=== PATIENT | female | born 1935 | race Caucasian/White ===

== ENCOUNTER 2017-03-31 15:27 | Emergency (ER) | payer OTHER, BC ==
--- NOTE | 2017-03-31 16:33 | PDOC ---
History of Present Illness - General History Source: Patient, Family Exam Limitations: No Limitations - History of Present Illness Initial Comments: 03/31/17 16:34 The patient is an 81 year old female, previous cigarette smoker, with a past significant medical history of hypertension and hyperlipidemia who presents to the emergency department with a productive cough since a week ago and decreased appetite. She describes her phlegm as green colored. She denies any modifying factors. She reports going to her primary care physician 2 weeks ago. She reports going to an urgent care clinic two days ago for her cough. She denies any recent chest x-ray. She denies any nausea or vomiting. She denies any shortness of breath and chest pain. She ambulates normally. <Ca Gifford - Last Filed: 03/31/17 16:33> - History of Present Illness Initial Comments: 03/31/17 18:01 Exam: Alert and oriented no acute distress cheerful and cooperative Afebrile, vital signs normal HEENT clear Neck supple without bruit mass or nodes Chest clear to P&A with full breath sounds bilaterally, no wheezes rales or rhonchi CV S1 and S2 normal without murmur rub or gallop pulses full and symmetric no JVD or edema no bruits Abdomen benign Extremities no CCE Skin clear, no rash, adequate turgor and wet mucous membranes X-ray: Clear Impression: Bronchitis, persistent, no prior therapy or possibly atypicals Plan: Azithromycin and cough suppressant. Rest and fluids. Follow-up with primary physician. Return to ER if there is fever, chest pain, or shortness of breath. Patient fully ambulatory and without distress respiratory or otherwise upon discharge with family to follow-up as recommended <Nigel Mcfarland - Last Filed: 03/31/17 18:03> - General Chief Complaint: Cold Symptoms Stated Complaint: COUGH Time Seen by Provider: 03/31/17 15:45 Past History <Ca Gifford - Last Filed: 03/31/17 16:33> <Nigel Mcfarland - Last Filed: 03/31/17 18:03> - Past Medical History Allergies/Adverse Reactions: Allergies Allergy/AdvReac Type Severity Reaction Status Date / Time No Known Allergies Allergy Verified 03/31/17 15:29 Home Medications: Ambulatory Orders Aspirin 81 mg PO DAILY 11/17/14 Diltiazem HCl [Cartia Xt] 120 mg PO DAILY 11/17/14 Diltiazem HCl [Cartia Xt] 240 mg PO DAILY 11/17/14 Escitalopram Oxalate [Lexapro 5mg/5ml Oral Solution -] 20 mg PO DAILY #600 ml Olmesartan/Hydrochlorothiazide [Benicar Hct 20-12.5mg Tab -] 1 each PO DAILY tablet 11/17/14 Rosuvastatin Calcium [Crestor] 10 mg PO HS tablet 11/17/14 Alprazolam [Xanax] 0.25 mg PO HS 03/31/17 Azithromycin [Zithromax -] 250 mg PO UTDICT #6 tab 03/31/17 Guaifenesin AC [Robitussin-AC] 1 - 2 tsp PO Q8H PRN #90 ml MDD 6 03/31/17 Review of Systems - Review of Systems Able to Perform ROS?: Yes Comments:: 03/31/17 16:34 CONSTITUTIONAL: Absent: fever, no chills, no fatigue EYES: Absent: visual changes ENT: Absent: ear pain, no sore throat CARDIOVASCULAR: Absent: chest pain, no palpitations RESPIRATORY: Present: Productive Cough (green phlegm) Absent: no SOB GI: Present: Decreased appetite Absent: abdominal pain, no nausea, no vomiting, no constipation, no diarrhea GENITOURINARY: Absent: dysuria, no frequency, no hematuria MUSKULOSKELETAL: Absent: back pain, no arthralgia, no myalgia SKIN: Absent: rash NEURO: Absent: headache All Other Systems: Reviewed and Negative <Ca Gifford - Last Filed: 03/31/17 16:33> *Physical Exam - Physical Exam Comments: 03/31/17 16:36 GENERAL: Well-appearing, well-nourished. No apparent distress. HEENT: Normocephalic, atraumatic. PERRL, EOM intact. CARDIOVASCULAR: Normal S1, S2. Regular rate and rhythm. PULMONARY: Congestion greater on the right side, mild wheezing bilaterally. No rales, rhonchi. ABDOMEN: Soft, non-distended, non-tender. EXTREMITIES: Normal ROM in all four extremities. No gross deformities. SKIN: Warm, dry. No rash NEUROLOGICAL: No focal neurological deficits. <Ca Gifford - Last Filed: 03/31/17 16:33> Medical Decision Making - Medical Decision Making 03/31/17 17:19 Chest x-ray is clear Respiratory rate and oxygen saturation levels are normal. Probable acute bronchitis, no sign of pneumonia or respiratory compromise. Antibiotics and cough medication prescribed with follow-up primary physician in 5-7 days Return to ER if there is chest pain, shortness of breath, or fever. Patient ambulatory and discharged with family, in no distress respiratory or otherwise, to follow-up as recommended <Nigel Mcfarland - Last Filed: 03/31/17 18:03> *DC/Admit/Observation/Transfer - Attestations Scribe Attestion: 03/31/17 16:33 Documentation prepared by Ca Gifford, acting as medical equipment sales for Nigel Mary MD/DO. <Ca Gifford - Last Filed: 03/31/17 16:33> - Discharge Dispostion Admit: No <Nigel Mcfarland - Last Filed: 03/31/17 18:03> Diagnosis at time of Disposition: Bronchitis - Discharge Dispostion Disposition: HOME Condition at time of disposition: Stable - Prescriptions Prescriptions: Azithromycin [Zithromax -] 250 mg PO UTDICT #6 tab Guaifenesin AC [Robitussin-AC] 1 - 2 tsp PO Q8H PRN #90 ml MDD 6 PRN Reason: Cough - Patient Instructions Printed Discharge Instructions: DI for Acute Bronchitis Additional Instructions: Rest, fluids, Tylenol, medication as directed Return to ER if there is fever, chest pain, shortness of breath. Otherwise follow-up with primary physician in 5-7 days.
[2017-03-31 16:42] VITALS: BP 146/86; PULSE 76; TEMP 98.4; BMI 18.9
== END 2017-03-31 17:37 | disposition home or self-care (01) ==
LOC: FER 15:27
DX: J40 Bronchitis, not specified as acute or chronic (principal); I10 Essential (primary) hypertension; E78.5 Hyperlipidemia, unspecified
CPT/HCPCS: 71046-TC-FY; 99281-25

== ENCOUNTER 2018-03-27 11:26 | Inpatient (IN) | payer OTHER, BC ==
--- NOTE | 2018-03-27 11:59 | PDOC ---
History of Present Illness - General Chief Complaint: Altered Mental Status Stated Complaint: CONFUSE Time Seen by Provider: 03/27/18 11:58 History Source: Patient, Family Exam Limitations: No Limitations - History of Present Illness Initial Comments: 03/27/18 12:35 81 year old female, smoker, with a past significant medical history of hypertension and hyperlipidemia, depression who presents to the emergency department with AMS x 2 days. Per family, she has been having intermittent periods of confusion and visual hallucinations, where she is seeing her house tovar as black. yesterday she called her son at 1230AM to get a wedding gift for her sons brother in law. Yesterday, she also complained of her neighbors disturbing her [employer]. Over the past 2 days, also decreased PO intake. +nasal congestion. No auditory hallucinations. No f/c, cough; no AP, n/v, urinary sx, hematuria, urgency or frequency. No leg pain or swelling, no weakness or paresthesias or focal neuro changes. No recent abx use, no recent medication changes (uses lexapro. Diovan, crestor, vitamins) No recent stressors. No prior history of confusion Allergies: NKA Past Medical History: hypertension and hyperlipidemia, depression Social history: Lives at home. No smoking. No alcohol. No illicit drugs. Surgical history: [facility] PMD: Dr Phoenix ROS Constitutional: no fevers or chills. HEENT: no headache or dizziness. CVS: no cp or syncope. Resp: no sob. No cough. +nasal congestion. Gastrointestinal: no abdominal pain, nausea or vomiting. Genitourinary: no urinary sx, hematuria. No frequency or urgency. MUSCULOSKELETAL: No joint pain and swelling. No neck or back pain. SKIN: no redness or skin changes, no discharge, no rash. No wounds. Hematologic: no easy bruising/bleeding. NEUROLOGIC: No headache, dizziness. No weakness, numbness or tingling. + Confusion, waxes/wanes. +visual hallucinations; no AH. Allergic/Immunologic: no allergies All other systems reviewed and negative, or as documented in HPI. PE: General: Well appearing, awake and alert, NAD. HEENT: NCAT, PERRL, EOMI, clear conjunctiva, anicteric, moist mucus membranes, clear oropharynx, no oral lesions.. Neck: neck supple, FROM Resp: CTAB, normal and even respirations, no respiratory distress CVS: RRR, no murmurs, 2+ peripheral pulses throughout, no peripheral edema Abdomen: soft, NTND, no peritoneal signs. Back: nontender, normal inspection and ROM MSK: no edema, ARMENDARIZ x4, ROM intact. No clubbing or cyanosis. normal bulk and tone. Extremities: no calf tenderness Neuro: alert, oriented appropriately to person time and place; no focal neurologic deficits; gait stable. 5/5 prox and distal strength, SILT in all extrem. no ataxia. speech clear Skin: warm and well perfused, cap refill <2 sec, normal color Past History - Past Medical History Allergies/Adverse Reactions: Allergies Allergy/AdvReac Type Severity Reaction Status Date / Time No Known Allergies Allergy Verified 03/27/18 11:33 Home Medications: Ambulatory Orders Aspirin 81 mg PO DAILY 11/17/14 Diltiazem HCl [Cartia Xt] 120 mg PO DAILY 11/17/14 Diltiazem HCl [Cartia Xt] 240 mg PO DAILY 11/17/14 Escitalopram Oxalate [Lexapro 5mg/5ml Oral Solution -] 20 mg PO DAILY #600 ml Olmesartan/Hydrochlorothiazide [Benicar Hct 20-12.5mg Tab -] 1 each PO DAILY tablet 11/17/14 Rosuvastatin Calcium [Crestor] 10 mg PO HS tablet 11/17/14 Mirtazapine 15 mg PO DAILY 03/27/18 COPD: No - Suicide/Smoking/Psychosocial Hx Smoking History: Current every day smoker Have you smoked in the past 12 months: Yes Number of Cigarettes Smoked Daily: 5 Information on smoking cessation initiated: No 'Breaking Loose' booklet given: 03/31/17 Hx Alcohol Use: No Drug/Substance Use Hx: No Substance Use Type: None *Physical Exam - Vital Signs Last Vital Signs Temp Pulse Resp BP Pulse Ox 98.2 F 98 H 16 105/53 L 100 03/27/18 11:33 03/27/18 11:33 03/27/18 11:33 03/27/18 11:33 03/27/18 11:33 Moderate Sedation - Procedure Monitoring Vital Signs: Procedure Monitoring Vital Signs Temperature 98.2 F 03/27/18 11:33 Pulse Rate 98 H 03/27/18 11:33 Respiratory Rate 16 03/27/18 11:33 Blood Pressure 105/53 L 03/27/18 11:33 O2 Sat by Pulse Oximetry (%) 100 03/27/18 11:33 Heart Score/ECG Review - ECG Impressions Normal ECG: No Comment:: 03/27/18 14:23 EKG normal sinus rhythm, no interval abnormalities, narrow QRS, ST and T wave segments and morphology normal. Nonspecific T wave abnormalities - some limitation with artifact ED Treatment Course - LABORATORY CBC & Chemistry Diagram: 03/27/18 12:15 03/27/18 12:15 - RADIOLOGY Radiology Studies Ordered: Category Date Time Status HEAD CT WITHOUT CONTRAST [CT] Stat CT Scan 03/27/18 11:58 Ordered CHEST X-RAY PORTABLE* [RAD] Stat Radiology 03/27/18 11:58 Ordered Medical Decision Making - Medical Decision Making 03/27/18 13:14 See HPI for details DDx. UTI, pneumonia, infection, electrolyte/metabolic derangements, dehydration , anemia, CVA, dementia, delirium, PERSONNEL TECHNICIAN mass/pathology Vital signs reviewed, wnl. No fever here Prior notes reviewed, including admissions, discharges and consultations. laboratory results and imaging reviewed, basic labs and lytes notable for significant leukocytosis of 20K Cr elevated 1.6, acute renal insufficiency, likely poor PO intake. Hyponatremic 123, likely hypovolemic - give fluids. currently no neuro deficits , mental status wax/wanes, otherwise well appearing and no indication for hypertonics. lactic normal, reassuring. UA_grossly positive, correlating with acute UTI with +WBC s and leuk esterase. f /u urine culture. Given IV ceftriaxone here +transaminitis noted CXR_no acute pathology, left base atelectasis vs infection, no respiratory distress and no pna sx. Cardiac panel_Trop elevated 1.07, could be NSTEMI vs demand ischemia, no ST elevations on EKG. EKG normal sinus rhythm, no interval abnormalities, narrow QRS, ST and T wave segments and morphology normal. Nonspecific T wave abnormalities - some limitation with artifact CT head neg, volume loss/atrophy. no CVA/bleed/mass ED course: IVF and hydration for hyponatremia/infection/ARLINE, UTI tx with ceftriaxone derangements possibly from dehydration/infection, further workup initiated. cardiology cs with [facility], called to dr damon update given to Dr. Phoenix/PMD. Admit for UTI/AMS, ARLINE, NSTEMI/demand ischemia, infection and hyponatremia.. Pt and PMD made aware, family aware of impression and plan, agreeable. s/o to Dr Kellogg 03/27/18 14:24 *DC/Admit/Observation/Transfer Diagnosis at time of Disposition: Leukocytosis, Hyponatremia, Acute renal insufficiency Altered mental status, unspecified Qualifiers: Altered mental status type: delirium Qualified Code(s): R41.0 - Disorientation , unspecified UTI (urinary tract infection) Qualifiers: Urinary tract infection type: acute cystitis Hematuria presence: with hematuria Qualified Code(s): N30.01 - Acute cystitis with hematuria - Discharge Dispostion Condition at time of disposition: Improved Decision to Admit order: Yes Decision to Admit order Date/Time: 03/27/18 13:21 Decision to Admit Order Category Date Time Status Decision to Admit to Hospital Routine Admission 03/27/18 13:15 Active - Referrals - Patient Instructions - Post Discharge Activity
[2018-03-27 12:25] LABS: URINE APPEARANCE CLOUDY; URINE BILIRUBIN NEGATIVE (<2.0 mg/dL); URINE COLOR AMBER; URINE GLUCOSE (UA) NEGATIVE (NEGATIVE); URINE KETONE NEGATIVE (NEGATIVE); URINE LEUK ESTERASE 3+ (NEGATIVE); URINE NITRITE NEGATIVE (NEGATIVE); URINE PROTEIN 2+ (NEGATIVE); URINE UROBILINOGEN 4.0 E.U/dl mg/dL (0.2-1.0)
[2018-03-27 12:35] LABS: EPI CELLS MANY /HPF (FEW); URINE BACTERIA RARE /hpf (NONE SEEN); URINE HYALINE CAST 2 /lpf; URINE MUCUS RARE
[2018-03-27 12:43] LABS: BASO % 0.1 % (0-2.0); EOS % 13.4 % (0-4.5); HEMATOCRIT 41.3 % (32.4-45.2); HEMOGLOBIN 14.3 GM/dL (10.7-15.3); MCH 30.4 pg (25.7-33.7); MCHC 34.5 g/dl (32.0-36.0); MEAN CELL VOLUME 88.1 fl (80-96); MONO % 2.5 % (3.8-10.2); PLATELET COUNT 247 K/MM3 (134-434); RBC 4.68 M/mm3 (3.60-5.2); RDW 13.8 % (11.6-15.6); WHITE BLOOD COUNT 20.7 K/mm3 (4.0-10.0)
[2018-03-27] MEDS ORDERED: CEFTRIAXONE 1,000 MG in DEXTROSE 5%-WATER - 50 ML IVPB ONE (13:02)
[2018-03-27 13:08] LABS: ALBUMIN 3.4 g/dl (3.4-5.0); ALK PHOS 937 U/L (45-117); ANION GAP 9 MMOL/L (8-16); BILIRUBIN,TOTAL 0.9 mg/dL (0.2-1); BLOOD UREA NITROGEN 36 mg/dL (7-18); CALCIUM 8.7 mg/dL (8.5-10.1); CHLORIDE 88 mmol/L (98-107); CO2 25 mmol/L (21-32); CREATININE 1.6 mg/dL (0.55-1.3); GLUCOSE,RANDOM 109 mg/dL (74-106); POTASSIUM 4.3 mmol/L (3.5-5.1); SGOT/AST 96 U/L (15-37); SGPT/ALT 300 U/L (13-61); SODIUM 123 mmol/L (136-145); TOT PROT 6.6 g/dl (6.4-8.2)
[2018-03-27] MEDS ORDERED: SODIUM CHLORIDE 0.9% 500 ML INFUS.BAG IV ONE (13:18)
[2018-03-27] MEDS ORDERED: ASPIRIN 81 MG CHEWABLE TABLETS PO ONE (13:18)
[2018-03-27] MEDS ORDERED: ASPIRIN 81 MG CHEWABLE TABLETS ONE (13:27)
[2018-03-27] MEDS ORDERED: CEFTRIAXONE 1 GM/50 ML BAG ONE (13:27)
--- NOTE | 2018-03-27 14:20 | HP ---
Admitting History and Physical - Primary Care Physician PCP: Dora Reaves - Admission Chief Complaint: sepsis History of Present Illness: 82 year old female pmh of HTN, HLD, Anxiety presents with acute altered mental status. Pt was brought in by family for confusion/visual hallucinations for 1-2 days. Family reports pt has been reporting she "has not been feeling well" for the last couple of days. Pt reports her son brought her in. Reports poor po intake for weeks. Pt also c/o feeling dizzy once yesterday. Otherwise, pt reports feeling okay at the moment. She denies any chest pain, chest discomfort , sob, lightheadedness, fall, fever/chills, abdominal pain, n/v/d, dysuria, back pain, slurred speech, rash, or recent travel. History Source: Patient, Family Member, Medical Record Limitations to Obtaining History: Clinical Condition - Past Medical History Cardiovascular: Yes: CAD, HTN, Hyperlipdemia Psych: Yes: Anxiety, Depression - Smoking History Smoking history: Current every day smoker Have you smoked in the past 12 months: Yes Aproximately how many cigarettes per day: 5 - Alcohol/Substance Use Hx Alcohol Use: No History of Substance Use: reports: None - Social History Usual Living Arrangement: Yes: Alone ADL: Independent History of Recent Travel: No Home Medications - Allergies Allergies/Adverse Reactions: Allergies Allergy/AdvReac Type Severity Reaction Status Date / Time No Known Allergies Allergy Verified 03/27/18 11:33 - Home Medications Home Medications: Ambulatory Orders Aspirin 81 mg PO DAILY 11/17/14 Diltiazem HCl [Cartia Xt] 120 mg PO DAILY 11/17/14 Diltiazem HCl [Cartia Xt] 240 mg PO DAILY 11/17/14 Escitalopram Oxalate [Lexapro 5mg/5ml Oral Solution -] 20 mg PO DAILY #600 ml Olmesartan/Hydrochlorothiazide [Benicar Hct 20-12.5mg Tab -] 1 each PO DAILY tablet 11/17/14 Rosuvastatin Calcium [Crestor] 10 mg PO HS tablet 11/17/14 Mirtazapine 15 mg PO DAILY 03/27/18 Family Disease History - Family Disease History Family History: Denies Review of Systems Findings/Remarks: as per hpi Physical Examination Vital Signs: Vital Signs Temperature 98.2 F 03/27/18 11:33 Pulse Rate 90 03/27/18 12:43 Respiratory Rate 16 03/27/18 11:33 Blood Pressure 105/53 L 03/27/18 11:33 O2 Sat by Pulse Oximetry (%) 100 03/27/18 11:33 Constitutional: Yes: No Distress, Thin Cardiovascular: Yes: Regular Rate and Rhythm Respiratory: Yes: WNL, Regular, CTA Bilaterally, Diminished. No: Accessory Muscle Use, Tachypnea, Wheezes Gastrointestinal: Yes: WNL, Normal Bowel Sounds, Soft. No: Distention, Hepatomegaly, Tenderness, Tenderness, Rebound, Vomiting Renal/: Yes: WNL Musculoskeletal: Yes: WNL Extremities: Yes: WNL Edema: No Neurological: Yes: Alert, Confusion. No: Facial Droop, Lethargy Psychiatric: Yes: Alert Labs: CBC, BMP 03/27/18 12:15 03/27/18 12:15 Imaging - Results Chest X-ray: Report Reviewed (no acute findings), Image Reviewed Cat Scan: Report Reviewed (head CT neg) Problem List - Problems (1) Sepsis Assessment/Plan: tachycardic, hypotensive, +ams at admission wbc 20k, fawad, transaminitis 2/2 sepsis lactic acid 1.6 suspect 2/2 UTI UA +, await UC/BC IVF ceftriaxone monitor Code(s): A41.9 - SEPSIS, UNSPECIFIED ORGANISM (2) UTI (urinary tract infection) Assessment/Plan: as above Code(s): N39.0 - URINARY TRACT INFECTION, SITE NOT SPECIFIED Qualifiers: Urinary tract infection type: acute cystitis Hematuria presence: with hematuria Qualified Code(s): N30.01 - Acute cystitis with hematuria (3) Metabolic encephalopathy Assessment/Plan: head ct neg suspect 2/2 sepsis tx underlying and monitor for improvement Code(s): G93.41 - METABOLIC ENCEPHALOPATHY (4) Leukocytosis Assessment/Plan: as above Code(s): D72.829 - ELEVATED WHITE BLOOD CELL COUNT, UNSPECIFIED (5) Hyponatremia Assessment/Plan: hypovolemic urine/serum osm/urine na ordered avoid rapid na correction >8 /24hours will hydrate with NaCl and monitor Code(s): E87.1 - HYPO-OSMOLALITY AND HYPONATREMIA (6) Elevated troponin Assessment/Plan: ekg w/out acute changes does not suspect ACS suspect demand 2/2 sepsis trend tele monitoring cardiology consult pending Code(s): R74.8 - ABNORMAL LEVELS OF OTHER SERUM ENZYMES (7) FAWAD (acute kidney injury) Assessment/Plan: suspect pre renal IVF encourage po intake Code(s): N17.9 - ACUTE KIDNEY FAILURE, UNSPECIFIED (8) Transaminitis Assessment/Plan: 2/2 sepsis monitor Code(s): R74.0 - NONSPEC ELEV OF LEVELS OF TRANSAMNS & LACTIC ACID DEHYDRGNSE (9) CAD (coronary artery disease) Assessment/Plan: as above continue statin/asa Code(s): I25.10 - ATHSCL HEART DISEASE OF [place] CORONARY ARTERY W/O ANG PCTRS Qualifiers: Coronary Disease-Associated Artery/Lesion type: teller artery [place] vs. transplanted heart: teller heart Associated angina: without angina Qualified Code(s): I25.10 - Atherosclerotic heart disease of [place] coronary artery without angina pectoris (10) HTN (hypertension) Assessment/Plan: hypotensive holding antihypertensives Code(s): I10 - ESSENTIAL (PRIMARY) HYPERTENSION Qualifiers: Hypertension type: essential hypertension Qualified Code(s): I10 - Essential (primary) hypertension (11) HLD (hyperlipidemia) Assessment/Plan: chronic continue statin Code(s): E78.5 - HYPERLIPIDEMIA, UNSPECIFIED (12) Tobacco dependence Assessment/Plan: advise smoking cessation nicotine patch ordered Code(s): F17.200 - NICOTINE DEPENDENCE, UNSPECIFIED, UNCOMPLICATED (13) Anxiety Assessment/Plan: controlled continue lexapro/mirtazapine Code(s): F41.9 - ANXIETY DISORDER, UNSPECIFIED
--- NOTE | 2018-03-27 15:49 | EKG ---
Test Reason : Blood Pressure : / mmHG Vent. Rate : 090 BPM Atrial Rate : 090 BPM P-R Int : 134 ms QRS Dur : 068 ms QT Int : 376 ms P-R-T Axes : 047 073 084 degrees QTc Int : 459 ms POOR DATA QUALITY, INTERPRETATION MAY BE ADVERSELY AFFECTED SINUS RHYTHM WITH OCCASIONAL PREMATURE VENTRICULAR COMPLEXES LOW VOLTAGE QRS T WAVE ABNORMALITY, CONSIDER LATERAL ISCHEMIA ABNORMAL ECG NO PREVIOUS ECGS AVAILABLE Confirmed by Rik Layton ([id number]) on 03/27/2018 3:49:23 PM Referred By: Confirmed By:Rik Layton
[2018-03-27] MEDS: SODIUM CHLORIDE 1,000 ML IV SCH (16:00)
--- NOTE | 2018-03-27 16:12 | CON.CARD ---
Consult Consult Specialty:: cardio - History of Present Illness Chief Complaint: confusion, hallucinations (visual) History of Present Illness: 82 brought by family for altered mental status. in ER found to have soft BPs (100s), hi WBC, normal temp, normal lactate. SNa 123. dirty UA--started on abx for UTI. ALT 300, hi alk phos as well 900 (normal bili). routine troponin 1.0 pt (and family at bedside) state at no point did she have any cp/pressure/ tightness/heaviness. and no sob at all. feeling well here, with improved mental status per family. she also denies palpitations or syncope PMH: CAD (medically treated) HTN HPL + cigs - Past Medical History Cardio/Vascular: Yes: CAD, HTN, Hyperlipdemia Psych: Yes: Anxiety, Depression - Alcohol/Substance Use Hx Alcohol Use: No History of Substance Use: reports: None - Smoking History Smoking history: Current every day smoker Have you smoked in the past 12 months: Yes Aproximately how many cigarettes per day: 5 - Social History ADL: Independent History of Recent Travel: No Home Medications - Allergies Allergies/Adverse Reactions: Allergies Allergy/AdvReac Type Severity Reaction Status Date / Time No Known Allergies Allergy Verified 03/27/18 11:33 - Home Medications Home Medications: Ambulatory Orders Aspirin 81 mg PO DAILY 11/17/14 Diltiazem HCl [Cartia Xt] 120 mg PO DAILY 11/17/14 Diltiazem HCl [Cartia Xt] 240 mg PO DAILY 11/17/14 Escitalopram Oxalate [Lexapro 5mg/5ml Oral Solution -] 20 mg PO DAILY #600 ml Olmesartan/Hydrochlorothiazide [Benicar Hct 20-12.5mg Tab -] 1 each PO DAILY tablet 11/17/14 Rosuvastatin Calcium [Crestor] 10 mg PO HS tablet 11/17/14 Mirtazapine 15 mg PO DAILY 03/27/18 Vital Signs: Vital Signs Temperature 98.2 F 03/27/18 11:33 Pulse Rate 94 H 03/27/18 15:30 Respiratory Rate 20 03/27/18 15:30 Blood Pressure 106/56 L 03/27/18 15:30 O2 Sat by Pulse Oximetry (%) 100 03/27/18 15:30 - Other Data Labs, Other Data: CBC, BMP 03/27/18 12:15 03/27/18 12:15 Troponin, BNP 03/27/18 12:15 Troponin I 1.07 H* Troponin, BNP 03/27/18 12:15 Troponin I 1.07 H* Laboratory Tests 03/27/18 03/27/18 03/27/18 12:15 12:15 12:15 WBC 20.7 H Hgb 14.3 Plt Count 247 Sodium 123 L Potassium 4.3 Carbon Dioxide 25 BUN 36 H Creatinine 1.6 H Lactic Acid 1.6 Total Bilirubin 0.9 AST 96 H ALT 300 H Alkaline Phosphatase 937 H Troponin I Albumin 3.4 03/27/18 12:15 WBC Hgb Plt Count Sodium Potassium Carbon Dioxide BUN Creatinine Lactic Acid Total Bilirubin AST ALT Alkaline Phosphatase Troponin I 1.07 H* Albumin Assessment/Plan MIBI 2010: no STs; mild AW ischemia; nl EF Echo 2015: nl LV/EF; nl RV; nl valves Carotids 2015: 50-69% plq bilaterally (PSV 145 R, 162 L), no sig change vs prior ECG#1: NSR. 0.5mm ST elevation V4-V6, I/avL with TWIs. no reciprocal ST depressions. new vs 12/14 office ecg #2 (approx 4pm): no change in ST-T abnormalities (<0.5mm ALEX now), prolonged QT CXR: may be atx or infiltrate L base CT head: no acute pathology altered MS: -sec to infection and/or hyponatremia most likely -LFT abnormalities noted, albumin normal. check coags for synthetic function, ammonia level NSTEMI, Chronic ischemic heart disease -stress test 2010 with mild anterior wall ischemia. medically managed, never had angina sx's, declined repeat stress testing or cath repeatedly. -here with metabolic derangements and altered MS, incidental troponin 1.0 -no ischemia sx's. -ECG with non-diagnostic changes of 0.5mm ST elevations in anterolateral territory and nonspecific TWIs = new. repeat with similar findings, prolonged QT. no reciprocal depressions--hence ECG not diagnostic for STEMI and pt without sx's of acute ischemia. -? true ACS triggered by acute infection (i.e. NSTEMI) but asymptomatic--more likely this is Type II MS (involving chronic, stable LAD lesion) or sepsis etiology/metabolic perturbations -continue aspirin -defer heparin unless sx's of ACS develop -hold statin given unexplained hi LFTs -will likely start low dose b-rina if BP stable over next 24 hrs -echo for LV fxn -will consider risk-stratifying pharm MPI prior to discharge ARLINE: -? due to URI, ? due to infection -gentle IVF -o/w per hospitalist abnormal LFTs: -per hospitalist. consider further w/u and/or imaging hyponatremia: -observe trend with normal saline -plan per hospitalist Essential hypertension -known white coat HTN history -has been well controlled with pmd in our practice on current regimen -bp soft here, hold home meds Nicotine dependence continuous -repeatedly declined cessation assistance or counselling as she feels her anxiety will not tolerate quitting est time spent in review of data, examining pt, and formulating tx plan of potentially life-threatening medical problems = 35 min
[2018-03-27] MEDS: NICOTINE 7 MG/24 HOURS TOPICAL PATCH TD SCH (18:07)
[2018-03-27 18:29] LABS: ANION GAP 10 MMOL/L (8-16); BLOOD UREA NITROGEN 35 mg/dL (7-18); CALCIUM 8.3 mg/dL (8.5-10.1); CHLORIDE 91 mmol/L (98-107); CO2 24 mmol/L (21-32); CREATININE 1.7 mg/dL (0.55-1.3); GLUCOSE,RANDOM 120 mg/dL (74-106); SODIUM 126 mmol/L (136-145)
[2018-03-27 19:59] LABS: INR 1.29 (0.83-1.09); PROTHROMBIN TIME (PATIENT) 15.3 SEC (9.7-13.0)
[2018-03-27 20:02] LABS: ACTIVATED PTT 34.9 SECONDS (25.2-36.5)
[2018-03-27] MEDS ORDERED: ROSUVASTATIN CA 10 MG TABLET (FP) PO SCH (22:00)
[2018-03-27] MEDS: ALPRAZolam 0.25 MG TABLET PO PRN (22:56)
[2018-03-27] MEDS: MIRTAZAPINE 15 MG TABLET (FP) PO SCH (22:56)
[2018-03-27] MEDS: HEPARIN NA (PORCINE) 5,000 UNITS/ML 1ML VIAL SQ SCH (22:56)
[2018-03-28 06:33] LABS: BASO % 0.1 % (0-2.0); EOS % 17.7 % (0-4.5); HEMOGLOBIN 12.7 GM/dL (10.7-15.3); LYMPH % 3.8 % (8-40); MCH 30.2 pg (25.7-33.7); MCHC 34.4 g/dl (32.0-36.0); MEAN CELL VOLUME 87.9 fl (80-96); MEAN PLT VOLUME 9.5 fl (7.5-11.1); MONO % 1.4 % (3.8-10.2); PLATELET COUNT 199 K/MM3 (134-434); RDW 13.5 % (11.6-15.6); WHITE BLOOD COUNT 19.1 K/mm3 (4.0-10.0)
[2018-03-28 07:42] LABS: ALBUMIN 2.7 g/dl (3.4-5.0); ALK PHOS 882 U/L (45-117); ANION GAP 10 MMOL/L (8-16); BILIRUBIN,TOTAL 0.6 mg/dL (0.2-1); BLOOD UREA NITROGEN 32 mg/dL (7-18); CALCIUM 7.4 mg/dL (8.5-10.1); CHLORIDE 92 mmol/L (98-107); CO2 22 mmol/L (21-32); CREATININE 1.4 mg/dL (0.55-1.3); GLUCOSE,RANDOM 87 mg/dL (74-106); MAGNESIUM 2.2 mg/dL (1.8-2.4); PHOSPHOROUS 2.5 mg/dL (2.5-4.9); POTASSIUM 3.9 mmol/L (3.5-5.1); SGOT/AST 73 U/L (15-37); SGPT/ALT 222 U/L (13-61); SODIUM 124 mmol/L (136-145); TOT PROT 5.2 g/dl (6.4-8.2)
--- NOTE | 2018-03-28 09:35 | PN ---
Progress Note, Physician Chief Complaint: Pt lying in bed in no acute distress. fatigued. confused. Denies any chest pain , sob, n/v/d - Current Medication List Current Medications: Active Medications Alprazolam (Xanax -) 0.5 mg PO Q8H PRN PRN Reason: ANXIETY Last Admin: 03/27/18 22:56 Dose: 0.5 mg Aspirin (Asa -) 81 mg PO DAILY [facility] Docusate Sodium (Colace -) 300 mg PO HS [facility] Escitalopram Oxalate (Lexapro -) 20 mg PO DAILY [facility] Heparin Sodium (Porcine) (Heparin -) 5,000 unit SQ BID [facility] Last Admin: 03/27/18 22:56 Dose: 5,000 unit Ceftriaxone Sodium 2 gm/ (Dextrose) 100 mls @ 200 mls/hr IVPB DAILY [facility]; Protocol Sodium Chloride (Normal Saline -) 1,000 mls @ 100 mls/hr IV ASDIR [facility] Last Admin: 03/27/18 16:00 Dose: 100 mls/hr Mirtazapine (Remeron -) 15 mg PO HS [facility] Last Admin: 03/27/18 22:56 Dose: 15 mg Nicotine (Nicoderm Patch -) 7 mg TD DAILY [facility] Last Admin: 03/27/18 18:07 Dose: Not Given Polyethylene Glycol (Miralax (For Daily Use) -) 17 gm PO DAILY [facility] - Objective Vital Signs: Vital Signs Temperature 99.3 F 03/28/18 01:39 Pulse Rate 101 H 03/28/18 07:00 Respiratory Rate 22 H 03/28/18 07:00 Blood Pressure 118/80 03/28/18 07:00 O2 Sat by Pulse Oximetry (%) 97 03/28/18 09:00 Constitutional: Yes: No Distress, Thin Cardiovascular: Yes: Regular Rate and Rhythm Respiratory: Yes: Regular, Diminished, Rhonchi (scattered). No: Accessory Muscle Use, SOB, Tachypnea, Wheezes Gastrointestinal: Yes: WNL, Normal Bowel Sounds, Soft. No: Distention, Tenderness Genitourinary: Yes: WNL Extremities: Yes: WNL Edema: No Neurological: Yes: Alert, Confusion Psychiatric: Yes: Alert Labs: CBC, BMP 03/28/18 05:30 03/28/18 05:30 INR, PTT INR 1.29 (0.83-1.09) H 03/27/18 18:47 Assessment/Plan (1) Sepsis Assessment/Plan: improving suspect 2/2 UTI UA +, await UC/BC IVF ceftriaxone day 2 Code(s): A41.9 - SEPSIS, UNSPECIFIED ORGANISM (2) UTI (urinary tract infection) Assessment/Plan: as above Code(s): N39.0 - URINARY TRACT INFECTION, SITE NOT SPECIFIED Qualifiers: Urinary tract infection type: acute cystitis Hematuria presence: with hematuria Qualified Code(s): N30.01 - Acute cystitis with hematuria (3) Metabolic encephalopathy Assessment/Plan: tx underlying and monitor for improvement suspect 2/2 hyponatremia/uti Code(s): G93.41 - METABOLIC ENCEPHALOPATHY (4) Leukocytosis Assessment/Plan: as above Code(s): D72.829 - ELEVATED WHITE BLOOD CELL COUNT, UNSPECIFIED (5) Hyponatremia Assessment/Plan: hypoosmolar, hypovolemic slowly improving avoid rapid na correction >8 /24hours continue NS bmp q4hrs Code(s): E87.1 - HYPO-OSMOLALITY AND HYPONATREMIA (6) Elevated troponin Assessment/Plan: demand cardiology evaluated Code(s): R74.8 - ABNORMAL LEVELS OF OTHER SERUM ENZYMES (7) ARLINE (acute kidney injury) Assessment/Plan: pre renal, improving urine na<17, c/w volume depletion IVF encourage po intake Code(s): N17.9 - ACUTE KIDNEY FAILURE, UNSPECIFIED (8) Transaminitis Assessment/Plan: improving, suspect 2/2 hypoperfusion abd us w/out acute findings holding statin Code(s): R74.0 - NONSPEC ELEV OF LEVELS OF TRANSAMNS & LACTIC ACID DEHYDRGNSE (9) CAD (coronary artery disease) Assessment/Plan: no acute ACS continue asa Code(s): I25.10 - ATHSCL HEART DISEASE OF [place] CORONARY ARTERY W/O ANG PCTRS Qualifiers: Coronary Disease-Associated Artery/Lesion type: [place] artery [place] vs. transplanted heart: [place] heart Associated angina: without angina Qualified Code(s): I25.10 - Atherosclerotic heart disease of [place] coronary artery without angina pectoris (10) HTN (hypertension) Assessment/Plan: hypotensive holding antihypertensives Code(s): I10 - ESSENTIAL (PRIMARY) HYPERTENSION Qualifiers: Hypertension type: essential hypertension Qualified Code(s): I10 - Essential (primary) hypertension (11) HLD (hyperlipidemia) Assessment/Plan: chronic holding statin Code(s): E78.5 - HYPERLIPIDEMIA, UNSPECIFIED (12) Tobacco dependence Assessment/Plan: advise smoking cessation nicotine patch Code(s): F17.200 - NICOTINE DEPENDENCE, UNSPECIFIED, UNCOMPLICATED (13) Anxiety Assessment/Plan: controlled continue lexapro/mirtazapine xanax prn Code(s): F41.9 - ANXIETY DISORDER, UNSPECIFIED
--- NOTE | 2018-03-28 10:18 | PN ---
Progress Note (short form) - Note Progress Note: s: no chest pain, palps, dizzy, dyspnea. Vital Signs: Vital Signs Period Temp Pulse Resp BP Sys/[place] Pulse Ox Last 24 Hr 98.2 F-99.3 F 90-108 16-22 105-121/53-80 97-100 Constitutional: Yes: No Distress Cardiovascular: Yes: Regular Rate and Rhythm, nl S1 S2 Respiratory: Yes: WNL, Regular, CTA Bilaterally, Diminished. No: Accessory Muscle Use, Tachypnea, Wheezes Gastrointestinal: Yes: WNL, Normal Bowel Sounds, Soft. No: Distention, Hepatomegaly, Tenderness, Tenderness, Rebound, Vomiting Renal/: Yes: WNL Musculoskeletal: Yes: WNL Extremities: Yes: WNL Edema: No Neurological: Yes: Alert, Confusion. No: Facial Droop, Lethargy Psychiatric: Yes: Alert Current Medications Alprazolam (Xanax -) 0.5 mg PO Q8H PRN PRN Reason: ANXIETY Last Admin: 03/27/18 22:56 Dose: 0.5 mg Aspirin (Asa -) 81 mg PO DAILY [facility] Docusate Sodium (Colace -) 300 mg PO HS [facility] Escitalopram Oxalate (Lexapro -) 20 mg PO DAILY [facility] Heparin Sodium (Porcine) (Heparin -) 5,000 unit SQ BID [facility] Last Admin: 03/27/18 22:56 Dose: 5,000 unit Ceftriaxone Sodium 2 gm/ (Dextrose) 100 mls @ 200 mls/hr IVPB DAILY [facility]; Protocol Sodium Chloride (Normal Saline -) 1,000 mls @ 100 mls/hr IV ASDIR [facility] Last Admin: 03/27/18 16:00 Dose: 100 mls/hr Mirtazapine (Remeron -) 15 mg PO HS [facility] Last Admin: 03/27/18 22:56 Dose: 15 mg Nicotine (Nicoderm Patch -) 7 mg TD DAILY [facility] Last Admin: 03/27/18 18:07 Dose: Not Given Polyethylene Glycol (Miralax (For Daily Use) -) 17 gm PO DAILY [facility] Tiotropium [place] (Spiriva Respimat) 2 puff IH DAILY [facility] Assessment/Plan MIBI 2010: no STs; mild AW ischemia; nl EF Echo 2015: nl LV/EF; nl RV; nl valves Carotids 2015: 50-69% plq bilaterally (PSV 145 R, 162 L), no sig change vs prior ECG#1: NSR. 0.5mm ST elevation V4-V6, I/avL with TWIs. no reciprocal ST depressions. new vs 12/14 office ecg #2 (approx 4pm): no change in ST-T abnormalities (<0.5mm ALEX now), prolonged QT CXR: may be atx or infiltrate L base CT head: no acute pathology tele: sinus, PVCs, brief SVT altered MS: -sec to infection and/or hyponatremia most likely - manage per primary NSTEMI, Chronic ischemic heart disease -stress test 2010 with mild anterior wall ischemia. medically managed, never had angina sx's, declined repeat stress testing or cath repeatedly. -here with metabolic derangements and altered MS, incidental troponin 1.0, downtrending -no ischemia sx's. -ECG with non-diagnostic changes of 0.5mm ST elevations in anterolateral territory and nonspecific TWIs = new. repeat with similar findings, prolonged QT. no reciprocal depressions--hence ECG not diagnostic for STEMI and pt without sx's of acute ischemia. -? true ACS triggered by acute infection (i.e. NSTEMI) but asymptomatic--more likely this is Type II [place] (involving chronic, stable LAD lesion) or sepsis etiology/metabolic perturbations -continue aspirin -defer heparin unless sx's of ACS develop -hold statin given unexplained hi LFTs -cont metoprolol -echo for LV fxn, pending -will consider risk-stratifying pharm MPI prior to discharge ARLINE: -? due to URI, ? due to infection -gentle IVF -o/w per hospitalist abnormal LFTs: -per hospitalist. consider further w/u and/or imaging hyponatremia: -observe trend with normal saline -plan per hospitalist Essential hypertension -known white coat HTN history -has been well controlled with pmd in our practice on current regimen -bp soft here, hold home meds Nicotine dependence continuous -repeatedly declined cessation assistance or counselling as she feels her anxiety will not tolerate quitting
[2018-03-28] MEDS ORDERED: ALBUTEROL SO4 2.5/IPRATROPIUM 0.5 INH SOL 3 ML VIAL.NEB. NEB PRN (10:40)
[2018-03-28] MEDS: ASPIRIN 81 MG CHEWABLE TABLETS PO SCH (11:00)
[2018-03-28] MEDS: HEPARIN NA (PORCINE) 5,000 UNITS/ML 1ML VIAL SQ SCH ×2 (11:00→21:58)
[2018-03-28] MEDS: NICOTINE 7 MG/24 HOURS TOPICAL PATCH TD SCH (11:10)
[2018-03-28] MEDS: ESCITALOPRAM OXALATE 20 MG TABLET (FP) PO SCH (11:10)
[2018-03-28] MEDS: POLYETHYLENE GLYCOL 3350 119 GM BTL PO SCH (11:10)
[2018-03-28] MEDS: CEFTRIAXONE 2 GM in DEXTROSE 5%-WATER 100 ML IVPB SCH (11:10)
[2018-03-28] MEDS: TIOTROPIUM BROMIDE 2.5 MCG (SPIRIVA) RESPIMAT INHALER IH SCH (11:11)
[2018-03-28 15:34] LABS: ANION GAP 11 MMOL/L (8-16); BLOOD UREA NITROGEN 30 mg/dL (7-18); CALCIUM 7.7 mg/dL (8.5-10.1); CHLORIDE 94 mmol/L (98-107); CO2 20 mmol/L (21-32); CREATININE 1.3 mg/dL (0.55-1.3); GLUCOSE,RANDOM 135 mg/dL (74-106); POTASSIUM 3.8 mmol/L (3.5-5.1); SODIUM 125 mmol/L (136-145)
[2018-03-28] MEDS ORDERED: SODIUM CHLORIDE 3% 500 ML/500 ML INFUS.BAG IV ONE ×2 (15:46→15:52)
[2018-03-28] MEDS ORDERED: SODIUM CHLORIDE 1,000 ML IV SCH ×2 (16:14→18:00)
[2018-03-28] MEDS: ALBUTEROL SO4 0.083% IH SOL 2.5 MG/3 ML VIAL.NEB. NEB PRN (19:28)
[2018-03-28] MEDS: ALPRAZolam 0.25 MG TABLET PO PRN (20:30)
[2018-03-28] MEDS: DOCUSATE SODIUM 100 MG CAPSULE (FP) PO SCH ×2 (20:31→21:57)
[2018-03-28 21:15] LABS: ANION GAP 12 MMOL/L (8-16); BLOOD UREA NITROGEN 26 mg/dL (7-18); CALCIUM 7.4 mg/dL (8.5-10.1); CHLORIDE 92 mmol/L (98-107); CO2 18 mmol/L (21-32); GLUCOSE,RANDOM 126 mg/dL (74-106); POTASSIUM 3.7 mmol/L (3.5-5.1); SODIUM 121 mmol/L (136-145)
[2018-03-28] MEDS: MIRTAZAPINE 15 MG TABLET (FP) PO SCH (21:57)
--- NOTE | 2018-03-28 22:44 | HOSP ---
Subjective - Review of Symptoms Subjective: Was called to evaluate the patient after she was noted to have decreased sodium. She had a sodium of 125 earlier in the day and was found to have a sodium of 121 this evening. Patient had been treated with NS @ 100 and 500ml 3% % NS x2 in the past. Physical Examination Vital Signs: Vital Signs Temperature 98.4 F 03/28/18 17:00 Pulse Rate 89 03/28/18 17:00 Respiratory Rate 20 03/28/18 17:00 Blood Pressure 112/75 03/28/18 17:00 O2 Sat by Pulse Oximetry (%) 97 03/28/18 09:00 Constitutional: Yes: Well Nourished, Anxious Eyes: Yes: Conjunctiva Clear, EOM Intact Cardiovascular: Yes: Regular Rate and Rhythm Respiratory: Yes: Regular, Other (crackles heard at the right base. Exstensive upper airway sounds.) Gastrointestinal: Yes: Normal Bowel Sounds, Soft. No: Tenderness Labs: CBC, BMP 03/28/18 05:30 03/28/18 20:20 Hospitalist Encounter Assessment: The patient's hyponatremia may be due to her outpatient HCTZ use coupled with her ABX, which is being administered in dextrose and her concomitant CKD ( elevated Cr. w/ normotomic urine). Recommendations/Interventions: Will D/C NS at this time and fluid restrict the patient's free water intake to 1L overnight. Recheck Sodium in AM to monitor progress. Case and Plan discussed w/ Dr. Ramirez, who is in agreement. Visit type - Emergency Visit Emergency Visit: Yes ED Registration Date: 03/27/18 Care time: The patient presented to the Emergency Department on the above date and was hospitalized for further evaluation of their emergent condition. - New Patient This patient is new to me today: Yes Date on this admission: 03/28/18 - Critical Care Critical Care patient: No
--- NOTE | 2018-03-28 22:47 | FALL ---
Fall Exam - Event Witnessed fall: No Location of Fall: Patient Room Fall from: Bed - Pre-Fall Mental Status: Disoriented Current Medications: Current Medications Generic Name Dose Route Start Last Admin Trade Name Alonso PRN Reason Stop Dose Admin Albuterol Sulfate 1 amp 03/28/18 10:42 03/28/18 19:28 Ventolin 0.083% Nebulizer Soln - NEB 1 amp Q6H PRN Administration SHORTNESS OF BREATH Alprazolam 0.5 mg 03/27/18 15:59 03/28/18 20:30 Xanax - PO 0.5 mg Q8H PRN Administration ANXIETY Aspirin 81 mg 03/28/18 10:00 03/28/18 11:00 Asa - PO 81 mg DAILY [facility] Administration Docusate Sodium 300 mg 03/28/18 22:00 03/28/18 21:57 Colace - PO Not Given HS [facility] Escitalopram Oxalate 20 mg 03/28/18 10:00 03/28/18 11:10 Lexapro - PO 20 mg DAILY [facility] Administration Heparin Sodium (Porcine) 5,000 unit 03/27/18 22:00 03/28/18 21:58 Heparin - SQ 5,000 unit BID [facility] Administration Ceftriaxone Sodium 2 gm/ 100 mls @ 200 mls/hr 03/28/18 10:00 03/28/18 11:10 Dextrose IVPB 200 mls/hr DAILY [facility] Administration Protocol Sodium Chloride 1,000 mls @ 100 mls/hr 03/28/18 16:14 Normal Saline - IV ASDIR [facility] Mirtazapine 15 mg 03/27/18 22:00 03/28/18 21:57 Remeron - PO 15 mg HS [facility] Administration Nicotine 7 mg 03/27/18 15:30 03/28/18 11:10 Nicoderm Patch - TD 7 mg DAILY [facility] Administration Polyethylene Glycol 17 gm 03/28/18 10:00 03/28/18 11:10 Miralax (For Daily Use) - PO 17 gm DAILY [facility] Administration Tiotropium [place] 2 puff 03/28/18 10:15 03/28/18 11:11 Spiriva Respimat IH 2 puff DAILY [facility] Administration - Post-Fall Patient Outcome: Pain Only Exam Findings: Patient confused and speaking nonsensically, per nursing staff, this was her level of consiousness prior to the fall this evening. Patient neurologically intact w/ PEERLA and 5/5 strength in all 4 limbs. Exam limited by patient confusion. Patient stated that she hit her head and c/o right shoulder and right hip pain. Patient of SQ heparin for DVT PPTX. Fall protocol # 1 ordered. Right shoulder and hip XR ordered. Heart RRR no mumurs. Lungs wheezing heard b/l w/ crackles at the right base Treatment: Ice Pack Vital Signs: Vital Signs Temperature 98.4 F 03/28/18 17:00 Pulse Rate 89 03/28/18 17:00 Respiratory Rate 20 03/28/18 17:00 Blood Pressure 112/75 03/28/18 17:00 O2 Sat by Pulse Oximetry (%) 97 03/28/18 09:00 LOC Post-Fall: Unchanged Identify factors for HIGH RISK for Head Injury: Pt on anticoagulant, Known to have hit head
[2018-03-29 00:30] LABS: URINE APPEARANCE CLEAR; URINE BILIRUBIN NEGATIVE (<2.0 mg/dL); URINE COLOR YELLOW; URINE GLUCOSE (UA) NEGATIVE (NEGATIVE); URINE KETONE NEGATIVE (NEGATIVE); URINE LEUK ESTERASE NEGATIVE (NEGATIVE); URINE NITRITE NEGATIVE (NEGATIVE); URINE PROTEIN NEGATIVE (NEGATIVE)
[2018-03-29] MEDS: ALPRAZolam 0.25 MG TABLET PO PRN ×2 (06:09→21:19)
[2018-03-29 06:22] LABS: BASO % 0.3 % (0-2.0); EOS % 29.1 % (0-4.5); HEMATOCRIT 38.3 % (32.4-45.2); HEMOGLOBIN 13.4 GM/dL (10.7-15.3); LYMPH % 4.5 % (8-40); MCH 30.6 pg (25.7-33.7); MEAN CELL VOLUME 87.4 fl (80-96); MEAN PLT VOLUME 9.2 fl (7.5-11.1); MONO % 1.4 % (3.8-10.2); NEUT % 64.7 % (42.8-82.8); PLATELET COUNT 198 K/MM3 (134-434); RBC 4.38 M/mm3 (3.60-5.2); RDW 13.8 % (11.6-15.6); WHITE BLOOD COUNT 23.1 K/mm3 (4.0-10.0)
[2018-03-29 07:24] LABS: ALBUMIN 2.8 g/dl (3.4-5.0); ALK PHOS 974 U/L (45-117); ANION GAP 9 MMOL/L (8-16); BILIRUBIN,TOTAL 0.4 mg/dL (0.2-1); BLOOD UREA NITROGEN 23 mg/dL (7-18); CALCIUM 7.9 mg/dL (8.5-10.1); CHLORIDE 93 mmol/L (98-107); CO2 24 mmol/L (21-32); CREATININE 1.1 mg/dL (0.55-1.3); GLUCOSE,RANDOM 88 mg/dL (74-106); MAGNESIUM 2.4 mg/dL (1.8-2.4); PHOSPHOROUS 2.5 mg/dL (2.5-4.9); POTASSIUM 3.9 mmol/L (3.5-5.1); SGOT/AST 33 U/L (15-37); SGPT/ALT 185 U/L (13-61); SODIUM 126 mmol/L (136-145); TOT PROT 5.6 g/dl (6.4-8.2)
[2018-03-29] MEDS ORDERED: DEXTROSE 5%-WATER 100 ML IVPB ONE (10:27)
--- NOTE | 2018-03-29 10:28 | PN ---
Progress Note (short form) - Note Progress Note: [facility] *LIVE* Progress Note (short form) Patient Name: GHADA ESTRADA Date of : 1935 Patient Status: Inpatient Attending Provider: Lor Kim Date: 03/28/18 10:16 Initialization Date: 03/28/18 10:16 Progress Note (short form) - Note Progress Note: s: no chest pain, palps, dizzy, dyspnea. Vital Signs: Vital Signs Period Temp Pulse Resp BP Sys/[place] Pulse Ox Last 24 Hr 98.2 F-99.3 F 90-108 16-22 105-121/53-80 97-100 Constitutional: Yes: No Distress Cardiovascular: Yes: Regular Rate and Rhythm, nl S1 S2 Respiratory: Yes: WNL, Regular, CTA Bilaterally, Diminished. No: Accessory Muscle Use, Tachypnea, Wheezes Gastrointestinal: Yes: WNL, Normal Bowel Sounds, Soft. No: Distention, Hepatomegaly, Tenderness, Tenderness, Rebound, Vomiting Renal/: Yes: WNL Musculoskeletal: Yes: WNL Extremities: Yes: WNL Edema: No Neurological: Yes: Alert, Confusion. No: Facial Droop, Lethargy Psychiatric: Yes: Alert Current Medications Alprazolam (Xanax -) 0.5 mg PO Q8H PRN PRN Reason: ANXIETY Last Admin: 03/27/18 22:56 Dose: 0.5 mg Aspirin (Asa -) 81 mg PO DAILY [facility] Docusate Sodium (Colace -) 300 mg PO HS [facility] Escitalopram Oxalate (Lexapro -) 20 mg PO DAILY [facility] Heparin Sodium (Porcine) (Heparin -) 5,000 unit SQ BID [facility] Last Admin: 03/27/18 22:56 Dose: 5,000 unit Ceftriaxone Sodium 2 gm/ (Dextrose) 100 mls @ 200 mls/hr IVPB DAILY [facility]; Protocol Sodium Chloride (Normal Saline -) 1,000 mls @ 100 mls/hr IV ASDIR [facility] Last Admin: 03/27/18 16:00 Dose: 100 mls/hr Mirtazapine (Remeron -) 15 mg PO HS [facility] Last Admin: 03/27/18 22:56 Dose: 15 mg Nicotine (Nicoderm Patch -) 7 mg TD DAILY [facility] Last Admin: 03/27/18 18:07 Dose: Not Given Polyethylene Glycol (Miralax (For Daily Use) -) 17 gm PO DAILY [facility] Tiotropium [place] (Spiriva Respimat) 2 puff IH DAILY [facility] Assessment/Plan MIBI 2010: no STs; mild AW ischemia; nl EF Echo 2015: nl LV/EF; nl RV; nl valves Carotids 2015: 50-69% plq bilaterally (PSV 145 R, 162 L), no sig change vs prior ECG#1: NSR. 0.5mm ST elevation V4-V6, I/avL with TWIs. no reciprocal ST depressions. new vs 12/14 office ecg #2 (approx 4pm): no change in ST-T abnormalities (<0.5mm ALEX now), prolonged QT CXR: may be atx or infiltrate L base CT head: no acute pathology tele: sinus, PVCs, brief SVT altered MS: -sec to infection and/or hyponatremia most likely - manage per primary NSTEMI, Chronic ischemic heart disease -stress test 2010 with mild anterior wall ischemia. medically managed, never had angina sx's, declined repeat stress testing or cath repeatedly. -here with metabolic derangements and altered MS, incidental troponin 1.0, downtrending -no ischemia sx's. -ECG with non-diagnostic changes of 0.5mm ST elevations in anterolateral territory and nonspecific TWIs = new. repeat with similar findings, prolonged QT. no reciprocal depressions--hence ECG not diagnostic for STEMI and pt without sx's of acute ischemia. -? true ACS triggered by acute infection (i.e. NSTEMI) but asymptomatic--more likely this is Type II [place] (involving chronic, stable LAD lesion) or sepsis etiology/metabolic perturbations -continue aspirin -defer heparin unless sx's of ACS develop -hold statin given unexplained hi LFTs -cont metoprolol -echo for LV fxn, pending -will consider risk-stratifying pharm MPI prior to discharge hyponatremia/fawad: -plan per hospitalist Essential hypertension -known white coat HTN history -has been well controlled with pmd in our practice on current regimen -bp soft here, holding home meds Nicotine dependence continuous -repeatedly declined cessation assistance or counselling as she feels her anxiety will not tolerate quitting
[2018-03-29] MEDS: ASPIRIN 81 MG CHEWABLE TABLETS PO SCH (10:30)
[2018-03-29] MEDS: NICOTINE 7 MG/24 HOURS TOPICAL PATCH TD SCH (10:30)
[2018-03-29] MEDS: ESCITALOPRAM OXALATE 20 MG TABLET (FP) PO SCH (10:30)
[2018-03-29] MEDS: HEPARIN NA (PORCINE) 5,000 UNITS/ML 1ML VIAL SQ SCH ×2 (10:30→21:19)
[2018-03-29] MEDS: POLYETHYLENE GLYCOL 3350 119 GM BTL PO SCH (10:37)
[2018-03-29] MEDS: TIOTROPIUM BROMIDE 2.5 MCG (SPIRIVA) RESPIMAT INHALER IH SCH (10:38)
[2018-03-29] MEDS: CEFTRIAXONE 2 GM in DEXTROSE 5%-WATER 100 ML IVPB SCH (10:44)
[2018-03-29 10:57] LABS: ACANTHOCYTES 0; ANISOCYTOSIS 0; HELMET CELLS 0; HOWELL-JOLLY BODIES 0; MACROCYTOSIS 0; OVALOCYTE 0; PLATELET ESTIMATE NORMAL; ROULEAU 0; SICKELED CELLS 0; TARGET CELLS 0; TEAR DROP CELLS 0; TOXIC GRANULATION 0
--- NOTE | 2018-03-29 11:14 | PN ---
Progress Note, Physician Chief Complaint: Pt lying in bed in no acute distress. asleep, unable to obtain - Current Medication List Current Medications: Active Medications Albuterol Sulfate (Ventolin 0.083% Nebulizer Soln -) 1 amp NEB Q6H PRN PRN Reason: SHORTNESS OF BREATH Last Admin: 03/28/18 19:28 Dose: 1 amp Alprazolam (Xanax -) 0.5 mg PO Q8H PRN PRN Reason: ANXIETY Last Admin: 03/29/18 06:09 Dose: 0.5 mg Aspirin (Asa -) 81 mg PO DAILY [facility] Last Admin: 03/29/18 10:30 Dose: 81 mg Docusate Sodium (Colace -) 300 mg PO HS [facility] Last Admin: 03/28/18 21:57 Dose: Not Given Escitalopram Oxalate (Lexapro -) 20 mg PO DAILY [facility] Last Admin: 03/29/18 10:30 Dose: 20 mg Heparin Sodium (Porcine) (Heparin -) 5,000 unit SQ BID [facility] Last Admin: 03/29/18 10:30 Dose: 5,000 unit Ceftriaxone Sodium 2 gm/ (Dextrose) 100 mls @ 200 mls/hr IVPB DAILY [facility]; Protocol Last Admin: 03/29/18 10:44 Dose: 200 mls/hr Mirtazapine (Remeron -) 15 mg PO HS [facility] Last Admin: 03/28/18 21:57 Dose: 15 mg Nicotine (Nicoderm Patch -) 7 mg TD DAILY [facility] Last Admin: 03/29/18 10:30 Dose: 7 mg Polyethylene Glycol (Miralax (For Daily Use) -) 17 gm PO DAILY [facility] Last Admin: 03/29/18 10:37 Dose: 17 gm Tiotropium [place] (Spiriva Respimat) 2 puff IH DAILY [facility] Last Admin: 03/29/18 10:38 Dose: 2 puff - Objective Vital Signs: Vital Signs Temperature 98 F 03/29/18 06:47 Pulse Rate 108 H 03/29/18 06:47 Respiratory Rate 18 03/29/18 06:47 Blood Pressure 130/76 03/29/18 06:47 O2 Sat by Pulse Oximetry (%) 95 03/28/18 21:00 Constitutional: Yes: No Distress, Calm Cardiovascular: Yes: Regular Rate and Rhythm Respiratory: Yes: Regular, Cough, Diminished, Rhonchi (scattered). No: Accessory Muscle Use, Tachypnea, Wheezes Gastrointestinal: Yes: WNL, Normal Bowel Sounds, Soft. No: Distention, Tenderness Genitourinary: Yes: WNL Extremities: Yes: WNL Edema: No Neurological: Yes: Confusion, Lethargy Labs: CBC, BMP 03/29/18 05:30 03/29/18 05:30 INR, PTT INR 1.29 (0.83-1.09) H 03/27/18 18:47 Assessment/Plan (1) Sepsis Assessment/Plan: hemodynamically stable suspected 2/2 uti initially, awaiting urine culture wbc count trending up- will order CT chest/abd to r/o other sources blood cultures neg ceftriaxone day 3 ID consulted Code(s): A41.9 - SEPSIS, UNSPECIFIED ORGANISM (2) UTI (urinary tract infection) Assessment/Plan: as above Code(s): N39.0 - URINARY TRACT INFECTION, SITE NOT SPECIFIED Qualifiers: Urinary tract infection type: acute cystitis Hematuria presence: with hematuria Qualified Code(s): N30.01 - Acute cystitis with hematuria (3) Metabolic encephalopathy Assessment/Plan: tx underlying and monitor for improvement suspect 2/2 hyponatremia/infectious process Code(s): G93.41 - METABOLIC ENCEPHALOPATHY (4) Leukocytosis Assessment/Plan: as above Code(s): D72.829 - ELEVATED WHITE BLOOD CELL COUNT, UNSPECIFIED (5) Hyponatremia Assessment/Plan: hypoosmolar, hypovolemic slowly improving avoid rapid na correction >8 /24hours on fluid restriction bmp q6hrs nephrology consulted Code(s): E87.1 - HYPO-OSMOLALITY AND HYPONATREMIA (6) Elevated troponin Assessment/Plan: demand Code(s): R74.8 - ABNORMAL LEVELS OF OTHER SERUM ENZYMES (7) ARLINE (acute kidney injury) Assessment/Plan: improving, pre renal encourage po intake Code(s): N17.9 - ACUTE KIDNEY FAILURE, UNSPECIFIED (8) Transaminitis Assessment/Plan: improving, suspect 2/2 hypoperfusion abd us w/out acute findings holding statin Code(s): R74.0 - NONSPEC ELEV OF LEVELS OF TRANSAMNS & LACTIC ACID DEHYDRGNSE (9) CAD (coronary artery disease) Assessment/Plan: no acute ACS continue asa Code(s): I25.10 - ATHSCL HEART DISEASE OF [place] CORONARY ARTERY W/O ANG PCTRS Qualifiers: Coronary Disease-Associated Artery/Lesion type: [place] artery [place] vs. transplanted heart: [place] heart Associated angina: without angina Qualified Code(s): I25.10 - Atherosclerotic heart disease of [place] coronary artery without angina pectoris (10) HTN (hypertension) Assessment/Plan: controlled holding antihypertensives Code(s): I10 - ESSENTIAL (PRIMARY) HYPERTENSION Qualifiers: Hypertension type: essential hypertension Qualified Code(s): I10 - Essential (primary) hypertension (11) HLD (hyperlipidemia) Assessment/Plan: chronic holding statin Code(s): E78.5 - HYPERLIPIDEMIA, UNSPECIFIED (12) Tobacco dependence Assessment/Plan: advise smoking cessation nicotine patch Code(s): F17.200 - NICOTINE DEPENDENCE, UNSPECIFIED, UNCOMPLICATED (13) Anxiety Assessment/Plan: controlled continue lexapro/mirtazapine xanax prn Code(s): F41.9 - ANXIETY DISORDER, UNSPECIFIED Pt's brother at bedside, discussed/informed of plan of care
--- NOTE | 2018-03-29 12:06 | ECHO ---
Name: GHADA ESTRADA Exam:Adult Echocardiogram Study Date: 03/29/2018 08:09 AM Age: 82 yrs Reason For Study: hi trop Height: 60 in Weight: 101 lb BSA: 1.4 m2 MMode/2D Measurements & Calculations IVSd: 0.91 cm Ao root diam: 3.2 cm LVIDd: 4.2 cm LA dimension: 2.9 cm LVIDs: 2.5 cm ACS: 1.5 cm LVPWd: 1.1 cm IVSs: 1.4 cm LVPWs: 1.2 cm EDV(Teich): 79.4 ml ESV(Teich): 22.3 ml Doppler Measurements & Calculations MV E max geoff: 55.5 cm/sec Ao V2 max: 125.1 cm/sec MV A max geoff: 110.8 cm/sec Ao max P.3 mmHg MV E/A: 0.50 Ao V2 mean: 91.3 cm/sec Ao mean P.8 mmHg Ao V2 VTI: 21.2 cm TR max geoff: 242.2 cm/sec Med Peak E' Geoff: 4.6 cm/sec TR max P.5 mmHg Med E/e': 12.1 Lat Peak E' Geoff: 4.8 cm/sec Lat E/e': 11.6 Left Ventricle The left ventricle is normal in size. Ejection Fraction = 50-55%. Left ventricular systolic function is low normal. There is moderate apical wall hypokinesis. Right Ventricle The right ventricle is normal in size and function. Atria Normal left and right atrial size and function. Mitral Valve There is no mitral regurgitation noted. Tricuspid Valve There is trace tricuspid regurgitation. Aortic Valve No hemodynamically significant valvular aortic stenosis. No aortic regurgitation is present. Pulmonic Valve There is no pulmonic valvular regurgitation. Great Vessels The aortic root is normal size. Pericardium/Pleura Small to moderate pericardial effusion without echo signs of tamponade. Interpretation Summary Left ventricular systolic function is low normal. There is moderate apical wall hypokinesis. The right ventricle is normal in size and function. There is trace tricuspid regurgitation. Small to moderate pericardial effusion without echo signs of tamponade. MD Jameson Solorio 03/29/2018 12:05 PM
[2018-03-29 12:08] LABS: ANION GAP 13 MMOL/L (8-16); BLOOD UREA NITROGEN 23 mg/dL (7-18); CALCIUM 9.2 mg/dL (8.5-10.1); CHLORIDE 94 mmol/L (98-107); CO2 21 mmol/L (21-32); CREATININE 1.1 mg/dL (0.55-1.3); GLUCOSE,RANDOM 98 mg/dL (74-106); POTASSIUM 3.7 mmol/L (3.5-5.1); SODIUM 128 mmol/L (136-145)
[2018-03-29] MEDS: SODIUM CHLORIDE 1,000 ML IV SCH (14:05)
--- NOTE | 2018-03-29 15:41 | CONSULT ---
Consult Consult Specialty:: Nephrology Reason for Consultation:: hyponatremia - History of Present Illness Chief Complaint: confusion History of Present Illness: Pt is na 82 year old female with pmhx of HTN, HLD, and anxiety who presents to the ER with confusion. She was found to be hyponatremic and in renal failure. She was given fluids and her renal function improved. She was on a thiazide as an outpt. Her mental status is improving. Her brother is at bedside and did help with history. She denies shortness of breath. She denies headache or change in vision. She denies fevers or chills. - History Source History Provided By: Patient, Family Member, Medical Record - Past Medical History Cardio/Vascular: Yes: CAD, HTN, Hyperlipdemia Psych: Yes: Anxiety, Depression - Alcohol/Substance Use Hx Alcohol Use: No History of Substance Use: reports: None - Smoking History Smoking history: Current every day smoker Have you smoked in the past 12 months: Yes Aproximately how many cigarettes per day: 5 - Social History ADL: Independent History of Recent Travel: No Home Medications - Allergies Allergies/Adverse Reactions: Allergies Allergy/AdvReac Type Severity Reaction Status Date / Time No Known Allergies Allergy Verified 03/27/18 11:33 - Home Medications Home Medications: Ambulatory Orders Aspirin 81 mg PO DAILY 11/17/14 Diltiazem HCl [Cartia Xt] 120 mg PO DAILY 11/17/14 Diltiazem HCl [Cartia Xt] 240 mg PO DAILY 11/17/14 Escitalopram Oxalate [Lexapro 5mg/5ml Oral Solution -] 20 mg PO DAILY #600 ml Olmesartan/Hydrochlorothiazide [Benicar Hct 20-12.5mg Tab -] 1 each PO DAILY tablet 11/17/14 Rosuvastatin Calcium [Crestor] 10 mg PO HS tablet 11/17/14 Mirtazapine 15 mg PO DAILY 03/27/18 Family Disease History - Family Disease History Family History: Denies Review of Systems - Review of Systems Constitutional: reports: Malaise. denies: Chills, Fever Eyes: reports: No Symptoms HENT: reports: No Symptoms Neck: reports: No Symptoms Cardiovascular: reports: No Symptoms Respiratory: reports: No Symptoms Gastrointestinal: reports: No Symptoms Genitourinary: reports: No Symptoms Musculoskeletal: reports: No Symptoms Integumentary: reports: No Symptoms Neurological: reports: No Symptoms Endocrine: reports: No Symptoms Hematology/Lymphatic: reports: No Symptoms Psychiatric: reports: No Symptoms Physical Exam Vital Signs: Vital Signs Temperature 97.8 F 03/29/18 14:47 Pulse Rate 93 H 03/29/18 14:47 Respiratory Rate 18 03/29/18 14:47 Blood Pressure 111/59 L 03/29/18 14:47 O2 Sat by Pulse Oximetry (%) 95 03/29/18 09:00 Constitutional: Yes: Calm Eyes: Yes: Conjunctiva Clear HENT: Yes: Atraumatic Cardiovascular: Yes: S1, S2 Respiratory: Yes: On Nasal O2 Gastrointestinal: Yes: Soft Renal/: Yes: WNL Musculoskeletal: Yes: WNL Edema: No Neurological: Yes: Oriented Psychiatric: Yes: Oriented Labs: CBC, BMP 03/29/18 05:30 03/29/18 11:15 Laboratory Tests 03/27/18 03/27/18 03/27/18 12:15 17:09 21:05 Sodium 123 L 126 L Creatinine 1.6 H 1.7 H Urine Protein Urine Blood Urine Osmolality 391 Ur Random Sodium 03/27/18 03/28/18 03/28/18 21:05 05:30 14:30 Sodium 124 L 125 L Creatinine 1.4 H Urine Protein Urine Blood Urine Osmolality Ur Random Sodium < 18 L 03/28/18 03/29/18 03/29/18 20:20 00:01 05:30 Sodium 121 L 126 L Creatinine Urine Protein Negative Urine Blood Negative Urine Osmolality Ur Random Sodium 03/29/18 11:15 Sodium 128 L Creatinine 1.1 Urine Protein Urine Blood Urine Osmolality Ur Random Sodium Imaging - Results Cat Scan: Report Reviewed Problem List - Problems (1) ARLINE (acute kidney injury) Code(s): N17.9 - ACUTE KIDNEY FAILURE, UNSPECIFIED (2) HTN (hypertension) Code(s): I10 - ESSENTIAL (PRIMARY) HYPERTENSION Qualifiers: Hypertension type: essential hypertension Qualified Code(s): I10 - Essential (primary) hypertension (3) Hyponatremia Code(s): E87.1 - HYPO-OSMOLALITY AND HYPONATREMIA (4) Tobacco dependence Code(s): F17.200 - NICOTINE DEPENDENCE, UNSPECIFIED, UNCOMPLICATED Assessment/Plan Current Medications Generic Name Dose Route Start Last Admin Trade Name Freq PRN Reason Stop Dose Admin Albuterol Sulfate 1 amp 03/28/18 10:42 03/28/18 19:28 Ventolin 0.083% Nebulizer Soln - NEB 1 amp Q6H PRN Administration SHORTNESS OF BREATH Alprazolam 0.5 mg 03/27/18 15:59 03/29/18 06:09 Xanax - PO 0.5 mg Q8H PRN Administration ANXIETY Aspirin 81 mg 03/28/18 10:00 03/29/18 10:30 Asa - PO 81 mg DAILY MARVEL Administration Docusate Sodium 300 mg 03/28/18 22:00 03/28/18 21:57 Colace - PO Not Given HS MARVEL Escitalopram Oxalate 20 mg 03/28/18 10:00 03/29/18 10:30 Lexapro - PO 20 mg DAILY MARVEL Administration Heparin Sodium (Porcine) 5,000 unit 03/27/18 22:00 03/29/18 10:30 Heparin - SQ 5,000 unit BID MARVEL Administration Ceftriaxone Sodium 2 gm/ 100 mls @ 200 mls/hr 03/28/18 10:00 03/29/18 10:44 Dextrose IVPB 200 mls/hr DAILY MARVEL Administration Protocol Mirtazapine 15 mg 03/27/18 22:00 03/28/18 21:57 Remeron - PO 15 mg HS MARVEL Administration Nicotine 7 mg 03/27/18 15:30 03/29/18 10:30 Nicoderm Patch - TD 7 mg DAILY MARVEL Administration Polyethylene Glycol 17 gm 03/28/18 10:00 03/29/18 10:37 Miralax (For Daily Use) - PO 17 gm DAILY MARVEL Administration Tiotropium [place] 2 puff 03/28/18 10:15 03/29/18 10:38 Spiriva Respimat IH 2 puff DAILY MARVEL Administration Impression 1. hyponatremia 2. ARLINE 3. depression 4. htn 5. tobacco use 6. anxiety 7. pleural effusions on ct scan Plan - restrict free water - sodium is improving - hold thiazide - lexapro can cause hyponatremia as well - renal function is improved - check tsh and cortisol - hold fluids as she has effusions - will evaluate for diuretics daily - pt is at risk to fall Dr Guardado
--- NOTE | 2018-03-29 16:01 | PN ---
Progress Note (short form) - Note Progress Note: ID consult dictated 82 yo female admitted from home with change in Mental status , poor po intake, elevated bun/cr, elevated lfts with markedly elevated alk phos, and eosinophilia she was treated with fluids and iv rocephin for UTI WBC remains elevated sodium has improved and her mental status is better renal function is improved no rash she continue to have an elevated WBC with eosinophilia, elevated alk phos ct scan chest with ODALIS infiltrate, also bilateral pleural effusions- ?volume overload ct abd/pelvis unremarkable, sonogram liver/GB no dilated ducts leukocytosis eosinophilia-from admission elevated alk phos pneumonia ODALIS hyponatremia -resolving tsh, cortisol, GGT, esr, crp legionella urinary antigen stool ova and parasites strongyloides antibody prolonged Qtc-.51-d/w cardiology dr mendieta will repeat ekg add doxycycline for atypical coverage switch to zosyn to cover both aspiration and CAP ?malignancy consider hematology consult if there is no clear cause for eosinophilia d/w hospitalist- last labs in the office from 2017- no eosinopohilia, normal lfts Problem List - Problems (1) Leukocytosis Code(s): D72.829 - ELEVATED WHITE BLOOD CELL COUNT, UNSPECIFIED (2) Eosinophilia Code(s): D72.1 - EOSINOPHILIA (3) Elevated alkaline phosphatase level Code(s): R74.8 - ABNORMAL LEVELS OF OTHER SERUM ENZYMES (4) Pneumonia Code(s): J18.9 - PNEUMONIA, UNSPECIFIED ORGANISM
[2018-03-29 16:32] LABS: ANION GAP 11 MMOL/L (8-16); BLOOD UREA NITROGEN 22 mg/dL (7-18); CALCIUM 8.3 mg/dL (8.5-10.1); CHLORIDE 94 mmol/L (98-107); CO2 22 mmol/L (21-32); CREATININE 1.1 mg/dL (0.55-1.3); GLUCOSE,RANDOM 131 mg/dL (74-106); POTASSIUM 3.9 mmol/L (3.5-5.1); SODIUM 127 mmol/L (136-145)
[2018-03-29] MEDS ORDERED: PIPERACILLIN/TAZOB 3.375 GM 3.375 GM in SODIUM CHLORIDE 50 ML IVPB SCH (18:00)
[2018-03-29] MEDS ORDERED: SODIUM CHLORIDE 50 ML IVPB ONE (18:29)
[2018-03-29] MEDS ORDERED: PIPERACILLIN/TAZOBACTAM 3.375 GM VIAL IVPB ONE (18:29)
[2018-03-29] MEDS: LIDOCAINE 5% TOPICAL PATCH TP SCH (18:35)
[2018-03-29] MEDS: PIPERACILLIN/TAZOB 3.375 GM 3.375 GM in SODIUM CHLORIDE 50 ML IVPB SCH (18:36)
--- NOTE | 2018-03-29 18:46 | CONSULT ---
Consult - text type - Consultation Consultation Note: 81 year old female, smoker, with a past medical history of hypertension and hyperlipidemia, depression who presents to the emergency department with AMS x 2 days. Per family, she has been having intermittent periods of confusion and visual hallucinations, where she is seeing her house tovar as black. Over the past 2 days, also decreased PO intake. +nasal congestion/cold like symptoms she is beng managed for altered mental status due to ? hyponatremia due to ? hctz / ODALIS pneumonia We have been consulted for eosinnophilia Allergies: NKA Past Medical History: hypertension and hyperlipidemia, depression Social history: Lives at home. Surgical history: [facility] Allergies/Adverse Reactions: Allergies Allergy/AdvReac Type Severity Reaction Status Date / Time No Known Allergies Allergy Verified 03/27/18 11:33 Home Medications: Ambulatory Orders Aspirin 81 mg PO DAILY 11/17/14 Diltiazem HCl [Cartia Xt] 120 mg PO DAILY 11/17/14 Diltiazem HCl [Cartia Xt] 240 mg PO DAILY 11/17/14 Escitalopram Oxalate [Lexapro 5mg/5ml Oral Solution -] 20 mg PO DAILY #600 ml Olmesartan/Hydrochlorothiazide [Benicar Hct 20-12.5mg Tab -] 1 each PO DAILY tablet 11/17/14 Rosuvastatin Calcium [Crestor] 10 mg PO HS tablet 11/17/14 Mirtazapine 15 mg PO DAILY 03/27/18 - Suicide/Smoking/Psychosocial Hx Smoking History: Current every day smoker - Vital Signs Last Vital Signs Temp Pulse Resp BP Pulse Ox 97.5 F L 94 H 18 111/76 95 03/29/18 18:00 03/29/18 18:00 03/29/18 18:00 03/29/18 18:00 03/29/18 09:00 Cor: RSR, No murmurs, No gallops Lungs: b/l wheezing Abd: Soft, Normal bowel sounds, No organomegaly Ext:No significant edema A/P 81 year old female, smoker, with a past medical history of hypertension and hyperlipidemia, depression who presents to the emergency department with AMS x 2 days. Per family, she has been having intermittent periods of confusion and visual hallucinations, where she is seeing her house tovar as black. Over the past 2 days, also decreased PO intake. +nasal congestion/cold like symptoms she is beng managed for altered mental status due to ? hyponatremia due to ? hctz / ODALIS pneumonia We have been consulted for eosinnophilia Currently in resp. distress/wheezing/CHF--discussed with cardiology/hospitalist- -ordered lasix/EKG/CXR/cardiac enzynes Eosinophilia? reactive to CHF/pneumonia Check flow/cytogenetics/FISH r/o auytoimmune/occult malignancy or primary marrow pathology/atypical infections will follow
--- NOTE | 2018-03-29 19:27 | CONS ---
DATE OF CONSULTATION: DATE OF DICTATION: 03/29/2018 REQUESTED BY: Hospitalist Service This is an 82-year-old woman with a history of hypertension, hyperlipidemia and anxiety. She lives alone. She was brought to the emergency room on March 27, 2018 with confusion and visual hallucinations. She also complained of poor oral intake for weeks. She has not been feeling well and has had some upper respiratory infection symptoms. She was admitted on March 27, 2018. She was found to have an elevated white count of 20.7, a BUN of 36, creatinine of 1.6, a sodium of 123. She was admitted with sepsis, urinary tract infection, hyponatremia and metabolic encephalopathy found to be secondary to hyponatremia. She was also noted to have elevated troponins and dehydration. Her mental status has improved over the course of the last 48 hours. On exam, she is oriented to person and place. She is following commands. She knows her brother, who is present. Her sodium has improved from 123 to 128. I was asked to see her for persistent leukocytosis. She had a CT scan of her chest, abdomen and pelvis today and was noted to have a left upper lobe infiltrate. She is now on day 3 of ceftriaxone. Her [id number] is currently present. The patient reports that she lives alone. She is an active smoker; she smokes 1-1/2 packs per day. She drinks a lot of coffee. She eats very poorly. She is otherwise very active. There is no history of recent travel outside the area. She has no pets. PAST MEDICAL HISTORY: Notable for coronary artery disease, hypertension, hyperlipidemia, anxiety and depression. ALLERGIES: No known drug allergies. CURRENT HOME MEDICATIONS: Aspirin, diltiazem, Lexapro, Benicar, Crestor and mirtazapine. FAMILY HISTORY: Unremarkable. REVIEW OF SYSTEMS: Notable for nasal congestion. She has had no fever, no recent antibiotics, no dysuria. No prior history of confusion. No history of heavy alcohol use. PHYSICAL EXAMINATION: GENERAL: She follows commands. VITALS: Temperature is 97.8, pulse is 93, blood pressure 111/59, respiratory rate 18. HEENT: She is normocephalic. Her eyes are anicteric. She opens her mouth; she has no thrush. NECK: Supple. LUNGS: Scattered wheezing. HEART: Regular rate and rhythm. ABDOMEN: Soft, nontender. SKIN: No skin rash. EXTREMITIES: No edema. LABS: Notable for a white count of 23,000, hemoglobin of 13.4, platelets of 198. On admission, she had 13% eosinophils. Today, she has 29% eosinophils. INR is 1.2. BUN is 22, creatinine is 1.1. Liver function tests were elevated on admission with an AST of 73, ALT of 222, alkaline phosphatase of 882. Today, her alkaline phosphatase is 974 with an AST of 33 and ALT of 185. Troponins are 0.42. Albumin is 2.8. A urinalysis on admission had 3+ leukocytes, 63 white cells. Repeat was negative. Cultures are pending. The patient had a CT scan of her chest, abdomen and pelvis. The abdomen and pelvis were unremarkable except for some free fluid in the pelvis. The CT scan of the chest was notable for a left upper lobe infiltrate, cardiomegaly, bilateral pleural effusions, left greater than right, and a small pericardial effusion. She had a head CT done this admission that was negative for intracranial pathology. She had an ultrasound of her right upper quadrant that showed no obvious hepatic pathology, no cholelithiasis and no biliary tract dilation. This is an 82-year-old woman admitted with confusion and found to have leukocytosis and hyponatremia. Her confusion appears to be improved. Her sodium has improved and her mental status is better. Renal function has also improved, with resolution of her acute kidney injury. She has no rash. She continues to have an elevated white count with eosinophilia. She had eosinophilia of 13% on admission, which has now increased further. She has an unexplained elevated alkaline phosphatase as well with no evidence on abdominal imaging to explain the alkaline phosphatase. IN SUMMARY: She has leukocytosis, eosinophilia from admission, elevated alkaline phosphatase, left upper lobe pneumonia and hyponatremia that appears to be resolving. I suggest we check a TSH, cortisol and GGT, Legionella urinary antigen, stool ova and parasite, Strongyloides antibody, although there is no history of travel. I spoke with Cardiology. The patient has a prolonged QTC of 0.51 so at this point, we will repeat an EKG and add doxycycline for atypical coverage. We will continue Rocephin which she received this morning. Would consider a hematology consult if there is no clear cause for her eosinophilia. This was discussed with the hospitalist. Her last labs in the office from 2017 revealed no eosinophilia and normal LFTs. CANDE CHARLA, M.D. [id number]
[2018-03-29] MEDS: ALBUTEROL SO4 0.083% IH SOL 2.5 MG/3 ML VIAL.NEB. NEB PRN (20:30)
[2018-03-29] MEDS ORDERED: FUROSEMIDE 40 MG/4 ML INJECTABLE VIAL ONE (20:33)
[2018-03-29] MEDS ORDERED: FUROSEMIDE 40 MG/4 ML INJECTABLE VIAL IVPUSH ONE (20:45)
[2018-03-29] MEDS: MIRTAZAPINE 15 MG TABLET (FP) PO SCH (21:19)
[2018-03-29] MEDS: DOXYCYCLINE INJECTION 100 MG in SODIUM CHLORIDE 100 ML IVPB SCH (21:19)
[2018-03-29] MEDS: DOCUSATE SODIUM 100 MG CAPSULE (FP) PO SCH (21:54)
[2018-03-29] MEDS: LIDOCAINE PATCH REMOVAL MC SCH (21:54)
[2018-03-29] MEDS ORDERED: DOXYCYCLINE INJECTION 100 MG in DEXTROSE 5%-WATER - 100 ML IVPB SCH (22:00)
[2018-03-30] MEDS ORDERED: PIPERACILLIN/TAZOBACTAM 3.375 GM VIAL IVPB ONE ×3 (02:05→17:37)
[2018-03-30] MEDS ORDERED: SODIUM CHLORIDE 50 ML IVPB ONE ×3 (02:05→17:37)
[2018-03-30] MEDS: PIPERACILLIN/TAZOB 3.375 GM 3.375 GM in SODIUM CHLORIDE 50 ML IVPB SCH ×3 (02:14→17:56)
[2018-03-30 06:10] LABS: BASO % 0.3 % (0-2.0); EOS % 39.1 % (0-4.5); HEMATOCRIT 34.9 % (32.4-45.2); HEMOGLOBIN 12.2 GM/dL (10.7-15.3); LYMPH % 5.1 % (8-40); MCH 30.8 pg (25.7-33.7); MEAN CELL VOLUME 87.9 fl (80-96); MEAN PLT VOLUME 8.7 fl (7.5-11.1); MONO % 2.9 % (3.8-10.2); NEUT % 52.6 % (42.8-82.8); PLATELET COUNT 198 K/MM3 (134-434); RBC 3.97 M/mm3 (3.60-5.2); RDW 13.9 % (11.6-15.6); WHITE BLOOD COUNT 21.5 K/mm3 (4.0-10.0)
[2018-03-30 06:33] LABS: ALBUMIN 2.5 g/dl (3.4-5.0); BILIRUBIN,DIRECT 0.2 mg/dL (0.0-0.2); BILIRUBIN,TOTAL 0.4 mg/dL (0.2-1); TOT PROT 5.3 g/dl (6.4-8.2)
[2018-03-30 06:49] LABS: ALBUMIN 2.6 g/dl (3.4-5.0); ALK PHOS 832 U/L (45-117); ANION GAP 8 MMOL/L (8-16); BILIRUBIN,TOTAL 0.4 mg/dL (0.2-1); BLOOD UREA NITROGEN 20 mg/dL (7-18); CALCIUM 7.8 mg/dL (8.5-10.1); CHLORIDE 96 mmol/L (98-107); CO2 26 mmol/L (21-32); CREATININE 1.2 mg/dL (0.55-1.3); GLUCOSE,RANDOM 108 mg/dL (74-106); MAGNESIUM 2.3 mg/dL (1.8-2.4); PHOSPHOROUS 2.8 mg/dL (2.5-4.9); POTASSIUM 3.9 mmol/L (3.5-5.1); SGOT/AST 16 U/L (15-37); SGPT/ALT 122 U/L (13-61); SODIUM 130 mmol/L (136-145); TOT PROT 5.3 g/dl (6.4-8.2)
[2018-03-30] MEDS ORDERED: CEFTRIAXONE 2 GM in SODIUM CHLORIDE 100 ML IVPB SCH (10:00)
[2018-03-30] MEDS ORDERED: CEFTRIAXONE 2 GM in DEXTROSE 5%-WATER 100 ML IVPB SCH (10:00)
[2018-03-30 10:21] LABS: ANISOCYTOSIS 0; MACROCYTOSIS 0; PLATELET ESTIMATE NORMAL
[2018-03-30] MEDS: DOXYCYCLINE INJECTION 100 MG in SODIUM CHLORIDE 100 ML IVPB SCH ×2 (10:47→22:29)
[2018-03-30] MEDS: ESCITALOPRAM OXALATE 20 MG TABLET (FP) PO SCH (11:04)
[2018-03-30] MEDS: ASPIRIN 81 MG CHEWABLE TABLETS PO SCH (11:04)
[2018-03-30] MEDS: HEPARIN NA (PORCINE) 5,000 UNITS/ML 1ML VIAL SQ SCH ×2 (11:04→22:28)
[2018-03-30] MEDS: NICOTINE 7 MG/24 HOURS TOPICAL PATCH TD SCH (11:04)
[2018-03-30] MEDS: POLYETHYLENE GLYCOL 3350 119 GM BTL PO SCH (11:08)
[2018-03-30] MEDS: LIDOCAINE 5% TOPICAL PATCH TP SCH (11:09)
[2018-03-30] MEDS: TIOTROPIUM BROMIDE 2.5 MCG (SPIRIVA) RESPIMAT INHALER IH SCH (11:09)
[2018-03-30] MEDS: ALBUTEROL SO4 2.5/IPRATROPIUM 0.5 INH SOL 3 ML VIAL.NEB. NEB SCH ×3 (11:25→20:39)
--- NOTE | 2018-03-30 11:51 | EKG ---
Test Reason : Blood Pressure : / mmHG Vent. Rate : 125 BPM Atrial Rate : 122 BPM P-R Int : 000 ms QRS Dur : 074 ms QT Int : 412 ms P-R-T Axes : 000 067 058 degrees QTc Int : 594 ms SINUS TACHYCARDIA WITH OCCASIONAL PREMATURE VENTRICULAR COMPLEXES NONSPECIFIC T WAVE ABNORMALITY ABNORMAL ECG Confirmed by DONTE RAMIREZ, GEN ([id number]) on 03/30/2018 11:51:14 AM Referred By: Confirmed By:GEN KENT MD
--- NOTE | 2018-03-30 11:52 | PN ---
Progress Note (short form) - Note Progress Note: Progress Note: s: no chest pain, palps, dizzy, dyspnea. Vital Signs: Vital Signs Period Temp Pulse Resp BP Sys/[place] Pulse Ox Last 24 Hr 97.1 F-98.1 F 93-102 18-22 111-144/59-97 95 Constitutional: Yes: No Distress Cardiovascular: Yes: Regular Rate and Rhythm, nl S1 S2 Respiratory: Yes: scattered rhonchi, nl eff Gastrointestinal: Yes: WNL, Normal Bowel Sounds, Soft. No: Distention, Hepatomegaly, Tenderness, Tenderness, Rebound, Vomiting Edema: No Neurological: Yes: Alert, Confusion. No: Facial Droop, Lethargy Psychiatric: Yes: Alert no jaundice diaphoresis Current Medications Generic Name Dose Route Start Last Admin Trade Name Freq PRN Reason Stop Dose Admin Albuterol Sulfate 1 amp 03/28/18 10:42 03/29/18 20:30 Ventolin 0.083% Nebulizer Soln - NEB 1 amp Q6H PRN Administration SHORTNESS OF BREATH Albuterol/Ipratropium 1 amp 03/30/18 12:00 Duoneb - NEB RQID MARVEL Alprazolam 0.5 mg 03/27/18 15:59 03/29/18 21:19 Xanax - PO 0.5 mg Q8H PRN Administration ANXIETY Docusate Sodium 300 mg 03/28/18 22:00 03/29/18 21:54 Colace - PO Not Given HS MARVEL Escitalopram Oxalate 20 mg 03/28/18 10:00 03/30/18 11:04 Lexapro - PO 20 mg DAILY MARVEL Administration Heparin Sodium (Porcine) 5,000 unit 03/27/18 22:00 03/30/18 11:04 Heparin - SQ 5,000 unit BID MARVEL Administration Doxycycline Hyclate 100 mg/ 100 mls @ 50 mls/hr 03/29/18 22:00 03/30/18 10:47 Sodium Chloride IVPB 50 mls/hr BID MARVEL Administration Piperacillin Sod/Tazobactam 50 mls @ 100 mls/hr 03/29/18 18:30 03/30/18 10:47 Sod 3.375 gm/ Sodium Chloride IVPB 100 mls/hr Q8H-IV MARVEL Administration Protocol Lidocaine 1 patch 03/29/18 18:30 03/30/18 11:09 Lidoderm Patch - TP 1 patch DAILY MARVEL Administration Mirtazapine 15 mg 03/27/18 22:00 03/29/18 21:19 Remeron - PO 15 mg HS MARVEL Administration Miscellaneous 1 each 03/29/18 22:00 03/29/18 21:54 Lidoderm Patch Removal MC Not Given DAILY@2200 MARVEL Nicotine 7 mg 03/27/18 15:30 03/30/18 11:04 Nicoderm Patch - TD 7 mg DAILY MARVEL Administration Polyethylene Glycol 17 gm 03/28/18 10:00 03/30/18 11:08 Miralax (For Daily Use) - PO 17 gm DAILY MARVEL Administration Tiotropium [place] 2 puff 03/28/18 10:15 03/30/18 11:09 Spiriva Respimat IH 2 puff DAILY MARVEL Administration CBC, BMP 03/30/18 05:10 03/30/18 05:10 Assessment/Plan MIBI 2010: no STs; mild AW ischemia; nl EF Echo 2015: nl LV/EF; nl RV; nl valves echo 02/2018: low nl lvef, apical hk, nl rv, no sig valve path, small-mod peric eff Carotids 2015: 50-69% plq bilaterally (PSV 145 R, 162 L), no sig change vs prior ECG#1: NSR. 0.5mm ST elevation V4-V6, I/avL with TWIs. no reciprocal ST depressions. new vs 12/14 office ecg #2 (approx 4pm): no change in ST-T abnormalities (<0.5mm ALEX now), prolonged QT CXR: may be atx or infiltrate L base CT head: no acute pathology tele: sinus, PVCs, brief atrial run altered MS: -sec to infection and/or hyponatremia most likely - manage per primary NSTEMI, Chronic ischemic heart disease -stress test 2010 with mild anterior wall ischemia. medically managed, never had angina sx's, declined repeat stress testing or cath repeatedly. -here with metabolic derangements and altered MS, incidental troponin 1.0, downtrending -no ischemia sx's. -ECG with non-diagnostic changes of 0.5mm ST elevations in anterolateral territory and nonspecific TWIs = new. repeat with similar findings, prolonged QT. no reciprocal depressions--hence ECG not diagnostic for STEMI and pt without sx's of acute ischemia. -? true ACS triggered by acute infection (i.e. NSTEMI) but asymptomatic--more likely this is Type II VA (involving chronic, stable LAD lesion) or sepsis etiology/metabolic perturbations -continue aspirin -hold statin given unexplained hi LFTs -cont metoprolol -echo shows preserved lvef but apical hypokinesis -plan for risk-stratifying pharm MPI prior to discharge once acute infectious issues improved hyponatremia/fawad: -plan per hospitalist Essential hypertension -known white coat HTN history -has been well controlled with pmd in our practice on current regimen -bp soft here, holding home meds pericardial effusion: -small-mod size eff seen on echo, no signs tamponade. Would repeat echo early next week to monitor. Nicotine dependence continuous -repeatedly declined cessation assistance or counselling as she feels her anxiety will not tolerate quitting
[2018-03-30] MEDS ORDERED: FUROSEMIDE 40 MG/4 ML INJECTABLE VIAL IVPUSH ONE (11:53)
--- NOTE | 2018-03-30 12:42 | PN ---
Progress Note (short form) - Note Progress Note: Iwearing a abhijeet but alert just woke up (sleeps til noon at home) lina in law at bedside reports she has become more forgetful this past year but has never hallucinated before recognizes and names her family members she is unable to name the year but knows her birthday no history of ETOH abuse no new meds daughter reports she has complained of hives at home!- never noted by family no travel, no pets Vital Signs Period Temp Pulse Resp BP Sys/[place] Pulse Ox Last 24 Hr 97.1 F-98.1 F 93-102 18-22 111-144/59-97 95 cor-rrr lungs scattered wheeze abd firm nt ext no edema no hives or rash CBC, BMP 03/30/18 05:10 03/30/18 05:10 Microbiology 03/29/18 20:15 Urine For Antigen Detection Legionella Antigen - Final- negative 03/29/18 20:15 Urine For Antigen Detection Streptococcus pneumoniae Antigen (M - Final-negative 03/29/18 00:01 Urine - Urine - Catheterized Urine Culture - Final NO GROWTH OBTAINED 03/27/18 12:15 Blood - Peripheral Venous Blood Culture - Preliminary NO GROWTH OBTAINED AFTER 48 HOURS, INCUBATION TO CONTINUE FOR 3 DAYS. 03/27/18 12:30 Blood - Peripheral Venous Blood Culture - Preliminary NO GROWTH OBTAINED AFTER 48 HOURS, INCUBATION TO CONTINUE FOR 3 DAYS. 03/27/18 12:15 Urine - Urine Clean Catch Urine Culture - Final Contaminated: Please Repeat Laboratory Tests 03/30/18 03/30/18 03/30/18 05:10 05:10 05:10 ESR GGT 88 H C-Reactive Protein 6.1 H Strongyloides IgG Ab Pending 03/30/18 05:10 ESR 16 GGT C-Reactive Protein Strongyloides IgG Ab a/p leukocytosis eosinophilia- ?hypereosinophic syndrome elevated alk phos pneumonia ODALIS hyponatremia -resolving change in mental status- appears improved legionella urinary antigen-negative stool ova and parasites strongyloides antibody prolonged Qtc ?malignancy continue zosyn/doxycycline suggest heme/neurology evaluation Problem List - Problems (1) Leukocytosis Code(s): D72.829 - ELEVATED WHITE BLOOD CELL COUNT, UNSPECIFIED (2) Eosinophilia Code(s): D72.1 - EOSINOPHILIA (3) Elevated alkaline phosphatase level Code(s): R74.8 - ABNORMAL LEVELS OF OTHER SERUM ENZYMES (4) Pneumonia Code(s): J18.9 - PNEUMONIA, UNSPECIFIED ORGANISM
--- NOTE | 2018-03-30 12:54 | PN ---
Progress Note, Physician Chief Complaint: Pt lying in bed in no acute distress. Reports feeling well. Denies any chest pain, sob, n/v/d - Current Medication List Current Medications: Active Medications Albuterol Sulfate (Ventolin 0.083% Nebulizer Soln -) 1 amp NEB Q6H PRN PRN Reason: SHORTNESS OF BREATH Last Admin: 03/29/18 20:30 Dose: 1 amp Albuterol/Ipratropium (Duoneb -) 1 amp NEB RQID [facility] Last Admin: 03/30/18 11:25 Dose: 1 amp Alprazolam (Xanax -) 0.5 mg PO Q8H PRN PRN Reason: ANXIETY Last Admin: 03/29/18 21:19 Dose: 0.5 mg Docusate Sodium (Colace -) 300 mg PO HS [facility] Last Admin: 03/29/18 21:54 Dose: Not Given Escitalopram Oxalate (Lexapro -) 20 mg PO DAILY [facility] Last Admin: 03/30/18 11:04 Dose: 20 mg Heparin Sodium (Porcine) (Heparin -) 5,000 unit SQ BID [facility] Last Admin: 03/30/18 11:04 Dose: 5,000 unit Doxycycline Hyclate 100 mg/ (Sodium Chloride) 100 mls @ 50 mls/hr IVPB BID [facility] Last Admin: 03/30/18 10:47 Dose: 50 mls/hr Piperacillin Sod/Tazobactam (Sod 3.375 gm/ Sodium Chloride) 50 mls @ 100 mls/ hr IVPB Q8H-IV [facility]; Protocol Last Admin: 03/30/18 10:47 Dose: 100 mls/hr Lidocaine (Lidoderm Patch -) 1 patch TP DAILY [facility] Last Admin: 03/30/18 11:09 Dose: 1 patch Mirtazapine (Remeron -) 15 mg PO HS [facility] Last Admin: 03/29/18 21:19 Dose: 15 mg Miscellaneous (Lidoderm Patch Removal) 1 each MC DAILY@2200 [facility] Last Admin: 03/29/18 21:54 Dose: Not Given Nicotine (Nicoderm Patch -) 7 mg TD DAILY [facility] Last Admin: 03/30/18 11:04 Dose: 7 mg Polyethylene Glycol (Miralax (For Daily Use) -) 17 gm PO DAILY [facility] Last Admin: 03/30/18 11:08 Dose: 17 gm Tiotropium [place] (Spiriva Respimat) 2 puff IH DAILY [facility] Last Admin: 03/30/18 11:09 Dose: 2 puff - Objective Vital Signs: Vital Signs Temperature 98.1 F 03/30/18 11:00 Pulse Rate 102 H 03/30/18 11:00 Respiratory Rate 20 03/30/18 11:00 Blood Pressure 122/82 03/30/18 11:00 O2 Sat by Pulse Oximetry (%) 95 03/29/18 21:00 Constitutional: Yes: No Distress, Calm, Thin Cardiovascular: Yes: Regular Rate and Rhythm Respiratory: Yes: Regular, Diminished, On Nasal O2, Rales (bibasilar). No: Accessory Muscle Use, SOB, Tachypnea, Wheezes Gastrointestinal: Yes: WNL, Normal Bowel Sounds, Soft. No: Distention, Tenderness Genitourinary: Yes: WNL Extremities: Yes: WNL Edema: No Neurological: Yes: Alert, Confusion Psychiatric: Yes: Alert Labs: CBC, BMP 03/30/18 05:10 03/30/18 05:10 INR, PTT INR 1.29 (0.83-1.09) H 03/27/18 18:47 Assessment/Plan (1) Sepsis Assessment/Plan: hemodynamically stable chest ct- possible harpreet patchy area, possible pna blood/urine cultures neg zosyn/doxy ID following Code(s): A41.9 - SEPSIS, UNSPECIFIED ORGANISM (2) UTI (urinary tract infection) Assessment/Plan: uc neg Code(s): N39.0 - URINARY TRACT INFECTION, SITE NOT SPECIFIED Qualifiers: Urinary tract infection type: acute cystitis Hematuria presence: with hematuria Qualified Code(s): N30.01 - Acute cystitis with hematuria (3) Metabolic encephalopathy Assessment/Plan: slowly improving suspect 2/[address] neg- however will consult neurology to assess for other neurological etiology per family pt is independent, alert and oriented x 3, occasionally repeats herself MRI brain ordered outpt dementia work up Code(s): G93.41 - METABOLIC ENCEPHALOPATHY (4) Leukocytosis Assessment/Plan: minimal improvement w/ antibx hematology work up in place Code(s): D72.829 - ELEVATED WHITE BLOOD CELL COUNT, UNSPECIFIED (5) Hyponatremia Assessment/Plan: improving auto-correcting on fluid restriction nephrology following Code(s): E87.1 - HYPO-OSMOLALITY AND HYPONATREMIA (6) Elevated troponin Assessment/Plan: demand Code(s): R74.8 - ABNORMAL LEVELS OF OTHER SERUM ENZYMES (7) ARLINE (acute kidney injury) Assessment/Plan: improving, pre renal encourage po intake Code(s): N17.9 - ACUTE KIDNEY FAILURE, UNSPECIFIED (8) Transaminitis Assessment/Plan: improved abd us w/out acute findings holding statin GI following Code(s): R74.0 - NONSPEC ELEV OF LEVELS OF TRANSAMNS & LACTIC ACID DEHYDRGNSE (9) Abnormal liver function test Assessment/Plan: alk phos elevation persists ggt borderline elevation suspect bone origin- GI following bone scan per gi Code(s): R94.5 - ABNORMAL RESULTS OF LIVER FUNCTION STUDIES (10) Eosinophilia Assessment/Plan: trending up unclear etiology stool ova and parasites pending strongyloides antibody pending heme following rheum consulted Code(s): D72.1 - EOSINOPHILIA (11) Pleural effusion Assessment/Plan: small, n/l 2/2 fluid over load monitor for now pulm following Code(s): J90 - PLEURAL EFFUSION, NOT ELSEWHERE CLASSIFIED (12) Pericardial effusion Assessment/Plan: small-moderate no tamponade diuresis prn repeat echo next week cardiology following Code(s): I31.3 - PERICARDIAL EFFUSION (NONINFLAMMATORY) (13) CHF (congestive heart failure) Assessment/Plan: 2/2 ivf load hold IVF diuresis monitor Code(s): I50.9 - HEART FAILURE, UNSPECIFIED Qualifiers: Heart failure chronicity: acute (14) CAD (coronary artery disease) Assessment/Plan: no acute ACS continue asa Code(s): I25.10 - ATHSCL HEART DISEASE OF [place] CORONARY ARTERY W/O ANG PCTRS Qualifiers: Coronary Disease-Associated Artery/Lesion type: [place] artery [place] vs. transplanted heart: [place] heart Associated angina: without angina Qualified Code(s): I25.10 - Atherosclerotic heart disease of [place] coronary artery without angina pectoris (15) HTN (hypertension) Assessment/Plan: controlled holding antihypertensives Code(s): I10 - ESSENTIAL (PRIMARY) HYPERTENSION Qualifiers: Hypertension type: essential hypertension Qualified Code(s): I10 - Essential (primary) hypertension (16) HLD (hyperlipidemia) Assessment/Plan: chronic holding statin Code(s): E78.5 - HYPERLIPIDEMIA, UNSPECIFIED (17) Tobacco dependence Assessment/Plan: advise smoking cessation nicotine patch Code(s): F17.200 - NICOTINE DEPENDENCE, UNSPECIFIED, UNCOMPLICATED (18) Anxiety Assessment/Plan: controlled continue lexapro/mirtazapine xanax prn Code(s): F41.9 - ANXIETY DISORDER, UNSPECIFIED Discussed with family at bedside. I discussed plan with pt's son Maksim over the phone and answered all questions. 40 minutes spent in discharge planning
--- NOTE | 2018-03-30 13:27 | CON.NEURO ---
Consult - Past Medical History Cardio/Vascular: Yes: CAD, HTN, Hyperlipdemia Psych: Yes: Anxiety, Depression - Alcohol/Substance Use Hx Alcohol Use: No History of Substance Use: reports: None - Smoking History Smoking history: Current every day smoker Have you smoked in the past 12 months: Yes Aproximately how many cigarettes per day: 5 - Social History ADL: Independent History of Recent Travel: No Home Medications - Allergies Allergies/Adverse Reactions: Allergies Allergy/AdvReac Type Severity Reaction Status Date / Time No Known Allergies Allergy Verified 03/27/18 11:33 - Home Medications Home Medications: Ambulatory Orders Aspirin 81 mg PO DAILY 11/17/14 Diltiazem HCl [Cartia Xt] 120 mg PO DAILY 11/17/14 Diltiazem HCl [Cartia Xt] 240 mg PO DAILY 11/17/14 Escitalopram Oxalate [Lexapro 5mg/5ml Oral Solution -] 20 mg PO DAILY #600 ml Olmesartan/Hydrochlorothiazide [Benicar Hct 20-12.5mg Tab -] 1 each PO DAILY tablet 11/17/14 Rosuvastatin Calcium [Crestor] 10 mg PO HS tablet 11/17/14 Mirtazapine 15 mg PO DAILY 03/27/18 Physical Exam-Neuro Vital Signs: Vital Signs Temperature 98.1 F 03/30/18 11:00 Pulse Rate 102 H 03/30/18 11:00 Respiratory Rate 20 03/30/18 11:00 Blood Pressure 122/82 03/30/18 11:00 O2 Sat by Pulse Oximetry (%) 95 03/29/18 21:00 Labs: CBC, BMP 03/30/18 05:10 03/30/18 05:10 INR, PTT INR 1.29 (0.83-1.09) H 03/27/18 18:47 Assessment/Plan cc Confusion x 4 days HPI 82 year old female histoyr of HTN, HLD, came to hospital for mental status change for one days prior to coming to hospital. She has visual hallucintion and found to have UTI. She has normal ct head. Patient was seen at niece at bed side . She lives by herself. She has improved in lat two days and able to have normal conversation. Patient denies nay headhace, no seizure like activity, no motor weakness or sensory loss. Paitent has been afebrile in last 24 hours PMH CAD, HTN, HLD , Smoker. is Allergies/Adverse Reactions: Allergies Allergy/AdvReac Type Severity Reaction Status Date / Time No Known Allergies Allergy Verified 03/27/18 11:33 Home Medications: Aspirin 81 mg PO DAILY 11/17/14 Diltiazem HCl [Cartia Xt] 120 mg PO DAILY 11/17/14 Diltiazem HCl [Cartia Xt] 240 mg PO DAILY 11/17/14 Escitalopram Oxalate [Lexapro 5mg/5ml Oral Solution -] 20 mg PO DAILY #600 ml Olmesartan/Hydrochlorothiazide [Benicar Hct 20-12.5mg Tab -] 1 each PO DAILY tablet 11/17/14 Rosuvastatin Calcium [Crestor] 10 mg PO HS tablet 11/17/14 Mirtazapine 15 mg PO DAILY 03/27/18 Family Hisotry and ROS reviewed in chart NEUROLOGICAL EXAMINATION: Alert oriented x 2, showed knows she is in hospital, date she richard it is feb 2018 and she knows her age speech is normal, neck is supple and afrebrile eomi, pupils reactive no face asymmetry moving all extremity sensation is normal ct head is unremarkable Assessment/Plan 82 year old female history of HTN,HLD, CAD,Smoker . She came to hospital for confusion and found to have uti and clinically she has improved. THere is no headhace, no high grade fever , No neck stiffness. I suspect she has delirium secondary to hospitalization and uti. Plan: She may have underlying early dementia , would do eval as outpatient . She should improve in familiar environment . suggest to do b12,folate tsh - clinically unlikley to be meningitis/encephalipitis and spoke to primary team , there is no need for spinal tap at this time. Thanking you so much Magdaleno Carranza MD
--- NOTE | 2018-03-30 13:41 | PN ---
Progress Note (short form) - Note Progress Note: PULMONARY CONSULTATION DICTATED 03/30/18 IMP ALTERED MENTAL STATUS HYPONATREMIA ODALIS INFILTRATE ? INFECTIOUS,? INFLAMMATORY,?CHF CHF DYSPNEA PERICARDIAL EFFUSION EOSINOPHILIA ? INFECTIOUS,?MALIGNANT,? AUTOIMMUNE ELEVATED ALK PHOS LIKELY COPD SMOKER PLAN LASIX O2 ABX PER ID CULTURES INHALED BRONCHODILATORS MONITOR LYTES,NA TREND EOSINOPHIL CT MONITOR PERICARDIAL EFFUSION PER CARDIOLOGY F/U CHEST X-RAYS BNP DR LOPEZ Problem List - Problems (1) ARLINE (acute kidney injury) Code(s): N17.9 - ACUTE KIDNEY FAILURE, UNSPECIFIED (2) Altered mental status, unspecified Code(s): R41.82 - ALTERED MENTAL STATUS, UNSPECIFIED Qualifiers: Altered mental status type: delirium Qualified Code(s): R41.0 - Disorientation, unspecified (3) CAD (coronary artery disease) Code(s): I25.10 - ATHSCL HEART DISEASE OF [place] CORONARY ARTERY W/O ANG PCTRS Qualifiers: Coronary Disease-Associated Artery/Lesion type: [place] artery [place] vs. transplanted heart: [place] heart Associated angina: without angina Qualified Code(s): I25.10 - Atherosclerotic heart disease of [place] coronary artery without angina pectoris (4) Elevated alkaline phosphatase level Code(s): R74.8 - ABNORMAL LEVELS OF OTHER SERUM ENZYMES (5) Eosinophilia Code(s): D72.1 - EOSINOPHILIA (6) HTN (hypertension) Code(s): I10 - ESSENTIAL (PRIMARY) HYPERTENSION Qualifiers: Hypertension type: essential hypertension Qualified Code(s): I10 - Essential (primary) hypertension (7) Hyponatremia Code(s): E87.1 - HYPO-OSMOLALITY AND HYPONATREMIA (8) Leukocytosis Code(s): D72.829 - ELEVATED WHITE BLOOD CELL COUNT, UNSPECIFIED (9) Metabolic encephalopathy Code(s): G93.41 - METABOLIC ENCEPHALOPATHY (10) Pneumonia Code(s): J18.9 - PNEUMONIA, UNSPECIFIED ORGANISM (11) Tobacco dependence Code(s): F17.200 - NICOTINE DEPENDENCE, UNSPECIFIED, UNCOMPLICATED (12) Transaminitis Code(s): R74.0 - NONSPEC ELEV OF LEVELS OF TRANSAMNS & LACTIC ACID DEHYDRGNSE (13) UTI (urinary tract infection) Code(s): N39.0 - URINARY TRACT INFECTION, SITE NOT SPECIFIED Qualifiers: Urinary tract infection type: acute cystitis Hematuria presence: with hematuria Qualified Code(s): N30.01 - Acute cystitis with hematuria
--- NOTE | 2018-03-30 14:42 | CON.GI ---
Consult Consult Specialty:: Gastroenterology Referred by:: Lor Kim NP Reason for Consultation:: Elevated alkaline phosphatase - History of Present Illness Chief Complaint: Altered mental status History of Present Illness: 82F admitted for altered mental status now felt to be due to urosepsis. She is now conversant. She denies any GI problems other than constipation. She denies any h/o liver disease, IVDA, tattoos, transfusions, FH liver disease or regular alcohol intake. She drinks alcohol only rarely on major holidays. She has never had a colonoscopy although her mother had colon cancer. Her sister and brother aided in obtaining this history. A brother of pancreatic cancer with liver mets. Ghada denies weight loss or loss of appetite. No rectal bleeding or narrowed stool caliber. - History Source History Provided By: Patient Limitations to Obtaining History: No Limitations - Past Medical History Cardio/Vascular: Yes: CAD, HTN, Hyperlipdemia Pulmonary: Yes: COPD Gastrointestinal: Yes: Constipation Psych: Yes: Anxiety, Depression - Past Surgical History Past Surgical History: Yes: Appendectomy (together with TAHBSO), Hysterectomy ( TAHBSO for fibroids), Tonsillectomy - Alcohol/Substance Use Hx Alcohol Use: Yes (rare) History of Substance Use: reports: None - Smoking History Smoking history: Current every day smoker Have you smoked in the past 12 months: Yes Aproximately how many cigarettes per day: 40 (2 PPD) - Social History Usual Living Arrangement: Alone () ADL: Independent Occupation: retired teacher's aid Place of : [facility] History of Recent Travel: No Home Medications - Allergies Allergies/Adverse Reactions: Allergies Allergy/AdvReac Type Severity Reaction Status Date / Time No Known Allergies Allergy Verified 03/27/18 11:33 - Home Medications Home Medications: Ambulatory Orders Aspirin 81 mg PO DAILY 11/17/14 Diltiazem HCl [Cartia Xt] 120 mg PO DAILY 11/17/14 Diltiazem HCl [Cartia Xt] 240 mg PO DAILY 11/17/14 Escitalopram Oxalate [Lexapro 5mg/5ml Oral Solution -] 20 mg PO DAILY #600 ml Olmesartan/Hydrochlorothiazide [Benicar Hct 20-12.5mg Tab -] 1 each PO DAILY tablet 11/17/14 Rosuvastatin Calcium [Crestor] 10 mg PO HS tablet 11/17/14 Mirtazapine 15 mg PO DAILY 03/27/18 Family Disease History - Family Disease History Family Disease History: CA: Mother ( 92 colon cancer), Brother ( pancreatic cancer), Other: Father ( 84 natural causes) Review of Systems - Review of Systems Constitutional: reports: No Symptoms Eyes: reports: No Symptoms HENT: reports: No Symptoms Neck: reports: No Symptoms Cardiovascular: reports: No Symptoms Respiratory: reports: Cough, SOB on Exertion Gastrointestinal: reports: Constipation Genitourinary: reports: Frequency Physical Exam-GI Vital Signs: Vital Signs Temperature 98.1 F 03/30/18 11:00 Pulse Rate 102 H 03/30/18 11:00 Respiratory Rate 20 03/30/18 11:00 Blood Pressure 122/82 03/30/18 11:00 O2 Sat by Pulse Oximetry (%) 95 03/29/18 21:00 CBC,CMP WBC 21.5 K/mm3 (4.0-10.0) H 03/30/18 05:10 RBC 3.97 M/mm3 (3.60-5.2) 03/30/18 05:10 Hgb 12.2 GM/dL (10.7-15.3) 03/30/18 05:10 Hct 34.9 % (32.4-45.2) 03/30/18 05:10 MCV 87.9 fl (80-96) 03/30/18 05:10 MCH 30.8 pg (25.7-33.7) 03/30/18 05:10 MCHC 35.0 g/dl (32.0-36.0) 03/30/18 05:10 RDW 13.9 % (11.6-15.6) 03/30/18 05:10 Plt Count 198 K/MM3 (134-434) 03/30/18 05:10 MPV 8.7 fl (7.5-11.1) 03/30/18 05:10 Absolute Neuts (auto) 11.3 K/mm3 (1.5-8.0) H 03/30/18 05:10 Total Counted 100 03/27/18 12:15 Neutrophils % 52.6 % (42.8-82.8) 03/30/18 05:10 Neutrophils % (Manual) 43.3 % (42.8-82.8) 03/30/18 05:10 Band Neutrophils % 4.8 % 03/30/18 05:10 Lymphocytes % 5.1 % (8-40) L 03/30/18 05:10 Lymphocytes % (Manual) 6.7 % (8-40) L D 03/30/18 05:10 Monocytes % 2.9 % (3.8-10.2) L D 03/30/18 05:10 Monocytes % (Manual) 2 % (3.8-10.2) L D 03/30/18 05:10 Eosinophils % 39.1 % (0-4.5) H* 03/30/18 05:10 Eosinophils % (Manual) 41.4 % (0-4.5) H 03/30/18 05:10 Basophils % 0.3 % (0-2.0) 03/30/18 05:10 Basophils % (Manual) 0.0 % (0-2.0) 03/30/18 05:10 Myelocytes % (Man) 0 % (0-2) 03/30/18 05:10 Promyelocytes % (Man) 0 % (0-2) 03/30/18 05:10 Blast Cells % (Manual) 0 % (0-0) 03/30/18 05:10 Nucleated RBC % 0 % (0-0) 03/30/18 05:10 Metamyelocytes 0 % (0-2) 03/30/18 05:10 Hypochromia 0 03/30/18 05:10 Toxic Granulation 0 03/29/18 05:30 Dohle Bodies 0 03/29/18 05:30 Platelet Estimate Normal 03/30/18 05:10 Polychromasia 0 03/30/18 05:10 Poikilocytosis 0 03/30/18 05:10 Basophilic Stippling 0 03/29/18 05:30 Anisocytosis 0 03/30/18 05:10 Microcytosis 0 03/30/18 05:10 Macrocytosis 0 03/30/18 05:10 Spherocytes 0 03/29/18 05:30 Sickle Cells 0 03/29/18 05:30 Target Cells 0 03/29/18 05:30 Tear Drop Cells 0 03/29/18 05:30 Ovalocytes 0 03/29/18 05:30 Stomatocytes 0 03/29/18 05:30 Helmet Cells 0 03/29/18 05:[address] [place] Bodies 0 03/29/18 05:30 [place] Rings 0 03/29/18 05:30 Emperatriz Cells 0 03/29/18 05:30 Acanthocytes (Spur) 0 03/29/18 05:30 Rouleaux 0 03/29/18 05:30 Fragmented RBCs 0 03/29/18 05:30 Schistocytes 0 03/29/18 05:30 ESR 16 mm/hr (0-30) 03/30/18 05:10 Sodium 130 mmol/L (136-145) L 03/30/18 05:10 Potassium 3.9 mmol/L (3.5-5.1) 03/30/18 05:10 Chloride 96 mmol/L (98-107) L 03/30/18 05:10 Carbon Dioxide 26 mmol/L (21-32) 03/30/18 05:10 Anion Gap 8 MMOL/L (8-16) 03/30/18 05:10 BUN 20 mg/dL (7-18) H 03/30/18 05:10 Creatinine 1.2 mg/dL (0.55-1.3) 03/30/18 05:10 Creat Clearance w eGFR 42.80 (>60) 03/30/18 05:10 Random Glucose 108 mg/dL (74-106) H 03/30/18 05:10 Serum Osmolality 268 mosm/kg (278-305) L 03/27/18 17:09 Lactic Acid 1.6 mmol/L (0.4-2.0) 03/27/18 12:15 Calcium 7.8 mg/dL (8.5-10.1) L 03/30/18 05:10 Phosphorus 2.8 mg/dL (2.5-4.9) 03/30/18 05:10 Magnesium 2.3 mg/dL (1.8-2.4) 03/30/18 05:10 Total Bilirubin 0.4 mg/dL (0.2-1) 03/30/18 05:10 Direct Bilirubin 0.2 mg/dL (0.0-0.2) 03/30/18 05:10 GGT 88 U/L (5-85) H 03/30/18 05:10 AST 15 U/L (15-37) 03/30/18 05:10 ALT 121 U/L (13-61) H 03/30/18 05:10 Alkaline Phosphatase 813 U/L (45-117) H 03/30/18 05:10 Ammonia 33.98 umol/L (11-32) H 03/27/18 18:47 Creatine Kinase 182 U/L (26-192) 03/29/18 21:00 Creatine Kinase Index 2.5 % (0.0-5.0) 03/29/18 21:00 CK-MB (CK-2) 4.5 ng/mL (0.5-3.6) H 03/29/18 21:00 Troponin I 0.10 ng/ml (0.00-0.05) H 03/29/18 21:00 C-Reactive Protein 6.1 MG/DL (0.00-0.3) H 03/30/18 05:10 Total Protein 5.3 g/dl (6.4-8.2) L 03/30/18 05:10 Albumin 2.5 g/dl (3.4-5.0) L 03/30/18 05:10 TSH 0.33 uIU/ml (0.358-3.74) L 03/30/18 05:10 Free T4 1.42 ng/dl (0.76-1.46) 03/30/18 05:10 Current Medications Generic Name Dose Route Start Last Admin Trade Name Freq PRN Reason Stop Dose Admin Albuterol Sulfate 1 amp 03/28/18 10:42 03/29/18 20:30 Ventolin 0.083% Nebulizer Soln - NEB 1 amp Q6H PRN Administration SHORTNESS OF BREATH Albuterol/Ipratropium 1 amp 03/30/18 12:00 03/30/18 11:25 Duoneb - NEB 1 amp RQID MARVEL Administration Alprazolam 0.5 mg 03/27/18 15:59 03/29/18 21:19 Xanax - PO 0.5 mg Q8H PRN Administration ANXIETY Docusate Sodium 300 mg 03/28/18 22:00 03/29/18 21:54 Colace - PO Not Given HS MARVEL Escitalopram Oxalate 20 mg 03/28/18 10:00 03/30/18 11:04 Lexapro - PO 20 mg DAILY MARVEL Administration Heparin Sodium (Porcine) 5,000 unit 03/27/18 22:00 03/30/18 11:04 Heparin - SQ 5,000 unit BID MARVEL Administration Doxycycline Hyclate 100 mg/ 100 mls @ 50 mls/hr 03/29/18 22:00 03/30/18 10:47 Sodium Chloride IVPB 50 mls/hr BID MARVEL Administration Piperacillin Sod/Tazobactam 50 mls @ 100 mls/hr 03/29/18 18:30 03/30/18 10:47 Sod 3.375 gm/ Sodium Chloride IVPB 100 mls/hr Q8H-IV MARVEL Administration Protocol Lidocaine 1 patch 03/29/18 18:30 03/30/18 11:09 Lidoderm Patch - TP 1 patch DAILY MARVEL Administration Mirtazapine 15 mg 03/27/18 22:00 03/29/18 21:19 Remeron - PO 15 mg HS MARVEL Administration Miscellaneous 1 each 03/29/18 22:00 03/29/18 21:54 Lidoderm Patch Removal MC Not Given DAILY@2200 MARVEL Nicotine 7 mg 03/27/18 15:30 03/30/18 11:04 Nicoderm Patch - TD 7 mg DAILY MARVEL Administration Polyethylene Glycol 17 gm 03/28/18 10:00 03/30/18 11:08 Miralax (For Daily Use) - PO 17 gm DAILY MARVEL Administration Tiotropium [place] 2 puff 03/28/18 10:15 03/30/18 11:09 Spiriva Respimat IH 2 puff DAILY MARVEL Administration Constitutional: Yes: No Distress Eyes: Yes: Conjunctiva Clear HENT: Yes: Atraumatic Neck: Yes: Supple Cardiovascular: Yes: Regular Rate and Rhythm Respiratory: Yes: CTA Bilaterally, Hyperresonant Gastrointestinal Inspection: Yes: Scars (healed vertical suprapubic incision) ...Auscultate: Yes: Normoactive Bowel Sounds ...Palpate: Yes: Soft ...Percussion: Yes: Other (nontender) ...Rectal Exam: Yes: Guaiac Positive (brown soft g positive stool) Labs: CBC, BMP 03/30/18 05:10 03/30/18 05:10 INR, PTT INR 1.29 (0.83-1.09) H 03/27/18 18:47 Laboratory Tests 03/27/18 03/27/18 03/30/18 12:15 12:15 05:10 WBC 20.7 H 21.5 H Hgb 12.2 Hct 34.9 MCV 87.9 Eosinophils % 13.4 H 39.1 H* Total Bilirubin Direct Bilirubin GGT AST ALT Alkaline Phosphatase 937 H Albumin 03/30/18 03/30/18 03/30/18 05:10 05:10 05:10 WBC Hgb Hct MCV Eosinophils % Total Bilirubin 0.4 Direct Bilirubin 0.2 GGT 88 H AST 16 15 ALT 122 H 121 H Alkaline Phosphatase 832 H 813 H Albumin 2.5 L Imaging - Results Cat Scan: Report Reviewed (Servando Deluca Name: GHADA ESTRADA DEPARTMENT OF RADIOLOGY Phys: Lor Kim [facility] : 1935 Age: 82 Sex: F [facility] Acct: [id number] Loc: [address] Exam Date: 03/29/18 Status: [place] [address] Unit Number: [id number] EXAM#: TYPE/EXAM: RESULT: CT/CHEST CT WITHOUT CONTRAST CT/ABDOMEN PELVIS CT W/O CONTR HISTORY PROVIDED: Leukocytosis, rule out pneumonia TECHNIQUE: Sequential axial images were obtained from the thoracic inlet through the symphysis pubis following the administration of oral contrast material. The study is markedly limited. Examination of the mediastinum demonstrates no evidence of mediastinal masses, fluid collections or significant lymphadenopathy. The heart is slightly enlarged. There is a small pericardial effusion present. Evaluation of the lung brandon demonstrates patchy consolidation within the left upper lobe. This is concerning for acute pneumonia. There are bilateral pleural effusions present with atelectatic changes involving the lower lobes. The possibility of a mild degree of acute pulmonary vascular congestion cannot be excluded as well. Clinical correlation is advised. The liver, spleen, pancreas, adrenal glands and kidneys demonstrate no gross abnormalities. The gallbladder is clear. Examination of the pelvis demonstrates free fluid within the lower pelvis. There is no evidence of pelvic masses, fluid collections or lymphadenopathy. The uterus has been removed. There are edematous changes throughout the subcutaneous tissues of the chest, abdomen and pelvis consistent with anasarca. There is no evidence of acute bony pathology. IMPRESSION: 1. Patchy left upper lobe consolidation suspicious for pneumonia. 2. Cardiomegaly, possible mild congestion and bilateral pleural effusions, left greater than right. There is also a small amount of pericardial fluid. 3. Limited evaluation of the abdomen with no gross evidence of acute pathology. There is free fluid within the pelvis. Please see above discussion. Reported By: Alec Lopez MD 03/29/18 1309 Technologist: Geoff Aguilar Transcribed Date/Time: 03/29/18 1309 Terminal Superintendent: Alec Lopez Printed Date/Time: By: Signed by: Alec Lopez Signed on: Feb-2018 13:10) Problem List - Problems (1) Abnormal liver function test Assessment/Plan: The minimal elevation of the GGTP in proportion to the alkaline phosphatase elevation and lack of biliary tract or liver parenchymal abnormalities in CT suggests another prominent source, ie bone. Will check isoenzymes and SPEP but this may reflect osteoporosis. If bony origin is substantiated a bone scan shoudl be considered. Her ALT elevation requires screening for liver diseases however. An echocardiogram will help to exclude cor pulmonale with hepatic congestion. Code(s): R94.5 - ABNORMAL RESULTS OF LIVER FUNCTION STUDIES (2) Occult blood positive stool Assessment/Plan: Given her FH of colon cancer I have advised a colonoscopy screening for cancer and a EGD as an outpatient. I gave her my business card. I advised her siblings to also have colon cancer screening. Code(s): R19.5 - OTHER FECAL ABNORMALITIES (3) Constipation Code(s): K59.00 - CONSTIPATION, UNSPECIFIED (4) Family history of colon cancer in mother Code(s): Z80.0 - FAMILY HISTORY OF MALIGNANT NEOPLASM OF DIGESTIVE ORGANS (5) Family history of pancreatic cancer Code(s): Z80.0 - FAMILY HISTORY OF MALIGNANT NEOPLASM OF DIGESTIVE ORGANS (6) Altered mental status, unspecified Code(s): R41.82 - ALTERED MENTAL STATUS, UNSPECIFIED Qualifiers: Altered mental status type: delirium Qualified Code(s): R41.0 - Disorientation, unspecified (7) Elevated alkaline phosphatase level Code(s): R74.8 - ABNORMAL LEVELS OF OTHER SERUM ENZYMES (8) Sepsis Code(s): A41.9 - SEPSIS, UNSPECIFIED ORGANISM (9) UTI (urinary tract infection) Code(s): N39.0 - URINARY TRACT INFECTION, SITE NOT SPECIFIED Qualifiers: Urinary tract infection type: acute cystitis Hematuria presence: with hematuria Qualified Code(s): N30.01 - Acute cystitis with hematuria Assessment/Plan Alkaline phosphatase isoenzymes Hepatic disease screening EGD and colonscopy has been advised as an outpatient. Miralax for constipation I advised her to quit smokung
--- NOTE | 2018-03-30 14:51 | PN ---
Progress Note, Physician History of Present Illness: Pt seen and examined at bedside. She had shortness of breath last night and seems to have responded to lasix. - Current Medication List Current Medications: Active Medications Albuterol Sulfate (Ventolin 0.083% Nebulizer Soln -) 1 amp NEB Q6H PRN PRN Reason: SHORTNESS OF BREATH Last Admin: 03/29/18 20:30 Dose: 1 amp Albuterol/Ipratropium (Duoneb -) 1 amp NEB RQID [facility] Last Admin: 03/30/18 11:25 Dose: 1 amp Alprazolam (Xanax -) 0.5 mg PO Q8H PRN PRN Reason: ANXIETY Last Admin: 03/29/18 21:19 Dose: 0.5 mg Docusate Sodium (Colace -) 300 mg PO HS [facility] Last Admin: 03/29/18 21:54 Dose: Not Given Escitalopram Oxalate (Lexapro -) 20 mg PO DAILY [facility] Last Admin: 03/30/18 11:04 Dose: 20 mg Heparin Sodium (Porcine) (Heparin -) 5,000 unit SQ BID [facility] Last Admin: 03/30/18 11:04 Dose: 5,000 unit Doxycycline Hyclate 100 mg/ (Sodium Chloride) 100 mls @ 50 mls/hr IVPB BID [facility] Last Admin: 03/30/18 10:47 Dose: 50 mls/hr Piperacillin Sod/Tazobactam (Sod 3.375 gm/ Sodium Chloride) 50 mls @ 100 mls/ hr IVPB Q8H-IV MARVEL; Protocol Last Admin: 03/30/18 10:47 Dose: 100 mls/hr Lidocaine (Lidoderm Patch -) 1 patch TP DAILY [facility] Last Admin: 03/30/18 11:09 Dose: 1 patch Mirtazapine (Remeron -) 15 mg PO HS [facility] Last Admin: 03/29/18 21:19 Dose: 15 mg Miscellaneous (Lidoderm Patch Removal) 1 each MC DAILY@2200 [facility] Last Admin: 03/29/18 21:54 Dose: Not Given Nicotine (Nicoderm Patch -) 7 mg TD DAILY [facility] Last Admin: 03/30/18 11:04 Dose: 7 mg Polyethylene Glycol (Miralax (For Daily Use) -) 17 gm PO DAILY [facility] Last Admin: 03/30/18 11:08 Dose: 17 gm Tiotropium [place] (Spiriva Respimat) 2 puff IH DAILY MARVEL Last Admin: 03/30/18 11:09 Dose: 2 puff - Objective Vital Signs: Vital Signs Temperature 98.1 F 03/30/18 11:00 Pulse Rate 102 H 03/30/18 11:00 Respiratory Rate 20 03/30/18 11:00 Blood Pressure 122/82 03/30/18 11:00 O2 Sat by Pulse Oximetry (%) 95 03/29/18 21:00 Constitutional: Yes: Calm Eyes: Yes: Conjunctiva Clear HENT: Yes: Atraumatic Cardiovascular: Yes: S1, S2 Respiratory: Yes: On Nasal O2 Gastrointestinal: Yes: Soft Genitourinary: Yes: WNL Edema: No Neurological: Yes: Oriented Psychiatric: Yes: Oriented Labs: CBC, BMP 03/30/18 05:10 03/30/18 05:10 INR, PTT INR 1.29 (0.83-1.09) H 03/27/18 18:47 Problem List - Problems (1) ARLINE (acute kidney injury) Code(s): N17.9 - ACUTE KIDNEY FAILURE, UNSPECIFIED (2) HTN (hypertension) Code(s): I10 - ESSENTIAL (PRIMARY) HYPERTENSION Qualifiers: Qualified Code(s): I10 - Essential (primary) hypertension (3) Hyponatremia Code(s): E87.1 - HYPO-OSMOLALITY AND HYPONATREMIA (4) Tobacco dependence Code(s): F17.200 - NICOTINE DEPENDENCE, UNSPECIFIED, UNCOMPLICATED Assessment/Plan Current Medications Generic Name Dose Route Start Last Admin Trade Name Freq PRN Reason Stop Dose Admin Albuterol Sulfate 1 amp 03/28/18 10:42 03/29/18 20:30 Ventolin 0.083% Nebulizer Soln - NEB 1 amp Q6H PRN Administration SHORTNESS OF BREATH Albuterol/Ipratropium 1 amp 03/30/18 12:00 03/30/18 11:25 Duoneb - NEB 1 amp RQID MARVEL Administration Alprazolam 0.5 mg 03/27/18 15:59 03/29/18 21:19 Xanax - PO 0.5 mg Q8H PRN Administration ANXIETY Docusate Sodium 300 mg 03/28/18 22:00 03/29/18 21:54 Colace - PO Not Given HS MARVEL Escitalopram Oxalate 20 mg 03/28/18 10:00 03/30/18 11:04 Lexapro - PO 20 mg DAILY MARVEL Administration Heparin Sodium (Porcine) 5,000 unit 03/27/18 22:00 03/30/18 11:04 Heparin - SQ 5,000 unit BID MARVEL Administration Doxycycline Hyclate 100 mg/ 100 mls @ 50 mls/hr 03/29/18 22:00 03/30/18 10:47 Sodium Chloride IVPB 50 mls/hr BID MARVEL Administration Piperacillin Sod/Tazobactam 50 mls @ 100 mls/hr 03/29/18 18:30 03/30/18 10:47 Sod 3.375 gm/ Sodium Chloride IVPB 100 mls/hr Q8H-IV MARVEL Administration Protocol Lidocaine 1 patch 03/29/18 18:30 03/30/18 11:09 Lidoderm Patch - TP 1 patch DAILY MAR[facility]EL Administration Mirtazapine 15 mg 03/27/18 22:00 03/29/18 21:19 Remeron - PO 15 mg HS MARVEL Administration Miscellaneous 1 each 03/29/18 22:00 03/29/18 21:54 Lidoderm Patch Removal MC Not Given DAILY@2200 MAR[facility]EL Nicotine 7 mg 03/27/18 15:30 03/30/18 11:04 Nicoderm Patch - TD 7 mg DAILY MAR[facility]EL Administration Polyethylene Glycol 17 gm 03/28/18 10:00 03/30/18 11:08 Miralax (For Daily Use) - PO 17 gm DAILY MARVEL Administration Tiotropium [place] 2 puff 03/28/18 10:15 03/30/18 11:09 Spiriva Respimat IH 2 puff DAILY MARVEL Administration Laboratory Tests 03/30/18 05:10 Cortisol AM Sample Pending Impression 1. hyponatremia 2. ARLINE 3. depression 4. htn 5. tobacco use 6. anxiety 7. pleural effusions on ct scan Plan - sodium is improving - cont with lasix - would not restart thiazide - monitor sodium - repeat cxr tomorrow - encourage PO intake Dr Guardado
--- NOTE | 2018-03-30 15:17 | CONS ---
DATE OF CONSULTATION: 03/30/2018 REFERRING PHYSICIAN: CHASIDY Lay HISTORY: The patient is an 82-year-old white female with past medical history of hypertension, hyperlipidemia, longstanding history of tobacco use approximately 2 packs per day for many years currently still smoking admitted to [facility] for mental status. Apparently, according to the family, for the past 2 days prior to admission, she started developing confusion and visual hallucinations. Apparently, she has not been feeling well. There was no fever or chest pain. She had decreased p.o. intake for the past few weeks, and she complained of dizziness the day prior to admission. She presented to the emergency room with the above. In the ER, she was noted to be hyponatremic with a serum sodium of 123. She was started on IV fluids and transferred to the telemetry unit for further management. She was also initially noted on admission to be tachycardic and hypotensive. The patient was placed on broad-spectrum antibiotics. She underwent a CT scan of the chest, which revealed possible left upper lobe patchy infiltrate and bilateral pleural effusions. Hospitalization was significant she was noted on admission to have elevated eosinophil levels of 13.4 on March 22. Repeat today shows eosinophil level of 39.1. She was evaluated by Hematology, and workup is in progress. The patient was also noted to have elevated alkaline phosphatase of 832 and elevated transaminases. According to the patient's family, the patient normally is awake and alert. Has occasional forgetfulness but, otherwise, is competent. She has, as stated before, a longstanding history of tobacco use. She denies any history of COPD or asthma in the past. On hospitalization it was also noted she has had episodes of shortness of breath for which she was started on Lasix with some improvement. She underwent an echocardiogram on March 29, which revealed [id number] pericardial effusion, tricuspid regurgitation, and moderate apical wall hypokinesis. According to the family, there is no history of congestive heart failure. There are no fevers. There is weight loss and decreased p.o. intake. There is no history of recent infections or travel. PAST MEDICAL HISTORY: hypertension, hyperlipidemia, anxiety, coronary artery disease. MEDICATIONS: Prior to admission include aspirin, diltiazem, Lexapro, Benicar, Crestor,, mirtazapine as well as hydrochlorothiazide. Current medications include Lidoderm, doxycycline, Zosyn, heparin, Lexapro, Remicade, Spiriva, Nicoderm patch, Xanax, albuterol, DuoNeb, and Lasix. REVIEW OF SYSTEMS: Unable to obtain. The patient is confused. PHYSICAL EXAMINATION: General: The patient is an elderly white female thin, well-developed, awake, alert but confused in no acute distress. Vital Signs: She is afebrile. Blood pressure 122/82, respiratory rate 20, O2 saturation 95% on 2 L. HEENT: Normocephalic and atraumatic. Neck: Supple. Heart: Regular with S1, S2. Chest: A few bibasilar crackles. Abdomen: Soft. Bowel sounds are positive. Extremities: No cyanosis or edema. LABORATORIES: Sodium 130, BUN 20, creatinine 1.2, alkaline phosphatase today is 813, ALT 121, GTT 88, CRP 6.1. WBCs 21.5, hemoglobin 12.2, hematocrit 34, and a platelet count of 189,000. There are 52 polys, 4 bands, 5 lymphocytes, 2 monocytes, and 39 eosinophils. INR is 1.29. Serology is pending. Chest CT noted patchy left upper lobe consolidation, cardiomegaly, mild congestion, bilateral effusions left greater than right, and pericardial effusion. Echocardiogram as noted earlier. IMPRESSION: 1. Altered mental status most likely secondary to severe hyponatremia, currently improving. 2. Left upper lobe infiltrate, possible infectious, possible inflammatory versus congestive heart failure. 3. Congestive heart failure. 4. Dyspnea, again, likely secondary to mild congestive heart failure as well as underlying chronic obstructive pulmonary disease secondary to long history of tobacco use. 5. Pericardial effusion, congestive heart failure, rule out possible inflammatory, autoimmune. 6. Eosinophils, possible infectious process, possible malignancy, autoimmune, vasculitis 7. elevated alkaline phosphatase. 78. Tobacco abuse. PLAN: Lasix as per Renal. Supplemental O2. Antibiotics per Infectious Disease. Obtain cultures. Inhaled bronchodilators. Monitor electrolytes. Serum sodium. Trend eosinophil count. Monitor pericardial effusion as per Cardiology.F/u chest x-rays Serology KAMI LOPEZ M.D. RACHAEL/[id number] MTDD
--- NOTE | 2018-03-30 16:53 | PN ---
Progress Note (short form) - Note Progress Note: Patient off floor Reviewed peripheral smear RDC's-- NC WBC--40-50% Eosinophils including 3 and 4 lobed eosinophils and eosinophilic myeolocytes ; rare myelocyte seen Platelets - adequate Ongoing work up
--- NOTE | 2018-03-30 17:22 | PN ---
Progress Note (short form) - Note Progress Note: Patient seen and examined Just returned from MRI - anxious about test. ROS - did not shed any additional light on etiology of eosinophilia. Family history includes broth with colon ca , but no other malignancies or hematologic disorders in family. 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 Impression: Altered mental status - improved Pneumonitis Leucocytosis Eosinophilia hyponatremia Abnormal LFT's Plan: Eosinophilia evaluation for infection neoplasia , hematologic disorder , collagen vascular , granulomatous disease , HES, etc. Bone scan and skeletal survery with elevation of Alk Phos and borderline GGTP ; GI evaluation of abnormal LFT's Await flow cytometry, but may need bone marrow evaluation I.D. for pneumonitis and infectious etiologies for eosinophilia
[2018-03-30] MEDS: LIDOCAINE PATCH REMOVAL MC SCH (22:00)
[2018-03-30] MEDS ORDERED: PT OWN MED DRAWER 7, Y5N ONE (22:18)
[2018-03-30] MEDS: DOCUSATE SODIUM 100 MG CAPSULE (FP) PO SCH (22:29)
[2018-03-30] MEDS: MIRTAZAPINE 15 MG TABLET (FP) PO SCH (22:29)
[2018-03-31] MEDS ORDERED: PIPERACILLIN/TAZOBACTAM 3.375 GM VIAL IVPB ONE ×2 (00:40→09:01)
[2018-03-31] MEDS ORDERED: SODIUM CHLORIDE 50 ML IVPB ONE ×2 (00:41→09:01)
[2018-03-31] MEDS: PIPERACILLIN/TAZOB 3.375 GM 3.375 GM in SODIUM CHLORIDE 50 ML IVPB SCH ×2 (01:03→09:11)
[2018-03-31] MEDS ORDERED: diphenhydrAMINE HCL 25 MG CAPSULE (FP) PO ONE (02:40)
[2018-03-31] MEDS: ALBUTEROL SO4 2.5/IPRATROPIUM 0.5 INH SOL 3 ML VIAL.NEB. NEB SCH ×4 (07:40→20:15)
[2018-03-31 07:41] LABS: BASO % 0.2 % (0-2.0); EOS % 56.9 % (0-4.5); HEMATOCRIT 35.7 % (32.4-45.2); HEMOGLOBIN 12.3 GM/dL (10.7-15.3); LYMPH % 6.6 % (8-40); MCH 30.5 pg (25.7-33.7); MCHC 34.6 g/dl (32.0-36.0); MEAN CELL VOLUME 88.2 fl (80-96); MEAN PLT VOLUME 8.5 fl (7.5-11.1); MONO % 2.8 % (3.8-10.2); NEUT % 33.5 % (42.8-82.8); PLATELET COUNT 236 K/MM3 (134-434); RBC 4.04 M/mm3 (3.60-5.2); RDW 13.9 % (11.6-15.6); WHITE BLOOD COUNT 25.1 K/mm3 (4.0-10.0)
[2018-03-31 08:22] LABS: ALBUMIN 2.7 g/dl (3.4-5.0); ALK PHOS 741 U/L (45-117); ANION GAP 7 MMOL/L (8-16); BILIRUBIN,TOTAL 0.4 mg/dL (0.2-1); BLOOD UREA NITROGEN 19 mg/dL (7-18); CALCIUM 8.1 mg/dL (8.5-10.1); CHLORIDE 99 mmol/L (98-107); CO2 28 mmol/L (21-32); CREATININE 1.2 mg/dL (0.55-1.3); GLUCOSE,RANDOM 79 mg/dL (74-106); LDH 304 U/L (84-246); POTASSIUM 3.6 mmol/L (3.5-5.1); SGOT/AST 18 U/L (15-37); SGPT/ALT 96 U/L (13-61); SODIUM 134 mmol/L (136-145)
[2018-03-31] MEDS ORDERED: PT OWN MED DRAWER 7, Y5N ONE ×3 (09:01→21:07)
[2018-03-31] MEDS: DOXYCYCLINE INJECTION 100 MG in SODIUM CHLORIDE 100 ML IVPB SCH ×2 (09:20→21:09)
[2018-03-31] MEDS: ESCITALOPRAM OXALATE 20 MG TABLET (FP) PO SCH (09:20)
[2018-03-31] MEDS: HEPARIN NA (PORCINE) 5,000 UNITS/ML 1ML VIAL SQ SCH ×2 (09:20→21:10)
[2018-03-31] MEDS: LIDOCAINE 5% TOPICAL PATCH TP SCH (09:21)
[2018-03-31] MEDS: NICOTINE 7 MG/24 HOURS TOPICAL PATCH TD SCH (09:21)
[2018-03-31] MEDS: POLYETHYLENE GLYCOL 3350 119 GM BTL PO SCH (09:24)
--- NOTE | 2018-03-31 09:53 | PN ---
Physical Exam: SUBJECTIVE: Patient seen and examined, awake, oriented to self, place, knows is march but stated 1918, then corrected to 2019. Denies any pain or dyspnea. No new complaints. Reports itchy rash on chest, abdomen and hands, itchy OBJECTIVE: Vital Signs Period Temp Pulse Resp BP Sys/[place] Pulse Ox Last 24 Hr 97.7 F-98.4 F 102-110 16-20 111-125/60-87 94-99 Intake & Output 03/28/18 03/29/18 03/30/18 03/31/18 23:59 23:59 23:59 23:59 Intake Total 1340 280 750 200 Balance 1340 280 750 200 Weight 101 lb GENERAL: The patient is awake, alert, riented to self, place, knows is march but stated 1918, then corrected to 2019 (improved per nursing), in no acute distress. HEAD: Normal with no signs of trauma. EYES: PERRL, extraocular movements intact, sclera anicteric, conjunctiva clear. No ptosis. ENT: Ears normal, nares patent, oropharynx clear without exudates, moist mucous membranes. NECK: Trachea midline, full range of motion, supple. LUNGS: decreased breath sounds at bases, bilateral rales till mid chest, good air entry and effort HEART: S1S2 irregular ABDOMEN: Soft, nontender, nondistended, normoactive bowel sounds, no guarding, no rebound, no hepatosplenomegaly, no masses. EXTREMITIES: 2+ pulses, warm, well-perfused, no edema. NEUROLOGICAL: AA, Orientation as above, facial symmetry, tongue midline, power 4 /5 generalized, sensation symmetric to light touch, toes down going PSYCH: Normal mood, normal affect. SKIN: maculopapular rash over chest, back and bilateral upper extremities Laboratory Results - last 24 hr 03/30/18 03/30/18 03/30/18 05:10 05:10 05:10 WBC RBC Hgb Hct MCV MCH MCHC RDW Plt Count MPV Absolute Neuts (auto) Neutrophils % Neutrophils % (Manual) 43.3 Band Neutrophils % 4.8 Lymphocytes % Lymphocytes % (Manual) 6.7 L D Monocytes % Monocytes % (Manual) 2 L D Eosinophils % Eosinophils % (Manual) 41.4 H Basophils % Basophils % (Manual) 0.0 Myelocytes % (Man) 0 Promyelocytes % (Man) 0 Blast Cells % (Manual) 0 Nucleated RBC % Metamyelocytes 0 Hypochromia 0 Platelet Estimate Normal Polychromasia 0 Poikilocytosis 0 Anisocytosis 0 Microcytosis 0 Macrocytosis 0 ESR Sodium 130 L Potassium 3.9 Chloride 96 L Carbon Dioxide 26 Anion Gap 8 BUN 20 H Creatinine 1.2 Creat Clearance w eGFR 42.80 Random Glucose 108 H Calcium 7.8 L Phosphorus 2.8 Magnesium 2.3 Ferritin Total Bilirubin 0.4 Direct Bilirubin AST 16 ALT 122 H Alkaline Phosphatase 832 H LD Total C-Reactive Protein B-Natriuretic Peptide Total Protein 5.3 L Albumin 2.6 L Vitamin B12 Serum Folate TSH 0.33 L Free T4 1.42 Cortisol AM Sample 18.7 03/30/18 03/30/18 03/31/18 05:10 05:10 06:30 WBC RBC Hgb Hct MCV MCH MCHC RDW Plt Count MPV Absolute Neuts (auto) Neutrophils % Neutrophils % (Manual) Band Neutrophils % Lymphocytes % Lymphocytes % (Manual) Monocytes % Monocytes % (Manual) Eosinophils % Eosinophils % (Manual) Basophils % Basophils % (Manual) Myelocytes % (Man) Promyelocytes % (Man) Blast Cells % (Manual) Nucleated RBC % Metamyelocytes Hypochromia Platelet Estimate Polychromasia Poikilocytosis Anisocytosis Microcytosis Macrocytosis ESR 16 Sodium 134 L Potassium 3.6 Chloride 99 Carbon Dioxide 28 Anion Gap 7 L BUN 19 H Creatinine 1.2 Creat Clearance w eGFR 42.80 Random Glucose 79 Calcium 8.1 L Phosphorus Magnesium Ferritin 279.4 Total Bilirubin 0.4 0.4 Direct Bilirubin 0.2 AST 15 18 ALT 121 H 96 H Alkaline Phosphatase 813 H 741 H LD Total 304 H C-Reactive Protein 3.6 H B-Natriuretic Peptide 85948.0 H Total Protein 5.3 L 6.0 L Albumin 2.5 L 2.7 L Vitamin B12 2475 H Serum Folate 13 TSH Free T4 Cortisol AM Sample 03/31/18 06:30 WBC 25.1 H RBC 4.04 Hgb 12.3 Hct 35.7 MCV 88.2 MCH 30.5 MCHC 34.6 RDW 13.9 Plt Count 236 MPV 8.5 Absolute Neuts (auto) 8.4 H Neutrophils % 33.5 L D Neutrophils % (Manual) Band Neutrophils % Lymphocytes % 6.6 L D Lymphocytes % (Manual) Monocytes % 2.8 L Monocytes % (Manual) Eosinophils % 56.9 H* Eosinophils % (Manual) Basophils % 0.2 Basophils % (Manual) Myelocytes % (Man) Promyelocytes % (Man) Blast Cells % (Manual) Nucleated RBC % 0 Metamyelocytes Hypochromia Platelet Estimate Polychromasia Poikilocytosis Anisocytosis Microcytosis Macrocytosis ESR Sodium Potassium Chloride Carbon Dioxide Anion Gap BUN Creatinine Creat Clearance w eGFR Random Glucose Calcium Phosphorus Magnesium Ferritin Total Bilirubin Direct Bilirubin AST ALT Alkaline Phosphatase LD Total C-Reactive Protein B-Natriuretic Peptide Total Protein Albumin Vitamin B12 Serum Folate TSH Free T4 Cortisol AM Sample Active Medications Generic Name Dose Route Start Last Admin Trade Name Freq PRN Reason Stop Dose Admin Albuterol Sulfate 1 amp 03/28/18 10:42 03/29/18 20:30 Ventolin 0.083% Nebulizer Soln - NEB 1 amp Q6H PRN Administration SHORTNESS OF BREATH Albuterol/Ipratropium 1 amp 03/30/18 12:00 03/30/18 20:39 Duoneb - NEB 1 amp RQID [facility] Administration Alprazolam 0.5 mg 03/27/18 15:59 03/29/18 21:19 Xanax - PO 0.5 mg Q8H PRN Administration ANXIETY Docusate Sodium 300 mg 03/28/18 22:00 03/30/18 22:29 Colace - PO 300 mg HS MARVEL Administration Escitalopram Oxalate 20 mg 03/28/18 10:00 03/31/18 09:20 Lexapro - PO 20 mg DAILY [facility] Administration Heparin Sodium (Porcine) 5,000 unit 03/27/18 22:00 03/31/18 09:20 Heparin - SQ 5,000 unit BID [facility] Administration Doxycycline Hyclate 100 mg/ 100 mls @ 50 mls/hr 03/29/18 22:00 03/31/18 09:20 Sodium Chloride IVPB 50 mls/hr BID [facility] Administration Lidocaine 1 patch 03/29/18 18:30 03/31/18 09:21 Lidoderm Patch - TP 1 patch DAILY [facility] Administration Mirtazapine 15 mg 03/27/18 22:00 03/30/18 22:29 Remeron - PO 15 mg HS [facility] Administration Miscellaneous 1 each 03/29/18 22:00 03/30/18 22:00 Lidoderm Patch Removal MC Not Given DAILY@2200 [facility] Nicotine 7 mg 03/27/18 15:30 03/31/18 09:21 Nicoderm Patch - TD 7 mg DAILY [facility] Administration Polyethylene Glycol 17 gm 03/28/18 10:00 03/31/18 09:24 Miralax (For Daily Use) - PO 17 gm DAILY [facility] Administration Tiotropium [place] 2 puff 03/28/18 10:15 03/30/18 11:09 Spiriva Respimat IH 2 puff DAILY [facility] Administration Microbiology 03/27/18 12:30 Blood - Peripheral Venous Blood Culture - Preliminary NO GROWTH OBTAINED AFTER 72 HOURS, INCUBATION TO CONTINUE FOR 2 DAYS. 03/27/18 12:15 Blood - Peripheral Venous Blood Culture - Preliminary NO GROWTH OBTAINED AFTER 72 HOURS, INCUBATION TO CONTINUE FOR 2 DAYS. 03/29/18 20:15 Urine For Antigen Detection Legionella Antigen - Final 03/29/18 20:15 Urine For Antigen Detection Streptococcus pneumoniae Antigen (M - Final 03/29/18 00:01 Urine - Urine - Catheterized Urine Culture - Final NO GROWTH OBTAINED 03/27/18 12:15 Urine - Urine Clean Catch Urine Culture - Final Contaminated: Please Repeat CT chest/A/P results reviewed MRI brain results pending ASSESSMENT/PLAN: 82 yof with PMHx of HTN, HLD, anxiety, admitted with AMS, initially suspected from UTI/dehydration, s/p Antibiotics/IVF, with progressive hyponatremia, waxing and waning mental status, abnormal LFTs, pleural/pericardial effusions now with worsening eosinophilia, rash. -Sepsis, suspect from UTI/ODALIS PNA, improved -Hyponatremia, initially hypovolumic now with hypervolumia -Acute systolic heart failure exacerbation, with pleural/pericardial effusions, suspect from volume resuscitation -Elevated troponin, suspect demand type II NSTEMI from above -Eosniphilia/Rash, ?drug reaction, r/o HES, underlying hematological disorder/ malignancy -Abnormal LFTs -Leucocytosis, From infectious process, ?Drug reaction vs underlying hematological disorder -AMS, suspect toxic metabolic encephalopathy from above, less likely to be primary neurological process -ARLINE, resolved -HTN -HLD -Anxiety Plan: Mental status improved, follow up MRI brain, neurology input appreciated. Still with significant volume overload, additional lasix 40 mg IV today, follow up with renal/cardiology. Eosinophilia rising, rash overnight. Discussed with Dr. Wiggins, plan to taper abx. Currently on zosyn/doxycycline. hematology input appreciated. Flow cytometry sent. Will need bone marrow biopsy if no clear etiology GI input appreciated, outpatient follow up for EGD/colonoscopy. Suspect bone origin. Rheumatology consult. Discuss trial with steroids if eosinophilia/rash continue to worsen with no concerns for ongoing infectious process Lexapro/remeron/xanax with cautious monitoring of mental status. DVTPPX with heparin Dispo pending clinical improvement. Plan discussed with patient and nursing, all questions answered. Visit type - Emergency Visit Emergency Visit: Yes ED Registration Date: 03/27/18 Care time: The patient presented to the Emergency Department on the above date and was hospitalized for further evaluation of their emergent condition. - New Patient This patient is new to me today: Yes Date on this admission: 03/31/18 - Critical Care Critical Care patient: No - Discharge Referral Referred to [facility] No
[2018-03-31] MEDS ORDERED: FUROSEMIDE 40 MG/4 ML INJECTABLE VIAL IVPUSH ONE (10:07)
--- NOTE | 2018-03-31 10:15 | PN ---
Progress Note (short form) - Note Progress Note: much calmer some itching on her chest daughter in law reports she was complaining of itching at home as well Vital Signs Period Temp Pulse Resp BP Sys/[place] Pulse Ox Last 24 Hr 97.7 F-98.4 F 102-110 16-20 111-125/60-87 94-99 cor-rrr lungs clear abd soft,nt ext no edema small punctated dry scabs on upper chest no hives CBC, BMP 03/31/18 06:30 03/31/18 06:30 Laboratory Tests 03/30/18 03/30/18 03/30/18 05:10 05:10 05:10 ESR GGT 88 H C-Reactive Protein 6.1 H Strongyloides IgG Ab Pending 03/30/18 05:10 ESR 16 GGT C-Reactive Protein Strongyloides IgG Ab a/p leukocytosis eosinophilia- ?hypereosinophic syndrome elevated alk phos pneumonia ODALIS hyponatremia -resolving change in mental status- appears improved legionella urinary antigen-negative stool ova and parasites strongyloides antibody prolonged Qtc ?malignancy breathing much improved with diuresis- d/c zosyn continue doxycycline rising eosinophilia awaiting flow cytometry mental status much improved Problem List - Problems (1) Leukocytosis Code(s): D72.829 - ELEVATED WHITE BLOOD CELL COUNT, UNSPECIFIED (2) Eosinophilia Code(s): D72.1 - EOSINOPHILIA (3) Elevated alkaline phosphatase level Code(s): R74.8 - ABNORMAL LEVELS OF OTHER SERUM ENZYMES (4) Pneumonia Code(s): J18.9 - PNEUMONIA, UNSPECIFIED ORGANISM
--- NOTE | 2018-03-31 11:26 | PN ---
Progress Note, Physician History of Present Illness: No CV events No CV complaints Persistent cough No chest pains Tele: ST 130s - Current Medication List Current Medications: Active Medications Albuterol Sulfate (Ventolin 0.083% Nebulizer Soln -) 1 amp NEB Q6H PRN PRN Reason: SHORTNESS OF BREATH Last Admin: 03/29/18 20:30 Dose: 1 amp Albuterol/Ipratropium (Duoneb -) 1 amp NEB RQID [facility] Last Admin: 03/31/18 07:40 Dose: 1 amp Alprazolam (Xanax -) 0.5 mg PO Q8H PRN PRN Reason: ANXIETY Last Admin: 03/29/18 21:19 Dose: 0.5 mg Docusate Sodium (Colace -) 300 mg PO HS [facility] Last Admin: 03/30/18 22:29 Dose: 300 mg Escitalopram Oxalate (Lexapro -) 20 mg PO DAILY [facility] Last Admin: 03/31/18 09:20 Dose: 20 mg Heparin Sodium (Porcine) (Heparin -) 5,000 unit SQ BID [facility] Last Admin: 03/31/18 09:20 Dose: 5,000 unit Doxycycline Hyclate 100 mg/ (Sodium Chloride) 100 mls @ 50 mls/hr IVPB BID [facility] Last Admin: 03/31/18 09:20 Dose: 50 mls/hr Lidocaine (Lidoderm Patch -) 1 patch TP DAILY [facility] Last Admin: 03/31/18 09:21 Dose: 1 patch Mirtazapine (Remeron -) 15 mg PO HS [facility] Last Admin: 03/30/18 22:29 Dose: 15 mg Miscellaneous (Lidoderm Patch Removal) 1 each MC DAILY@2200 [facility] Last Admin: 03/30/18 22:00 Dose: Not Given Nicotine (Nicoderm Patch -) 7 mg TD DAILY [facility] Last Admin: 03/31/18 09:21 Dose: 7 mg Polyethylene Glycol (Miralax (For Daily Use) -) 17 gm PO DAILY [facility] Last Admin: 03/31/18 09:24 Dose: 17 gm Tiotropium [place] (Spiriva Respimat) 2 puff IH DAILY [facility] Last Admin: 03/30/18 11:09 Dose: 2 puff - Objective Vital Signs: Vital Signs Temperature 97.7 F 03/31/18 08:37 Pulse Rate 108 H 03/31/18 08:37 Respiratory Rate 20 03/31/18 08:37 Blood Pressure 111/68 03/31/18 08:37 O2 Sat by Pulse Oximetry (%) 99 03/31/18 08:43 Constitutional: Yes: No Distress, Calm Eyes: Yes: WNL HENT: Yes: WNL Neck: Yes: WNL Cardiovascular: Yes: Regular Rate and Rhythm Respiratory: Yes: CTA Bilaterally Gastrointestinal: Yes: Normal Bowel Sounds Musculoskeletal: Yes: WNL Extremities: Yes: WNL Edema: No Labs: CBC, BMP 03/31/18 06:30 03/31/18 06:30 INR, PTT INR 1.29 (0.83-1.09) H 03/27/18 18:47 Assessment/Plan altered MS: -sec to infection and/or hyponatremia most likely - manage per primary NSTEMI, Chronic ischemic heart disease -stress test 2010 with mild anterior wall ischemia. medically managed, never had angina sx's, declined repeat stress testing or cath repeatedly. -here with metabolic derangements and altered MS, incidental troponin 1.0, downtrending -no ischemia sx's. -ECG with non-diagnostic changes of 0.5mm ST elevations in anterolateral territory and nonspecific TWIs = new. repeat with similar findings, prolonged QT. no reciprocal depressions--hence ECG not diagnostic for STEMI and pt without sx's of acute ischemia. -? true ACS triggered by acute infection (i.e. NSTEMI) but asymptomatic--more likely this is Type II NC -continue aspirin -hold statin given unexplained hi LFTs -cont metoprolol -echo shows preserved lvef but apical hypokinesis -03/31/2018: stable today and plan for risk-stratifying pharm MPI prior to discharge once acute infectious issues improved hyponatremia/fawad: -plan per hospitalist pericardial effusion: -small-mod size eff seen on echo, no signs tamponade. -Would repeat echo early next week to monitor.
[2018-03-31 11:30] LABS: ANISOCYTOSIS 0; MACROCYTOSIS 0; PLATELET ESTIMATE NORMAL
--- NOTE | 2018-03-31 12:28 | PN ---
Progress Note (short form) - Note Progress Note: Breathing feels better today. Awake and alert and conversant. Many family members at the bedside. Reports significant improvement from yesterday. Intake & Output 03/28/18 03/29/18 03/30/18 03/31/18 23:59 23:59 23:59 23:59 Intake Total 1340 280 750 200 Balance 1340 280 750 200 Weight 101 lb Last Vital Signs Temp Pulse Resp BP Pulse Ox 97.7 F 108 H 20 111/68 99 03/31/18 08:37 03/31/18 08:37 03/31/18 08:37 03/31/18 08:37 03/31/18 08:43 Active Medications Albuterol Sulfate (Ventolin 0.083% Nebulizer Soln -) 1 amp NEB Q6H PRN PRN Reason: SHORTNESS OF BREATH Last Admin: 03/29/18 20:30 Dose: 1 amp Albuterol/Ipratropium (Duoneb -) 1 amp NEB RQID [facility] Last Admin: 03/31/18 07:40 Dose: 1 amp Alprazolam (Xanax -) 0.5 mg PO Q8H PRN PRN Reason: ANXIETY Last Admin: 03/29/18 21:19 Dose: 0.5 mg Docusate Sodium (Colace -) 300 mg PO [facility] Last Admin: 03/30/18 22:29 Dose: 300 mg Escitalopram Oxalate (Lexapro -) 20 mg PO DAILY [facility] Last Admin: 03/31/18 09:20 Dose: 20 mg Heparin Sodium (Porcine) (Heparin -) 5,000 unit SQ BID [facility] Last Admin: 03/31/18 09:20 Dose: 5,000 unit Doxycycline Hyclate 100 mg/ (Sodium Chloride) 100 mls @ 50 mls/hr IVPB BID [facility] Last Admin: 03/31/18 09:20 Dose: 50 mls/hr Lidocaine (Lidoderm Patch -) 1 patch TP DAILY [facility] Last Admin: 03/31/18 09:21 Dose: 1 patch Methylprednisolone Sodium Succinate (Solu-Medrol -) 45 mg IVPUSH ONCE ONE Stop: 03/31/18 12:31 Mirtazapine (Remeron -) 15 mg PO [facility] Last Admin: 03/30/18 22:29 Dose: 15 mg Miscellaneous (Lidoderm Patch Removal) 1 each MC DAILY@2200 [facility] Last Admin: 03/30/18 22:00 Dose: Not Given Nicotine (Nicoderm Patch -) 7 mg TD DAILY [facility] Last Admin: 03/31/18 09:21 Dose: 7 mg Polyethylene Glycol (Miralax (For Daily Use) -) 17 gm PO DAILY [facility] Last Admin: 03/31/18 09:24 Dose: 17 gm Tiotropium [place] (Spiriva Respimat) 2 puff IH DAILY [facility] Last Admin: 03/30/18 11:09 Dose: 2 puff Constitutional: Yes: Awake and alert, No Distress Eyes: Yes: Conjunctiva Clear HENT: Yes: Atraumatic Neck: Yes: Supple Cardiovascular: Yes: Regular Rate and Rhythm Respiratory: Yes: Bilateral rhonchi, no wheeze Gastrointestinal: (+) BS, (+) vertical suprapubic incision, NT Laboratory Results - last 24 hr 03/30/18 03/30/18 03/30/18 05:10 05:10 05:10 WBC RBC Hgb Hct MCV MCH MCHC RDW Plt Count MPV Absolute Neuts (auto) Neutrophils % Neutrophils % (Manual) Band Neutrophils % Lymphocytes % Lymphocytes % (Manual) Monocytes % Monocytes % (Manual) Eosinophils % Eosinophils % (Manual) Basophils % Basophils % (Manual) Myelocytes % (Man) Promyelocytes % (Man) Blast Cells % (Manual) Nucleated RBC % Metamyelocytes Hypochromia Platelet Estimate Polychromasia Poikilocytosis Anisocytosis Microcytosis Macrocytosis Emperatriz Cells Retic Count Sodium 130 L Potassium 3.9 Chloride 96 L Carbon Dioxide 26 Anion Gap 8 BUN 20 H Creatinine 1.2 Creat Clearance w eGFR 42.80 Random Glucose 108 H Calcium 7.8 L Phosphorus 2.8 Magnesium 2.3 Ferritin Total Bilirubin 0.4 0.4 Direct Bilirubin 0.2 AST 16 15 ALT 122 H 121 H Alkaline Phosphatase 832 H 813 H LD Total C-Reactive Protein B-Natriuretic Peptide 42700.0 H Total Protein 5.3 L 5.3 L Albumin 2.6 L 2.5 L Vitamin B12 2475 H Serum Folate 13 TSH 0.33 L Free T4 1.42 Cortisol AM Sample 18.7 HSV I DNA Quant (PCR) HSV II DNA Quant (PCR) 03/30/18 03/31/18 03/31/18 12:35 06:30 06:30 WBC RBC Hgb Hct MCV MCH MCHC RDW Plt Count MPV Absolute Neuts (auto) Neutrophils % Neutrophils % (Manual) Band Neutrophils % Lymphocytes % Lymphocytes % (Manual) Monocytes % Monocytes % (Manual) Eosinophils % Eosinophils % (Manual) Basophils % Basophils % (Manual) Myelocytes % (Man) Promyelocytes % (Man) Blast Cells % (Manual) Nucleated RBC % Metamyelocytes Hypochromia Platelet Estimate Polychromasia Poikilocytosis Anisocytosis Microcytosis Macrocytosis [place] Cells Retic Count 1.41 Sodium 134 L Potassium 3.6 Chloride 99 Carbon Dioxide 28 Anion Gap 7 L BUN 19 H Creatinine 1.2 Creat Clearance w eGFR 42.80 Random Glucose 79 Calcium 8.1 L Phosphorus Magnesium Ferritin 279.4 Total Bilirubin 0.4 Direct Bilirubin AST 18 ALT 96 H Alkaline Phosphatase 741 H LD Total 304 H C-Reactive Protein 3.6 H B-Natriuretic Peptide Total Protein 6.0 L Albumin 2.7 L Vitamin B12 Serum Folate TSH Free T4 Cortisol AM Sample HSV I DNA Quant (PCR) Cancelled HSV II DNA Quant (PCR) Cancelled 03/31/18 06:30 WBC 25.1 H RBC 4.04 Hgb 12.3 Hct 35.7 MCV 88.2 MCH 30.5 MCHC 34.6 RDW 13.9 Plt Count 236 MPV 8.5 Absolute Neuts (auto) 8.4 H Neutrophils % 33.5 L D Neutrophils % (Manual) 39.2 L Band Neutrophils % 0.0 Lymphocytes % 6.6 L D Lymphocytes % (Manual) 8.8 D Monocytes % 2.8 L Monocytes % (Manual) 0 L D Eosinophils % 56.9 H* Eosinophils % (Manual) 51.0 H Basophils % 0.2 Basophils % (Manual) 0.0 Myelocytes % (Man) 1 D Promyelocytes % (Man) 0 Blast Cells % (Manual) 0 Nucleated RBC % 0 Metamyelocytes 0 Hypochromia 0 Platelet Estimate Normal Polychromasia 1+ Poikilocytosis 0 Anisocytosis 0 Microcytosis 0 Macrocytosis 0 [place] Cells 1+ Retic Count Sodium Potassium Chloride Carbon Dioxide Anion Gap BUN Creatinine Creat Clearance w eGFR Random Glucose Calcium Phosphorus Magnesium Ferritin Total Bilirubin Direct Bilirubin AST ALT Alkaline Phosphatase LD Total C-Reactive Protein B-Natriuretic Peptide Total Protein Albumin Vitamin B12 Serum Folate TSH Free T4 Cortisol AM Sample HSV I DNA Quant (PCR) HSV II DNA Quant (PCR) Problem List - Problems (1) ARLINE (acute kidney injury) Code(s): N17.9 - ACUTE KIDNEY FAILURE, UNSPECIFIED (2) Altered mental status, unspecified Code(s): R41.82 - ALTERED MENTAL STATUS, UNSPECIFIED Qualifiers: Altered mental status type: delirium Qualified Code(s): R41.0 - Disorientation, unspecified (3) CAD (coronary artery disease) Code(s): I25.10 - ATHSCL HEART DISEASE OF [place] CORONARY ARTERY W/O ANG PCTRS Qualifiers: Coronary Disease-Associated Artery/Lesion type: [place] artery [place] vs. transplanted heart: [place] heart Associated angina: without angina Qualified Code(s): I25.10 - Atherosclerotic heart disease of [place] coronary artery without angina pectoris (4) Elevated alkaline phosphatase level Code(s): R74.8 - ABNORMAL LEVELS OF OTHER SERUM ENZYMES (5) Eosinophilia Code(s): D72.1 - EOSINOPHILIA (6) HTN (hypertension) Code(s): I10 - ESSENTIAL (PRIMARY) HYPERTENSION Qualifiers: Hypertension type: essential hypertension Qualified Code(s): I10 - Essential (primary) hypertension (7) Hyponatremia Code(s): E87.1 - HYPO-OSMOLALITY AND HYPONATREMIA (8) Leukocytosis Code(s): D72.829 - ELEVATED WHITE BLOOD CELL COUNT, UNSPECIFIED (9) Metabolic encephalopathy Code(s): G93.41 - METABOLIC ENCEPHALOPATHY (10) Pneumonia Code(s): J18.9 - PNEUMONIA, UNSPECIFIED ORGANISM (11) Tobacco dependence Code(s): F17.200 - NICOTINE DEPENDENCE, UNSPECIFIED, UNCOMPLICATED (12) Transaminitis Code(s): R74.0 - NONSPEC ELEV OF LEVELS OF TRANSAMNS & LACTIC ACID DEHYDRGNSE (13) UTI (urinary tract infection) Code(s): N39.0 - URINARY TRACT INFECTION, SITE NOT SPECIFIED Qualifiers: Urinary tract infection type: acute cystitis Hematuria presence: with hematuria Qualified Code(s): N30.01 - Acute cystitis with hematuria IMP ALTERED MENTAL STATUS HYPONATREMIA ODALIS INFILTRATE ? INFECTIOUS,? INFLAMMATORY,?CHF CHF DYSPNEA PERICARDIAL EFFUSION EOSINOPHILIA ? INFECTIOUS,?MALIGNANT,? AUTOIMMUNE ELEVATED ALK PHOS LIKELY COPD SMOKER PLAN SEEMS CLINICAL IMPROVEMENT: IF WORSENS MAY NEED TO CONSIDER STEROIDS O2 ABX PER ID CULTURES INHALED BRONCHODILATORS MONITOR LYTES,NA TREND EOSINOPHIL CT MONITOR PERICARDIAL EFFUSION PER CARDIOLOGY DR THURMAN
[2018-03-31] MEDS ORDERED: methylPREDNISolone NA SUCC 40 MG/1 ML VIAL IVPUSH ONE (12:30)
[2018-03-31] MEDS ORDERED: IVERMECTIN 3 MG TABLET PO ONE (12:45)
[2018-03-31] MEDS: ALBUTEROL SO4 0.083% IH SOL 2.5 MG/3 ML VIAL.NEB. NEB PRN (14:00)
[2018-03-31] MEDS: TIOTROPIUM BROMIDE 2.5 MCG (SPIRIVA) RESPIMAT INHALER IH SCH (14:41)
--- NOTE | 2018-03-31 16:50 | EKG ---
Test Reason : Blood Pressure : / mmHG Vent. Rate : 088 BPM Atrial Rate : 088 BPM P-R Int : 140 ms QRS Dur : 074 ms QT Int : 424 ms P-R-T Axes : 064 080 083 degrees QTc Int : 513 ms SINUS RHYTHM WITH OCCASIONAL PREMATURE VENTRICULAR COMPLEXES POSSIBLE LEFT ATRIAL ENLARGEMENT LOW VOLTAGE QRS T WAVE ABNORMALITY, CONSIDER ANTEROLATERAL ISCHEMIA PROLONGED QT ABNORMAL ECG WHEN COMPARED WITH ECG OF 27-MAR-2018 12:41, QT HAS LENGTHENED Confirmed by Heidi Damon ([id number]) on 03/31/2018 4:49:34 PM Referred By: Confirmed By:Heidi Damon
--- NOTE | 2018-03-31 17:15 | PN ---
Progress Note (short form) - Note Progress Note: Patient seen in follow up. No new complaints. No significant events overnight. As per surrounding family much improved, but still somewhat confused. Inpatient Meds reviewed. Current Medications Albuterol Sulfate (Ventolin 0.083% Nebulizer Soln -) 1 amp NEB Q6H PRN PRN Reason: SHORTNESS OF BREATH Last Admin: 03/31/18 14:00 Dose: 1 amp Albuterol/Ipratropium (Duoneb -) 1 amp NEB RQID [facility] Last Admin: 03/31/18 11:30 Dose: 1 amp Alprazolam (Xanax -) 0.5 mg PO Q8H PRN PRN Reason: ANXIETY Last Admin: 03/29/18 21:19 Dose: 0.5 mg Docusate Sodium (Colace -) 300 mg PO HS [facility] Last Admin: 03/30/18 22:29 Dose: 300 mg Escitalopram Oxalate (Lexapro -) 20 mg PO DAILY [facility] Last Admin: 03/31/18 09:20 Dose: 20 mg Heparin Sodium (Porcine) (Heparin -) 5,000 unit SQ BID [facility] Last Admin: 03/31/18 09:20 Dose: 5,000 unit Doxycycline Hyclate 100 mg/ (Sodium Chloride) 100 mls @ 50 mls/hr IVPB BID [facility] Last Admin: 03/31/18 09:20 Dose: 50 mls/hr Lidocaine (Lidoderm Patch -) 1 patch TP DAILY [facility] Last Admin: 03/31/18 09:21 Dose: 1 patch Mirtazapine (Remeron -) 15 mg PO HS [facility] Last Admin: 03/30/18 22:29 Dose: 15 mg Miscellaneous (Lidoderm Patch Removal) 1 each MC DAILY@2200 [facility] Last Admin: 03/30/18 22:00 Dose: Not Given Nicotine (Nicoderm Patch -) 7 mg TD DAILY [facility] Last Admin: 03/31/18 09:21 Dose: 7 mg Polyethylene Glycol (Miralax (For Daily Use) -) 17 gm PO DAILY [facility] Last Admin: 03/31/18 09:24 Dose: 17 gm Tiotropium [place] (Spiriva Respimat) 2 puff IH DAILY [facility] Last Admin: 03/31/18 14:41 Dose: 2 puff On Examination: Last Vital Signs Temp Pulse Resp BP Pulse Ox 98.7 F 119 H 18 129/87 99 03/31/18 14:00 03/31/18 14:00 03/31/18 14:00 03/31/18 14:00 03/31/18 08:43 General: In no acute distress, lying comfortably in bed. Extremities: No pallor or icterus. No pedal edema. No palpable lymphadenopathy. CVS: S1, S2, regular, no gallop or murmur. Chest: good air entry bilaterally, clear Abdomen: Non-distended, non-tender, no palpable organomegaly. Neuro: Alert, oriented, non-focal. Labs: CBC, BMP 03/31/18 06:30 03/31/18 06:30 Absolute eosinophil count 14.2K, 8.4K yesterday. Assessment. Elderly female presented with changes mental status, likely attributable to sepsis, now improved, but now with rapidly rising eosinophil count. Also complains of rash. High index of suspicion that her eosinophilia is allergic in nature, either to something she was exposed to prior to admission with a delayed response, or alternatively to one of the antibiotics she has been given since admission. Flow cytometry pending. Recommend trial of steroids, discussed with primary. Will follow closely
--- NOTE | 2018-03-31 17:37 | PN ---
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 hyponatremia 2. ARLINE 3. depression 4. htn 5. tobacco use 6. anxiety 7. pleural effusions on ct scan Current Medications Albuterol Sulfate (Ventolin 0.083% Nebulizer Soln -) 1 amp NEB Q6H PRN PRN Reason: SHORTNESS OF BREATH Last Admin: 03/31/18 14:00 Dose: 1 amp Albuterol/Ipratropium (Duoneb -) 1 amp NEB RQID [facility] Last Admin: 03/31/18 11:30 Dose: 1 amp Alprazolam (Xanax -) 0.5 mg PO Q8H PRN PRN Reason: ANXIETY Last Admin: 03/29/18 21:19 Dose: 0.5 mg Docusate Sodium (Colace -) 300 mg PO HS [facility] Last Admin: 03/30/18 22:29 Dose: 300 mg Escitalopram Oxalate (Lexapro -) 20 mg PO DAILY [facility] Last Admin: 03/31/18 09:20 Dose: 20 mg Heparin Sodium (Porcine) (Heparin -) 5,000 unit SQ BID [facility] Last Admin: 03/31/18 09:20 Dose: 5,000 unit Doxycycline Hyclate 100 mg/ (Sodium Chloride) 100 mls @ 50 mls/hr IVPB BID [facility] Last Admin: 03/31/18 09:20 Dose: 50 mls/hr Lidocaine (Lidoderm Patch -) 1 patch TP DAILY [facility] Last Admin: 03/31/18 09:21 Dose: 1 patch Mirtazapine (Remeron -) 15 mg PO HS [facility] Last Admin: 03/30/18 22:29 Dose: 15 mg Miscellaneous (Lidoderm Patch Removal) 1 each MC DAILY@2200 [facility] Last Admin: 03/30/18 22:00 Dose: Not Given Nicotine (Nicoderm Patch -) 7 mg TD DAILY [facility] Last Admin: 03/31/18 09:21 Dose: 7 mg Polyethylene Glycol (Miralax (For Daily Use) -) 17 gm PO DAILY [facility] Last Admin: 03/31/18 09:24 Dose: 17 gm Tiotropium [place] (Spiriva Respimat) 2 puff IH DAILY [facility] Last Admin: 03/31/18 14:41 Dose: 2 puff Last Vital Signs Temp Pulse Resp BP Pulse Ox 98.7 F 119 H 18 129/87 99 03/31/18 14:00 03/31/18 14:00 03/31/18 14:00 03/31/18 14:00 03/31/18 08:43 alert in nad Lungs clear Heart reg Abd soft nontender ext no edema CBC, BMP 03/31/18 06:30 03/31/18 06:30 IMP hyponatremia continues to improve Plan- continue present rx and management
[2018-03-31] MEDS ORDERED: guaiFENesin 200 MG/10 ML 10 ML UNIT-DOSE CUPS PO ONE (20:00)
[2018-03-31] MEDS: ALPRAZolam 0.25 MG TABLET PO PRN (21:09)
[2018-03-31] MEDS: DOCUSATE SODIUM 100 MG CAPSULE (FP) PO SCH (21:09)
[2018-03-31] MEDS: MIRTAZAPINE 15 MG TABLET (FP) PO SCH (21:09)
[2018-03-31] MEDS: LIDOCAINE PATCH REMOVAL MC SCH (21:10)
[2018-04-01 06:54] LABS: BASO % 0.1 % (0-2.0); EOS % 59.6 % (0-4.5); HEMATOCRIT 29.8 % (32.4-45.2); HEMOGLOBIN 10.4 GM/dL (10.7-15.3); LYMPH % 7.6 % (8-40); MCH 30.5 pg (25.7-33.7); MCHC 34.9 g/dl (32.0-36.0); MEAN CELL VOLUME 87.3 fl (80-96); MEAN PLT VOLUME 8.1 fl (7.5-11.1); MONO % 3.5 % (3.8-10.2); NEUT % 29.2 % (42.8-82.8); PLATELET COUNT 207 K/MM3 (134-434); RBC 3.42 M/mm3 (3.60-5.2); RDW 13.8 % (11.6-15.6); WHITE BLOOD COUNT 24.5 K/mm3 (4.0-10.0)
[2018-04-01 07:46] LABS: ALBUMIN 2.4 g/dl (3.4-5.0); ALK PHOS 553 U/L (45-117); ANION GAP 7 MMOL/L (8-16); BILIRUBIN,TOTAL 0.4 mg/dL (0.2-1); BLOOD UREA NITROGEN 19 mg/dL (7-18); CHLORIDE 104 mmol/L (98-107); CO2 27 mmol/L (21-32); GLUCOSE,RANDOM 86 mg/dL (74-106); PHOSPHOROUS 3.3 mg/dL (2.5-4.9); POTASSIUM 3.7 mmol/L (3.5-5.1); SGOT/AST 15 U/L (15-37); SGPT/ALT 71 U/L (13-61); SODIUM 137 mmol/L (136-145); TOT PROT 5.3 g/dl (6.4-8.2)
[2018-04-01 07:48] LABS: INR 1.28 (0.83-1.09); PROTHROMBIN TIME (PATIENT) 15.1 SEC (9.7-13.0)
[2018-04-01] MEDS: ALBUTEROL SO4 2.5/IPRATROPIUM 0.5 INH SOL 3 ML VIAL.NEB. NEB SCH ×4 (07:53→19:52)
--- NOTE | 2018-04-01 09:27 | PN ---
Physical Exam: SUBJECTIVE: Patient seen and examined, sleeping but arousable, no complaints, asking if he can rest. Pleasant but limited co-operation OBJECTIVE: Vital Signs Period Temp Pulse Resp BP Sys/[place] Pulse Ox Last 24 Hr 97.5 F-98.7 F 87-119 18-20 112-143/66-87 93 Intake & Output 03/29/18 03/30/18 03/31/18 04/01/18 23:59 23:59 23:59 23:59 Intake Total 280 750 900 240 Balance 280 750 900 240 Weight 101 lb GENERAL: The patient is sleeping but arousable, responds to name, asking if can sleep HEAD: Normal with no signs of trauma. EYES: PERRL, extraocular movements intact, sclera anicteric, conjunctiva clear. No ptosis. ENT: Ears normal, nares patent, oropharynx clear without exudates, moist mucous membranes. NECK: Trachea midline, full range of motion, supple. LUNGS: Decreased breath sounds at bases, dependent rales improved, good air entry and effort HEART: S1S2 irregular ABDOMEN: Soft, nontender, nondistended, normoactive bowel sounds, no guarding, no rebound, no hepatosplenomegaly, no masses. EXTREMITIES: 2+ pulses, warm, well-perfused, no edema. NEUROLOGICAL: AA, Orientation as above, facial symmetry, tongue midline, power 4 /5 generalized, sensation symmetric to light touch, toes down going PSYCH: Normal mood, normal affect. SKIN: maculopapular rash over chest, back and bilateral upper extremities overall unchanged Laboratory Results - last 24 hr 03/30/18 03/31/18 03/31/18 12:35 06:30 06:30 WBC RBC Hgb Hct MCV MCH MCHC RDW Plt Count MPV Absolute Neuts (auto) Neutrophils % Neutrophils % (Manual) 39.2 L Band Neutrophils % 0.0 Lymphocytes % Lymphocytes % (Manual) 8.8 D Monocytes % Monocytes % (Manual) 0 L D Eosinophils % Eosinophils % (Manual) 51.0 H Basophils % Basophils % (Manual) 0.0 Myelocytes % (Man) 1 D Promyelocytes % (Man) 0 Blast Cells % (Manual) 0 Nucleated RBC % 0 Metamyelocytes 0 Hypochromia 0 Platelet Estimate Normal Polychromasia 1+ Poikilocytosis 0 Anisocytosis 0 Microcytosis 0 Macrocytosis 0 Emperatriz Cells 1+ Retic Count 1.41 PT with INR INR Sodium Potassium Chloride Carbon Dioxide Anion Gap BUN Creatinine Creat Clearance w eGFR Random Glucose Calcium Phosphorus Magnesium Total Bilirubin AST ALT Alkaline Phosphatase Total Protein Albumin HSV I DNA Quant (PCR) Cancelled HSV II DNA Quant (PCR) Cancelled 04/01/18 04/01/18 04/01/18 06:20 06:20 06:20 WBC 24.5 H RBC 3.42 L Hgb 10.4 L Hct 29.8 L D MCV 87.3 MCH 30.5 MCHC 34.9 RDW 13.8 Plt Count 207 MPV 8.1 Absolute Neuts (auto) 7.2 Neutrophils % 29.2 L Neutrophils % (Manual) Band Neutrophils % Lymphocytes % 7.6 L Lymphocytes % (Manual) Monocytes % 3.5 L Monocytes % (Manual) Eosinophils % 59.6 H* Eosinophils % (Manual) Basophils % 0.1 Basophils % (Manual) Myelocytes % (Man) Promyelocytes % (Man) Blast Cells % (Manual) Nucleated RBC % 0 Metamyelocytes Hypochromia Platelet Estimate Polychromasia Poikilocytosis Anisocytosis Microcytosis Macrocytosis [place] Cells Retic Count PT with INR 15.10 H INR 1.28 H Sodium 137 Potassium 3.7 Chloride 104 Carbon Dioxide 27 Anion Gap 7 L BUN 19 H Creatinine 1.0 Creat Clearance w eGFR 52.82 Random Glucose 86 Calcium 8.0 L Phosphorus 3.3 Magnesium 2.0 Total Bilirubin 0.4 AST 15 ALT 71 H Alkaline Phosphatase 553 H Total Protein 5.3 L Albumin 2.4 L HSV I DNA Quant (PCR) HSV II DNA Quant (PCR) Active Medications Generic Name Dose Route Start Last Admin Trade Name Freq PRN Reason Stop Dose Admin Albuterol Sulfate 1 amp 03/28/18 10:42 03/31/18 14:00 Ventolin 0.083% Nebulizer Soln - NEB 1 amp Q6H PRN Administration SHORTNESS OF BREATH Albuterol/Ipratropium 1 amp 03/30/18 12:00 04/01/18 07:53 Duoneb - NEB 1 amp RQID [facility] Administration Alprazolam 0.5 mg 03/27/18 15:59 03/31/18 21:09 Xanax - PO 0.5 mg Q8H PRN Administration ANXIETY Docusate Sodium 300 mg 03/28/18 22:00 03/31/18 21:09 Colace - PO 300 mg HS [facility] Administration Escitalopram Oxalate 20 mg 03/28/18 10:00 03/31/18 09:20 Lexapro - PO 20 mg DAILY [facility] Administration Heparin Sodium (Porcine) 5,000 unit 03/27/18 22:00 03/31/18 21:10 Heparin - SQ 5,000 unit BID [facility] Administration Doxycycline Hyclate 100 mg/ 100 mls @ 50 mls/hr 03/29/18 22:00 03/31/18 21:09 Sodium Chloride IVPB 50 mls/hr BID [facility] Administration Lidocaine 1 patch 03/29/18 18:30 03/31/18 09:21 Lidoderm Patch - TP 1 patch DAILY [facility] Administration Mirtazapine 15 mg 03/27/18 22:00 03/31/18 21:09 Remeron - PO 15 mg HS [facility] Administration Miscellaneous 1 each 03/29/18 22:00 03/31/18 21:10 Lidoderm Patch Removal MC Not Given DAILY@2200 [facility] Nicotine 7 mg 03/27/18 15:30 03/31/18 09:21 Nicoderm Patch - TD 7 mg DAILY [facility] Administration Polyethylene Glycol 17 gm 03/28/18 10:00 03/31/18 09:24 Miralax (For Daily Use) - PO 17 gm DAILY [facility] Administration Tiotropium [place] 2 puff 03/28/18 10:15 03/31/18 14:41 Spiriva Respimat IH 2 puff DAILY [facility] Administration MRI brain results reviewed ASSESSMENT/PLAN: 82 yof with PMHx of HTN, HLD, anxiety, admitted with AMS, initially suspected from UTI/dehydration, s/p Antibiotics/IVF, with progressive hyponatremia, waxing and waning mental status, abnormal LFTs, pleural/pericardial effusions now with worsening eosinophilia, rash. -Sepsis, suspect from UTI/ODALIS PNA, improved -Hyponatremia, initially hypovolumic now with hypervolumia -Acute systolic heart failure exacerbation, with pleural/pericardial effusions, suspect from volume resuscitation -Elevated troponin, suspect demand type II NSTEMI from above -Eosniphilia/Rash, ?drug reaction, r/o HES, underlying hematological disorder/ malignancy -Abnormal LFTs -Leucocytosis, From infectious process, ?Drug reaction vs underlying hematological disorder -AMS, suspect toxic metabolic encephalopathy from above, less likely to be primary neurological process -ARLINE, resolved -HTN -HLD -Anxiety Plan: Mental status improved, MRI brain results noted, neurology input appreciated. Hematology input appreciated, discussed with Dr. Chang. s/p Solumedrol 45 mg IV x 1 on 03/31. Will follow up for additional dosing as eosinophils continue to rise. Discussed with Dr. Bragg, s/p emperic ivermectin pending stongyloides studies given steroids Zosyn d/david. Continue doxycylcline per ID. Still with significant volume overload, additional lasix 40 mg IV today, follow up with renal/cardiology. GI input appreciated, outpatient follow up for EGD/colonoscopy. Suspect bone origin. Rheumatology consult. Lexapro/remeron/xanax with cautious monitoring of mental status. DVTPPX with heparin Dispo pending clinical improvement. Plan discussed with nursing, all questions answered. Visit type - Emergency Visit Emergency Visit: Yes ED Registration Date: 03/27/18 Care time: The patient presented to the Emergency Department on the above date and was hospitalized for further evaluation of their emergent condition. - New Patient This patient is new to me today: No - Critical Care Critical Care patient: No - Discharge Referral Referred to [facility] Med P.C.: No
--- NOTE | 2018-04-01 10:03 | PN ---
Progress Note, Physician History of Present Illness: No CV events overnight Tele: NSR/Afib at 100 - Current Medication List Current Medications: Active Medications Albuterol Sulfate (Ventolin 0.083% Nebulizer Soln -) 1 amp NEB Q6H PRN PRN Reason: SHORTNESS OF BREATH Last Admin: 03/31/18 14:00 Dose: 1 amp Albuterol/Ipratropium (Duoneb -) 1 amp NEB RQID [facility] Last Admin: 04/01/18 07:53 Dose: 1 amp Alprazolam (Xanax -) 0.5 mg PO Q8H PRN PRN Reason: ANXIETY Last Admin: 03/31/18 21:09 Dose: 0.5 mg Docusate Sodium (Colace -) 300 mg PO HS [facility] Last Admin: 03/31/18 21:09 Dose: 300 mg Escitalopram Oxalate (Lexapro -) 20 mg PO DAILY [facility] Last Admin: 03/31/18 09:20 Dose: 20 mg Heparin Sodium (Porcine) (Heparin -) 5,000 unit SQ BID [facility] Last Admin: 03/31/18 21:10 Dose: 5,000 unit Doxycycline Hyclate 100 mg/ (Sodium Chloride) 100 mls @ 50 mls/hr IVPB BID [facility] Last Admin: 03/31/18 21:09 Dose: 50 mls/hr Lidocaine (Lidoderm Patch -) 1 patch TP DAILY [facility] Last Admin: 03/31/18 09:21 Dose: 1 patch Mirtazapine (Remeron -) 15 mg PO HS [facility] Last Admin: 03/31/18 21:09 Dose: 15 mg Miscellaneous (Lidoderm Patch Removal) 1 each MC DAILY@2200 [facility] Last Admin: 03/31/18 21:10 Dose: Not Given Nicotine (Nicoderm Patch -) 7 mg TD DAILY [facility] Last Admin: 03/31/18 09:21 Dose: 7 mg Polyethylene Glycol (Miralax (For Daily Use) -) 17 gm PO DAILY [facility] Last Admin: 03/31/18 09:24 Dose: 17 gm Tiotropium [place] (Spiriva Respimat) 2 puff IH DAILY [facility] Last Admin: 03/31/18 14:41 Dose: 2 puff - Objective Vital Signs: Vital Signs Temperature 97.8 F 04/01/18 06:00 Pulse Rate 96 H 04/01/18 06:00 Respiratory Rate 19 03/19 06:00 Blood Pressure 143/83 04/01/18 06:00 O2 Sat by Pulse Oximetry (%) 93 L 03/31/18 21:00 Constitutional: Yes: Other Eyes: Yes: WNL HENT: Yes: WNL Neck: Yes: WNL Cardiovascular: Yes: Regular Rate and Rhythm Respiratory: Yes: CTA Bilaterally Musculoskeletal: Yes: WNL Extremities: Yes: WNL Edema: No Labs: CBC, BMP 04/01/18 06:20 04/01/18 06:20 INR, PTT INR 1.28 (0.83-1.09) H 04/01/18 06:20 Assessment/Plan altered MS: -sec to infection and/or hyponatremia most likely - manage per primary NSTEMI, Chronic ischemic heart disease -stress test 2010 with mild anterior wall ischemia. medically managed, never had angina sx's, declined repeat stress testing or cath repeatedly. -here with metabolic derangements and altered MS, incidental troponin 1.0, downtrending -no ischemia sx's. -ECG with non-diagnostic changes of 0.5mm ST elevations in anterolateral territory and nonspecific TWIs = new. repeat with similar findings, prolonged QT. no reciprocal depressions--hence ECG not diagnostic for STEMI and pt without sx's of acute ischemia. -? true ACS triggered by acute infection (i.e. NSTEMI) but asymptomatic--more likely this is Type II PR -continue aspirin -hold statin given unexplained hi LFTs -cont metoprolol -echo shows preserved lvef but apical hypokinesis -03/31-04/2018: plan for risk-stratifying pharm MPI prior to discharge once acute infectious issues and mental status improved hyponatremia/fawad: -plan per hospitalist pericardial effusion: -small-mod size eff seen on echo, no signs tamponade. -Would repeat echo early next week to monitor.
--- NOTE | 2018-04-01 10:16 | PN ---
Progress Note (short form) - Note Progress Note: slleeping soundly wants to be left alone d/w son- no unusual food preferences, no travel, no uncooked meats reports she had been lathering herself with a soap/lotion because she felt itchy at home for the last several weeks Vital Signs Period Temp Pulse Resp BP Sys/[place] Pulse Ox Last 24 Hr 97.5 F-98.7 F 87-119 18-20 112-143/66-87 93 cor-rrr lungs clear abd soft,nt ext no edema scabs on anterior chest wall unchanged CBC, BMP 04/01/18 06:20 04/01/18 06:20 Microbiology 03/31/18 06:00 Urine For Antigen Detection Legionella Antigen - Final 03/31/18 06:00 Urine For Antigen Detection Streptococcus pneumoniae Antigen (M - Final 03/27/18 12:30 Blood - Peripheral Venous Blood Culture - Preliminary NO GROWTH OBTAINED AFTER 96 HOURS, INCUBATION TO CONTINUE FOR 1 DAYS. 03/27/18 12:15 Blood - Peripheral Venous Blood Culture - Preliminary NO GROWTH OBTAINED AFTER 96 HOURS, INCUBATION TO CONTINUE FOR 1 DAYS. 03/29/18 20:15 Urine For Antigen Detection Legionella Antigen - Final 03/29/18 20:15 Urine For Antigen Detection Streptococcus pneumoniae Antigen (M - Final 03/29/18 00:01 Urine - Urine - Catheterized Urine Culture - Final NO GROWTH OBTAINED 03/27/18 12:15 Urine - Urine Clean Catch Urine Culture - Final Contaminated: Please Repeat Laboratory Tests 03/30/18 03/30/18 03/30/18 05:10 05:10 05:10 ESR GGT 88 H C-Reactive Protein 6.1 H Strongyloides IgG Ab Pending 03/30/18 05:10 ESR 16 GGT C-Reactive Protein Strongyloides IgG Ab a/p eosinophilia- ?hypereosinophic syndrome elevated alk phos-improving pneumonia ODALIS-on doxycycline hyponatremia -resolving change in mental status- appears improved legionella urinary antigen-negative stool ova and parasites- strongyloides antibody prolonged Qtc ?malignancy s/p steroids yesterday, ivermectin started as strongyloides antibody is still pending rising eosinophilia awaiting flow cytometry over 1/2 an hour spent in discussing the patient with son and daughterinlaw at bedside Problem List - Problems (1) Leukocytosis Code(s): D72.829 - ELEVATED WHITE BLOOD CELL COUNT, UNSPECIFIED (2) Eosinophilia Code(s): D72.1 - EOSINOPHILIA (3) Elevated alkaline phosphatase level Code(s): R74.8 - ABNORMAL LEVELS OF OTHER SERUM ENZYMES (4) Pneumonia Code(s): J18.9 - PNEUMONIA, UNSPECIFIED ORGANISM
[2018-04-01] MEDS: HEPARIN NA (PORCINE) 5,000 UNITS/ML 1ML VIAL SQ SCH ×2 (10:31→21:52)
[2018-04-01] MEDS: LIDOCAINE 5% TOPICAL PATCH TP SCH (10:31)
[2018-04-01] MEDS: NICOTINE 7 MG/24 HOURS TOPICAL PATCH TD SCH (10:31)
[2018-04-01] MEDS: DOXYCYCLINE INJECTION 100 MG in SODIUM CHLORIDE 100 ML IVPB SCH ×2 (10:31→21:53)
[2018-04-01] MEDS: FUROSEMIDE 40 MG/4 ML INJECTABLE VIAL IVPUSH SCH (10:34)
--- NOTE | 2018-04-01 11:59 | PN ---
Progress Note (short form) - Note Progress Note: Resting in NAD. Clinically has been improving. No acute events overnight. Intake & Output 03/29/18 03/30/18 03/31/18 04/01/18 23:59 23:59 23:59 23:59 Intake Total 280 750 900 240 Balance 280 750 900 240 Weight 101 lb Last Vital Signs Temp Pulse Resp BP Pulse Ox 97.8 F 96 H 19 143/83 93 L 04/01/18 06:00 04/01/18 06:00 04/01/18 06:00 04/01/18 06:00 03/31/18 21:00 Active Medications Albuterol Sulfate (Ventolin 0.083% Nebulizer Soln -) 1 amp NEB Q6H PRN PRN Reason: SHORTNESS OF BREATH Last Admin: 03/31/18 14:00 Dose: 1 amp Albuterol/Ipratropium (Duoneb -) 1 amp NEB RQID [facility] Last Admin: 04/01/18 07:53 Dose: 1 amp Alprazolam (Xanax -) 0.5 mg PO Q8H PRN PRN Reason: ANXIETY Last Admin: 03/31/18 21:09 Dose: 0.5 mg Docusate Sodium (Colace -) 300 mg PO HS [facility] Last Admin: 03/31/18 21:09 Dose: 300 mg Escitalopram Oxalate (Lexapro -) 20 mg PO DAILY [facility] Last Admin: 03/31/18 09:20 Dose: 20 mg Furosemide (Lasix Injection -) 40 mg IVPUSH DAILY [facility] Last Admin: 04/01/18 10:34 Dose: 40 mg Heparin Sodium (Porcine) (Heparin -) 5,000 unit SQ BID [facility] Last Admin: 04/01/18 10:31 Dose: 5,000 unit Doxycycline Hyclate 100 mg/ (Sodium Chloride) 100 mls @ 50 mls/hr IVPB BID [facility] Last Admin: 04/01/18 10:31 Dose: 50 mls/hr Lidocaine (Lidoderm Patch -) 1 patch TP DAILY [facility] Last Admin: 04/01/18 10:31 Dose: 1 patch Methylprednisolone Sodium Succinate (Solu-Medrol -) 60 mg IVPUSH DAILY [facility] Mirtazapine (Remeron -) 15 mg PO HS [facility] Last Admin: 03/31/18 21:09 Dose: 15 mg Miscellaneous (Lidoderm Patch Removal) 1 each MC DAILY@2200 [facility] Last Admin: 03/31/18 21:10 Dose: Not Given Nicotine (Nicoderm Patch -) 7 mg TD DAILY [facility] Last Admin: 04/01/18 10:31 Dose: 7 mg Polyethylene Glycol (Miralax (For Daily Use) -) 17 gm PO DAILY [facility] Last Admin: 03/31/18 09:24 Dose: 17 gm Tiotropium [place] (Spiriva Respimat) 2 puff IH DAILY [facility] Last Admin: 03/31/18 14:41 Dose: 2 puff Constitutional: Yes: Awake and alert, No Distress Eyes: Yes: Conjunctiva Clear HENT: Yes: Atraumatic Neck: Yes: Supple Cardiovascular: Yes: Regular Rate and Rhythm Respiratory: Yes: Bilateral rhonchi, no wheeze Gastrointestinal: (+) BS, (+) vertical suprapubic incision, NT SHELF FILLER: Non-focal Laboratory Results - last 24 hr 03/30/18 04/01/18 04/01/18 12:35 06:20 06:20 WBC 24.5 H RBC 3.42 L Hgb 10.4 L Hct 29.8 L D MCV 87.3 MCH 30.5 MCHC 34.9 RDW 13.8 Plt Count 207 MPV 8.1 Absolute Neuts (auto) 7.2 Neutrophils % 29.2 L Lymphocytes % 7.6 L Monocytes % 3.5 L Eosinophils % 59.6 H* Basophils % 0.1 Nucleated RBC % 0 PT with INR 15.10 H INR 1.28 H Sodium Potassium Chloride Carbon Dioxide Anion Gap BUN Creatinine Creat Clearance w eGFR Random Glucose Calcium Phosphorus Magnesium Total Bilirubin AST ALT Alkaline Phosphatase Total Protein Albumin HSV I DNA Quant (PCR) Cancelled HSV II DNA Quant (PCR) Cancelled 04/01/18 06:20 WBC RBC Hgb Hct MCV MCH MCHC RDW Plt Count MPV Absolute Neuts (auto) Neutrophils % Lymphocytes % Monocytes % Eosinophils % Basophils % Nucleated RBC % PT with INR INR Sodium 137 Potassium 3.7 Chloride 104 Carbon Dioxide 27 Anion Gap 7 L BUN 19 H Creatinine 1.0 Creat Clearance w eGFR 52.82 Random Glucose 86 Calcium 8.0 L Phosphorus 3.3 Magnesium 2.0 Total Bilirubin 0.4 AST 15 ALT 71 H Alkaline Phosphatase 553 H Total Protein 5.3 L Albumin 2.4 L HSV I DNA Quant (PCR) HSV II DNA Quant (PCR) Problem List - Problems (1) ARLINE (acute kidney injury) Code(s): N17.9 - ACUTE KIDNEY FAILURE, UNSPECIFIED (2) Altered mental status, unspecified Code(s): R41.82 - ALTERED MENTAL STATUS, UNSPECIFIED Qualifiers: Altered mental status type: delirium Qualified Code(s): R41.0 - Disorientation, unspecified (3) CAD (coronary artery disease) Code(s): I25.10 - ATHSCL HEART DISEASE OF [place] CORONARY ARTERY W/O ANG PCTRS Qualifiers: Coronary Disease-Associated Artery/Lesion type: [place] artery [place] vs. transplanted heart: [place] heart Associated angina: without angina Qualified Code(s): I25.10 - Atherosclerotic heart disease of [place] coronary artery without angina pectoris (4) Elevated alkaline phosphatase level Code(s): R74.8 - ABNORMAL LEVELS OF OTHER SERUM ENZYMES (5) Eosinophilia Code(s): D72.1 - EOSINOPHILIA (6) HTN (hypertension) Code(s): I10 - ESSENTIAL (PRIMARY) HYPERTENSION Qualifiers: Hypertension type: essential hypertension Qualified Code(s): I10 - Essential (primary) hypertension (7) Hyponatremia Code(s): E87.1 - HYPO-OSMOLALITY AND HYPONATREMIA (8) Leukocytosis Code(s): D72.829 - ELEVATED WHITE BLOOD CELL COUNT, UNSPECIFIED (9) Metabolic encephalopathy Code(s): G93.41 - METABOLIC ENCEPHALOPATHY (10) Pneumonia Code(s): J18.9 - PNEUMONIA, UNSPECIFIED ORGANISM (11) Tobacco dependence Code(s): F17.200 - NICOTINE DEPENDENCE, UNSPECIFIED, UNCOMPLICATED (12) Transaminitis Code(s): R74.0 - NONSPEC ELEV OF LEVELS OF TRANSAMNS & LACTIC ACID DEHYDRGNSE (13) UTI (urinary tract infection) Code(s): N39.0 - URINARY TRACT INFECTION, SITE NOT SPECIFIED Qualifiers: Urinary tract infection type: acute cystitis Hematuria presence: with hematuria Qualified Code(s): N30.01 - Acute cystitis with hematuria IMP HYPEREOSINOPHILIC SYNDROME: ETIOLOGY STILL TO BE DETERMINED ALTERED MENTAL STATUS HYPONATREMIA ODALIS INFILTRATE ? INFECTIOUS,? INFLAMMATORY,?CHF CHF DYSPNEA PERICARDIAL EFFUSION EOSINOPHILIA ? INFECTIOUS,?MALIGNANT,? AUTOIMMUNE ELEVATED ALK PHOS LIKELY COPD SMOKER PLAN SYSTEMIC STEROIDS O2 ABX PER ID INHALED BRONCHODILATORS TREND EOSINOPHIL CT DR THURMAN
[2018-04-01] MEDS: POLYETHYLENE GLYCOL 3350 119 GM BTL PO SCH (12:02)
[2018-04-01] MEDS: ESCITALOPRAM OXALATE 20 MG TABLET (FP) PO SCH (12:02)
[2018-04-01] MEDS: TIOTROPIUM BROMIDE 2.5 MCG (SPIRIVA) RESPIMAT INHALER IH SCH (12:03)
[2018-04-01] MEDS: methylPREDNISolone NA SUCC 40 MG/1 ML VIAL IVPUSH SCH (12:04)
[2018-04-01 13:10] LABS: ANISOCYTOSIS 1+; MACROCYTOSIS 0; PLATELET ESTIMATE NORMAL
--- NOTE | 2018-04-01 14:36 | PN ---
Progress Note (short form) - Note Progress Note: Patient seen in follow up. No new complaints. No significant events overnight. As per surrounding family much improved, but still somewhat 'off'. Solumedrol 45 mgs given yesterday. Inpatient Meds reviewed. Current Medications Albuterol Sulfate (Ventolin 0.083% Nebulizer Soln -) 1 amp NEB Q6H PRN PRN Reason: SHORTNESS OF BREATH Last Admin: 03/31/18 14:00 Dose: 1 amp Albuterol/Ipratropium (Duoneb -) 1 amp NEB RQID [facility] Last Admin: 04/01/18 12:01 Dose: 1 amp Alprazolam (Xanax -) 0.5 mg PO Q8H PRN PRN Reason: ANXIETY Last Admin: 03/31/18 21:09 Dose: 0.5 mg Docusate Sodium (Colace -) 300 mg PO HS [facility] Last Admin: 03/31/18 21:09 Dose: 300 mg Escitalopram Oxalate (Lexapro -) 20 mg PO DAILY [facility] Last Admin: 04/01/18 12:02 Dose: 20 mg Furosemide (Lasix Injection -) 40 mg IVPUSH DAILY [facility] Last Admin: 04/01/18 10:34 Dose: 40 mg Heparin Sodium (Porcine) (Heparin -) 5,000 unit SQ BID [facility] Last Admin: 04/01/18 10:31 Dose: 5,000 unit Doxycycline Hyclate 100 mg/ (Sodium Chloride) 100 mls @ 50 mls/hr IVPB BID [facility] Last Admin: 04/01/18 10:31 Dose: 50 mls/hr Ivermectin (Stromectol (Nf-Restricted To Id) -) 9 mg PO ONCE ONE Stop: 04/01/18 15:01 Last Admin: 04/01/18 14:23 Dose: 9 mg Lidocaine (Lidoderm Patch -) 1 patch TP DAILY [facility] Last Admin: 04/01/18 10:31 Dose: 1 patch Methylprednisolone Sodium Succinate (Solu-Medrol -) 60 mg IVPUSH DAILY [facility] Last Admin: 04/01/18 12:04 Dose: 60 mg Mirtazapine (Remeron -) 15 mg PO HS [facility] Last Admin: 03/31/18 21:09 Dose: 15 mg Miscellaneous (Lidoderm Patch Removal) 1 each MC DAILY@2200 [facility] Last Admin: 03/31/18 21:10 Dose: Not Given Nicotine (Nicoderm Patch -) 7 mg TD DAILY [facility] Last Admin: 04/01/18 10:31 Dose: 7 mg Polyethylene Glycol (Miralax (For Daily Use) -) 17 gm PO DAILY [facility] Last Admin: 04/01/18 12:02 Dose: 17 gm Tiotropium [place] (Spiriva Respimat) 2 puff IH DAILY [facility] Last Admin: 04/01/18 12:03 Dose: 2 puff On Examination: Last Vital Signs Temp Pulse Resp BP Pulse Ox 97.8 F 96 H 19 143/83 96 04/01/18 06:00 04/01/18 06:00 04/01/18 10:00 04/01/18 06:00 04/01/18 10:00 General: In no acute distress, lying comfortably in bed. Extremities: No pallor or icterus. No pedal edema. No palpable lymphadenopathy. CVS: S1, S2, regular, no gallop or murmur. Chest: good air entry bilaterally, clear Abdomen: Non-distended, non-tender, no palpable organomegaly. Neuro: Alert, oriented, non-focal. Labs: CBC, BMP 04/01/18 06:20 04/01/18 06:20 Absolute eosinophil count 14.2K yesterday., today 13.2K Assessment. Elderly female presented with changes mental status, likely attributable to sepsis, now improved, but now with rapidly rising eosinophil count. Also complains of rash. High index of suspicion that her eosinophilia is allergic in nature, either to something she was exposed to prior to admission with a delayed response, or alternatively to one of the antibiotics she has been given since admission. Flow cytometry pending. Recommend continuation of daily steroids. Will follow closely
[2018-04-01] MEDS ORDERED: IVERMECTIN 3 MG TABLET PO ONE (15:00)
--- NOTE | 2018-04-01 15:34 | EKG ---
Test Reason : Blood Pressure : / mmHG Vent. Rate : 102 BPM Atrial Rate : 102 BPM P-R Int : 130 ms QRS Dur : 088 ms QT Int : 374 ms P-R-T Axes : 071 091 -28 degrees QTc Int : 487 ms SINUS TACHYCARDIA WITH FREQUENT PREMATURE VENTRICULAR COMPLEXES POSSIBLE LEFT ATRIAL ENLARGEMENT RIGHTWARD AXIS NONSPECIFIC T WAVE ABNORMALITY ABNORMAL ECG WHEN COMPARED WITH ECG OF 29-MAR-2018 20:49, NO SIGNIFICANT CHANGE WAS FOUND Confirmed by ALISON PRADO MD ([id number]) on 04/01/2018 3:34:11 PM Referred By: Lashanda REBOLLAR Confirmed By:ALISON PRADO MD
[2018-04-01] MEDS ORDERED: diphenhydrAMINE HCL 12.5 MG/5 ML UNIT-DOSE CUPS PO PRN (17:14)
--- NOTE | 2018-04-01 17:48 | PN ---
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 hyponatremia 2. ARLINE 3. depression 4. htn 5. tobacco use 6. anxiety 7. pleural effusions on ct scan Current Medications Albuterol Sulfate (Ventolin 0.083% Nebulizer Soln -) 1 amp NEB Q6H PRN PRN Reason: SHORTNESS OF BREATH Last Admin: 03/31/18 14:00 Dose: 1 amp Albuterol/Ipratropium (Duoneb -) 1 amp NEB RQID [facility] Last Admin: 04/01/18 15:26 Dose: 1 amp Alprazolam (Xanax -) 0.5 mg PO Q8H PRN PRN Reason: ANXIETY Last Admin: 03/31/18 21:09 Dose: 0.5 mg Diphenhydramine HCl (Benadryl Oral Solution -) 12.5 mg PO Q12H PRN PRN Reason: FOR ITCHING Docusate Sodium (Colace -) 300 mg PO HS [facility] Last Admin: 03/31/18 21:09 Dose: 300 mg Escitalopram Oxalate (Lexapro -) 20 mg PO DAILY [facility] Last Admin: 04/01/18 12:02 Dose: 20 mg Furosemide (Lasix Injection -) 40 mg IVPUSH DAILY [facility] Last Admin: 04/01/18 10:34 Dose: 40 mg Heparin Sodium (Porcine) (Heparin -) 5,000 unit SQ BID [facility] Last Admin: 04/01/18 10:31 Dose: 5,000 unit Doxycycline Hyclate 100 mg/ (Sodium Chloride) 100 mls @ 50 mls/hr IVPB BID [facility] Last Admin: 04/01/18 10:31 Dose: 50 mls/hr Lidocaine (Lidoderm Patch -) 1 patch TP DAILY [facility] Last Admin: 04/01/18 10:31 Dose: 1 patch Methylprednisolone Sodium Succinate (Solu-Medrol -) 60 mg IVPUSH DAILY [facility] Last Admin: 04/01/18 12:04 Dose: 60 mg Mirtazapine (Remeron -) 15 mg PO HS [facility] Last Admin: 03/31/18 21:09 Dose: 15 mg Miscellaneous (Lidoderm Patch Removal) 1 each MC DAILY@2200 [facility] Last Admin: 03/31/18 21:10 Dose: Not Given Nicotine (Nicoderm Patch -) 7 mg TD DAILY [facility] Last Admin: 04/01/18 10:31 Dose: 7 mg Polyethylene Glycol (Miralax (For Daily Use) -) 17 gm PO DAILY [facility] Last Admin: 04/01/18 12:02 Dose: 17 gm Tiotropium [place] (Spiriva Respimat) 2 puff IH DAILY [facility] Last Admin: 04/01/18 12:03 Dose: 2 puff Last Vital Signs Temp Pulse Resp BP Pulse Ox 97.8 F 122 H 20 118/55 L 96 04/01/18 15:00 04/01/18 15:00 04/01/18 15:00 04/01/18 15:00 04/01/18 10:00 alert in nad Lungs clear Heart reg Abd soft nontender ext no edema CBC, BMP 04/01/18 06:20 04/01/18 06:20 CBC, BMP 03/31/18 06:30 03/31/18 06:30 IMP hyponatremia resolved Plan- continue present rx and management
[2018-04-01] MEDS: diphenhydrAMINE HCL 12.5 MG/5 ML UNIT-DOSE CUPS PO PRN (17:50)
[2018-04-01] MEDS ORDERED: PT OWN MED DRAWER 7, Y5N ONE ×2 (21:47→22:25)
[2018-04-01] MEDS: LIDOCAINE PATCH REMOVAL MC SCH (21:52)
[2018-04-01] MEDS: MIRTAZAPINE 15 MG TABLET (FP) PO SCH (21:52)
[2018-04-01] MEDS: DOCUSATE SODIUM 100 MG CAPSULE (FP) PO SCH (21:52)
[2018-04-02 00:09] LABS: SERUM IRON SATURATION 32 % (15-55); TOTAL IRON BINDING CAPACITY 188 ug/dL (250-450); UIBC 128 ug/dL (118-369)
[2018-04-02] MEDS ORDERED: HYDROCORTISONE 0.5% TOPICAL CREAM 30 GM TUBE TP ONE (00:18)
[2018-04-02] MEDS: ALPRAZolam 0.25 MG TABLET PO PRN (01:52)
[2018-04-02 07:06] LABS: BASO % 0.1 % (0-2.0); EOS % 58.2 % (0-4.5); HEMATOCRIT 30.3 % (32.4-45.2); HEMOGLOBIN 10.7 GM/dL (10.7-15.3); LYMPH % 9.2 % (8-40); MCH 31.1 pg (25.7-33.7); MCHC 35.3 g/dl (32.0-36.0); MEAN CELL VOLUME 88.2 fl (80-96); MEAN PLT VOLUME 8.1 fl (7.5-11.1); MONO % 3.7 % (3.8-10.2); NEUT % 28.8 % (42.8-82.8); PLATELET COUNT 220 K/MM3 (134-434); RBC 3.43 M/mm3 (3.60-5.2); RDW 14.2 % (11.6-15.6); WHITE BLOOD COUNT 25.7 K/mm3 (4.0-10.0)
[2018-04-02 07:38] LABS: ALBUMIN 2.7 g/dl (3.4-5.0); ALK PHOS 529 U/L (45-117); ANION GAP 9 MMOL/L (8-16); BILIRUBIN,TOTAL 0.5 mg/dL (0.2-1); BLOOD UREA NITROGEN 29 mg/dL (7-18); CALCIUM 8.2 mg/dL (8.5-10.1); CHLORIDE 100 mmol/L (98-107); CO2 27 mmol/L (21-32); CREATININE 1.1 mg/dL (0.55-1.3); GLUCOSE,RANDOM 73 mg/dL (74-106); MAGNESIUM 1.9 mg/dL (1.8-2.4); POTASSIUM 3.9 mmol/L (3.5-5.1); SGOT/AST 18 U/L (15-37); SGPT/ALT 66 U/L (13-61); SODIUM 136 mmol/L (136-145); TOT PROT 5.9 g/dl (6.4-8.2)
[2018-04-02] MEDS ORDERED: PT OWN MED DRAWER 7, Y5N ONE ×3 (08:24→20:48)
[2018-04-02] MEDS: ALBUTEROL SO4 2.5/IPRATROPIUM 0.5 INH SOL 3 ML VIAL.NEB. NEB SCH ×4 (08:26→19:53)
[2018-04-02] MEDS: LIDOCAINE 5% TOPICAL PATCH TP SCH (09:05)
[2018-04-02] MEDS: HEPARIN NA (PORCINE) 5,000 UNITS/ML 1ML VIAL SQ SCH ×2 (09:06→21:05)
[2018-04-02] MEDS: FUROSEMIDE 40 MG/4 ML INJECTABLE VIAL IVPUSH SCH (09:06)
[2018-04-02] MEDS: ESCITALOPRAM OXALATE 20 MG TABLET (FP) PO SCH (09:06)
[2018-04-02] MEDS: methylPREDNISolone NA SUCC 40 MG/1 ML VIAL IVPUSH SCH (09:06)
[2018-04-02] MEDS: POLYETHYLENE GLYCOL 3350 119 GM BTL PO SCH (09:07)
[2018-04-02] MEDS: TIOTROPIUM BROMIDE 2.5 MCG (SPIRIVA) RESPIMAT INHALER IH SCH (09:07)
[2018-04-02] MEDS: DOXYCYCLINE INJECTION 100 MG in SODIUM CHLORIDE 100 ML IVPB SCH ×2 (09:07→21:06)
--- NOTE | 2018-04-02 09:31 | PN ---
Progress Note, Physician Chief Complaint: MS change History of Present Illness: feels well. sleepy. no cp, sob, palpitations, leg swelling - Current Medication List Current Medications: Active Medications Albuterol Sulfate (Ventolin 0.083% Nebulizer Soln -) 1 amp NEB Q6H PRN PRN Reason: SHORTNESS OF BREATH Last Admin: 03/31/18 14:00 Dose: 1 amp Albuterol/Ipratropium (Duoneb -) 1 amp NEB RQID [facility] Last Admin: 04/02/18 08:26 Dose: 1 amp Diphenhydramine HCl (Benadryl Oral Solution -) 12.5 mg PO Q12H PRN PRN Reason: FOR ITCHING Last Admin: 04/01/18 17:50 Dose: 12.5 mg Docusate Sodium (Colace -) 300 mg PO HS [facility] Last Admin: 04/01/18 21:52 Dose: 300 mg Escitalopram Oxalate (Lexapro -) 20 mg PO DAILY [facility] Last Admin: 04/02/18 09:06 Dose: 20 mg Furosemide (Lasix Injection -) 40 mg IVPUSH DAILY [facility] Last Admin: 04/02/18 09:06 Dose: 40 mg Heparin Sodium (Porcine) (Heparin -) 5,000 unit SQ BID [facility] Last Admin: 04/02/18 09:06 Dose: 5,000 unit Doxycycline Hyclate 100 mg/ (Sodium Chloride) 100 mls @ 50 mls/hr IVPB BID [facility] Last Admin: 04/02/18 09:07 Dose: 50 mls/hr Lidocaine (Lidoderm Patch -) 1 patch TP DAILY [facility] Last Admin: 04/02/18 09:05 Dose: 1 patch Methylprednisolone Sodium Succinate (Solu-Medrol -) 60 mg IVPUSH DAILY [facility] Last Admin: 04/02/18 09:06 Dose: 60 mg Mirtazapine (Remeron -) 15 mg PO HS [facility] Last Admin: 04/01/18 21:52 Dose: 15 mg Miscellaneous (Lidoderm Patch Removal) 1 each MC DAILY@2200 [facility] Last Admin: 04/01/18 21:52 Dose: 1 each Nicotine (Nicoderm Patch -) 7 mg TD DAILY [facility] Last Admin: 04/01/18 10:31 Dose: 7 mg Polyethylene Glycol (Miralax (For Daily Use) -) 17 gm PO DAILY [facility] Last Admin: 04/02/18 09:07 Dose: 17 gm Tiotropium [place] (Spiriva Respimat) 2 puff IH DAILY [facility] Last Admin: 04/02/18 09:07 Dose: 2 puff - Objective Vital Signs: Vital Signs Temperature 97.8 F 04/02/18 05:33 Pulse Rate 98 H 04/02/18 05:33 Respiratory Rate 20 04/02/18 05:33 Blood Pressure 142/90 04/02/18 05:33 O2 Sat by Pulse Oximetry (%) 95 04/01/18 21:00 Constitutional: Yes: Well Nourished, No Distress, Calm Cardiovascular: Yes: Regular Rate and Rhythm, S1, S2. No: Gallop, Murmur Respiratory: Yes: Regular, Rales, Wheezes. No: Accessory Muscle Use Extremities: No: Cold Edema: No Neurological: Yes: Alert. No: Seizure Psychiatric: No: Agitated Labs: CBC, BMP 04/02/18 06:00 04/02/18 06:00 INR, PTT INR 1.28 (0.83-1.09) H 04/01/18 06:20 Assessment/Plan MIBI 2010: no STs; mild AW ischemia; nl EF Echo 2015: nl LV/EF; nl RV; nl valves Echo 02/2018: low nl lvef, apical hk, nl rv, no sig valve path, small-mod peric eff Carotids 2015: 50-69% plq bilaterally (PSV 145 R, 162 L), no sig change vs prior ECG #1: NSR. 0.5mm ST elevation V4-V6, I/avL with TWIs. no reciprocal ST depressions. new vs 12/14 office ecg #2 (approx 4pm): no change in ST-T abnormalities (<0.5mm ALEX now), prolonged QT CXR: ? 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 heme following -on steroids NSTEMI, Chronic ischemic heart disease -stress test 2010 with mild anterior wall ischemia. medically managed, never had angina sx's, declined repeat stress testing or cath repeatedly. -here with metabolic derangements and altered MS, incidental troponin 1.0, downtrending -no ischemia sx's. ECG with non-diagnostic changes of 0.5mm ST elevations in anterolateral territory and nonspecific TWIs = new. repeat with similar findings , prolonged QT. no reciprocal depressions--hence ECG not diagnostic for STEMI and pt without sx's of acute ischemia. -? true ACS triggered by acute infection (i.e. NSTEMI) but asymptomatic--more likely this is Type II CO -continue aspirin. start low dose metoprolol (25 qd) -holding statin given unexplained hi LFTs -echo shows preserved lvef but apical hypokinesis -consider risk-stratifying pharm MPI prior to discharge, depending on clinical course and diagnosis/prognosis clarification hyponatremia/fawad: -resolved elevated alk phos: -trending down -per hospitalist pericardial effusion: -small-mod size eff seen on echo, no signs tamponade. -Would repeat echo to monitor NO INDICATION FOR TELE--D/C
[2018-04-02] MEDS: ASPIRIN COATED 81 MG TABLET.EC PO SCH (11:01)
[2018-04-02] MEDS: metoPROLOL SUCCINATE 25 MG TAB.SR.24H (FP) PO SCH (11:02)
[2018-04-02 11:21] LABS: ANISOCYTOSIS 1+; MACROCYTOSIS 0; PLATELET ESTIMATE NORMAL
--- NOTE | 2018-04-02 11:35 | PN ---
Progress Note, Physician Chief Complaint: Pt sitting in bed in no acute distress. Reports feeling well, eating normally. reports she was very itchy overnight. Denies any chest pain, sob, n/v/d - Current Medication List Current Medications: Active Medications Albuterol Sulfate (Ventolin 0.083% Nebulizer Soln -) 1 amp NEB Q6H PRN PRN Reason: SHORTNESS OF BREATH Last Admin: 03/31/18 14:00 Dose: 1 amp Albuterol/Ipratropium (Duoneb -) 1 amp NEB RQID [facility] Last Admin: 04/02/18 08:26 Dose: 1 amp Alprazolam (Xanax -) 0.5 mg PO Q8H PRN PRN Reason: ANXIETY Aspirin (Ecotrin -) 81 mg PO DAILY [facility] Last Admin: 04/02/18 11:01 Dose: 81 mg Diphenhydramine HCl (Benadryl Oral Solution -) 12.5 mg PO Q12H PRN PRN Reason: FOR ITCHING Last Admin: 04/01/18 17:50 Dose: 12.5 mg Docusate Sodium (Colace -) 300 mg PO HS [facility] Last Admin: 04/01/18 21:52 Dose: 300 mg Escitalopram Oxalate (Lexapro -) 20 mg PO DAILY [facility] Last Admin: 04/02/18 09:06 Dose: 20 mg Furosemide (Lasix Injection -) 40 mg IVPUSH DAILY [facility] Last Admin: 04/02/18 09:06 Dose: 40 mg Heparin Sodium (Porcine) (Heparin -) 5,000 unit SQ BID [facility] Last Admin: 04/02/18 09:06 Dose: 5,000 unit Doxycycline Hyclate 100 mg/ (Sodium Chloride) 100 mls @ 50 mls/hr IVPB BID [facility] Last Admin: 04/02/18 09:07 Dose: 50 mls/hr Lidocaine (Lidoderm Patch -) 1 patch TP DAILY [facility] Last Admin: 04/02/18 09:05 Dose: 1 patch Methylprednisolone Sodium Succinate (Solu-Medrol -) 60 mg IVPUSH DAILY [facility] Last Admin: 04/02/18 09:06 Dose: 60 mg Metoprolol Succinate (Toprol Xl -) 25 mg PO DAILY [facility] Last Admin: 04/02/18 11:02 Dose: 25 mg Mirtazapine (Remeron -) 15 mg PO HS [facility] Last Admin: 04/01/18 21:52 Dose: 15 mg Miscellaneous (Lidoderm Patch Removal) 1 each MC DAILY@2200 [facility] Last Admin: 04/01/18 21:52 Dose: 1 each Nicotine (Nicoderm Patch -) 7 mg TD DAILY [facility] Last Admin: 04/01/18 10:31 Dose: 7 mg Polyethylene Glycol (Miralax (For Daily Use) -) 17 gm PO DAILY [facility] Last Admin: 04/02/18 09:07 Dose: 17 gm Tiotropium [place] (Spiriva Respimat) 2 puff IH DAILY [facility] Last Admin: 04/02/18 09:07 Dose: 2 puff - Objective Vital Signs: Vital Signs Temperature 97.8 F 04/02/18 05:33 Pulse Rate 98 H 04/02/18 05:33 Respiratory Rate 20 04/02/18 05:33 Blood Pressure 142/90 04/02/18 05:33 O2 Sat by Pulse Oximetry (%) 95 04/01/18 21:00 Constitutional: Yes: No Distress, Calm Cardiovascular: Yes: Regular Rate and Rhythm Respiratory: Yes: Regular, Cough, Diminished (bibasilar), On Nasal O2. No: Accessory Muscle Use, Rhonchi, SOB, Tachypnea, Wheezes Gastrointestinal: Yes: WNL, Normal Bowel Sounds, Soft. No: Distention, Tenderness Genitourinary: Yes: WNL Extremities: Yes: WNL Edema: No Neurological: Yes: WNL, Alert, Oriented Psychiatric: Yes: WNL, Alert, Oriented Labs: CBC, BMP 04/02/18 06:00 04/02/18 06:00 INR, PTT INR 1.28 (0.83-1.09) H 04/01/18 06:20 Assessment/Plan (1) Sepsis Assessment/Plan: improved blood/urine cultures neg Code(s): A41.9 - SEPSIS, UNSPECIFIED ORGANISM (2) UTI (urinary tract infection) Assessment/Plan: ruled out Code(s): N39.0 - URINARY TRACT INFECTION, SITE NOT SPECIFIED Qualifiers: Urinary tract infection type: acute cystitis Hematuria presence: with hematuria Qualified Code(s): N30.01 - Acute cystitis with hematuria (3) Pneumonia Assessment/Plan: doxy day 5 ID following Code(s): J18.9 - PNEUMONIA, UNSPECIFIED ORGANISM Qualifiers: Pneumonia type: due to unspecified organism Laterality: left Lung location: upper lobe of lung Qualified Code(s): J18.1 - Lobar pneumonia, unspecified organism (4) Metabolic encephalopathy Assessment/Plan: improved Code(s): G93.41 - METABOLIC ENCEPHALOPATHY (5) Hyponatremia Assessment/Plan: resolved Code(s): E87.1 - HYPO-OSMOLALITY AND HYPONATREMIA (6) Elevated troponin Assessment/Plan: demand stress test prior to d/c Code(s): R74.8 - ABNORMAL LEVELS OF OTHER SERUM ENZYMES (7) ARLINE (acute kidney injury) Assessment/Plan: improved Code(s): N17.9 - ACUTE KIDNEY FAILURE, UNSPECIFIED (8) Transaminitis Assessment/Plan: improved GI following Code(s): R74.0 - NONSPEC ELEV OF LEVELS OF TRANSAMNS & LACTIC ACID DEHYDRGNSE (9) Abnormal liver function test Assessment/Plan: alk phos improving Code(s): R94.5 - ABNORMAL RESULTS OF LIVER FUNCTION STUDIES (10) Pleural effusion Assessment/Plan: small, b/l monitor Code(s): J90 - PLEURAL EFFUSION, NOT ELSEWHERE CLASSIFIED (11) Pericardial effusion Assessment/Plan: small-moderate no tamponade repeat echo pending Code(s): I31.3 - PERICARDIAL EFFUSION (NONINFLAMMATORY) (12) CHF (congestive heart failure) Assessment/Plan: improved will stop lasix scheduled lasix prn repeat chest xray am Code(s): I50.9 - HEART FAILURE, UNSPECIFIED Qualifiers: Heart failure chronicity: acute (13) Elevated troponin Assessment/Plan: demand stress test prior to d/c per cardiology Code(s): R74.8 - ABNORMAL LEVELS OF OTHER SERUM ENZYMES (14) CAD (coronary artery disease) Assessment/Plan: continue asa low dose bb started Code(s): I25.10 - ATHSCL HEART DISEASE OF [place] CORONARY ARTERY W/O ANG PCTRS Qualifiers: Coronary Disease-Associated Artery/Lesion type: [place] artery [place] vs. transplanted heart: [place] heart Associated angina: without angina Qualified Code(s): I25.10 - Atherosclerotic heart disease of [place] coronary artery without angina pectoris (15) HTN (hypertension) Assessment/Plan: mild elevation d/c thiazide cartia restarted monitor Code(s): I10 - ESSENTIAL (PRIMARY) HYPERTENSION Qualifiers: Hypertension type: essential hypertension Qualified Code(s): I10 - Essential (primary) hypertension (16) HLD (hyperlipidemia) Assessment/Plan: chronic holding statin Code(s): E78.5 - HYPERLIPIDEMIA, UNSPECIFIED (17) Tobacco dependence Assessment/Plan: advise smoking cessation nicotine patch Code(s): F17.200 - NICOTINE DEPENDENCE, UNSPECIFIED, UNCOMPLICATED (18) Anxiety Assessment/Plan: controlled continue lexapro/mirtazapine xanax prn Code(s): F41.9 - ANXIETY DISORDER, UNSPECIFIED (19) Leukocytosis Assessment/Plan: persists on iv steroids hematology work up in place ID following Code(s): D72.829 - ELEVATED WHITE BLOOD CELL COUNT, UNSPECIFIED (20) Eosinophilia Assessment/Plan: persists unclear etiology stool ova and parasites/anca panel pending strongyloides neg heme following rheum consult pending Code(s): D72.1 - EOSINOPHILIA
--- NOTE | 2018-04-02 12:21 | PN ---
Progress Note, Physician History of Present Illness: Pt seen and examined at bedside. She had shortness of breath this morning. She denies chest pain. Her mental status is improved. - Current Medication List Current Medications: Active Medications Albuterol Sulfate (Ventolin 0.083% Nebulizer Soln -) 1 amp NEB Q6H PRN PRN Reason: SHORTNESS OF BREATH Last Admin: 03/31/18 14:00 Dose: 1 amp Albuterol/Ipratropium (Duoneb -) 1 amp NEB RQID [facility] Last Admin: 04/02/18 08:26 Dose: 1 amp Alprazolam (Xanax -) 0.5 mg PO Q8H PRN PRN Reason: ANXIETY Aspirin (Ecotrin -) 81 mg PO DAILY [facility] Last Admin: 04/02/18 11:01 Dose: 81 mg Diphenhydramine HCl (Benadryl Oral Solution -) 12.5 mg PO Q12H PRN PRN Reason: FOR ITCHING Last Admin: 04/01/18 17:50 Dose: 12.5 mg Docusate Sodium (Colace -) 300 mg PO HS [facility] Last Admin: 04/01/18 21:52 Dose: 300 mg Escitalopram Oxalate (Lexapro -) 20 mg PO DAILY [facility] Last Admin: 04/02/18 09:06 Dose: 20 mg Furosemide (Lasix Injection -) 40 mg IVPUSH DAILY [facility] Last Admin: 04/02/18 09:06 Dose: 40 mg Heparin Sodium (Porcine) (Heparin -) 5,000 unit SQ BID [facility] Last Admin: 04/02/18 09:06 Dose: 5,000 unit Doxycycline Hyclate 100 mg/ (Sodium Chloride) 100 mls @ 50 mls/hr IVPB BID [facility] Last Admin: 04/02/18 09:07 Dose: 50 mls/hr Lidocaine (Lidoderm Patch -) 1 patch TP DAILY [facility] Last Admin: 04/02/18 09:05 Dose: 1 patch Methylprednisolone Sodium Succinate (Solu-Medrol -) 60 mg IVPUSH DAILY [facility] Last Admin: 04/02/18 09:06 Dose: 60 mg Metoprolol Succinate (Toprol Xl -) 25 mg PO DAILY [facility] Last Admin: 04/02/18 11:02 Dose: 25 mg Mirtazapine (Remeron -) 15 mg PO HS [facility] Last Admin: 04/01/18 21:52 Dose: 15 mg Miscellaneous (Lidoderm Patch Removal) 1 each MC DAILY@2200 [facility] Last Admin: 04/01/18 21:52 Dose: 1 each Nicotine (Nicoderm Patch -) 7 mg TD DAILY [facility] Last Admin: 04/01/18 10:31 Dose: 7 mg Polyethylene Glycol (Miralax (For Daily Use) -) 17 gm PO DAILY [facility] Last Admin: 04/02/18 09:07 Dose: 17 gm Tiotropium [place] (Spiriva Respimat) 2 puff IH DAILY [facility] Last Admin: 04/02/18 09:07 Dose: 2 puff - Objective Vital Signs: Vital Signs Temperature 97.8 F 04/02/18 05:33 Pulse Rate 98 H 04/02/18 05:33 Respiratory Rate 20 04/02/18 05:33 Blood Pressure 142/90 04/02/18 05:33 O2 Sat by Pulse Oximetry (%) 95 04/01/18 21:00 Constitutional: Yes: Calm Eyes: Yes: Conjunctiva Clear HENT: Yes: Atraumatic Cardiovascular: Yes: S1, S2 Respiratory: Yes: On Nasal O2, Wheezes Gastrointestinal: Yes: Soft Genitourinary: Yes: WNL Musculoskeletal: Yes: WNL Edema: No Neurological: Yes: Oriented Psychiatric: Yes: Oriented Labs: CBC, BMP 04/02/18 06:00 04/02/18 06:00 INR, PTT INR 1.28 (0.83-1.09) H 04/01/18 06:20 Problem List - Problems (1) ARLINE (acute kidney injury) Code(s): N17.9 - ACUTE KIDNEY FAILURE, UNSPECIFIED (2) HTN (hypertension) Code(s): I10 - ESSENTIAL (PRIMARY) HYPERTENSION Qualifiers: Hypertension type: essential hypertension Qualified Code(s): I10 - Essential (primary) hypertension (3) Hyponatremia Code(s): E87.1 - HYPO-OSMOLALITY AND HYPONATREMIA (4) Tobacco dependence Code(s): F17.200 - NICOTINE DEPENDENCE, UNSPECIFIED, UNCOMPLICATED Assessment/Plan Current Medications Generic Name Dose Route Start Last Admin Trade Name Freq PRN Reason Stop Dose Admin Albuterol Sulfate 1 amp 03/28/18 10:42 03/31/18 14:00 Ventolin 0.083% Nebulizer Soln - NEB 1 amp Q6H PRN Administration SHORTNESS OF BREATH Albuterol/Ipratropium 1 amp 03/30/18 12:00 04/02/18 08:26 Duoneb - NEB 1 amp RQID [facility] Administration Alprazolam 0.5 mg 04/02/18 09:42 Xanax - PO Q8H PRN ANXIETY Aspirin 81 mg 04/02/18 10:00 04/02/18 11:01 Ecotrin - PO 81 mg DAILY [facility] Administration Diphenhydramine HCl 12.5 mg 04/01/18 17:37 04/01/18 17:50 Benadryl Oral Solution - PO 12.5 mg Q12H PRN Administration FOR ITCHING Docusate Sodium 300 mg 03/28/18 22:00 04/01/18 21:52 Colace - PO 300 mg HS [facility] Administration Escitalopram Oxalate 20 mg 03/28/18 10:00 04/02/18 09:06 Lexapro - PO 20 mg DAILY [facility] Administration Furosemide 40 mg 04/01/18 10:30 04/02/18 09:06 Lasix Injection - IVPUSH 40 mg DAILY [facility] Administration Heparin Sodium (Porcine) 5,000 unit 03/27/18 22:00 04/02/18 09:06 Heparin - SQ 5,000 unit BID [facility] Administration Doxycycline Hyclate 100 mg/ 100 mls @ 50 mls/hr 03/29/18 22:00 04/02/18 09:07 Sodium Chloride IVPB 50 mls/hr BID [facility] Administration Lidocaine 1 patch 03/29/18 18:30 04/02/18 09:05 Lidoderm Patch - TP 1 patch DAILY [facility] Administration Methylprednisolone Sodium Succinate 60 mg 04/01/18 11:30 04/02/18 09:06 Solu-Medrol - IVPUSH 60 mg DAILY [facility] Administration Metoprolol Succinate 25 mg 04/02/18 10:00 04/02/18 11:02 Toprol Xl - PO 25 mg DAILY [facility] Administration Mirtazapine 15 mg 03/27/18 22:00 04/01/18 21:52 Remeron - PO 15 mg HS [facility] Administration Miscellaneous 1 each 03/29/18 22:00 04/01/18 21:52 Lidoderm Patch Removal MC 1 each DAILY@2200 [facility] Administration Nicotine 7 mg 03/27/18 15:30 02/03/19 10:31 Nicoderm Patch - TD 7 mg DAILY [facility] Administration Polyethylene Glycol 17 gm 03/28/18 10:00 04/02/18 09:07 Miralax (For Daily Use) - PO 17 gm DAILY [facility] Administration Tiotropium [place] 2 puff 03/28/18 10:15 04/02/18 09:07 Spiriva Respimat IH 2 puff DAILY [facility] Administration Impression 1. hyponatremia 2. ARLINE 3. depression 4. htn 5. tobacco use 6. anxiety 7. pleural effusions on ct scan Plan - sodium stable - cont lasix - do not restart thiazide - encourage PO intake - will follow - hyponatremia likely from thiazide Dr Guardado
--- NOTE | 2018-04-02 12:37 | PN ---
GI Progress Note Subjective: GI NOte: Sleeping. The brother is present. I asked that he inform her that her LFTs are improving. - Objective Vital Signs: Vital Signs Temperature 97.8 F 04/02/18 05:33 Pulse Rate 98 H 04/02/18 05:33 Respiratory Rate 20 04/02/18 05:33 Blood Pressure 142/90 04/02/18 05:33 O2 Sat by Pulse Oximetry (%) 95 04/01/18 21:00 Laboratory Tests 03/31/18 03/31/18 04/01/18 06:30 06:30 06:20 Plt Count Iron 60 TIBC 188 L Iron Saturation 32 Ferritin 279.4 Total Bilirubin 0.4 AST 18 15 ALT 96 H 71 H Alkaline Phosphatase 741 H 553 H LD Total 304 H Albumin 04/02/18 04/02/18 06:00 06:00 Plt Count 220 Iron TIBC Iron Saturation Ferritin Total Bilirubin AST 18 ALT 66 H Alkaline Phosphatase 529 H LD Total Albumin 2.7 L Laboratory Tests 03/30/18 03/31/18 05:10 06:30 CASTRO Screen Pending Smooth [place] &MEDICAL SURGERY NURSE Intrp Pending Tiss Transglutamin IgG Pending Tiss Transglutamin IgA Pending Hepatitis A Ab Total Pending Hep Bs Antigen Pending Hep Bs Antibody Pending Hep B Core Total Ab Pending Hep C Ab Diagnostic 0.1 Strongyloides IgG Ab Negative Labs: CBC, BMP 04/02/18 06:00 04/02/18 06:00 INR, PTT INR 1.28 (0.83-1.09) H 04/01/18 06:20 Problem List - Problems (1) Abnormal liver function test Assessment/Plan: LFTs improving. LDH also elevated. Alkaline phosphatase isoenzymes have not returned,. Other liver stuidies are still pending. Iron studies do not suggest hemochromatosis. Echo does not reveal findings that would cause hepatic congestion. Code(s): R94.5 - ABNORMAL RESULTS OF LIVER FUNCTION STUDIES (2) Occult blood positive stool Code(s): R19.5 - OTHER FECAL ABNORMALITIES (3) Constipation Code(s): K59.00 - CONSTIPATION, UNSPECIFIED (4) Family history of colon cancer in mother Code(s): Z80.0 - FAMILY HISTORY OF MALIGNANT NEOPLASM OF DIGESTIVE ORGANS (5) Family history of pancreatic cancer Code(s): Z80.0 - FAMILY HISTORY OF MALIGNANT NEOPLASM OF DIGESTIVE ORGANS (6) Altered mental status, unspecified Code(s): R41.82 - ALTERED MENTAL STATUS, UNSPECIFIED Qualifiers: Altered mental status type: delirium Qualified Code(s): R41.0 - Disorientation, unspecified (7) Elevated alkaline phosphatase level Code(s): R74.8 - ABNORMAL LEVELS OF OTHER SERUM ENZYMES (8) Sepsis Code(s): A41.9 - SEPSIS, UNSPECIFIED ORGANISM (9) UTI (urinary tract infection) Code(s): N39.0 - URINARY TRACT INFECTION, SITE NOT SPECIFIED Qualifiers: Urinary tract infection type: acute cystitis Hematuria presence: with hematuria Qualified Code(s): N30.01 - Acute cystitis with hematuria
[2018-04-02] MEDS: NICOTINE 7 MG/24 HOURS TOPICAL PATCH TD SCH (13:26)
--- NOTE | 2018-04-02 13:58 | PN ---
Progress Note, Physician - Current Medication List Current Medications: Active Medications Albuterol Sulfate (Ventolin 0.083% Nebulizer Soln -) 1 amp NEB Q6H PRN PRN Reason: SHORTNESS OF BREATH Last Admin: 03/31/18 14:00 Dose: 1 amp Albuterol/Ipratropium (Duoneb -) 1 amp NEB RQID [facility] Last Admin: 04/02/18 11:50 Dose: 1 amp Alprazolam (Xanax -) 0.5 mg PO Q8H PRN PRN Reason: ANXIETY Aspirin (Ecotrin -) 81 mg PO DAILY [facility] Last Admin: 04/02/18 11:01 Dose: 81 mg Diphenhydramine HCl (Benadryl Oral Solution -) 12.5 mg PO Q12H PRN PRN Reason: FOR ITCHING Last Admin: 04/01/18 17:50 Dose: 12.5 mg Docusate Sodium (Colace -) 300 mg PO HS [facility] Last Admin: 04/01/18 21:52 Dose: 300 mg Escitalopram Oxalate (Lexapro -) 20 mg PO DAILY [facility] Last Admin: 04/02/18 09:06 Dose: 20 mg Furosemide (Lasix Injection -) 40 mg IVPUSH DAILY [facility] Last Admin: 04/02/18 09:06 Dose: 40 mg Heparin Sodium (Porcine) (Heparin -) 5,000 unit SQ BID [facility] Last Admin: 04/02/18 09:06 Dose: 5,000 unit Doxycycline Hyclate 100 mg/ (Sodium Chloride) 100 mls @ 50 mls/hr IVPB BID [facility] Last Admin: 04/02/18 09:07 Dose: 50 mls/hr Lidocaine (Lidoderm Patch -) 1 patch TP DAILY [facility] Last Admin: 04/02/18 09:05 Dose: 1 patch Methylprednisolone Sodium Succinate (Solu-Medrol -) 60 mg IVPUSH DAILY [facility] Last Admin: 04/02/18 09:06 Dose: 60 mg Metoprolol Succinate (Toprol Xl -) 25 mg PO DAILY [facility] Last Admin: 04/02/18 11:02 Dose: 25 mg Mirtazapine (Remeron -) 15 mg PO HS [facility] Last Admin: 04/01/18 21:52 Dose: 15 mg Miscellaneous (Lidoderm Patch Removal) 1 each MC DAILY@2200 [facility] Last Admin: 04/01/18 21:52 Dose: 1 each Nicotine (Nicoderm Patch -) 7 mg TD DAILY [facility] Last Admin: 04/02/18 13:26 Dose: Not Given Polyethylene Glycol (Miralax (For Daily Use) -) 17 gm PO DAILY [facility] Last Admin: 04/02/18 09:07 Dose: 17 gm Tiotropium [place] (Spiriva Respimat) 2 puff IH DAILY [facility] Last Admin: 04/02/18 09:07 Dose: 2 puff - Objective Vital Signs: Vital Signs Temperature 97.8 F 04/02/18 05:33 Pulse Rate 98 H 04/02/18 05:33 Respiratory Rate 20 04/02/18 05:33 Blood Pressure 142/90 04/02/18 05:33 O2 Sat by Pulse Oximetry (%) 95 04/01/18 21:00 Labs: CBC, BMP 04/02/18 06:00 04/02/18 06:00 INR, PTT INR 1.28 (0.83-1.09) H 04/01/18 06:20 Problem List - Problems (1) ARLINE (acute kidney injury) Code(s): N17.9 - ACUTE KIDNEY FAILURE, UNSPECIFIED (2) Altered mental status, unspecified Code(s): R41.82 - ALTERED MENTAL STATUS, UNSPECIFIED Qualifiers: Altered mental status type: delirium Qualified Code(s): R41.0 - Disorientation, unspecified (3) CAD (coronary artery disease) Code(s): I25.10 - ATHSCL HEART DISEASE OF [place] CORONARY ARTERY W/O ANG PCTRS Qualifiers: Coronary Disease-Associated Artery/Lesion type: [place] artery [place] vs. transplanted heart: [place] heart Associated angina: without angina Qualified Code(s): I25.10 - Atherosclerotic heart disease of [place] coronary artery without angina pectoris (4) Elevated alkaline phosphatase level Code(s): R74.8 - ABNORMAL LEVELS OF OTHER SERUM ENZYMES (5) Eosinophilia Code(s): D72.1 - EOSINOPHILIA (6) HTN (hypertension) Code(s): I10 - ESSENTIAL (PRIMARY) HYPERTENSION Qualifiers: Hypertension type: essential hypertension Qualified Code(s): I10 - Essential (primary) hypertension (7) Hyponatremia Code(s): E87.1 - HYPO-OSMOLALITY AND HYPONATREMIA (8) Leukocytosis Code(s): D72.829 - ELEVATED WHITE BLOOD CELL COUNT, UNSPECIFIED (9) Metabolic encephalopathy Code(s): G93.41 - METABOLIC ENCEPHALOPATHY (10) Pneumonia Code(s): J18.9 - PNEUMONIA, UNSPECIFIED ORGANISM Qualifiers: Pneumonia type: due to unspecified organism Laterality: left Lung location: upper lobe of lung Qualified Code(s): J18.1 - Lobar pneumonia, unspecified organism (11) Tobacco dependence Code(s): F17.200 - NICOTINE DEPENDENCE, UNSPECIFIED, UNCOMPLICATED (12) Transaminitis Code(s): R74.0 - NONSPEC ELEV OF LEVELS OF TRANSAMNS & LACTIC ACID DEHYDRGNSE (13) UTI (urinary tract infection) Code(s): N39.0 - URINARY TRACT INFECTION, SITE NOT SPECIFIED Qualifiers: Urinary tract infection type: acute cystitis Hematuria presence: with hematuria Qualified Code(s): N30.01 - Acute cystitis with hematuria
--- NOTE | 2018-04-02 14:03 | PN ---
Progress Note, Physician History of Present Illness: pulmonary sleepy,c/o mild sob,-cp,+ wheezes - Current Medication List Current Medications: Active Medications Albuterol Sulfate (Ventolin 0.083% Nebulizer Soln -) 1 amp NEB Q6H PRN PRN Reason: SHORTNESS OF BREATH Last Admin: 03/31/18 14:00 Dose: 1 amp Albuterol/Ipratropium (Duoneb -) 1 amp NEB RQID [facility] Last Admin: 04/02/18 11:50 Dose: 1 amp Alprazolam (Xanax -) 0.5 mg PO Q8H PRN PRN Reason: ANXIETY Aspirin (Ecotrin -) 81 mg PO DAILY [facility] Last Admin: 04/02/18 11:01 Dose: 81 mg Diphenhydramine HCl (Benadryl Oral Solution -) 12.5 mg PO Q12H PRN PRN Reason: FOR ITCHING Last Admin: 04/01/18 17:50 Dose: 12.5 mg Docusate Sodium (Colace -) 300 mg PO HS [facility] Last Admin: 04/01/18 21:52 Dose: 300 mg Escitalopram Oxalate (Lexapro -) 20 mg PO DAILY [facility] Last Admin: 04/02/18 09:06 Dose: 20 mg Furosemide (Lasix Injection -) 40 mg IVPUSH DAILY [facility] Last Admin: 04/02/18 09:06 Dose: 40 mg Heparin Sodium (Porcine) (Heparin -) 5,000 unit SQ BID [facility] Last Admin: 04/02/18 09:06 Dose: 5,000 unit Doxycycline Hyclate 100 mg/ (Sodium Chloride) 100 mls @ 50 mls/hr IVPB BID [facility] Last Admin: 04/02/18 09:07 Dose: 50 mls/hr Lidocaine (Lidoderm Patch -) 1 patch TP DAILY [facility] Last Admin: 04/02/18 09:05 Dose: 1 patch Methylprednisolone Sodium Succinate (Solu-Medrol -) 60 mg IVPUSH DAILY [facility] Last Admin: 04/02/18 09:06 Dose: 60 mg Metoprolol Succinate (Toprol Xl -) 25 mg PO DAILY [facility] Last Admin: 04/02/18 11:02 Dose: 25 mg Mirtazapine (Remeron -) 15 mg PO HS [facility] Last Admin: 04/01/18 21:52 Dose: 15 mg Miscellaneous (Lidoderm Patch Removal) 1 each MC DAILY@2200 [facility] Last Admin: 04/01/18 21:52 Dose: 1 each Nicotine (Nicoderm Patch -) 7 mg TD DAILY [facility] Last Admin: 04/02/18 13:26 Dose: Not Given Polyethylene Glycol (Miralax (For Daily Use) -) 17 gm PO DAILY [facility] Last Admin: 04/02/18 09:07 Dose: 17 gm Tiotropium [place] (Spiriva Respimat) 2 puff IH DAILY [facility] Last Admin: 04/02/18 09:07 Dose: 2 puff - Objective Vital Signs: Vital Signs Temperature 97.8 F 04/02/18 05:33 Pulse Rate 98 H 04/02/18 05:33 Respiratory Rate 20 04/02/18 05:33 Blood Pressure 142/90 04/02/18 05:33 O2 Sat by Pulse Oximetry (%) 95 04/01/18 21:00 Constitutional: Yes: Calm, Thin Eyes: Yes: WNL HENT: Yes: WNL Neck: Yes: WNL Cardiovascular: Yes: Regular Rate and Rhythm, S1, S2 Respiratory: Yes: Wheezes (scattered yasmin wheezes) Gastrointestinal: Yes: Normal Bowel Sounds, Soft Extremities: Yes: WNL Edema: No Labs: CBC, BMP 04/02/18 06:00 04/02/18 06:00 INR, PTT INR 1.28 (0.83-1.09) H 04/01/18 06:20 Problem List - Problems (1) ARLINE (acute kidney injury) Code(s): N17.9 - ACUTE KIDNEY FAILURE, UNSPECIFIED (2) Altered mental status, unspecified Code(s): R41.82 - ALTERED MENTAL STATUS, UNSPECIFIED Qualifiers: Altered mental status type: delirium Qualified Code(s): R41.0 - Disorientation, unspecified (3) CAD (coronary artery disease) Code(s): I25.10 - ATHSCL HEART DISEASE OF [place] CORONARY ARTERY W/O ANG PCTRS Qualifiers: Coronary Disease-Associated Artery/Lesion type: [place] artery [place] vs. transplanted heart: [place] heart Associated angina: without angina Qualified Code(s): I25.10 - Atherosclerotic heart disease of [place] coronary artery without angina pectoris (4) Elevated alkaline phosphatase level Code(s): R74.8 - ABNORMAL LEVELS OF OTHER SERUM ENZYMES (5) Eosinophilia Code(s): D72.1 - EOSINOPHILIA (6) HTN (hypertension) Code(s): I10 - ESSENTIAL (PRIMARY) HYPERTENSION Qualifiers: Hypertension type: essential hypertension Qualified Code(s): I10 - Essential (primary) hypertension (7) Hyponatremia Code(s): E87.1 - HYPO-OSMOLALITY AND HYPONATREMIA (8) Leukocytosis Code(s): D72.829 - ELEVATED WHITE BLOOD CELL COUNT, UNSPECIFIED (9) Metabolic encephalopathy Code(s): G93.41 - METABOLIC ENCEPHALOPATHY (10) Pneumonia Code(s): J18.9 - PNEUMONIA, UNSPECIFIED ORGANISM Qualifiers: Pneumonia type: due to unspecified organism Laterality: left Lung location: upper lobe of lung Qualified Code(s): J18.1 - Lobar pneumonia, unspecified organism (11) Tobacco dependence Code(s): F17.200 - NICOTINE DEPENDENCE, UNSPECIFIED, UNCOMPLICATED (12) Transaminitis Code(s): R74.0 - NONSPEC ELEV OF LEVELS OF TRANSAMNS & LACTIC ACID DEHYDRGNSE (13) UTI (urinary tract infection) Code(s): N39.0 - URINARY TRACT INFECTION, SITE NOT SPECIFIED Qualifiers: Urinary tract infection type: acute cystitis Hematuria presence: with hematuria Qualified Code(s): N30.01 - Acute cystitis with hematuria Assessment/Plan IMP ALTERED MENTAL STATUS IMPROVING HYPONATREMIA CORRECTED ODALIS INFILTRATE ? INFECTIOUS,? INFLAMMATORY,?CHF CHF DYSPNEA PERICARDIAL EFFUSION EOSINOPHILIA ? INFECTIOUS,?MALIGNANT,? AUTOIMMUNE ELEVATED ALK PHOS LIKELY COPD SMOKER PLAN LASIX O2 ABX PER ID INHALED BRONCHODILATORS MONITOR LYTES,NA TREND EOSINOPHIL CT F/U CHEST X-RAYS STEROIDS DR LOPEZ Problem List - Problems (1) ARLINE (acute kidney injury) Code(s): N17.9 - ACUTE KIDNEY FAILURE, UNSPECIFIED (2) Altered mental status, unspecified Code(s): R41.82 - ALTERED MENTAL STATUS, UNSPECIFIED Qualifiers: Altered mental status type: delirium Qualified Code(s): R41.0 - Disorientation, unspecified (3) CAD (coronary artery disease) Code(s): I25.10 - ATHSCL HEART DISEASE OF [place] CORONARY ARTERY W/O ANG PCTRS Qualifiers: Coronary Disease-Associated Artery/Lesion type: [place] artery [place] vs. transplanted heart: [place] heart Associated angina: without angina Qualified Code(s): I25.10 - Atherosclerotic heart disease of [place] coronary artery without angina pectoris (4) Elevated alkaline phosphatase level Code(s): R74.8 - ABNORMAL LEVELS OF OTHER SERUM ENZYMES (5) Eosinophilia Code(s): D72.1 - EOSINOPHILIA (6) HTN (hypertension) Code(s): I10 - ESSENTIAL (PRIMARY) HYPERTENSION Qualifiers: Hypertension type: essential hypertension Qualified Code(s): I10 - Essential (primary) hypertension (7) Hyponatremia Code(s): E87.1 - HYPO-OSMOLALITY AND HYPONATREMIA (8) Leukocytosis Code(s): D72.829 - ELEVATED WHITE BLOOD CELL COUNT, UNSPECIFIED (9) Metabolic encephalopathy Code(s): G93.41 - METABOLIC ENCEPHALOPATHY (10) Pneumonia Code(s): J18.9 - PNEUMONIA, UNSPECIFIED ORGANISM (11) Tobacco dependence Code(s): F17.200 - NICOTINE DEPENDENCE, UNSPECIFIED, UNCOMPLICATED (12) Transaminitis Code(s): R74.0 - NONSPEC ELEV OF LEVELS OF TRANSAMNS & LACTIC ACID DEHYDRGNSE (13) UTI (urinary tract infection) Code(s): N39.0 - URINARY TRACT INFECTION, SITE NOT SPECIFIED Qualifiers: Urinary tract infection type: acute cystitis Hematuria presence: with hematuria Qualified Code(s): N30.01 - Acute cystitis with hematuria
--- NOTE | 2018-04-02 14:32 | PN ---
Progress Note (short form) - Note Progress Note: slleeping soundly alert very itchy- neck and back d/w son- no unusual food preferences, no travel, no uncooked meats reports she had been lathering herself with a soap/lotion because she felt itchy at home for the last several weeks Vital Signs Period Temp Pulse Resp BP Sys/[place] Pulse Ox Last 24 Hr 97.8 F-98.0 F 85-122 20-20 118-161/55-90 95-96 cor-rrr lungs decreased bs t bases abd soft,nt ext no edema +itchy rash on back and upper chest- scabbed lesions CBC, BMP 04/02/18 06:00 04/02/18 06:00 Microbiology 03/27/18 12:30 Blood - Peripheral Venous Blood Culture - Final NO GROWTH AFTER 5 DAYS INCUBATION 03/27/18 12:15 Blood - Peripheral Venous Blood Culture - Final NO GROWTH AFTER 5 DAYS INCUBATION 03/31/18 06:00 Urine For Antigen Detection Legionella Antigen - Final 03/31/18 06:00 Urine For Antigen Detection Streptococcus pneumoniae Antigen (M - Final 03/29/18 20:15 Urine For Antigen Detection Legionella Antigen - Final 03/29/18 20:15 Urine For Antigen Detection Streptococcus pneumoniae Antigen (M - Final 03/29/18 00:01 Urine - Urine - Catheterized Urine Culture - Final NO GROWTH OBTAINED 03/27/18 12:15 Urine - Urine Clean Catch Urine Culture - Final Contaminated: Please Repeat strongyloides antibody negative a/p eosinophilia- ?hypereosinophic syndrome elevated alk phos-improving pneumonia ODALIS-on doxycycline hyponatremia -resolving change in mental status- appears improved legionella urinary antigen-negative stool ova and parasites- strongyloides antibody negative prolonged Qtc ?malignancy ?allergic ?vasculitis- anca pending now on steroids day #3- have asked renal to switch to non sulfa diuretic rising eosinophilia awaiting flow cytometry over 1/2 an hour spent in discussing the patient with son at bedside Problem List - Problems (1) Leukocytosis Code(s): D72.829 - ELEVATED WHITE BLOOD CELL COUNT, UNSPECIFIED (2) Eosinophilia Code(s): D72.1 - EOSINOPHILIA (3) Elevated alkaline phosphatase level Code(s): R74.8 - ABNORMAL LEVELS OF OTHER SERUM ENZYMES (4) Pneumonia Code(s): J18.9 - PNEUMONIA, UNSPECIFIED ORGANISM Qualifiers: Pneumonia type: due to unspecified organism Laterality: left Lung location: upper lobe of lung Qualified Code(s): J18.1 - Lobar pneumonia, unspecified organism
--- NOTE | 2018-04-02 16:07 | ECHO ---
Name: NIGELMARISACinthya GHADA Exam:Adult Echocardiogram Study Date: 04/02/2018 03:13 PM Age: 82 yrs Reason For Study: Pericardial Effusion Height: 60 in Weight: 111 lb BSA: 1.5 m2 MMode/2D Measurements & Calculations IVSd: 0.93 cm Ao root diam: 2.7 cm LVIDd: 4.2 cm LA dimension: 3.0 cm LVIDs: 2.7 cm LVPWd: 0.79 cm EDV(Teich): 79.0 ml ESV(Teich): 28.1 ml Doppler Measurements & Calculations MV E max jim: 76.0 cm/sec Ao V2 max: 156.1 cm/sec MV A max jim: 129.8 cm/sec Ao max P.7 mmHg MV E/A: 0.59 LV V1 max P.6 mmHg TV V2 max: 250.7 cm/sec LV V1 max: 80.0 cm/sec TV max P.1 mmHg TR max jim: 239.2 cm/sec PI end-d jim: 78.7 cm/sec TR max P.9 mmHg Med Peak E' Jim: 3.8 cm/sec Med E/e': 20.0 Lat Peak E' Jim: 6.9 cm/sec Lat E/e': 11.0 Procedure A complete two-dimensional transthoracic echocardiogram was performed (2D, M-mode, Doppler and color flow Doppler). The study was technically good with many images being of high quality. Left Ventricle The left ventricle is normal in size. Left ventricular systolic function is mildly reduced. Diastolic dysfunction, Grade II, consistent with elevated left atrial pressure. Ratio E/E'= 19. There is modera te to severe apical wall hypokinesis. There is apical septal wall severe hypokinesis. There is apical later al wall mild hypokinesis. There are regional wall motion abnormalities as specified. Right Ventricle The right ventricle is normal size. The right ventricular systolic function is normal. Atria The left atrial size is normal. Right atrial size is normal. Mitral Valve There is mild mitral annular calcification. There is mild mitral regurgitation. Tricuspid Valve The tricuspid valve is normal in structure and function. There is moderate tricuspid regurgitation. P ulmonary artery systolic pressure is at least 29 mmHg assuming RA pressure of 3 mmhg. Aortic Valve There is mild aortic sclerosis.;. No aortic regurgitation is present. Pulmonic Valve The pulmonic valve is not well visualized. Mild pulmonic valvular regurgitation. Great Vessels The aortic root is normal size. Pericardium/Pleura Small pericardial effusion (<1cm). There are no echocardiographic indications of cardiac tamponade. Interpretation Summary The left ventricle is normal in size. Left ventricular systolic function is mildly reduced. There are regional wall motion abnormalities as specified. Diastolic dysfunction, Grade II, consistent with elevated left atrial pressure. Ratio E/E'= 19 The right ventricular systolic function is normal. The left atrial size is normal. Right atrial size is normal. There is mild mitral annular calcification. There is mild mitral regurgitation. There is moderate tricuspid regurgitation. Pulmonary artery systolic pressure is at least 29 mmHg assuming RA pressure of 3 mmhg There is mild aortic sclerosis. Mild pulmonic valvular regurgitation. Small pericardial effusion (<1cm) There are no echocardiographic indications of cardiac tamponade. Jareth Hung MD 04/02/2018 04:07 PM
[2018-04-02 16:17] LABS: TRANSGLUTAMINASE IGA < 2 U/mL (0-3); TRANSGLUTAMINASE IGG < 2 U/mL (0-5)
--- NOTE | 2018-04-02 20:40 | PN ---
Progress Note (short form) - Note Progress Note: Patient seen and examined feels better c/o pruritic rash Last Vital Signs Temp Pulse Resp BP Pulse Ox 98.2 F 103 H 16 103/63 96 04/02/18 18:00 04/02/18 18:00 04/02/18 18:00 04/02/18 18:00 04/02/18 11:50 Cor: RSR, No murmurs, No gallops Lungs: Clear to P&A Abd: Soft, Normal bowel sounds, No organomegaly Ext:No significant edema Abnormal Lab Results 03/31/18 04/02/18 04/02/18 06:30 06:00 06:00 WBC 25.7 H RBC 3.43 L Hct 30.3 L Neutrophils % 28.8 L Neutrophils % (Manual) 20.4 L Monocytes % 3.7 L Monocytes % (Manual) 2 L Eosinophils % 58.2 H* Eosinophils % (Manual) 62.3 H Myelocytes % (Man) 5 H D BUN 29 H Random Glucose 73 L Calcium 8.2 L TIBC 188 L ALT 66 H Alkaline Phosphatase 529 H Total Protein 5.9 L Albumin 2.7 L Home Medication List Medication Instructions Recorded Confirmed Type Aspirin 81 mg PO DAILY 11/17/14 03/27/18 History Diltiazem HCl [Cartia Xt] 120 mg PO DAILY 11/17/14 03/27/18 History Diltiazem HCl [Cartia Xt] 240 mg PO DAILY 11/17/14 03/27/18 History Escitalopram Oxalate [Lexapro 20 mg PO DAILY #600 ml 11/17/14 03/27/18 History 5mg/5ml Oral Solution -] Olmesartan/Hydrochlorothiazide 1 each PO DAILY tablet 11/17/14 03/27/18 History [Benicar Hct 20-12.5mg Tab -] Rosuvastatin Calcium [Crestor] 10 mg PO HS tablet 11/17/14 03/27/18 History Mirtazapine 15 mg PO DAILY 03/27/18 03/27/18 History Active Medications Generic Name Dose Route Start Last Admin Trade Name Freq PRN Reason Stop Dose Admin Albuterol Sulfate 1 amp 03/28/18 10:42 03/31/18 14:00 Ventolin 0.083% Nebulizer Soln - NEB 1 amp Q6H PRN Administration SHORTNESS OF BREATH Albuterol/Ipratropium 1 amp 03/30/18 12:00 04/02/18 19:53 Duoneb - NEB 1 amp RQID [facility] Administration Alprazolam 0.5 mg 04/02/18 09:42 Xanax - PO Q8H PRN ANXIETY Aspirin 81 mg 04/02/18 10:00 04/02/18 11:01 Ecotrin - PO 81 mg DAILY [facility] Administration Diltiazem HCl 240 mg 04/02/18 15:15 04/02/18 16:21 Cardizem Cd - PO 240 mg DAILY [facility] Administration Diphenhydramine HCl 12.5 mg 04/01/18 17:37 04/01/18 17:50 Benadryl Oral Solution - PO 12.5 mg Q12H PRN Administration FOR ITCHING Docusate Sodium 300 mg 03/28/18 22:00 04/01/18 21:52 Colace - PO 300 mg HS [facility] Administration Escitalopram Oxalate 20 mg 03/28/18 10:00 04/02/18 09:06 Lexapro - PO 20 mg DAILY [facility] Administration Heparin Sodium (Porcine) 5,000 unit 03/27/18 22:00 04/02/18 09:06 Heparin - SQ 5,000 unit BID [facility] Administration Doxycycline Hyclate 100 mg/ 100 mls @ 50 mls/hr 03/29/18 22:00 04/02/18 09:07 Sodium Chloride IVPB 50 mls/hr BID [facility] Administration Lidocaine 1 patch 03/29/18 18:30 04/02/18 09:05 Lidoderm Patch - TP 1 patch DAILY [facility] Administration Methylprednisolone Sodium Succinate 60 mg 04/01/18 11:30 04/02/18 09:06 Solu-Medrol - IVPUSH 60 mg DAILY [facility] Administration Metoprolol Succinate 25 mg 04/02/18 10:00 04/02/18 11:02 Toprol Xl - PO 25 mg DAILY [facility] Administration Mirtazapine 15 mg 03/27/18 22:00 04/01/18 21:52 Remeron - PO 15 mg HS [facility] Administration Miscellaneous 1 each 03/29/18 22:00 04/01/18 21:52 Lidoderm Patch Removal MC 1 each DAILY@2200 [facility] Administration Nicotine 7 mg 03/27/18 15:30 04/02/18 13:26 Nicoderm Patch - TD Not Given DAILY [facility] Polyethylene Glycol 17 gm 03/28/18 10:00 04/02/18 09:07 Miralax (For Daily Use) - PO 17 gm DAILY [facility] Administration Tiotropium [place] 2 puff 03/28/18 10:15 04/02/18 09:07 Spiriva Respimat IH 2 puff DAILY [facility] Administration A/P 81 year old female, smoker, with a past medical history of hypertension and hyperlipidemia, depression who presents to the emergency department with AMS x 2 days. Per family, she has been having intermittent periods of confusion and visual hallucinations, where she is seeing her house tovar as black. Over the past 2 days, also decreased PO intake. +nasal congestion/cold like symptoms Eosinophilia? reactive to CHF/pneumonia ??allergic reaction f/u flow/cytogenetics/FISH r/o autoimmune/occult malignancy or primary marrow pathology/atypical infections Derm consult for pruritic rash ? biopsy
[2018-04-02] MEDS: LIDOCAINE PATCH REMOVAL MC SCH (21:06)
[2018-04-02] MEDS: DOCUSATE SODIUM 100 MG CAPSULE (FP) PO SCH (21:06)
[2018-04-02] MEDS: diphenhydrAMINE HCL 12.5 MG/5 ML UNIT-DOSE CUPS PO PRN (21:06)
[2018-04-02] MEDS: MIRTAZAPINE 15 MG TABLET (FP) PO SCH (21:06)
[2018-04-03 01:11] LABS: HBSAG SCREEN Negative (Negative); HEP A AB, IGM Negative (Negative); HEP B CORE AB, TOT Negative (Negative)
[2018-04-03 07:05] LABS: BASO % 0.3 % (0-2.0); HEMATOCRIT 30.9 % (32.4-45.2); HEMOGLOBIN 10.9 GM/dL (10.7-15.3); MCH 31.3 pg (25.7-33.7); MCHC 35.2 g/dl (32.0-36.0); MEAN PLT VOLUME 8.1 fl (7.5-11.1); MONO % 3.8 % (3.8-10.2); NEUT % 29.9 % (42.8-82.8); PLATELET COUNT 237 K/MM3 (134-434); RBC 3.47 M/mm3 (3.60-5.2); RDW 13.9 % (11.6-15.6); WHITE BLOOD COUNT 19.7 K/mm3 (4.0-10.0)
[2018-04-03 07:36] LABS: ANION GAP 6 MMOL/L (8-16); BLOOD UREA NITROGEN 33 mg/dL (7-18); CHLORIDE 100 mmol/L (98-107); CO2 31 mmol/L (21-32); CREATININE 1.1 mg/dL (0.55-1.3); GLUCOSE,RANDOM 69 mg/dL (74-106); PHOSPHOROUS 3.5 mg/dL (2.5-4.9); POTASSIUM 4.1 mmol/L (3.5-5.1); SODIUM 136 mmol/L (136-145)
[2018-04-03] MEDS ORDERED: PT OWN MED DRAWER 7, Y5N ONE ×3 (08:12→22:08)
[2018-04-03] MEDS: ALBUTEROL SO4 2.5/IPRATROPIUM 0.5 INH SOL 3 ML VIAL.NEB. NEB SCH ×4 (08:16→20:05)
[2018-04-03] MEDS: HEPARIN NA (PORCINE) 5,000 UNITS/ML 1ML VIAL SQ SCH ×2 (09:22→22:12)
--- NOTE | 2018-04-03 09:22 | PN ---
Progress Note (short form) - Note Progress Note: s: no chest pain, dyspnea, palps, dizziness Current Medications Albuterol Sulfate (Ventolin 0.083% Nebulizer Soln -) 1 amp NEB Q6H PRN PRN Reason: SHORTNESS OF BREATH Last Admin: 03/31/18 14:00 Dose: 1 amp Albuterol/Ipratropium (Duoneb -) 1 amp NEB RQID [facility] Last Admin: 04/02/18 19:53 Dose: 1 amp Alprazolam (Xanax -) 0.5 mg PO Q8H PRN PRN Reason: ANXIETY Aspirin (Ecotrin -) 81 mg PO DAILY [facility] Last Admin: 04/02/18 11:01 Dose: 81 mg Diltiazem HCl (Cardizem Cd -) 240 mg PO DAILY [facility] Last Admin: 04/02/18 16:21 Dose: 240 mg Diphenhydramine HCl (Benadryl Oral Solution -) 12.5 mg PO Q12H PRN PRN Reason: FOR ITCHING Last Admin: 04/02/18 21:06 Dose: 12.5 mg Docusate Sodium (Colace -) 300 mg PO HS [facility] Last Admin: 04/02/18 21:06 Dose: 300 mg Escitalopram Oxalate (Lexapro -) 20 mg PO DAILY [facility] Last Admin: 04/02/18 09:06 Dose: 20 mg Heparin Sodium (Porcine) (Heparin -) 5,000 unit SQ BID [facility] Last Admin: 04/02/18 21:05 Dose: 5,000 unit Doxycycline Hyclate 100 mg/ (Sodium Chloride) 100 mls @ 50 mls/hr IVPB BID [facility] Last Admin: 04/02/18 21:06 Dose: 50 mls/hr Lidocaine (Lidoderm Patch -) 1 patch TP DAILY [facility] Last Admin: 04/02/18 09:05 Dose: 1 patch Methylprednisolone Sodium Succinate (Solu-Medrol -) 60 mg IVPUSH DAILY [facility] Last Admin: 04/02/18 09:06 Dose: 60 mg Metoprolol Succinate (Toprol Xl -) 25 mg PO DAILY [facility] Last Admin: 04/02/18 11:02 Dose: 25 mg Mirtazapine (Remeron -) 15 mg PO HS [facility] Last Admin: 04/02/18 21:06 Dose: 15 mg Miscellaneous (Lidoderm Patch Removal) 1 each MC DAILY@2200 [facility] Last Admin: 04/02/18 21:06 Dose: Not Given Nicotine (Nicoderm Patch -) 7 mg TD DAILY [facility] Last Admin: 04/02/18 13:26 Dose: Not Given Polyethylene Glycol (Miralax (For Daily Use) -) 17 gm PO DAILY [facility] Last Admin: 04/02/18 09:07 Dose: 17 gm Spironolactone (Aldactone -) 25 mg PO DAILY [facility] Tiotropium [place] (Spiriva Respimat) 2 puff IH DAILY [facility] Last Admin: 04/02/18 09:07 Dose: 2 puff Vital Signs Period Temp Pulse Resp BP Sys/[place] Pulse Ox Last 24 Hr 98.0 F-98.2 F 101-108 16-20 100-161/63-95 96-96 Constitutional: Yes: Well Nourished, No Distress, Calm Cardiovascular: Yes: Regular Rate and Rhythm, S1, S2. No: Gallop, Murmur Respiratory: Yes: Regular No: Accessory Muscle Use, rales Extremities: No: Cold Edema: No Neurological: Yes: Alert. No: Seizure Psychiatric: No: Agitated Assessment/Plan MIBI 2011: no STs; mild AW ischemia; nl EF Echo 2015: nl LV/EF; nl RV; nl valves Echo 02/2018: low nl lvef, apical hk, nl rv, no sig valve path, small-mod peric eff Carotids 2015: 50-69% plq bilaterally (PSV 145 R, 162 L), no sig change vs prior ECG #1: NSR. 0.5mm ST elevation V4-V6, I/avL with TWIs. no reciprocal ST depressions. new vs 12/14 office ecg #2 (approx 4pm): no change in ST-T abnormalities (<0.5mm ALEX now), prolonged QT CXR: ? 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 heme following -on steroids NSTEMI, Chronic ischemic heart disease -stress test 2010 with mild anterior wall ischemia. medically managed, never had angina sx's, declined repeat stress testing or cath repeatedly. -here with metabolic derangements and altered MS, incidental troponin 1.0, downtrending -no ischemia sx's. ECG with non-diagnostic changes of 0.5mm ST elevations in anterolateral territory and nonspecific TWIs = new. repeat with similar findings , prolonged QT. no reciprocal depressions--hence ECG not diagnostic for STEMI and pt without sx's of acute ischemia. -? true ACS triggered by acute infection (i.e. NSTEMI) but asymptomatic--more likely this is Type II MO -continue aspirin. start low dose metoprolol (25 qd) -holding statin given unexplained hi LFTs -echo shows preserved lvef but apical hypokinesis -consider risk-stratifying pharm MPI prior to discharge, depending on clinical course and diagnosis/prognosis clarification HTN - received home diltiazem last night with improvement in BP - low dose metoprolol as well as spironolactone ordered for today, monitor BP hyponatremia/fawad: -resolved elevated alk phos: -trending down -per hospitalist pericardial effusion: -small-mod size eff seen on echo, no signs tamponade. -Would repeat echo to monitor
[2018-04-03] MEDS: methylPREDNISolone NA SUCC 40 MG/1 ML VIAL IVPUSH SCH (09:23)
[2018-04-03] MEDS: ESCITALOPRAM OXALATE 20 MG TABLET (FP) PO SCH (09:23)
[2018-04-03] MEDS: SPIRONOLACTONE 25 MG TABLET (FP) PO SCH (09:23)
[2018-04-03] MEDS: ASPIRIN COATED 81 MG TABLET.EC PO SCH (09:24)
[2018-04-03] MEDS: LIDOCAINE 5% TOPICAL PATCH TP SCH (09:24)
[2018-04-03] MEDS: POLYETHYLENE GLYCOL 3350 119 GM BTL PO SCH (09:24)
[2018-04-03] MEDS: TIOTROPIUM BROMIDE 2.5 MCG (SPIRIVA) RESPIMAT INHALER IH SCH (09:25)
[2018-04-03] MEDS: DOXYCYCLINE INJECTION 100 MG in SODIUM CHLORIDE 100 ML IVPB SCH ×2 (09:39→22:12)
[2018-04-03] MEDS: metoPROLOL SUCCINATE 25 MG TAB.SR.24H (FP) PO SCH (09:39)
[2018-04-03] MEDS: NICOTINE 7 MG/24 HOURS TOPICAL PATCH TD SCH (09:40)
--- NOTE | 2018-04-03 10:27 | PN ---
Progress Note, Physician History of Present Illness: PULMONARY ALERT,FEELING BETTER,-CP,-SOB,LESS WHEEZES - Current Medication List Current Medications: Active Medications Albuterol Sulfate (Ventolin 0.083% Nebulizer Soln -) 1 amp NEB Q6H PRN PRN Reason: SHORTNESS OF BREATH Last Admin: 03/31/18 14:00 Dose: 1 amp Albuterol/Ipratropium (Duoneb -) 1 amp NEB RQID [facility] Last Admin: 04/03/18 08:16 Dose: Not Given Alprazolam (Xanax -) 0.5 mg PO Q8H PRN PRN Reason: ANXIETY Aspirin (Ecotrin -) 81 mg PO DAILY [facility] Last Admin: 04/03/18 09:24 Dose: 81 mg Diphenhydramine HCl (Benadryl Oral Solution -) 12.5 mg PO Q12H PRN PRN Reason: FOR ITCHING Last Admin: 04/02/18 21:06 Dose: 12.5 mg Docusate Sodium (Colace -) 300 mg PO [facility] Last Admin: 04/02/18 21:06 Dose: 300 mg Escitalopram Oxalate (Lexapro -) 20 mg PO DAILY [facility] Last Admin: 04/03/18 09:23 Dose: 20 mg Heparin Sodium (Porcine) (Heparin -) 5,000 unit SQ BID [facility] Last Admin: 04/03/18 09:22 Dose: 5,000 unit Doxycycline Hyclate 100 mg/ (Sodium Chloride) 100 mls @ 50 mls/hr IVPB BID [facility] Last Admin: 04/03/18 09:39 Dose: 50 mls/hr Lidocaine (Lidoderm Patch -) 1 patch TP DAILY [facility] Last Admin: 04/03/18 09:24 Dose: 1 patch Methylprednisolone Sodium Succinate (Solu-Medrol -) 60 mg IVPUSH DAILY [facility] Last Admin: 04/03/18 09:23 Dose: 60 mg Metoprolol Succinate (Toprol Xl -) 25 mg PO DAILY [facility] Last Admin: 04/03/18 09:39 Dose: 25 mg Mirtazapine (Remeron -) 15 mg PO HS [facility] Last Admin: 04/02/18 21:06 Dose: 15 mg Miscellaneous (Lidoderm Patch Removal) 1 each MC DAILY@2200 [facility] Last Admin: 04/02/18 21:06 Dose: Not Given Nicotine (Nicoderm Patch -) 7 mg TD DAILY [facility] Last Admin: 04/03/18 09:40 Dose: Not Given Polyethylene Glycol (Miralax (For Daily Use) -) 17 gm PO DAILY [facility] Last Admin: 04/03/18 09:24 Dose: 17 gm Spironolactone (Aldactone -) 25 mg PO DAILY [facility] Last Admin: 04/03/18 09:23 Dose: 25 mg Tiotropium [place] (Spiriva Respimat) 2 puff IH DAILY [facility] Last Admin: 04/03/18 09:25 Dose: 2 puff - Objective Vital Signs: Vital Signs Temperature 98.1 F 04/02/18 21:16 Pulse Rate 108 H 04/02/18 21:16 Respiratory Rate 16 04/02/18 21:16 Blood Pressure 100/74 04/02/18 21:16 O2 Sat by Pulse Oximetry (%) 96 04/02/18 21:00 Constitutional: Yes: Well Nourished, Calm Eyes: Yes: WNL HENT: Yes: WNL Neck: Yes: WNL Cardiovascular: Yes: Regular Rate and Rhythm, S1, S2 Respiratory: Yes: Rales (FEW SCATTERED LEX WHEEZES) Gastrointestinal: Yes: Normal Bowel Sounds, Soft Extremities: Yes: WNL Edema: No Labs: CBC, BMP 04/03/18 06:00 04/03/18 06:00 INR, PTT INR 1.28 (0.83-1.09) H 04/01/18 06:20 Problem List - Problems (1) ARLINE (acute kidney injury) Code(s): N17.9 - ACUTE KIDNEY FAILURE, UNSPECIFIED (2) Altered mental status, unspecified Code(s): R41.82 - ALTERED MENTAL STATUS, UNSPECIFIED Qualifiers: Altered mental status type: delirium Qualified Code(s): R41.0 - Disorientation, unspecified (3) CAD (coronary artery disease) Code(s): I25.10 - ATHSCL HEART DISEASE OF UTE CORONARY ARTERY W/O ANG PCTRS Qualifiers: Coronary Disease-Associated Artery/Lesion type: [place] artery [place] vs. transplanted heart: [place] heart Associated angina: without angina Qualified Code(s): I25.10 - Atherosclerotic heart disease of [place] coronary artery without angina pectoris (4) Elevated alkaline phosphatase level Code(s): R74.8 - ABNORMAL LEVELS OF OTHER SERUM ENZYMES (5) Eosinophilia Code(s): D72.1 - EOSINOPHILIA (6) HTN (hypertension) Code(s): I10 - ESSENTIAL (PRIMARY) HYPERTENSION Qualifiers: Hypertension type: essential hypertension Qualified Code(s): I10 - Essential (primary) hypertension (7) Hyponatremia Code(s): E87.1 - HYPO-OSMOLALITY AND HYPONATREMIA (8) Leukocytosis Code(s): D72.829 - ELEVATED WHITE BLOOD CELL COUNT, UNSPECIFIED (9) Metabolic encephalopathy Code(s): G93.41 - METABOLIC ENCEPHALOPATHY (10) Pneumonia Code(s): J18.9 - PNEUMONIA, UNSPECIFIED ORGANISM Qualifiers: Pneumonia type: due to unspecified organism Laterality: left Lung location: upper lobe of lung Qualified Code(s): J18.1 - Lobar pneumonia, unspecified organism (11) Tobacco dependence Code(s): F17.200 - NICOTINE DEPENDENCE, UNSPECIFIED, UNCOMPLICATED (12) Transaminitis Code(s): R74.0 - NONSPEC ELEV OF LEVELS OF TRANSAMNS & LACTIC ACID DEHYDRGNSE (13) UTI (urinary tract infection) Code(s): N39.0 - URINARY TRACT INFECTION, SITE NOT SPECIFIED Qualifiers: Urinary tract infection type: acute cystitis Hematuria presence: with hematuria Qualified Code(s): N30.01 - Acute cystitis with hematuria Assessment/Plan IMP ALTERED MENTAL STATUS IMPROVING HYPONATREMIA CORRECTED ODALIS INFILTRATE ? INFECTIOUS,? INFLAMMATORY,?CHF CHF DYSPNEA PERICARDIAL EFFUSION EOSINOPHILIA ? INFECTIOUS,?MALIGNANT,? AUTOIMMUNE ELEVATED ALK PHOS LIKELY COPD SMOKER PLAN LASIX O2 ABX PER ID INHALED BRONCHODILATORS MONITOR LYTES,NA TREND EOSINOPHIL CT F/U CHEST X-RAYS STEROIDS DR LOPEZ Problem List - Problems (1) ARLINE (acute kidney injury) Code(s): N17.9 - ACUTE KIDNEY FAILURE, UNSPECIFIED (2) Altered mental status, unspecified Code(s): R41.82 - ALTERED MENTAL STATUS, UNSPECIFIED Qualifiers: Altered mental status type: delirium Qualified Code(s): R41.0 - Disorientation, unspecified (3) CAD (coronary artery disease) Code(s): I25.10 - ATHSCL HEART DISEASE OF [place] CORONARY ARTERY W/O ANG PCTRS Qualifiers: Coronary Disease-Associated Artery/Lesion type: [place] artery [place] vs. transplanted heart: [place] heart Associated angina: without angina Qualified Code(s): I25.10 - Atherosclerotic heart disease of [place] coronary artery without angina pectoris (4) Elevated alkaline phosphatase level Code(s): R74.8 - ABNORMAL LEVELS OF OTHER SERUM ENZYMES (5) Eosinophilia Code(s): D72.1 - EOSINOPHILIA (6) HTN (hypertension) Code(s): I10 - ESSENTIAL (PRIMARY) HYPERTENSION Qualifiers: Hypertension type: essential hypertension Qualified Code(s): I10 - Essential (primary) hypertension (7) Hyponatremia Code(s): E87.1 - HYPO-OSMOLALITY AND HYPONATREMIA (8) Leukocytosis Code(s): D72.829 - ELEVATED WHITE BLOOD CELL COUNT, UNSPECIFIED (9) Metabolic encephalopathy Code(s): G93.41 - METABOLIC ENCEPHALOPATHY (10) Pneumonia Code(s): J18.9 - PNEUMONIA, UNSPECIFIED ORGANISM (11) Tobacco dependence Code(s): F17.200 - NICOTINE DEPENDENCE, UNSPECIFIED, UNCOMPLICATED (12) Transaminitis Code(s): R74.0 - NONSPEC ELEV OF LEVELS OF TRANSAMNS & LACTIC ACID DEHYDRGNSE (13) UTI (urinary tract infection) Code(s): N39.0 - URINARY TRACT INFECTION, SITE NOT SPECIFIED Qualifiers: Urinary tract infection type: acute cystitis Hematuria presence: with hematuria Qualified Code(s): N30.01 - Acute cystitis with hematuria
[2018-04-03 10:58] LABS: ALBUMIN 2.9 g/dl (3.4-5.0); ALK PHOS 477 U/L (45-117); BILIRUBIN,DIRECT 0.2 mg/dL (0.0-0.2); BILIRUBIN,TOTAL 0.6 mg/dL (0.2-1); SGOT/AST 18 U/L (15-37); SGPT/ALT 58 U/L (13-61)
[2018-04-03] MEDS ORDERED: CALAMINE 8% TOPICAL LOTION 177 ML BOTTLE TP PRN (11:01)
--- NOTE | 2018-04-03 11:04 | PN ---
Progress Note, Physician Chief Complaint: Pt sitting in bed in no acute distress. Denies any chest pain, sob, n/v/d RN reports pt to have severe itching only at nighttime with no significant improvement w/ benadryl - Current Medication List Current Medications: Active Medications Albuterol Sulfate (Ventolin 0.083% Nebulizer Soln -) 1 amp NEB Q6H PRN PRN Reason: SHORTNESS OF BREATH Last Admin: 03/31/18 14:00 Dose: 1 amp Albuterol/Ipratropium (Duoneb -) 1 amp NEB RQID [facility] Last Admin: 04/03/18 08:16 Dose: Not Given Alprazolam (Xanax -) 0.5 mg PO Q8H PRN PRN Reason: ANXIETY Aspirin (Ecotrin -) 81 mg PO DAILY [facility] Last Admin: 04/03/18 09:24 Dose: 81 mg Calamine (Calamine 8% Topical Lotion -) 1 applic TP TID PRN PRN Reason: FOR ITCHING Diphenhydramine HCl (Benadryl Oral Solution -) 12.5 mg PO Q12H PRN PRN Reason: FOR ITCHING Last Admin: 04/02/18 21:06 Dose: 12.5 mg Docusate Sodium (Colace -) 300 mg PO HS [facility] Last Admin: 04/02/18 21:06 Dose: 300 mg Escitalopram Oxalate (Lexapro -) 20 mg PO DAILY [facility] Last Admin: 04/03/18 09:23 Dose: 20 mg Heparin Sodium (Porcine) (Heparin -) 5,000 unit SQ BID [facility] Last Admin: 04/03/18 09:22 Dose: 5,000 unit Doxycycline Hyclate 100 mg/ (Sodium Chloride) 100 mls @ 50 mls/hr IVPB BID [facility] Last Admin: 04/03/18 09:39 Dose: 50 mls/hr Lidocaine (Lidoderm Patch -) 1 patch TP DAILY [facility] Last Admin: 04/03/18 09:24 Dose: 1 patch Methylprednisolone Sodium Succinate (Solu-Medrol -) 60 mg IVPUSH DAILY [facility] Last Admin: 04/03/18 09:23 Dose: 60 mg Metoprolol Succinate (Toprol Xl -) 25 mg PO DAILY [facility] Last Admin: 04/03/18 09:39 Dose: 25 mg Mirtazapine (Remeron -) 15 mg PO HS [facility] Last Admin: 04/02/18 21:06 Dose: 15 mg Miscellaneous (Lidoderm Patch Removal) 1 each MC DAILY@2200 [facility] Last Admin: 04/02/18 21:06 Dose: Not Given Nicotine (Nicoderm Patch -) 7 mg TD DAILY [facility] Last Admin: 04/03/18 09:40 Dose: Not Given Polyethylene Glycol (Miralax (For Daily Use) -) 17 gm PO DAILY [facility] Last Admin: 04/03/18 09:24 Dose: 17 gm Spironolactone (Aldactone -) 25 mg PO DAILY [facility] Last Admin: 04/03/18 09:23 Dose: 25 mg Tiotropium [place] (Spiriva Respimat) 2 puff IH DAILY [facility] Last Admin: 04/03/18 09:25 Dose: 2 puff - Objective Vital Signs: Vital Signs Temperature 98.1 F 04/02/18 21:16 Pulse Rate 108 H 04/02/18 21:16 Respiratory Rate 16 04/02/18 21:16 Blood Pressure 100/74 04/02/18 21:16 O2 Sat by Pulse Oximetry (%) 96 04/02/18 21:00 Constitutional: Yes: Well Nourished, No Distress, Calm Cardiovascular: Yes: Regular Rate and Rhythm Respiratory: Yes: Regular, CTA Bilaterally, Diminished (bibasilar). No: Accessory Muscle Use, SOB, SOB on Exertion, Tachypnea, Wheezes Gastrointestinal: Yes: WNL, Normal Bowel Sounds, Soft. No: Distention, Tenderness Genitourinary: Yes: WNL Extremities: Yes: WNL Edema: No Neurological: Yes: WNL, Alert, Oriented Psychiatric: Yes: WNL, Alert, Oriented Labs: CBC, BMP 04/03/18 06:00 04/03/18 06:00 INR, PTT INR 1.28 (0.83-1.09) H 04/01/18 06:20 Assessment/Plan (1) Sepsis Assessment/Plan: improved Code(s): A41.9 - SEPSIS, UNSPECIFIED ORGANISM (2) UTI (urinary tract infection) Assessment/Plan: ruled out Code(s): N39.0 - URINARY TRACT INFECTION, SITE NOT SPECIFIED Qualifiers: Urinary tract infection type: acute cystitis Hematuria presence: with hematuria Qualified Code(s): N30.01 - Acute cystitis with hematuria (3) Pneumonia Assessment/Plan: doxy day 6 ID following Code(s): J18.9 - PNEUMONIA, UNSPECIFIED ORGANISM Qualifiers: Pneumonia type: due to unspecified organism Laterality: left Lung location: upper lobe of lung Qualified Code(s): J18.1 - Lobar pneumonia, unspecified organism (4) Metabolic encephalopathy Assessment/Plan: improved Code(s): G93.41 - METABOLIC ENCEPHALOPATHY (5) Hyponatremia Assessment/Plan: resolved Code(s): E87.1 - HYPO-OSMOLALITY AND HYPONATREMIA (6) Elevated troponin Assessment/Plan: demand stress test prior to d/c Code(s): R74.8 - ABNORMAL LEVELS OF OTHER SERUM ENZYMES (7) ARLINE (acute kidney injury) Assessment/Plan: improved Code(s): N17.9 - ACUTE KIDNEY FAILURE, UNSPECIFIED (8) Transaminitis Assessment/Plan: improved GI following Code(s): R74.0 - NONSPEC ELEV OF LEVELS OF TRANSAMNS & LACTIC ACID DEHYDRGNSE (9) Abnormal liver function test Assessment/Plan: alk phos improving Code(s): R94.5 - ABNORMAL RESULTS OF LIVER FUNCTION STUDIES (10) Pleural effusion Assessment/Plan: small, b/l monitor Code(s): J90 - PLEURAL EFFUSION, NOT ELSEWHERE CLASSIFIED (11) Pericardial effusion Assessment/Plan: small-moderate no tamponade repeat echo pending Code(s): I31.3 - PERICARDIAL EFFUSION (NONINFLAMMATORY) (12) CHF (congestive heart failure) Assessment/Plan: improved repeat chest xray am Code(s): I50.9 - HEART FAILURE, UNSPECIFIED Qualifiers: Heart failure chronicity: acute (13) Elevated troponin Assessment/Plan: demand stress test prior to d/c per cardiology Code(s): R74.8 - ABNORMAL LEVELS OF OTHER SERUM ENZYMES (14) CAD (coronary artery disease) Assessment/Plan: continue asa/bb Code(s): I25.10 - ATHSCL HEART DISEASE OF [place] CORONARY ARTERY W/O ANG PCTRS Qualifiers: Coronary Disease-Associated Artery/Lesion type: [place] artery [place] vs. transplanted heart: [place] heart Associated angina: without angina Qualified Code(s): I25.10 - Atherosclerotic heart disease of [place] coronary artery without angina pectoris (15) HTN (hypertension) Assessment/Plan: controlled continue bb, started on aldactone will stop cartia to avoid hypotension monitor Code(s): I10 - ESSENTIAL (PRIMARY) HYPERTENSION Qualifiers: Hypertension type: essential hypertension Qualified Code(s): I10 - Essential (primary) hypertension (16) HLD (hyperlipidemia) Assessment/Plan: chronic holding statin Code(s): E78.5 - HYPERLIPIDEMIA, UNSPECIFIED (17) Tobacco dependence Assessment/Plan: advise smoking cessation nicotine patch Code(s): F17.200 - NICOTINE DEPENDENCE, UNSPECIFIED, UNCOMPLICATED (18) Anxiety Assessment/Plan: controlled continue lexapro/mirtazapine xanax prn Code(s): F41.9 - ANXIETY DISORDER, UNSPECIFIED (19) Leukocytosis Assessment/Plan: slowly improving on iv steroids flow cytometry negative discussed w/ , to discuss bone marrow biopsy ID following Code(s): D72.829 - ELEVATED WHITE BLOOD CELL COUNT, UNSPECIFIED (20) Eosinophilia Assessment/Plan: persists, minimal improvement unclear etiology stool ova and parasites/anca panel pending strongyloides neg heme following rheum consult pending Code(s): D72.1 - EOSINOPHILIA (21) Pruritus Assessment/Plan: nocturnal pruritis family reports onset 3 weeks ago however pt has had hives since childhood which used to come and go according to per, 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 calamine lotion/benadryl prn no black top spreader machine operator available inpt Code(s): L29.9 - PRURITUS, UNSPECIFIED
[2018-04-03 13:12] VITALS: BMI 21.1
--- NOTE | 2018-04-03 13:56 | PN ---
Progress Note, Physician History of Present Illness: Pt seen and examined at bedside. She feels that her breathing is improved. - Current Medication List Current Medications: Active Medications Albuterol Sulfate (Ventolin 0.083% Nebulizer Soln -) 1 amp NEB Q6H PRN PRN Reason: SHORTNESS OF BREATH Last Admin: 03/31/18 14:00 Dose: 1 amp Albuterol/Ipratropium (Duoneb -) 1 amp NEB RQID [facility] Last Admin: 04/03/18 08:16 Dose: Not Given Alprazolam (Xanax -) 0.5 mg PO Q8H PRN PRN Reason: ANXIETY Aspirin (Ecotrin -) 81 mg PO DAILY [facility] Last Admin: 04/03/18 09:24 Dose: 81 mg Calamine (Calamine 8% Topical Lotion -) 1 applic TP TID PRN PRN Reason: FOR ITCHING Diphenhydramine HCl (Benadryl Oral Solution -) 12.5 mg PO Q12H PRN PRN Reason: FOR ITCHING Last Admin: 04/02/18 21:06 Dose: 12.5 mg Docusate Sodium (Colace -) 300 mg PO HS [facility] Last Admin: 04/02/18 21:06 Dose: 300 mg Escitalopram Oxalate (Lexapro -) 20 mg PO DAILY [facility] Last Admin: 04/03/18 09:23 Dose: 20 mg Heparin Sodium (Porcine) (Heparin -) 5,000 unit SQ BID [facility] Last Admin: 04/03/18 09:22 Dose: 5,000 unit Doxycycline Hyclate 100 mg/ (Sodium Chloride) 100 mls @ 50 mls/hr IVPB BID [facility] Last Admin: 04/03/18 09:39 Dose: 50 mls/hr Lidocaine (Lidoderm Patch -) 1 patch TP DAILY [facility] Last Admin: 04/03/18 09:24 Dose: 1 patch Methylprednisolone Sodium Succinate (Solu-Medrol -) 60 mg IVPUSH DAILY [facility] Last Admin: 04/03/18 09:23 Dose: 60 mg Metoprolol Succinate (Toprol Xl -) 25 mg PO DAILY [facility] Last Admin: 04/03/18 09:39 Dose: 25 mg Mirtazapine (Remeron -) 15 mg PO HS [facility] Last Admin: 04/02/18 21:06 Dose: 15 mg Miscellaneous (Lidoderm Patch Removal) 1 each MC DAILY@2200 [facility] Last Admin: 04/02/18 21:06 Dose: Not Given Nicotine (Nicoderm Patch -) 7 mg TD DAILY [facility] Last Admin: 04/03/18 09:40 Dose: Not Given Polyethylene Glycol (Miralax (For Daily Use) -) 17 gm PO DAILY [facility] Last Admin: 04/03/18 09:24 Dose: 17 gm Spironolactone (Aldactone -) 25 mg PO DAILY [facility] Last Admin: 04/03/18 09:23 Dose: 25 mg Tiotropium [place] (Spiriva Respimat) 2 puff IH DAILY [facility] Last Admin: 04/03/18 09:25 Dose: 2 puff - Objective Vital Signs: Vital Signs Temperature 98.2 F 04/03/18 09:00 Pulse Rate 93 H 04/03/18 09:00 Respiratory Rate 18 04/03/18 09:00 Blood Pressure 155/75 04/03/18 09:00 O2 Sat by Pulse Oximetry (%) 95 04/03/18 09:00 Constitutional: Yes: Calm Eyes: Yes: Conjunctiva Clear Cardiovascular: Yes: S1, S2 Respiratory: Yes: Wheezes, Other (improved) Gastrointestinal: Yes: Soft Genitourinary: Yes: WNL Musculoskeletal: Yes: WNL Edema: No Neurological: Yes: Oriented Psychiatric: Yes: Oriented Labs: CBC, BMP 04/03/18 06:00 04/03/18 06:00 INR, PTT INR 1.28 (0.83-1.09) H 04/01/18 06:20 Problem List - Problems (1) ARLINE (acute kidney injury) Code(s): N17.9 - ACUTE KIDNEY FAILURE, UNSPECIFIED (2) HTN (hypertension) Code(s): I10 - ESSENTIAL (PRIMARY) HYPERTENSION Qualifiers: Hypertension type: essential hypertension Qualified Code(s): I10 - Essential (primary) hypertension (3) Hyponatremia Code(s): E87.1 - HYPO-OSMOLALITY AND HYPONATREMIA (4) Tobacco dependence Code(s): F17.200 - NICOTINE DEPENDENCE, UNSPECIFIED, UNCOMPLICATED Assessment/Plan Current Medications Generic Name Dose Route Start Last Admin Trade Name Freq PRN Reason Stop Dose Admin Albuterol Sulfate 1 amp 03/28/18 10:42 03/31/18 14:00 Ventolin 0.083% Nebulizer Soln - NEB 1 amp Q6H PRN Administration SHORTNESS OF BREATH Albuterol/Ipratropium 1 amp 03/30/18 12:00 04/03/18 08:16 Duoneb - NEB Not Given RQID [facility] Alprazolam 0.5 mg 04/02/18 09:42 Xanax - PO Q8H PRN ANXIETY Aspirin 81 mg 04/02/18 10:00 04/03/18 09:24 Ecotrin - PO 81 mg DAILY [facility] Administration Calamine 1 applic 04/03/18 11:01 Calamine 8% Topical Lotion - TP TID PRN FOR ITCHING Diphenhydramine HCl 12.5 mg 04/01/18 17:37 04/02/18 21:06 Benadryl Oral Solution - PO 12.5 mg Q12H PRN Administration FOR ITCHING Docusate Sodium 300 mg 03/28/18 22:00 04/02/18 21:06 Colace - PO 300 mg HS [facility] Administration Escitalopram Oxalate 20 mg 03/28/18 10:00 04/03/18 09:23 Lexapro - PO 20 mg DAILY [facility] Administration Heparin Sodium (Porcine) 5,000 unit 03/27/18 22:00 04/03/18 09:22 Heparin - SQ 5,000 unit BID [facility] Administration Doxycycline Hyclate 100 mg/ 100 mls @ 50 mls/hr 03/29/18 22:00 04/03/18 09:39 Sodium Chloride IVPB 50 mls/hr BID [facility] Administration Lidocaine 1 patch 03/29/18 18:30 04/03/18 09:24 Lidoderm Patch - TP 1 patch DAILY [facility] Administration Methylprednisolone Sodium Succinate 60 mg 04/01/18 11:30 04/03/18 09:23 Solu-Medrol - IVPUSH 60 mg DAILY [facility] Administration Metoprolol Succinate 25 mg 04/02/18 10:00 04/03/18 09:39 Toprol Xl - PO 25 mg DAILY [facility] Administration Mirtazapine 15 mg 03/27/18 22:00 04/02/18 21:06 Remeron - PO 15 mg HS [facility] Administration Miscellaneous 1 each 03/29/18 22:00 04/02/18 21:06 Lidoderm Patch Removal MC Not Given DAILY@2200 [facility] Nicotine 7 mg 03/27/18 15:30 04/03/18 09:40 Nicoderm Patch - TD Not Given DAILY [facility] Polyethylene Glycol 17 gm 03/28/18 10:00 04/03/18 09:24 Miralax (For Daily Use) - PO 17 gm DAILY [facility] Administration Spironolactone 25 mg 04/03/18 10:00 04/03/18 09:23 Aldactone - PO 25 mg DAILY [facility] Administration Tiotropium [place] 2 puff 03/28/18 10:15 04/03/18 09:25 Spiriva Respimat IH 2 puff DAILY [facility] Administration Impression 1. hyponatremia 2. ARLINE 3. depression 4. htn 5. tobacco use 6. anxiety 7. pleural effusions on ct scan Plan - cont aldactone - monitor eos - discussed with ID, will follow - sodium stable - monitor potassium on aldactone Dr Guardado
[2018-04-03 14:38] LABS: PLATELET ESTIMATE NORMAL
--- NOTE | 2018-04-03 16:42 | PN ---
Progress Note (short form) - Note Progress Note: alert still some itching but better Vital Signs Period Temp Pulse Resp BP Sys/[place] Pulse Ox Last 24 Hr 97.9 F-98.2 F 79-108 16-18 100-155/63-75 95-96 cor-rrr llungs occasional rhonchi abd soft,nt ext no edema back and anterior chest unchanged CBC, BMP 04/03/18 06:00 04/03/18 06:00 Microbiology 03/27/18 12:30 Blood - Peripheral Venous Blood Culture - Final NO GROWTH AFTER 5 DAYS INCUBATION 03/27/18 12:15 Blood - Peripheral Venous Blood Culture - Final NO GROWTH AFTER 5 DAYS INCUBATION 03/31/18 06:00 Urine For Antigen Detection Legionella Antigen - Final 03/31/18 06:00 Urine For Antigen Detection Streptococcus pneumoniae Antigen (M - Final 03/29/18 20:15 Urine For Antigen Detection Legionella Antigen - Final 03/29/18 20:15 Urine For Antigen Detection Streptococcus pneumoniae Antigen (M - Final 03/29/18 00:01 Urine - Urine - Catheterized Urine Culture - Final NO GROWTH OBTAINED 03/27/18 12:15 Urine - Urine Clean Catch Urine Culture - Final Contaminated: Please Repeat strongyloides antibody negative a/p eosinophilia- ?hypereosinophic syndrome elevated alk phos-improving pneumonia ODALIS-on doxycycline day #5 hyponatremia -resolving change in mental status- appears improved legionella urinary antigen-negative stool ova and parasites- strongyloides antibody negative prolonged Qtc ?malignancy ?allergic ?vasculitis- anca pending now on steroids day #4- have asked renal to switch to non sulfa diuretic rising eosinophilia awaiting flow cytometry-prelim no evidence of b or t cell proliferative disorders- molecular studies, cytogenetics, FISH pending Problem List - Problems (1) Leukocytosis Code(s): D72.829 - ELEVATED WHITE BLOOD CELL COUNT, UNSPECIFIED (2) Eosinophilia Code(s): D72.1 - EOSINOPHILIA (3) Elevated alkaline phosphatase level Code(s): R74.8 - ABNORMAL LEVELS OF OTHER SERUM ENZYMES (4) Pneumonia Code(s): J18.9 - PNEUMONIA, UNSPECIFIED ORGANISM Qualifiers: Pneumonia type: due to unspecified organism Laterality: left Lung location: upper lobe of lung Qualified Code(s): J18.1 - Lobar pneumonia, unspecified organism
[2018-04-03 17:18] LABS: ATYPICAL pANCA <1:20 titer (Neg:<1:20); C-ANCA <1:20 titer (Neg:<1:20); P-ANCA <1:20 titer (Neg:<1:20)
--- NOTE | 2018-04-03 17:53 | PATH ---
Surgical Pathology Report Patient Name: GHADA ESTRADA [facility]. Rec. #: [id number] /Age/Gender: 1935 (Age: 82) / F Account: [id number] Location: [facility] PEDS/ADOL Taken: 03/30/2018 Received: 03/30/2018 Reported: 04/03/2018 Physicians: Divina Sterling FNP Specimen(s) Received PERIPHERAL BLOOD IN 2 GREEN AND 2 LAVENDER TOP TUBES Clinical History Leukocytosis, eosinophilia Final Diagnosis COMPREHENSIVE FLOW PANEL performed and interpreted at [place], [place] ([id number]) shows the following: INTERPRETATION: THERE IS NO EVIDENCE OF B OR T-CELL PROLIFERATIVE DISORDERS OR INCREASED BLASTS. EOSINOPHILIA. SLIGHT POLYTYPIC PLASMACYTOSIS. Comment: Correlation with the results of the molecular studies (BCR/ABL1, JAK2, CALR) is essential in order to assess for peripheral blood involvement by a myeloproliferative process. HEMATOLOGIC FISH performed and interpreted at [place], [place] ([id number]) shows the following: INTERPRETATION: No BCR/ABL t(9;22) TRANSLOCATION IS DETECTED. NO FGFR1 (8P11) REARRANGEMENT IS DETECTED. NO PDGFRa REARRANGEMENT IS DETECTED. NO PDGFRB REARRANGEMENT IS DETECTED. Comments: Correlation with pending cytogenetics ([id number]) is recommended. See [facility] reports ([id number] and [id number]) for additional details. Electronically Signed Rhea Wang M.D. Addendum Reported: 04/04/2018 Addendum Diagnosis JAK2 ([id number]) MUTATION ANALYSIS BY PCR performed and interpreted at [place], [place] ([id number]) shows the following: RESULTS: JAK2 [id number] MUTATION STATUS: NOT DETECTED. INTERPRETATION: Negative for JAK2 (V617F) Mutation. See [facility] report ([id number]) for additional details. Rhea Wang M.D. Addendum Reported: 04/05/2018 Addendum Diagnosis CYTOGENETIC KARYOTYPE ANALYSIS performed and interpreted at [facility] ([id number]) shows the following: RESULTS: Tissue Culture Failure INTERPRETATION: This unstimulated peripheral blood specimen did not produce any analyzable metaphase cells and, therefore, chromosome analysis is not possible. A bone marrow aspirate, when clinically appropriate, is recommended. Elisa Nichols M.D. Gross Description Received are 2 green top tubes and 2 lavender top tubes of peripheral blood which are sent to [facility]. 03/30/2018 [facility]03/30/2018
--- NOTE | 2018-04-03 18:07 | PN ---
GI Progress Note Subjective: GI NOte: Adriana has no GI complaints and is eating well. LFTs are improving on steroids. Alkaline phosphatase fractionation cannot be found - Objective Vital Signs: Vital Signs Temperature 97.9 F 04/03/18 13:52 Pulse Rate 79 04/03/18 13:52 Respiratory Rate 18 04/03/18 13:52 Blood Pressure 127/66 04/03/18 13:52 O2 Sat by Pulse Oximetry (%) 95 04/03/18 09:00 Laboratory Tests 03/30/18 03/31/18 03/31/18 05:10 06:30 06:30 WBC Hgb Eosinophils % Iron Saturation 32 Ferritin 279.4 Total Bilirubin 0.4 AST 18 ALT 96 H Alkaline Phosphatase 741 H LD Total 304 H C-Reactive Protein 3.6 H CASTRO Screen Negative Smooth Musc &[employer] Intrp 5 Tiss Transglutamin IgG < 2 Tiss Transglutamin IgA < 2 Hep A IgM Ab Confirm Negative Hepatitis A Ab Total Positive H Hep Bs Antigen Negative Hep Bs Antibody Non reactive Hep B Core Total Ab Negative Hep C Ab Diagnostic 0.1 Strongyloides IgG Ab Negative 03/31/18 04/03/18 04/03/18 06:30 06:00 06:00 WBC 25.1 H 19.7 H Hgb 12.3 10.9 Eosinophils % 56.9 H* 53.0 H* Iron Saturation Ferritin Total Bilirubin 0.6 AST 18 ALT 58 Alkaline Phosphatase 477 H LD Total C-Reactive Protein CASTRO Screen Smooth Musc &[employer]PER[employer] Intrp Tiss Transglutamin IgG Tiss Transglutamin IgA Hep A IgM Ab Confirm Hepatitis A Ab Total Hep Bs Antigen Hep Bs Antibody Hep B Core Total Ab Hep C Ab Diagnostic Strongyloides IgG Ab Constitutional: No Distress ...Auscultate: Yes: Normoactive Bowel Sounds ...Palpate: Yes: Soft, Other (nontender) Labs: CBC, BMP 04/03/18 06:00 04/03/18 06:00 INR, PTT INR 1.28 (0.83-1.09) H 04/01/18 06:20 Assessment/Plan Given the significant response of the LFTs to steroids and the negative evaluation for chronic liver diseases this far, 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 The underlying etiology remains to be determined. If biopsy reveals no etiology agree that a bone marrow may be indicated Alkaline phosphatase isoenzymes still pending Hepatic disease screening negaivge so far EGD and colonoscopy has again been advised as an outpatient. 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 The underlying etiology remains to be determined Code(s): R94.5 - ABNORMAL RESULTS OF LIVER FUNCTION STUDIES (2) Occult blood positive stool Code(s): R19.5 - OTHER FECAL ABNORMALITIES (3) Constipation Code(s): K59.00 - CONSTIPATION, UNSPECIFIED (4) Family history of colon cancer in mother Code(s): Z80.0 - FAMILY HISTORY OF MALIGNANT NEOPLASM OF DIGESTIVE ORGANS (5) Family history of pancreatic cancer Code(s): Z80.0 - FAMILY HISTORY OF MALIGNANT NEOPLASM OF DIGESTIVE ORGANS (6) Altered mental status, unspecified Code(s): R41.82 - ALTERED MENTAL STATUS, UNSPECIFIED Qualifiers: Altered mental status type: delirium Qualified Code(s): R41.0 - Disorientation, unspecified (7) Elevated alkaline phosphatase level Code(s): R74.8 - ABNORMAL LEVELS OF OTHER SERUM ENZYMES (8) Sepsis Code(s): A41.9 - SEPSIS, UNSPECIFIED ORGANISM (9) UTI (urinary tract infection) Code(s): N39.0 - URINARY TRACT INFECTION, SITE NOT SPECIFIED Qualifiers: Urinary tract infection type: acute cystitis Hematuria presence: with hematuria Qualified Code(s): N30.01 - Acute cystitis with hematuria
[2018-04-03] MEDS: LIDOCAINE PATCH REMOVAL MC SCH (22:13)
[2018-04-03] MEDS: MIRTAZAPINE 15 MG TABLET (FP) PO SCH (22:13)
[2018-04-03] MEDS: DOCUSATE SODIUM 100 MG CAPSULE (FP) PO SCH (22:13)
[2018-04-03] MEDS: diphenhydrAMINE HCL 12.5 MG/5 ML UNIT-DOSE CUPS PO PRN (22:14)
[2018-04-04 06:58] LABS: BASO % 0.4 % (0-2.0); EOS % 46.9 % (0-4.5); HEMATOCRIT 31.7 % (32.4-45.2); HEMOGLOBIN 11.2 GM/dL (10.7-15.3); LYMPH % 16.8 % (8-40); MCH 31.1 pg (25.7-33.7); MCHC 35.3 g/dl (32.0-36.0); MEAN PLT VOLUME 7.7 fl (7.5-11.1); MONO % 4.4 % (3.8-10.2); NEUT % 31.5 % (42.8-82.8); PLATELET COUNT 252 K/MM3 (134-434); RDW 14.1 % (11.6-15.6)
[2018-04-04 07:30] LABS: ALBUMIN 2.9 g/dl (3.4-5.0); ALK PHOS 464 U/L (45-117); ANION GAP 7 MMOL/L (8-16); BILIRUBIN,TOTAL 0.7 mg/dL (0.2-1); BLOOD UREA NITROGEN 42 mg/dL (7-18); CALCIUM 8.2 mg/dL (8.5-10.1); CHLORIDE 100 mmol/L (98-107); CO2 28 mmol/L (21-32); CREATININE 1.1 mg/dL (0.55-1.3); GLUCOSE,RANDOM 88 mg/dL (74-106); POTASSIUM 4.4 mmol/L (3.5-5.1); SGOT/AST 15 U/L (15-37); SGPT/ALT 52 U/L (13-61); SODIUM 135 mmol/L (136-145); TOT PROT 6.4 g/dl (6.4-8.2)
[2018-04-04] MEDS: ALBUTEROL SO4 2.5/IPRATROPIUM 0.5 INH SOL 3 ML VIAL.NEB. NEB SCH ×4 (08:04→21:08)
[2018-04-04 08:07] LABS: IGA IMMUNOGLOBULIN 103 mg/dL (64-422); IGM IMMUNOGLOBULIN 594 mg/dL (26-217)
[2018-04-04] MEDS ORDERED: PT OWN MED DRAWER 7, Y5N ONE ×2 (09:41→21:09)
--- NOTE | 2018-04-04 09:50 | PN ---
Progress Note (short form) - Note Progress Note: s: no chest pain, dyspnea, palps, dizziness Current Medications Albuterol Sulfate (Ventolin 0.083% Nebulizer Soln -) 1 amp NEB Q6H PRN PRN Reason: SHORTNESS OF BREATH Last Admin: 03/31/18 14:00 Dose: 1 amp Albuterol/Ipratropium (Duoneb -) 1 amp NEB RQID [facility] Last Admin: 04/04/18 08:04 Dose: 1 amp Alprazolam (Xanax -) 0.5 mg PO Q8H PRN PRN Reason: ANXIETY Aspirin (Ecotrin -) 81 mg PO DAILY [facility] Last Admin: 04/03/18 09:24 Dose: 81 mg Calamine (Calamine 8% Topical Lotion -) 1 applic TP TID PRN PRN Reason: FOR ITCHING Diltiazem HCl (Cardizem Cd -) 120 mg PO HS [facility] Diphenhydramine HCl (Benadryl Oral Solution -) 12.5 mg PO Q12H PRN PRN Reason: FOR ITCHING Last Admin: 04/03/18 22:14 Dose: 12.5 mg Docusate Sodium (Colace -) 300 mg PO HS [facility] Last Admin: 04/03/18 22:13 Dose: 300 mg Escitalopram Oxalate (Lexapro -) 20 mg PO DAILY [facility] Last Admin: 04/03/18 09:23 Dose: 20 mg Heparin Sodium (Porcine) (Heparin -) 5,000 unit SQ BID [facility] Last Admin: 04/03/18 22:12 Dose: 5,000 unit Doxycycline Hyclate 100 mg/ (Sodium Chloride) 100 mls @ 50 mls/hr IVPB BID [facility] Last Admin: 04/03/18 22:12 Dose: 50 mls/hr Lidocaine (Lidoderm Patch -) 1 patch TP DAILY [facility] Last Admin: 04/03/18 09:24 Dose: 1 patch Methylprednisolone Sodium Succinate (Solu-Medrol -) 60 mg IVPUSH DAILY [facility] Last Admin: 04/03/18 09:23 Dose: 60 mg Metoprolol Succinate (Toprol Xl -) 25 mg PO DAILY [facility] Last Admin: 04/03/18 09:39 Dose: 25 mg Mirtazapine (Remeron -) 15 mg PO HS [facility] Last Admin: 04/03/18 22:13 Dose: 15 mg Miscellaneous (Lidoderm Patch Removal) 1 each MC DAILY@2200 [facility] Last Admin: 04/03/18 22:13 Dose: Not Given Nicotine (Nicoderm Patch -) 7 mg TD DAILY [facility] Last Admin: 04/03/18 09:40 Dose: Not Given Polyethylene Glycol (Miralax (For Daily Use) -) 17 gm PO DAILY [facility] Last Admin: 04/03/18 09:24 Dose: 17 gm Spironolactone (Aldactone -) 25 mg PO DAILY [facility] Last Admin: 04/03/18 09:23 Dose: 25 mg Tiotropium [place] (Spiriva Respimat) 2 puff IH DAILY [facility] Last Admin: 04/03/18 09:25 Dose: 2 puff Vital Signs Period Temp Pulse Resp BP Sys/[place] Pulse Ox Last 24 Hr 97.8 F-98.2 F 75-100 16-18 127-149/66-89 95 Constitutional: Yes: Well Nourished, No Distress, Calm Cardiovascular: Yes: Regular Rate and Rhythm, S1, S2. No: Gallop, Murmur Respiratory: Yes: Regular No: Accessory Muscle Use, rales Extremities: No: Cold Edema: No Neurological: Yes: Alert. No: Seizure Psychiatric: No: Agitated Assessment/Plan MIBI 2010: no STs; mild AW ischemia; nl EF Echo 2015: nl LV/EF; nl RV; nl valves Echo 02/2018: low nl lvef, apical hk, nl rv, no sig valve path, small-mod peric eff echo 03/2018 regional w[facility], grade II diastolic dysfunction, nl RV, mildly reduced LV function, mild MR, mod TR, small pericardial effusion, no tamponade Carotids 2015: 50-69% plq bilaterally (PSV 145 R, 162 L), no sig change vs prior ECG #1: NSR. 0.5mm ST elevation V4-V6, I/avL with TWIs. no reciprocal ST depressions. new vs 12/14 office ecg #2 (approx 4pm): no change in ST-T abnormalities (<0.5mm ALEX now), prolonged QT CXR: ? 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 jean-baptiste following -on steroids NSTEMI, Chronic ischemic heart disease -stress test 2011 with mild anterior wall ischemia. medically managed, never had angina sx's, declined repeat stress testing or cath repeatedly. -here with metabolic derangements and altered MS, incidental troponin 1.0, downtrending -no ischemia sx's. ECG with non-diagnostic changes of 0.5mm ST elevations in anterolateral territory and nonspecific TWIs = new. repeat with similar findings , prolonged QT. no reciprocal depressions--hence ECG not diagnostic for STEMI and pt without sx's of acute ischemia. -? true ACS triggered by acute infection (i.e. 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 -repeat echo showed small effusion <1 cm, no tamponade
[2018-04-04] MEDS: TIOTROPIUM BROMIDE 2.5 MCG (SPIRIVA) RESPIMAT INHALER IH SCH (09:51)
[2018-04-04] MEDS: methylPREDNISolone NA SUCC 40 MG/1 ML VIAL IVPUSH SCH (09:52)
[2018-04-04] MEDS: DOXYCYCLINE INJECTION 100 MG in SODIUM CHLORIDE 100 ML IVPB SCH ×2 (09:52→21:45)
[2018-04-04] MEDS: HEPARIN NA (PORCINE) 5,000 UNITS/ML 1ML VIAL SQ SCH ×2 (09:52→21:45)
[2018-04-04] MEDS: SPIRONOLACTONE 25 MG TABLET (FP) PO SCH (09:53)
[2018-04-04] MEDS: ASPIRIN COATED 81 MG TABLET.EC PO SCH (09:53)
[2018-04-04] MEDS: NICOTINE 7 MG/24 HOURS TOPICAL PATCH TD SCH (09:54)
[2018-04-04] MEDS: ESCITALOPRAM OXALATE 20 MG TABLET (FP) PO SCH (09:54)
[2018-04-04] MEDS: LIDOCAINE 5% TOPICAL PATCH TP SCH (09:54)
[2018-04-04] MEDS: POLYETHYLENE GLYCOL 3350 119 GM BTL PO SCH (09:54)
[2018-04-04] MEDS: metoPROLOL SUCCINATE 25 MG TAB.SR.24H (FP) PO SCH (09:55)
--- NOTE | 2018-04-04 11:36 | PN ---
Progress Note, Physician History of Present Illness: PULMONARY ALERT,LESS DYSPNEIC,-CP - Current Medication List Current Medications: Active Medications Albuterol Sulfate (Ventolin 0.083% Nebulizer Soln -) 1 amp NEB Q6H PRN PRN Reason: SHORTNESS OF BREATH Last Admin: 03/31/18 14:00 Dose: 1 amp Albuterol/Ipratropium (Duoneb -) 1 amp NEB RQID [facility] Last Admin: 04/04/18 11:27 Dose: 1 amp Alprazolam (Xanax -) 0.5 mg PO Q8H PRN PRN Reason: ANXIETY Aspirin (Ecotrin -) 81 mg PO DAILY [facility] Last Admin: 04/04/18 09:53 Dose: 81 mg Calamine (Calamine 8% Topical Lotion -) 1 applic TP TID PRN PRN Reason: FOR ITCHING Diltiazem HCl (Cardizem Cd -) 120 mg PO HS [facility] Diphenhydramine HCl (Benadryl Oral Solution -) 12.5 mg PO Q12H PRN PRN Reason: FOR ITCHING Last Admin: 04/03/18 22:14 Dose: 12.5 mg Docusate Sodium (Colace -) 300 mg PO HS [facility] Last Admin: 04/03/18 22:13 Dose: 300 mg Escitalopram Oxalate (Lexapro -) 20 mg PO DAILY [facility] Last Admin: 04/04/18 09:54 Dose: 20 mg Heparin Sodium (Porcine) (Heparin -) 5,000 unit SQ BID [facility] Last Admin: 04/04/18 09:52 Dose: 5,000 unit Doxycycline Hyclate 100 mg/ (Sodium Chloride) 100 mls @ 50 mls/hr IVPB BID [facility] Last Admin: 04/04/18 09:52 Dose: 50 mls/hr Lidocaine (Lidoderm Patch -) 1 patch TP DAILY [facility] Last Admin: 04/04/18 09:54 Dose: 1 patch Methylprednisolone Sodium Succinate (Solu-Medrol -) 60 mg IVPUSH DAILY [facility] Last Admin: 04/04/18 09:52 Dose: 60 mg Metoprolol Succinate (Toprol Xl -) 25 mg PO DAILY [facility] Last Admin: 04/04/18 09:55 Dose: 25 mg Mirtazapine (Remeron -) 15 mg PO HS [facility] Last Admin: 02/05/19 22:13 Dose: 15 mg Miscellaneous (Lidoderm Patch Removal) 1 each MC DAILY@2200 [facility] Last Admin: 04/03/18 22:13 Dose: Not Given Nicotine (Nicoderm Patch -) 7 mg TD DAILY [facility] Last Admin: 04/04/18 09:54 Dose: 7 mg Polyethylene Glycol (Miralax (For Daily Use) -) 17 gm PO DAILY [facility] Last Admin: 04/04/18 09:54 Dose: 17 gm Spironolactone (Aldactone -) 25 mg PO DAILY [facility] Last Admin: 04/04/18 09:53 Dose: 25 mg Tiotropium [place] (Spiriva Respimat) 2 puff IH DAILY [facility] Last Admin: 04/04/18 09:51 Dose: 2 puff - Objective Vital Signs: Vital Signs Temperature 97.8 F 04/04/18 06:00 Pulse Rate 75 04/04/18 06:00 Respiratory Rate 16 04/04/18 06:00 Blood Pressure 143/72 04/04/18 06:00 O2 Sat by Pulse Oximetry (%) 95 04/03/18 21:00 Constitutional: Yes: Well Nourished, Calm Eyes: Yes: WNL HENT: Yes: WNL Neck: Yes: WNL Cardiovascular: Yes: Regular Rate and Rhythm, S1, S2 Respiratory: Yes: Wheezes (FEW SCATTERED WHEEZES) Gastrointestinal: Yes: Normal Bowel Sounds, Soft Extremities: Yes: WNL Edema: No Labs: CBC, BMP 04/04/18 06:30 04/04/18 06:30 INR, PTT INR 1.28 (0.83-1.09) H 04/01/18 06:20 Problem List - Problems (1) ARLINE (acute kidney injury) Code(s): N17.9 - ACUTE KIDNEY FAILURE, UNSPECIFIED (2) Altered mental status, unspecified Code(s): R41.82 - ALTERED MENTAL STATUS, UNSPECIFIED Qualifiers: Altered mental status type: delirium Qualified Code(s): R41.0 - Disorientation, unspecified (3) CAD (coronary artery disease) Code(s): I25.10 - ATHSCL HEART DISEASE OF [place] CORONARY ARTERY W/O ANG PCTRS Qualifiers: Coronary Disease-Associated Artery/Lesion type: [place] artery [place] vs. transplanted heart: [place] heart Associated angina: without angina Qualified Code(s): I25.10 - Atherosclerotic heart disease of [place] coronary artery without angina pectoris (4) Elevated alkaline phosphatase level Code(s): R74.8 - ABNORMAL LEVELS OF OTHER SERUM ENZYMES (5) Eosinophilia Code(s): D72.1 - EOSINOPHILIA (6) HTN (hypertension) Code(s): I10 - ESSENTIAL (PRIMARY) HYPERTENSION Qualifiers: Hypertension type: essential hypertension Qualified Code(s): I10 - Essential (primary) hypertension (7) Hyponatremia Code(s): E87.1 - HYPO-OSMOLALITY AND HYPONATREMIA (8) Leukocytosis Code(s): D72.829 - ELEVATED WHITE BLOOD CELL COUNT, UNSPECIFIED (9) Metabolic encephalopathy Code(s): G93.41 - METABOLIC ENCEPHALOPATHY (10) Pneumonia Code(s): J18.9 - PNEUMONIA, UNSPECIFIED ORGANISM Qualifiers: Pneumonia type: due to unspecified organism Laterality: left Lung location: upper lobe of lung Qualified Code(s): J18.1 - Lobar pneumonia, unspecified organism (11) Tobacco dependence Code(s): F17.200 - NICOTINE DEPENDENCE, UNSPECIFIED, UNCOMPLICATED (12) Transaminitis Code(s): R74.0 - NONSPEC ELEV OF LEVELS OF TRANSAMNS & LACTIC ACID DEHYDRGNSE (13) UTI (urinary tract infection) Code(s): N39.0 - URINARY TRACT INFECTION, SITE NOT SPECIFIED Qualifiers: Urinary tract infection type: acute cystitis Hematuria presence: with hematuria Qualified Code(s): N30.01 - Acute cystitis with hematuria Assessment/Plan IMP ALTERED MENTAL STATUS IMPROVING HYPONATREMIA CORRECTED ODALIS INFILTRATE ? INFECTIOUS,? INFLAMMATORY,?CHF CHF DYSPNEA PERICARDIAL EFFUSION EOSINOPHILIA ? INFECTIOUS,?MALIGNANT,? AUTOIMMUNE ELEVATED ALK PHOS LIKELY COPD SMOKER PLAN LASIX O2 ABX PER ID INHALED BRONCHODILATORS MONITOR LYTES,NA TREND EOSINOPHIL CT F/U CHEST X-RAYS STEROIDS DR LOPEZ Problem List - Problems (1) ARLINE (acute kidney injury) Code(s): N17.9 - ACUTE KIDNEY FAILURE, UNSPECIFIED (2) Altered mental status, unspecified Code(s): R41.82 - ALTERED MENTAL STATUS, UNSPECIFIED Qualifiers: Altered mental status type: delirium Qualified Code(s): R41.0 - Disorientation, unspecified (3) CAD (coronary artery disease) Code(s): I25.10 - ATHSCL HEART DISEASE OF [place] CORONARY ARTERY W/O ANG PCTRS Qualifiers: Coronary Disease-Associated Artery/Lesion type: [place] artery [place] vs. transplanted heart: [place] heart Associated angina: without angina Qualified Code(s): I25.10 - Atherosclerotic heart disease of [place] coronary artery without angina pectoris (4) Elevated alkaline phosphatase level Code(s): R74.8 - ABNORMAL LEVELS OF OTHER SERUM ENZYMES (5) Eosinophilia Code(s): D72.1 - EOSINOPHILIA (6) HTN (hypertension) Code(s): I10 - ESSENTIAL (PRIMARY) HYPERTENSION Qualifiers: Hypertension type: essential hypertension Qualified Code(s): I10 - Essential (primary) hypertension (7) Hyponatremia Code(s): E87.1 - HYPO-OSMOLALITY AND HYPONATREMIA (8) Leukocytosis Code(s): D72.829 - ELEVATED WHITE BLOOD CELL COUNT, UNSPECIFIED (9) Metabolic encephalopathy Code(s): G93.41 - METABOLIC ENCEPHALOPATHY (10) Pneumonia Code(s): J18.9 - PNEUMONIA, UNSPECIFIED ORGANISM (11) Tobacco dependence Code(s): F17.200 - NICOTINE DEPENDENCE, UNSPECIFIED, UNCOMPLICATED (12) Transaminitis Code(s): R74.0 - NONSPEC ELEV OF LEVELS OF TRANSAMNS & LACTIC ACID DEHYDRGNSE (13) UTI (urinary tract infection) Code(s): N39.0 - URINARY TRACT INFECTION, SITE NOT SPECIFIED Qualifiers: Urinary tract infection type: acute cystitis Hematuria presence: with hematuria Qualified Code(s): N30.01 - Acute cystitis with hematuria
--- NOTE | 2018-04-04 12:01 | PN ---
Progress Note, Physician Chief Complaint: Pt sitting in bed in no acute distress. reports feeling well. Denies any chest pain, sob, n/v/d - Current Medication List Current Medications: Active Medications Albuterol Sulfate (Ventolin 0.083% Nebulizer Soln -) 1 amp NEB Q6H PRN PRN Reason: SHORTNESS OF BREATH Last Admin: 03/31/18 14:00 Dose: 1 amp Albuterol/Ipratropium (Duoneb -) 1 amp NEB RQID [facility] Last Admin: 04/04/18 11:27 Dose: 1 amp Alprazolam (Xanax -) 0.5 mg PO Q8H PRN PRN Reason: ANXIETY Aspirin (Ecotrin -) 81 mg PO DAILY [facility] Last Admin: 04/04/18 09:53 Dose: 81 mg Calamine (Calamine 8% Topical Lotion -) 1 applic TP TID PRN PRN Reason: FOR ITCHING Diltiazem HCl (Cardizem Cd -) 120 mg PO HS [facility] Diphenhydramine HCl (Benadryl Oral Solution -) 12.5 mg PO Q12H PRN PRN Reason: FOR ITCHING Last Admin: 04/03/18 22:14 Dose: 12.5 mg Docusate Sodium (Colace -) 300 mg PO HS [facility] Last Admin: 04/03/18 22:13 Dose: 300 mg Escitalopram Oxalate (Lexapro -) 20 mg PO DAILY [facility] Last Admin: 04/04/18 09:54 Dose: 20 mg Heparin Sodium (Porcine) (Heparin -) 5,000 unit SQ BID [facility] Last Admin: 04/04/18 09:52 Dose: 5,000 unit Doxycycline Hyclate 100 mg/ (Sodium Chloride) 100 mls @ 50 mls/hr IVPB BID [facility] Last Admin: 04/04/18 09:52 Dose: 50 mls/hr Lidocaine (Lidoderm Patch -) 1 patch TP DAILY [facility] Last Admin: 04/04/18 09:54 Dose: 1 patch Methylprednisolone Sodium Succinate (Solu-Medrol -) 60 mg IVPUSH DAILY [facility] Last Admin: 04/04/18 09:52 Dose: 60 mg Metoprolol Succinate (Toprol Xl -) 25 mg PO DAILY [facility] Last Admin: 04/04/18 09:55 Dose: 25 mg Mirtazapine (Remeron -) 15 mg PO HS [facility] Last Admin: 04/03/18 22:13 Dose: 15 mg Miscellaneous (Lidoderm Patch Removal) 1 each MC DAILY@2200 [facility] Last Admin: 04/03/18 22:13 Dose: Not Given Nicotine (Nicoderm Patch -) 7 mg TD DAILY [facility] Last Admin: 04/04/18 09:54 Dose: 7 mg Polyethylene Glycol (Miralax (For Daily Use) -) 17 gm PO DAILY [facility] Last Admin: 04/04/18 09:54 Dose: 17 gm Spironolactone (Aldactone -) 25 mg PO DAILY [facility] Last Admin: 04/04/18 09:53 Dose: 25 mg Tiotropium [place] (Spiriva Respimat) 2 puff IH DAILY [facility] Last Admin: 04/04/18 09:51 Dose: 2 puff - Objective Vital Signs: Vital Signs Temperature 97.8 F 04/04/18 06:00 Pulse Rate 75 04/04/18 06:00 Respiratory Rate 16 04/04/18 06:00 Blood Pressure 143/72 04/04/18 06:00 O2 Sat by Pulse Oximetry (%) 95 04/03/18 21:00 Constitutional: Yes: No Distress, Calm, Thin Cardiovascular: Yes: Regular Rate and Rhythm Respiratory: Yes: Regular, CTA Bilaterally, Rales (bibasilar). No: Accessory Muscle Use, SOB, Tachypnea, Wheezes Gastrointestinal: Yes: WNL, Normal Bowel Sounds, Soft. No: Distention, Tenderness Genitourinary: Yes: WNL Extremities: Yes: WNL Edema: No Neurological: Yes: WNL, Alert, Oriented Psychiatric: Yes: WNL, Alert, Oriented Labs: CBC, BMP 04/04/18 06:30 04/04/18 06:30 INR, PTT INR 1.28 (0.83-1.09) H 04/01/18 06:20 Assessment/Plan (1) Sepsis Assessment/Plan: resolved Code(s): A41.9 - SEPSIS, UNSPECIFIED ORGANISM (2) UTI (urinary tract infection) Assessment/Plan: ruled out Code(s): N39.0 - URINARY TRACT INFECTION, SITE NOT SPECIFIED Qualifiers: Urinary tract infection type: acute cystitis Hematuria presence: with hematuria Qualified Code(s): N30.01 - Acute cystitis with hematuria (3) Pneumonia Assessment/Plan: doxy day 6 discussed w/ pulm, reassess ODALIS patchy consolidation repeat pa/lateral ID following Code(s): J18.9 - PNEUMONIA, UNSPECIFIED ORGANISM Qualifiers: Pneumonia type: due to unspecified organism Laterality: left Lung location: upper lobe of lung Qualified Code(s): J18.1 - Lobar pneumonia, unspecified organism (4) Metabolic encephalopathy Assessment/Plan: improved Code(s): G93.41 - METABOLIC ENCEPHALOPATHY (5) Hyponatremia Assessment/Plan: resolved Code(s): E87.1 - HYPO-OSMOLALITY AND HYPONATREMIA (6) ARLINE (acute kidney injury) Assessment/Plan: improved Code(s): N17.9 - ACUTE KIDNEY FAILURE, UNSPECIFIED (7) Transaminitis Assessment/Plan: improved GI following Code(s): R74.0 - NONSPEC ELEV OF LEVELS OF TRANSAMNS & LACTIC ACID DEHYDRGNSE (8) Abnormal liver function test Assessment/Plan: alk phos improving Code(s): R94.5 - ABNORMAL RESULTS OF LIVER FUNCTION STUDIES (9) Pleural effusion Assessment/Plan: repeat chest pa/lateral Code(s): J90 - PLEURAL EFFUSION, NOT ELSEWHERE CLASSIFIED (10) Pericardial effusion Assessment/Plan: small-moderate no tamponade repeat echo improved Code(s): I31.3 - PERICARDIAL EFFUSION (NONINFLAMMATORY) (11) Elevated troponin Assessment/Plan: peaked echo shows preserved lvef, apical hypokinesis stress test prior to d/c per cardiology Code(s): R74.8 - ABNORMAL LEVELS OF OTHER SERUM ENZYMES (12) CAD (coronary artery disease) Assessment/Plan: continue asa/bb Code(s): I25.10 - ATHSCL HEART DISEASE OF [place] CORONARY ARTERY W/O ANG PCTRS Qualifiers: Coronary Disease-Associated Artery/Lesion type: [place] artery [place] vs. transplanted heart: [place] heart Associated angina: without angina Qualified Code(s): I25.10 - Atherosclerotic heart disease of [place] coronary artery without angina pectoris (13) HTN (hypertension) Assessment/Plan: bp 140s/150s continue bb, aldactone restart cartia hs monitor Code(s): I10 - ESSENTIAL (PRIMARY) HYPERTENSION Qualifiers: Hypertension type: essential hypertension Qualified Code(s): I10 - Essential (primary) hypertension (14) HLD (hyperlipidemia) Assessment/Plan: chronic holding statin Code(s): E78.5 - HYPERLIPIDEMIA, UNSPECIFIED (15) Tobacco dependence Assessment/Plan: advise smoking cessation nicotine patch Code(s): F17.200 - NICOTINE DEPENDENCE, UNSPECIFIED, UNCOMPLICATED (16) Anxiety Assessment/Plan: controlled continue lexapro/mirtazapine xanax prn Code(s): F41.9 - ANXIETY DISORDER, UNSPECIFIED (17) Leukocytosis Assessment/Plan: improving on steroids flow cytometry negative r/o hematologic malignancy? discussed w/ , to discuss bone marrow biopsy - pending ID following Code(s): D72.829 - ELEVATED WHITE BLOOD CELL COUNT, UNSPECIFIED (18) Eosinophilia Assessment/Plan: slowly improving unclear etiolog iv steroids day 4 strongyloides/anca/flow neg await all work up heme following rheum consult pending Code(s): D72.1 - EOSINOPHILIA (19) Pruritus Assessment/Plan: improving calamine lotion/benadryl prn no castings trimmer available inpt Code(s): L29.9 - PRURITUS, UNSPECIFIED Dispo: HOME w/ vns
--- NOTE | 2018-04-04 12:22 | PN ---
Progress Note (short form) - Note Progress Note: alert still some itching but better occasional cough Vital Signs Period Temp Pulse Resp BP Sys/[place] Pulse Ox Last 24 Hr 97.8 F-98.2 F 75-100 16-18 127-149/66-89 95-95 cor-rrr lungs clear abd soft,nt ext no edema CBC, BMP 04/04/18 06:30 04/04/18 06:30 Microbiology 03/27/18 12:30 Blood - Peripheral Venous Blood Culture - Final NO GROWTH AFTER 5 DAYS INCUBATION 03/27/18 12:15 Blood - Peripheral Venous Blood Culture - Final NO GROWTH AFTER 5 DAYS INCUBATION 03/31/18 06:00 Urine For Antigen Detection Legionella Antigen - Final 03/31/18 06:00 Urine For Antigen Detection Streptococcus pneumoniae Antigen (M - Final 03/29/18 20:15 Urine For Antigen Detection Legionella Antigen - Final 03/29/18 20:15 Urine For Antigen Detection Streptococcus pneumoniae Antigen (M - Final 03/29/18 00:01 Urine - Urine - Catheterized Urine Culture - Final NO GROWTH OBTAINED 03/27/18 12:15 Urine - Urine Clean Catch Urine Culture - Final Contaminated: Please Repeat strongyloides antibody negative a/p eosinophilia- ?hypereosinophic syndrome elevated alk phos-improving pneumonia ODALIS-on doxycycline day #7/7 hyponatremia -resolving change in mental status- appears improved legionella urinary antigen-negative stool ova and parasites- strongyloides antibody negative prolonged Qtc ?malignancy ?allergic ?vasculitis- anca negative now on steroids day #5 eosinophilia improving on steroids awaiting flow cytometry-prelim no evidence of b or t cell proliferative disorders- molecular studies, cytogenetics, FISH pending Problem List - Problems (1) Leukocytosis Code(s): D72.829 - ELEVATED WHITE BLOOD CELL COUNT, UNSPECIFIED (2) Eosinophilia Code(s): D72.1 - EOSINOPHILIA (3) Elevated alkaline phosphatase level Code(s): R74.8 - ABNORMAL LEVELS OF OTHER SERUM ENZYMES (4) Pneumonia Code(s): J18.9 - PNEUMONIA, UNSPECIFIED ORGANISM Qualifiers: Pneumonia type: due to unspecified organism Laterality: left Lung location: upper lobe of lung Qualified Code(s): J18.1 - Lobar pneumonia, unspecified organism
[2018-04-04 12:41] LABS: ANISOCYTOSIS 0; MACROCYTOSIS 0; PLATELET ESTIMATE NORMAL
--- NOTE | 2018-04-04 13:06 | PN ---
Progress Note, Physician History of Present Illness: Pt seen and examined at bedside. She is awake and alert. She has cough but feels better today. - Current Medication List Current Medications: Active Medications Albuterol Sulfate (Ventolin 0.083% Nebulizer Soln -) 1 amp NEB Q6H PRN PRN Reason: SHORTNESS OF BREATH Last Admin: 03/31/18 14:00 Dose: 1 amp Albuterol/Ipratropium (Duoneb -) 1 amp NEB RQID [facility] Last Admin: 04/04/18 11:27 Dose: 1 amp Alprazolam (Xanax -) 0.5 mg PO Q8H PRN PRN Reason: ANXIETY Aspirin (Ecotrin -) 81 mg PO DAILY [facility] Last Admin: 04/04/18 09:53 Dose: 81 mg Calamine (Calamine 8% Topical Lotion -) 1 applic TP TID PRN PRN Reason: FOR ITCHING Diltiazem HCl (Cardizem Cd -) 120 mg PO HS [facility] Diphenhydramine HCl (Benadryl Oral Solution -) 12.5 mg PO Q12H PRN PRN Reason: FOR ITCHING Last Admin: 04/03/18 22:14 Dose: 12.5 mg Docusate Sodium (Colace -) 300 mg PO HS [facility] Last Admin: 04/03/18 22:13 Dose: 300 mg Escitalopram Oxalate (Lexapro -) 20 mg PO DAILY [facility] Last Admin: 04/04/18 09:54 Dose: 20 mg Heparin Sodium (Porcine) (Heparin -) 5,000 unit SQ BID [facility] Last Admin: 04/04/18 09:52 Dose: 5,000 unit Doxycycline Hyclate 100 mg/ (Sodium Chloride) 100 mls @ 50 mls/hr IVPB BID [facility] Last Admin: 04/04/18 09:52 Dose: 50 mls/hr Lidocaine (Lidoderm Patch -) 1 patch TP DAILY [facility] Last Admin: 04/04/18 09:54 Dose: 1 patch Methylprednisolone Sodium Succinate (Solu-Medrol -) 60 mg IVPUSH DAILY [facility] Last Admin: 04/04/18 09:52 Dose: 60 mg Metoprolol Succinate (Toprol Xl -) 25 mg PO DAILY [facility] Last Admin: 04/04/18 09:55 Dose: 25 mg Mirtazapine (Remeron -) 15 mg PO HS [facility] Last Admin: 04/03/18 22:13 Dose: 15 mg Miscellaneous (Lidoderm Patch Removal) 1 each MC DAILY@2200 [facility] Last Admin: 04/03/18 22:13 Dose: Not Given Nicotine (Nicoderm Patch -) 7 mg TD DAILY [facility] Last Admin: 04/04/18 09:54 Dose: 7 mg Polyethylene Glycol (Miralax (For Daily Use) -) 17 gm PO DAILY [facility] Last Admin: 04/04/18 09:54 Dose: 17 gm Spironolactone (Aldactone -) 25 mg PO DAILY [facility] Last Admin: 04/04/18 09:53 Dose: 25 mg Tiotropium [place] (Spiriva Respimat) 2 puff IH DAILY [facility] Last Admin: 04/04/18 09:51 Dose: 2 puff - Objective Vital Signs: Vital Signs Temperature 97.8 F 04/04/18 10:00 Pulse Rate 87 04/04/18 10:00 Respiratory Rate 18 04/04/18 10:00 Blood Pressure 136/85 04/04/18 10:00 O2 Sat by Pulse Oximetry (%) 95 04/04/18 09:00 Constitutional: Yes: Calm Eyes: Yes: Conjunctiva Clear HENT: Yes: Atraumatic Neck: Yes: Supple Cardiovascular: Yes: S1, S2 Respiratory: Yes: On Nasal O2, Wheezes Gastrointestinal: Yes: Normal Bowel Sounds, Soft Genitourinary: Yes: WNL Edema: No Neurological: Yes: Oriented Psychiatric: Yes: Oriented Labs: CBC, BMP 04/04/18 06:30 04/04/18 06:30 INR, PTT INR 1.28 (0.83-1.09) H 04/01/18 06:20 Problem List - Problems (1) ARLINE (acute kidney injury) Code(s): N17.9 - ACUTE KIDNEY FAILURE, UNSPECIFIED (2) HTN (hypertension) Code(s): I10 - ESSENTIAL (PRIMARY) HYPERTENSION Qualifiers: Hypertension type: essential hypertension Qualified Code(s): I10 - Essential (primary) hypertension (3) Hyponatremia Code(s): E87.1 - HYPO-OSMOLALITY AND HYPONATREMIA (4) Tobacco dependence Code(s): F17.200 - NICOTINE DEPENDENCE, UNSPECIFIED, UNCOMPLICATED Assessment/Plan Current Medications Generic Name Dose Route Start Last Admin Trade Name Freq PRN Reason Stop Dose Admin Albuterol Sulfate 1 amp 03/28/18 10:42 03/31/18 14:00 Ventolin 0.083% Nebulizer Soln - NEB 1 amp Q6H PRN Administration SHORTNESS OF BREATH Albuterol/Ipratropium 1 amp 03/30/18 12:00 04/04/18 11:27 Duoneb - NEB 1 amp RQID [facility] Administration Alprazolam 0.5 mg 04/02/18 09:42 Xanax - PO Q8H PRN ANXIETY Aspirin 81 mg 04/02/18 10:00 04/04/18 09:53 Ecotrin - PO 81 mg DAILY [facility] Administration Calamine 1 applic 04/03/18 11:01 Calamine 8% Topical Lotion - TP TID PRN FOR ITCHING Diltiazem HCl 120 mg 04/04/18 22:00 Cardizem Cd - PO HS [facility] Diphenhydramine HCl 12.5 mg 04/01/18 17:37 04/03/18 22:14 Benadryl Oral Solution - PO 12.5 mg Q12H PRN Administration FOR ITCHING Docusate Sodium 300 mg 03/28/18 22:00 04/03/18 22:13 Colace - PO 300 mg HS [facility] Administration Escitalopram Oxalate 20 mg 03/28/18 10:00 04/04/18 09:54 Lexapro - PO 20 mg DAILY [facility] Administration Heparin Sodium (Porcine) 5,000 unit 03/27/18 22:00 04/04/18 09:52 Heparin - SQ 5,000 unit BID [facility] Administration Doxycycline Hyclate 100 mg/ 100 mls @ 50 mls/hr 03/29/18 22:00 04/04/18 09:52 Sodium Chloride IVPB 50 mls/hr BID [facility] Administration Lidocaine 1 patch 03/29/18 18:30 04/04/18 09:54 Lidoderm Patch - TP 1 patch DAILY [facility] Administration Methylprednisolone Sodium Succinate 60 mg 04/01/18 11:30 04/04/18 09:52 Solu-Medrol - IVPUSH 60 mg DAILY [facility] Administration Metoprolol Succinate 25 mg 04/02/18 10:00 04/04/18 09:55 Toprol Xl - PO 25 mg DAILY [facility] Administration Mirtazapine 15 mg 03/27/18 22:00 04/03/18 22:13 Remeron - PO 15 mg HS [facility] Administration Miscellaneous 1 each 03/29/18 22:00 04/03/18 22:13 Lidoderm Patch Removal MC Not Given DAILY@2200 [facility] Nicotine 7 mg 03/27/18 15:30 04/04/18 09:54 Nicoderm Patch - TD 7 mg DAILY [facility] Administration Polyethylene Glycol 17 gm 03/28/18 10:00 04/04/18 09:54 Miralax (For Daily Use) - PO 17 gm DAILY [facility] Administration Spironolactone 25 mg 04/03/18 10:00 04/04/18 09:53 Aldactone - PO 25 mg DAILY [facility] Administration Tiotropium [place] 2 puff 03/28/18 10:15 04/04/18 09:51 Spiriva Respimat IH 2 puff DAILY [facility] Administration Impression 1. hyponatremia 2. ARLINE 3. depression 4. htn 5. tobacco use 6. anxiety 7. pleural effusions on ct scan Plan - repeat labs in am - may have to hold aldactone if sodium is lower - monitor eos - steroids with tape as tolerated - monitor potassium on aldactone Dr Guardado
--- NOTE | 2018-04-04 17:09 | PN ---
Progress Note (short form) - Note Progress Note: Patient seen and examined Discussed with son, Maksim WBC declining Eosiniphilia persistent despite steroids Last Vital Signs Temp Pulse Resp BP Pulse Ox 97.9 F 89 18 144/63 95 04/04/18 14:23 04/04/18 14:23 04/04/18 14:23 04/04/18 14:23 04/04/18 09:00 HEENT: [place], EOM Intact Cor: RSR, No murmurs, No gallops Lungs: coarse rales diffusely Abd: Soft, Normal bowel sounds, No organomegaly Ext:No significant edema Skin: No rashes, Integument intact CBC, BMP 04/04/18 06:30 04/04/18 06:30 Current Medications Generic Name Dose Route Start Last Admin Trade Name Freq PRN Reason Stop Dose Admin Albuterol Sulfate 1 amp 03/28/18 10:42 03/31/18 14:00 Ventolin 0.083% Nebulizer Soln - NEB 1 amp Q6H PRN Administration SHORTNESS OF BREATH Albuterol/Ipratropium 1 amp 03/30/18 12:00 04/04/18 15:33 Duoneb - NEB 1 amp RQID [facility] Administration Alprazolam 0.5 mg 04/02/18 09:42 Xanax - PO Q8H PRN ANXIETY Aspirin 81 mg 04/02/18 10:00 04/04/18 09:53 Ecotrin - PO 81 mg DAILY [facility] Administration Calamine 1 applic 04/03/18 11:01 Calamine 8% Topical Lotion - TP TID PRN FOR ITCHING Diltiazem HCl 120 mg 04/04/18 22:00 Cardizem Cd - PO HS [facility] Diphenhydramine HCl 12.5 mg 04/01/18 17:37 04/03/18 22:14 Benadryl Oral Solution - PO 12.5 mg Q12H PRN Administration FOR ITCHING Docusate Sodium 300 mg 03/28/18 22:00 04/03/18 22:13 Colace - PO 300 mg HS [facility] Administration Escitalopram Oxalate 20 mg 03/28/18 10:00 04/04/18 09:54 Lexapro - PO 20 mg DAILY [facility] Administration Heparin Sodium (Porcine) 5,000 unit 03/27/18 22:00 04/04/18 09:52 Heparin - SQ 5,000 unit BID [facility] Administration Doxycycline Hyclate 100 mg/ 100 mls @ 50 mls/hr 03/29/18 22:00 04/04/18 09:52 Sodium Chloride IVPB 50 mls/hr BID [facility] Administration Lidocaine 1 patch 03/29/18 18:30 04/04/18 09:54 Lidoderm Patch - TP 1 patch DAILY [facility] Administration Methylprednisolone Sodium Succinate 60 mg 04/01/18 11:30 04/04/18 09:52 Solu-Medrol - IVPUSH 60 mg DAILY [facility] Administration Metoprolol Succinate 25 mg 04/02/18 10:00 04/04/18 09:55 Toprol Xl - PO 25 mg DAILY [facility] Administration Mirtazapine 15 mg 03/27/18 22:00 04/03/18 22:13 Remeron - PO 15 mg HS [facility] Administration Miscellaneous 1 each 03/29/18 22:00 04/03/18 22:13 Lidoderm Patch Removal MC Not Given DAILY@2200 [facility] Nicotine 7 mg 03/27/18 15:30 04/04/18 09:54 Nicoderm Patch - TD 7 mg DAILY [facility] Administration Polyethylene Glycol 17 gm 03/28/18 10:00 04/04/18 09:54 Miralax (For Daily Use) - PO 17 gm DAILY [facility] Administration Spironolactone 25 mg 04/03/18 10:00 04/04/18 09:53 Aldactone - PO 25 mg DAILY [facility] Administration Tiotropium [place] 2 puff 03/28/18 10:15 04/04/18 09:51 Spiriva Respimat IH 2 puff DAILY [facility] Administration Impression: Pneumonia Eosinophilia Preliminary Flow -negative -FISH/cytogenetics pending Spoke with Maksim about bone marrow - He would like to discuss it further with his brothers before moving forward with procedure. CASTRO- negative Stool O & P pending IgE- pending CTabdomen/pelvis - no obvious malignancy No "M" component IgM elevated
[2018-04-04] MEDS: DOCUSATE SODIUM 100 MG CAPSULE (FP) PO SCH (21:45)
[2018-04-04] MEDS: MIRTAZAPINE 15 MG TABLET (FP) PO SCH (21:45)
[2018-04-04] MEDS: LIDOCAINE PATCH REMOVAL MC SCH (21:46)
[2018-04-05] MEDS: diphenhydrAMINE HCL 12.5 MG/5 ML UNIT-DOSE CUPS PO PRN (00:08)
[2018-04-05] MEDS: ALBUTEROL SO4 2.5/IPRATROPIUM 0.5 INH SOL 3 ML VIAL.NEB. NEB SCH (07:15)
[2018-04-05 08:02] LABS: BASO % 0.4 % (0-2.0); EOS % 40.6 % (0-4.5); HEMOGLOBIN 10.2 GM/dL (10.7-15.3); LYMPH % 21.8 % (8-40); MCH 31.5 pg (25.7-33.7); MCHC 35.4 g/dl (32.0-36.0); MEAN CELL VOLUME 89.2 fl (80-96); MEAN PLT VOLUME 7.7 fl (7.5-11.1); MONO % 5.4 % (3.8-10.2); NEUT % 31.8 % (42.8-82.8); PLATELET COUNT 234 K/MM3 (134-434); RBC 3.25 M/mm3 (3.60-5.2); RDW 14.1 % (11.6-15.6); WHITE BLOOD COUNT 10.5 K/mm3 (4.0-10.0)
[2018-04-05 08:33] LABS: ALBUMIN 2.7 g/dl (3.4-5.0); ALK PHOS 370 U/L (45-117); ANION GAP 7 MMOL/L (8-16); BILIRUBIN,TOTAL 0.7 mg/dL (0.2-1); BLOOD UREA NITROGEN 38 mg/dL (7-18); CALCIUM 8.6 mg/dL (8.5-10.1); CHLORIDE 103 mmol/L (98-107); CO2 27 mmol/L (21-32); CREATININE 0.9 mg/dL (0.55-1.3); GLUCOSE,RANDOM 76 mg/dL (74-106); MAGNESIUM 1.9 mg/dL (1.8-2.4); PHOSPHOROUS 3.7 mg/dL (2.5-4.9); POTASSIUM 4.6 mmol/L (3.5-5.1); SGOT/AST 10 U/L (15-37); SGPT/ALT 42 U/L (13-61); SODIUM 138 mmol/L (136-145); TOT PROT 5.7 g/dl (6.4-8.2)
[2018-04-05] MEDS ORDERED: REGADENOSON 0.4 MG/5 ML PRE-FILLED SYRINGE IVPUSH ONE (08:45)
[2018-04-05] MEDS: methylPREDNISolone NA SUCC 40 MG/1 ML VIAL IVPUSH SCH (09:55)
[2018-04-05] MEDS: LIDOCAINE 5% TOPICAL PATCH TP SCH (09:56)
[2018-04-05] MEDS: POLYETHYLENE GLYCOL 3350 119 GM BTL PO SCH (09:56)
[2018-04-05] MEDS: SPIRONOLACTONE 25 MG TABLET (FP) PO SCH (09:56)
[2018-04-05] MEDS: HEPARIN NA (PORCINE) 5,000 UNITS/ML 1ML VIAL SQ SCH ×2 (09:56→21:40)
[2018-04-05] MEDS: ESCITALOPRAM OXALATE 20 MG TABLET (FP) PO SCH (09:56)
[2018-04-05] MEDS: ASPIRIN COATED 81 MG TABLET.EC PO SCH (09:56)
[2018-04-05] MEDS: ALPRAZolam 0.25 MG TABLET PO PRN (09:56)
[2018-04-05] MEDS: TIOTROPIUM BROMIDE 2.5 MCG (SPIRIVA) RESPIMAT INHALER IH SCH (10:00)
[2018-04-05] MEDS: NICOTINE 7 MG/24 HOURS TOPICAL PATCH TD SCH (10:01)
--- NOTE | 2018-04-05 10:18 | PN ---
Progress Note, Physician Chief Complaint: Pt sitting in bed in no acute distress. reports feeling well. refused stress test today, pt reports she does not want to have it despite encouragement and explaining risks/benefits. Denies any chest pain, sob, n/v/d - Current Medication List Current Medications: Active Medications Albuterol Sulfate (Ventolin 0.083% Nebulizer Soln -) 1 amp NEB Q6H PRN PRN Reason: SHORTNESS OF BREATH Last Admin: 03/31/18 14:00 Dose: 1 amp Albuterol/Ipratropium (Duoneb -) 1 amp NEB RQID [facility] Last Admin: 04/05/18 07:15 Dose: 1 amp Alprazolam (Xanax -) 0.5 mg PO Q8H PRN PRN Reason: ANXIETY Last Admin: 04/05/18 09:56 Dose: 0.5 mg Aspirin (Ecotrin -) 81 mg PO DAILY [facility] Last Admin: 04/05/18 09:56 Dose: 81 mg Calamine (Calamine 8% Topical Lotion -) 1 applic TP TID PRN PRN Reason: FOR ITCHING Last Admin: 04/05/18 00:08 Dose: 1 applic Diltiazem HCl (Cardizem Cd -) 120 mg PO HS [facility] Last Admin: 04/04/18 21:45 Dose: 120 mg Diphenhydramine HCl (Benadryl Oral Solution -) 12.5 mg PO Q12H PRN PRN Reason: FOR ITCHING Last Admin: 04/05/18 00:08 Dose: 12.5 mg Docusate Sodium (Colace -) 300 mg PO HS [facility] Last Admin: 04/04/18 21:45 Dose: 300 mg Escitalopram Oxalate (Lexapro -) 20 mg PO DAILY [facility] Last Admin: 04/05/18 09:56 Dose: 20 mg Heparin Sodium (Porcine) (Heparin -) 5,000 unit SQ BID [facility] Last Admin: 04/05/18 09:56 Dose: 5,000 unit Lidocaine (Lidoderm Patch -) 1 patch TP DAILY [facility] Last Admin: 04/05/18 09:56 Dose: 1 patch Methylprednisolone Sodium Succinate (Solu-Medrol -) 60 mg IVPUSH DAILY [facility] Last Admin: 04/05/18 09:55 Dose: 60 mg Metoprolol Succinate (Toprol Xl -) 25 mg PO DAILY [facility] Last Admin: 04/04/18 09:55 Dose: 25 mg Mirtazapine (Remeron -) 15 mg PO HS [facility] Last Admin: 04/04/18 21:45 Dose: 15 mg Miscellaneous (Lidoderm Patch Removal) 1 each MC DAILY@2200 [facility] Last Admin: 04/04/18 21:46 Dose: 1 each Nicotine (Nicoderm Patch -) 7 mg TD DAILY [facility] Last Admin: 04/05/18 10:01 Dose: 7 mg Polyethylene Glycol (Miralax (For Daily Use) -) 17 gm PO DAILY [facility] Last Admin: 04/05/18 09:56 Dose: 17 gm Spironolactone (Aldactone -) 25 mg PO DAILY [facility] Last Admin: 04/05/18 09:56 Dose: 25 mg Tiotropium [place] (Spiriva Respimat) 2 puff IH DAILY [facility] Last Admin: 04/05/18 10:00 Dose: 2 puff - Objective Vital Signs: Vital Signs Temperature 98.1 F 04/05/18 06:00 Pulse Rate 80 04/05/18 06:00 Respiratory Rate 18 04/05/18 06:00 Blood Pressure 159/84 04/05/18 06:00 O2 Sat by Pulse Oximetry (%) 98 04/04/18 21:00 Constitutional: Yes: No Distress, Thin Cardiovascular: Yes: Regular Rate and Rhythm Respiratory: Yes: WNL, Regular, CTA Bilaterally. No: Accessory Muscle Use, SOB , Tachypnea, Wheezes Gastrointestinal: Yes: WNL, Normal Bowel Sounds, Soft. No: Distention, Tenderness Genitourinary: Yes: WNL Extremities: Yes: WNL Edema: No Neurological: Yes: WNL, Alert, Oriented Psychiatric: Yes: WNL, Alert, Oriented Labs: CBC, BMP 04/05/18 06:45 04/05/18 06:45 INR, PTT INR 1.28 (0.83-1.09) H 04/01/18 06:20 Assessment/Plan (1) Sepsis Assessment/Plan: resolved Code(s): A41.9 - SEPSIS, UNSPECIFIED ORGANISM (2) UTI (urinary tract infection) Assessment/Plan: ruled out Code(s): N39.0 - URINARY TRACT INFECTION, SITE NOT SPECIFIED Qualifiers: Urinary tract infection type: acute cystitis Hematuria presence: with hematuria Qualified Code(s): N30.01 - Acute cystitis with hematuria (3) Pneumonia Assessment/Plan: completed doxycycline 7 day course Code(s): J18.9 - PNEUMONIA, UNSPECIFIED ORGANISM Qualifiers: Pneumonia type: due to unspecified organism Laterality: left Lung location: upper lobe of lung Qualified Code(s): J18.1 - Lobar pneumonia, unspecified organism (4) Metabolic encephalopathy Assessment/Plan: resolved Code(s): G93.41 - METABOLIC ENCEPHALOPATHY (5) Hyponatremia Assessment/Plan: resolved Code(s): E87.1 - HYPO-OSMOLALITY AND HYPONATREMIA (6) ARLINE (acute kidney injury) Assessment/Plan: improved Code(s): N17.9 - ACUTE KIDNEY FAILURE, UNSPECIFIED (7) Transaminitis Assessment/Plan: improved Code(s): R74.0 - NONSPEC ELEV OF LEVELS OF TRANSAMNS & LACTIC ACID DEHYDRGNSE (8) Abnormal liver function test Assessment/Plan: alk phos improving Code(s): R94.5 - ABNORMAL RESULTS OF LIVER FUNCTION STUDIES (9) Pleural effusion Assessment/Plan: repeat chest pa/lateral - Code(s): J90 - PLEURAL EFFUSION, NOT ELSEWHERE CLASSIFIED (10) Pericardial effusion Assessment/Plan: repeat echo improved Code(s): I31.3 - PERICARDIAL EFFUSION (NONINFLAMMATORY) (11) Elevated troponin Assessment/Plan: peaked echo shows preserved lvef, apical hypokinesis pt refused stress test this am Code(s): R74.8 - ABNORMAL LEVELS OF OTHER SERUM ENZYMES (12) CAD (coronary artery disease) Assessment/Plan: continue asa/bb Code(s): I25.10 - ATHSCL HEART DISEASE OF [place] CORONARY ARTERY W/O ANG PCTRS Qualifiers: Coronary Disease-Associated Artery/Lesion type: [place] artery [place] vs. transplanted heart: [place] heart Associated angina: without angina Qualified Code(s): I25.10 - Atherosclerotic heart disease of [place] coronary artery without angina pectoris (13) HTN (hypertension) Assessment/Plan: continue bb, aldactone [place] hs monitor Code(s): I10 - ESSENTIAL (PRIMARY) HYPERTENSION Qualifiers: Hypertension type: essential hypertension Qualified Code(s): I10 - Essential (primary) hypertension (14) HLD (hyperlipidemia) Assessment/Plan: chronic holding statin Code(s): E78.5 - HYPERLIPIDEMIA, UNSPECIFIED (15) Tobacco dependence Assessment/Plan: advise smoking cessation nicotine patch Code(s): F17.200 - NICOTINE DEPENDENCE, UNSPECIFIED, UNCOMPLICATED (16) Anxiety Assessment/Plan: controlled continue lexapro/mirtazapine xanax prn Code(s): F41.9 - ANXIETY DISORDER, UNSPECIFIED (17) Leukocytosis Assessment/Plan: improving on steroids flow cytometry negative r/o hematologic malignancy? family and pt agrees for bone marrow biopsy- hematology informed ID/hematology following Code(s): D72.829 - ELEVATED WHITE BLOOD CELL COUNT, UNSPECIFIED (18) Eosinophilia Assessment/Plan: improving unclear etiology iv steroids day 5- transition to po tomorrow strongyloides/anca/flow neg Code(s): D72.1 - EOSINOPHILIA (19) Pruritus Assessment/Plan: improving calamine lotion/benadryl prn outpt manager line referral Code(s): L29.9 - PRURITUS, UNSPECIFIED Dispo: HOME w/ vns, pending bone marrow bx
--- NOTE | 2018-04-05 11:17 | PN ---
Progress Note (short form) - Note Progress Note: s: no chest pain, dyspnea, palps, dizziness Current Medications Generic Name Dose Route Start Last Admin Trade Name Freq PRN Reason Stop Dose Admin Albuterol Sulfate 1 amp 03/28/18 10:42 03/31/18 14:00 Ventolin 0.083% Nebulizer Soln - NEB 1 amp Q6H PRN Administration SHORTNESS OF BREATH Alprazolam 0.5 mg 04/02/18 09:42 04/05/18 09:56 Xanax - PO 0.5 mg Q8H PRN Administration ANXIETY Aspirin 81 mg 04/02/18 10:00 04/05/18 09:56 Ecotrin - PO 81 mg DAILY [facility] Administration Calamine 1 applic 04/03/18 11:01 04/05/18 00:08 Calamine 8% Topical Lotion - TP 1 applic TID PRN Administration FOR ITCHING Diltiazem HCl 120 mg 04/04/18 22:00 04/04/18 21:45 Cardizem Cd - PO 120 mg HS [facility] Administration Diphenhydramine HCl 12.5 mg 04/01/18 17:37 04/05/18 00:08 Benadryl Oral Solution - PO 12.5 mg Q12H PRN Administration FOR ITCHING Docusate Sodium 300 mg 03/28/18 22:00 04/04/18 21:45 Colace - PO 300 mg HS [facility] Administration Escitalopram Oxalate 20 mg 03/28/18 10:00 04/05/18 09:56 Lexapro - PO 20 mg DAILY [facility] Administration Heparin Sodium (Porcine) 5,000 unit 03/27/18 22:00 04/05/18 09:56 Heparin - SQ 5,000 unit BID [facility] Administration Lidocaine 1 patch 03/29/18 18:30 04/05/18 09:56 Lidoderm Patch - TP 1 patch DAILY [facility] Administration Metoprolol Succinate 25 mg 04/02/18 10:00 04/04/18 09:55 Toprol Xl - PO 25 mg DAILY [facility] Administration Mirtazapine 15 mg 03/27/18 22:00 04/04/18 21:45 Remeron - PO 15 mg HS [facility] Administration Miscellaneous 1 each 03/29/18 22:00 04/04/18 21:46 Lidoderm Patch Removal MC 1 each DAILY@2200 [facility] Administration Nicotine 7 mg 03/27/18 15:30 04/05/18 10:01 Nicoderm Patch - TD 7 mg DAILY [facility] Administration Pantoprazole Sodium 40 mg 04/06/18 10:00 Protonix - PO DAILY [facility] Polyethylene Glycol 17 gm 03/28/18 10:00 04/05/18 09:56 Miralax (For Daily Use) - PO 17 gm DAILY [facility] Administration Prednisone 60 mg 04/06/18 10:00 Deltasone - PO DAILY [facility] Spironolactone 25 mg 04/03/18 10:00 04/05/18 09:56 Aldactone - PO 25 mg DAILY [facility] Administration Tiotropium [place] 2 puff 03/28/18 10:15 04/05/18 10:00 Spiriva Respimat IH 2 puff DAILY [facility] Administration Vital Signs Period Temp Pulse Resp BP Sys/[place] Pulse Ox Last 24 Hr 97.9 F-99.3 F 73-100 18-18 135-159/63-96 98 Constitutional: Yes: Well Nourished, No Distress, Calm Cardiovascular: Yes: Regular Rate and Rhythm, S1, S2. No: Gallop, Murmur Respiratory: Yes: Regular No: Accessory Muscle Use, rales Extremities: No: Cold Edema: No Neurological: Yes: Alert. No: Seizure Psychiatric: No: Agitated no jaundice diaphoresis Assessment/Plan MIBI 2010: no STs; mild AW ischemia; nl EF Echo 2015: nl LV/EF; nl RV; nl valves Echo 02/2018: low nl lvef, apical hk, nl rv, no sig valve path, small-mod peric eff echo 03/2018 regional wma, grade II diastolic dysfunction, nl RV, mildly reduced LV function, mild MR, mod TR, small pericardial effusion, no tamponade Carotids 2015: 50-69% plq bilaterally (PSV 145 R, 162 L), no sig change vs prior ECG #1: NSR. 0.5mm ST elevation V4-V6, I/avL with TWIs. no reciprocal ST depressions. new vs 12/14 office ecg #2 (approx 4pm): no change in ST-T abnormalities (<0.5mm ALEX now), prolonged QT CXR: ? 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 medically managed, never had angina sx's, declined repeat stress testing or cath repeatedly. -here with metabolic derangements and altered MS, incidental troponin 1.0, downtrending -no ischemia sx's. ECG with non-diagnostic changes of 0.5mm ST elevations in anterolateral territory and nonspecific TWIs = new. repeat with similar findings , prolonged QT. no reciprocal depressions--hence ECG not diagnostic for STEMI and pt without sx's of acute ischemia. -? true ACS triggered by acute infection (i.e. NSTEMI) but asymptomatic--more likely this is Type II MT -continue aspirin, metoprolol -holding statin given unexplained hi LFTs -echo shows preserved lvef but apical hypokinesis -attempted risk-stratifying pharm MPI prior to discharge, but pt refused. Rec'd outpt f/u. HTN - continue diltiazem, metoprolol, spironolactone hyponatremia/fawad: -resolved elevated alk phos: -trending down -per hospitalist pericardial effusion: -small-mod size eff seen on echo, no signs tamponade. -repeat echo showed small effusion <1 cm, no tamponade cardiac will stable for dc
[2018-04-05] MEDS: ALBUTEROL SO4 0.083% IH SOL 2.5 MG/3 ML VIAL.NEB. NEB PRN (11:31)
[2018-04-05] MEDS: metoPROLOL SUCCINATE 25 MG TAB.SR.24H (FP) PO SCH (11:34)
[2018-04-05 12:08] LABS: ANISOCYTOSIS 1+; MACROCYTOSIS 0; PLATELET ESTIMATE NORMAL
--- NOTE | 2018-04-05 12:25 | PN ---
Progress Note (short form) - Note Progress Note: NAD. Note she refused stress testing. Clinically has been improving. No acute events overnight. Intake & Output 04/02/18 04/03/18 04/04/18 04/05/18 23:59 23:59 23:59 23:59 Intake Total 206 339 0448 0 Balance 837 820 4288 0 Weight 111 lb 108 lb 8 oz 109 lb 9.6 oz 109 lb 2 oz Last Vital Signs Temp Pulse Resp BP Pulse Ox 98.3 F 73 18 154/73 98 04/05/18 10:29 04/05/18 10:29 04/05/18 10:29 04/05/18 10:29 04/04/18 21:00 Active Medications Albuterol Sulfate (Ventolin 0.083% Nebulizer Soln -) 1 amp NEB Q6H PRN PRN Reason: SHORTNESS OF BREATH Last Admin: 04/05/18 11:31 Dose: 1 amp Alprazolam (Xanax -) 0.5 mg PO Q8H PRN PRN Reason: ANXIETY Last Admin: 04/05/18 09:56 Dose: 0.5 mg Aspirin (Ecotrin -) 81 mg PO DAILY [facility] Last Admin: 04/05/18 09:56 Dose: 81 mg Calamine (Calamine 8% Topical Lotion -) 1 applic TP TID PRN PRN Reason: FOR ITCHING Last Admin: 04/05/18 00:08 Dose: 1 applic Diltiazem HCl (Cardizem Cd -) 120 mg PO HS [facility] Last Admin: 04/04/18 21:45 Dose: 120 mg Diphenhydramine HCl (Benadryl Oral Solution -) 12.5 mg PO Q12H PRN PRN Reason: FOR ITCHING Last Admin: 04/05/18 00:08 Dose: 12.5 mg Docusate Sodium (Colace -) 300 mg PO HS [facility] Last Admin: 04/04/18 21:45 Dose: 300 mg Escitalopram Oxalate (Lexapro -) 20 mg PO DAILY [facility] Last Admin: 04/05/18 09:56 Dose: 20 mg Heparin Sodium (Porcine) (Heparin -) 5,000 unit SQ BID [facility] Last Admin: 04/05/18 09:56 Dose: 5,000 unit Lidocaine (Lidoderm Patch -) 1 patch TP DAILY [facility] Last Admin: 04/05/18 09:56 Dose: 1 patch Metoprolol Succinate (Toprol Xl -) 25 mg PO DAILY [facility] Last Admin: 04/05/18 11:34 Dose: 25 mg Mirtazapine (Remeron -) 15 mg PO HS [facility] Last Admin: 04/04/18 21:45 Dose: 15 mg Miscellaneous (Lidoderm Patch Removal) 1 each MC DAILY@2200 [facility] Last Admin: 04/04/18 21:46 Dose: 1 each Nicotine (Nicoderm Patch -) 7 mg TD DAILY [facility] Last Admin: 04/05/18 10:01 Dose: 7 mg Pantoprazole Sodium (Protonix -) 40 mg PO DAILY [facility] Polyethylene Glycol (Miralax (For Daily Use) -) 17 gm PO DAILY [facility] Last Admin: 04/05/18 09:56 Dose: 17 gm Prednisone (Deltasone -) 60 mg PO DAILY [facility] Spironolactone (Aldactone -) 25 mg PO DAILY [facility] Last Admin: 04/05/18 09:56 Dose: 25 mg Tiotropium [place] (Spiriva Respimat) 2 puff IH DAILY [facility] Last Admin: 04/05/18 10:00 Dose: 2 puff Constitutional: Yes: Awake and alert, No Distress Eyes: Yes: Conjunctiva Clear HENT: Yes: Atraumatic Neck: Yes: Supple Cardiovascular: Yes: Regular Rate and Rhythm Respiratory: Yes: Bilateral rhonchi, no wheeze Gastrointestinal: (+) BS, (+) vertical suprapubic incision, NT EDM OPERATOR: Non-focal Laboratory Results - last 24 hr 04/03/18 04/04/18 04/05/18 06:00 06:30 06:45 WBC 10.5 H RBC 3.25 L Hgb 10.2 L Hct 29.0 L MCV 89.2 MCH 31.5 MCHC 35.4 RDW 14.1 Plt Count 234 MPV 7.7 Absolute Neuts (auto) 3.3 Neutrophils % 31.8 L Neutrophils % (Manual) 31.6 L 26.0 L Band Neutrophils % 0.0 0.0 Lymphocytes % 21.8 D Lymphocytes % (Manual) 21.4 D 20.0 Monocytes % 5.4 Monocytes % (Manual) 3 L 6 D Eosinophils % 40.6 H* Eosinophils % (Manual) 40.8 H 47.0 H Basophils % 0.4 Basophils % (Manual) 0.0 0.0 Myelocytes % (Man) 1 D 0 D Promyelocytes % (Man) 0 0 Blast Cells % (Manual) 0 0 Nucleated RBC % 0 Metamyelocytes 0 1 D Hypochromia 1+ 1+ Platelet Estimate Normal Normal Polychromasia 1+ 0 Poikilocytosis 0 0 Anisocytosis 0 1+ Microcytosis 0 1+ Macrocytosis 0 0 Sodium Potassium Chloride Carbon Dioxide Anion Gap Hepatic Function Panel 92 H BUN Creatinine Creat Clearance w eGFR Random Glucose Calcium Phosphorus Magnesium Total Bilirubin AST ALT Alkaline Phosphatase 446 H Total Protein Albumin 04/05/18 06:45 WBC RBC Hgb Hct MCV MCH MCHC RDW Plt Count MPV Absolute Neuts (auto) Neutrophils % Neutrophils % (Manual) Band Neutrophils % Lymphocytes % Lymphocytes % (Manual) Monocytes % Monocytes % (Manual) Eosinophils % Eosinophils % (Manual) Basophils % Basophils % (Manual) Myelocytes % (Man) Promyelocytes % (Man) Blast Cells % (Manual) Nucleated RBC % Metamyelocytes Hypochromia Platelet Estimate Polychromasia Poikilocytosis Anisocytosis Microcytosis Macrocytosis Sodium 138 Potassium 4.6 Chloride 103 Carbon Dioxide 27 Anion Gap 7 L Hepatic Function Panel BUN 38 H Creatinine 0.9 Creat Clearance w eGFR 59.65 Random Glucose 76 Calcium 8.6 Phosphorus 3.7 Magnesium 1.9 Total Bilirubin 0.7 AST 10 L ALT 42 Alkaline Phosphatase 370 H Total Protein 5.7 L Albumin 2.7 L Problem List - Problems (1) ARLINE (acute kidney injury) Code(s): N17.9 - ACUTE KIDNEY FAILURE, UNSPECIFIED (2) Altered mental status, unspecified Code(s): R41.82 - ALTERED MENTAL STATUS, UNSPECIFIED Qualifiers: Altered mental status type: delirium Qualified Code(s): R41.0 - Disorientation, unspecified (3) CAD (coronary artery disease) Code(s): I25.10 - ATHSCL HEART DISEASE OF [place] CORONARY ARTERY W/O ANG PCTRS Qualifiers: Coronary Disease-Associated Artery/Lesion type: [place] artery [place] vs. transplanted heart: [place] heart Associated angina: without angina Qualified Code(s): I25.10 - Atherosclerotic heart disease of [place] coronary artery without angina pectoris (4) Elevated alkaline phosphatase level Code(s): R74.8 - ABNORMAL LEVELS OF OTHER SERUM ENZYMES (5) Eosinophilia Code(s): D72.1 - EOSINOPHILIA (6) HTN (hypertension) Code(s): I10 - ESSENTIAL (PRIMARY) HYPERTENSION Qualifiers: Hypertension type: essential hypertension Qualified Code(s): I10 - Essential (primary) hypertension (7) Hyponatremia Code(s): E87.1 - HYPO-OSMOLALITY AND HYPONATREMIA (8) Leukocytosis Code(s): D72.829 - ELEVATED WHITE BLOOD CELL COUNT, UNSPECIFIED (9) Metabolic encephalopathy Code(s): G93.41 - METABOLIC ENCEPHALOPATHY (10) Pneumonia Code(s): J18.9 - PNEUMONIA, UNSPECIFIED ORGANISM (11) Tobacco dependence Code(s): F17.200 - NICOTINE DEPENDENCE, UNSPECIFIED, UNCOMPLICATED (12) Transaminitis Code(s): R74.0 - NONSPEC ELEV OF LEVELS OF TRANSAMNS & LACTIC ACID DEHYDRGNSE (13) UTI (urinary tract infection) Code(s): N39.0 - URINARY TRACT INFECTION, SITE NOT SPECIFIED Qualifiers: Urinary tract infection type: acute cystitis Hematuria presence: with hematuria Qualified Code(s): N30.01 - Acute cystitis with hematuria IMP HYPEREOSINOPHILIC SYNDROME: ETIOLOGY STILL TO BE DETERMINED ALTERED MENTAL STATUS HYPONATREMIA ODALIS INFILTRATE ? INFECTIOUS,? INFLAMMATORY,?CHF CHF DYSPNEA PERICARDIAL EFFUSION EOSINOPHILIA ? INFECTIOUS,?MALIGNANT,? AUTOIMMUNE ELEVATED ALK PHOS LIKELY COPD SMOKER PLAN PREDNISONE 60MG OD O2 NEEDED ABX PER ID INHALED BRONCHODILATORS TREND EOSINOPHIL CT CONSIDERATION BEING MADE FOR BM BIOPSY DR THURMAN
--- NOTE | 2018-04-05 14:47 | PN ---
Progress Note, Physician History of Present Illness: Pt seen and examined at bedside. She is anxious and refused stress test today. - Current Medication List Current Medications: Active Medications Albuterol Sulfate (Ventolin 0.083% Nebulizer Soln -) 1 amp NEB Q6H PRN PRN Reason: SHORTNESS OF BREATH Last Admin: 04/05/18 11:31 Dose: 1 amp Alprazolam (Xanax -) 0.5 mg PO Q8H PRN PRN Reason: ANXIETY Last Admin: 04/05/18 09:56 Dose: 0.5 mg Aspirin (Ecotrin -) 81 mg PO DAILY [facility] Last Admin: 04/05/18 09:56 Dose: 81 mg Calamine (Calamine 8% Topical Lotion -) 1 applic TP TID PRN PRN Reason: FOR ITCHING Last Admin: 04/05/18 00:08 Dose: 1 applic Diltiazem HCl (Cardizem Cd -) 120 mg PO HS [facility] Last Admin: 04/04/18 21:45 Dose: 120 mg Diphenhydramine HCl (Benadryl Oral Solution -) 12.5 mg PO Q12H PRN PRN Reason: FOR ITCHING Last Admin: 04/05/18 00:08 Dose: 12.5 mg Docusate Sodium (Colace -) 300 mg PO HS [facility] Last Admin: 04/04/18 21:45 Dose: 300 mg Escitalopram Oxalate (Lexapro -) 20 mg PO DAILY [facility] Last Admin: 04/05/18 09:56 Dose: 20 mg Heparin Sodium (Porcine) (Heparin -) 5,000 unit SQ BID [facility] Last Admin: 04/05/18 09:56 Dose: 5,000 unit Lidocaine (Lidoderm Patch -) 1 patch TP DAILY [facility] Last Admin: 04/05/18 09:56 Dose: 1 patch Metoprolol Succinate (Toprol Xl -) 25 mg PO DAILY [facility] Last Admin: 04/05/18 11:34 Dose: 25 mg Mirtazapine (Remeron -) 15 mg PO HS [facility] Last Admin: 04/04/18 21:45 Dose: 15 mg Miscellaneous (Lidoderm Patch Removal) 1 each MC DAILY@2200 [facility] Last Admin: 04/04/18 21:46 Dose: 1 each Nicotine (Nicoderm Patch -) 7 mg TD DAILY [facility] Last Admin: 04/05/18 10:01 Dose: 7 mg Pantoprazole Sodium (Protonix -) 40 mg PO DAILY [facility] Polyethylene Glycol (Miralax (For Daily Use) -) 17 gm PO DAILY [facility] Last Admin: 04/05/18 09:56 Dose: 17 gm Prednisone (Deltasone -) 60 mg PO DAILY [facility] Spironolactone (Aldactone -) 25 mg PO DAILY [facility] Last Admin: 04/05/18 09:56 Dose: 25 mg Tiotropium [place] (Spiriva Respimat) 2 puff IH DAILY [facility] Last Admin: 04/05/18 10:00 Dose: 2 puff - Objective Vital Signs: Vital Signs Temperature 98.3 F 04/05/18 10:29 Pulse Rate 73 04/05/18 10:29 Respiratory Rate 18 04/05/18 10:29 Blood Pressure 154/73 04/05/18 10:29 O2 Sat by Pulse Oximetry (%) 98 04/04/18 21:00 Constitutional: Yes: Anxious Eyes: Yes: Conjunctiva Clear HENT: Yes: Atraumatic Neck: Yes: Supple Cardiovascular: Yes: S1, S2 Respiratory: Yes: On Nasal O2, Wheezes Gastrointestinal: Yes: Soft Genitourinary: Yes: WNL Musculoskeletal: Yes: WNL Edema: No Neurological: Yes: Oriented Psychiatric: Yes: Oriented Labs: CBC, BMP 04/05/18 06:45 04/05/18 06:45 INR, PTT INR 1.28 (0.83-1.09) H 04/01/18 06:20 Problem List - Problems (1) ARLINE (acute kidney injury) Code(s): N17.9 - ACUTE KIDNEY FAILURE, UNSPECIFIED (2) HTN (hypertension) Code(s): I10 - ESSENTIAL (PRIMARY) HYPERTENSION Qualifiers: Hypertension type: essential hypertension Qualified Code(s): I10 - Essential (primary) hypertension (3) Hyponatremia Code(s): E87.1 - HYPO-OSMOLALITY AND HYPONATREMIA (4) Tobacco dependence Code(s): F17.200 - NICOTINE DEPENDENCE, UNSPECIFIED, UNCOMPLICATED Assessment/Plan Current Medications Generic Name Dose Route Start Last Admin Trade Name Freq PRN Reason Stop Dose Admin Albuterol Sulfate 1 amp 03/28/18 10:42 04/05/18 11:31 Ventolin 0.083% Nebulizer Soln - NEB 1 amp Q6H PRN Administration SHORTNESS OF BREATH Alprazolam 0.5 mg 04/02/18 09:42 04/05/18 09:56 Xanax - PO 0.5 mg Q8H PRN Administration ANXIETY Aspirin 81 mg 04/02/18 10:00 04/05/18 09:56 Ecotrin - PO 81 mg DAILY [facility] Administration Calamine 1 applic 04/03/18 11:01 04/05/18 00:08 Calamine 8% Topical Lotion - TP 1 applic TID PRN Administration FOR ITCHING Diltiazem HCl 120 mg 04/04/18 22:00 04/04/18 21:45 Cardizem Cd - PO 120 mg HS [facility] Administration Diphenhydramine HCl 12.5 mg 04/01/18 17:37 04/05/18 00:08 Benadryl Oral Solution - PO 12.5 mg Q12H PRN Administration FOR ITCHING Docusate Sodium 300 mg 03/28/18 22:00 04/04/18 21:45 Colace - PO 300 mg HS [facility] Administration Escitalopram Oxalate 20 mg 03/28/18 10:00 04/05/18 09:56 Lexapro - PO 20 mg DAILY [facility] Administration Heparin Sodium (Porcine) 5,000 unit 03/27/18 22:00 04/05/18 09:56 Heparin - SQ 5,000 unit BID [facility] Administration Lidocaine 1 patch 03/29/18 18:30 04/05/18 09:56 Lidoderm Patch - TP 1 patch DAILY [facility] Administration Metoprolol Succinate 25 mg 04/02/18 10:00 04/05/18 11:34 Toprol Xl - PO 25 mg DAILY [facility] Administration Mirtazapine 15 mg 03/27/18 22:00 04/04/18 21:45 Remeron - PO 15 mg HS [facility] Administration Miscellaneous 1 each 03/29/18 22:00 04/04/18 21:46 Lidoderm Patch Removal MC 1 each DAILY@2200 [facility] Administration Nicotine 7 mg 03/27/18 15:30 04/05/18 10:01 Nicoderm Patch - TD 7 mg DAILY [facility] Administration Pantoprazole Sodium 40 mg 04/06/18 10:00 Protonix - PO DAILY [facility] Polyethylene Glycol 17 gm 03/28/18 10:00 04/05/18 09:56 Miralax (For Daily Use) - PO 17 gm DAILY [facility] Administration Prednisone 60 mg 04/06/18 10:00 Deltasone - PO DAILY [facility] Spironolactone 25 mg 04/03/18 10:00 04/05/18 09:56 Aldactone - PO 25 mg DAILY [facility] Administration Tiotropium [place] 2 puff 03/28/18 10:15 04/05/18 10:00 Spiriva Respimat IH 2 puff DAILY [facility] Administration Impression 1. hyponatremia 2. ARLINE 3. depression 4. htn 5. tobacco use 6. anxiety 7. pleural effusions on ct scan Plan - monitor lytes on aldactone - sodium stable - pt refused stress test today - monitor eos - steroids with tape as tolerated Dr Guardado
--- NOTE | 2018-04-05 21:23 | PN ---
GI Progress Note Subjective: GI Note: LFTs continue to improve albeit on steroids. No abdominal complaints. - Objective Vital Signs: Vital Signs Temperature 98.2 F 04/05/18 17:05 Pulse Rate 76 04/05/18 17:05 Respiratory Rate 18 04/05/18 17:05 Blood Pressure 138/62 04/05/18 17:05 O2 Sat by Pulse Oximetry (%) 98 04/05/18 10:00 Laboratory Tests 03/31/18 03/31/18 04/04/18 06:30 06:30 06:30 Iron Saturation 32 Ferritin 279.4 AST 15 ALT 52 Alkaline Phosphatase 464 H CASTRO Screen Negative Smooth Musc &[employer] Intrp 5 Tiss Transglutamin IgG < 2 Tiss Transglutamin IgA < 2 Hep A IgM Ab Confirm Negative Hepatitis A Ab Total Positive H Hep Bs Antigen Negative Hep Bs Antibody Non reactive Hep B Core Total Ab Negative Hep C Ab Diagnostic 0.1 04/05/18 06:45 Iron Saturation Ferritin AST 10 L ALT 42 Alkaline Phosphatase 370 H CASTRO Screen Smooth Musc &[employer]NAGER Intrp Tiss Transglutamin IgG Tiss Transglutamin IgA Hep A IgM Ab Confirm Hepatitis A Ab Total Hep Bs Antigen Hep Bs Antibody Hep B Core Total Ab Hep C Ab Diagnostic Constitutional: Calm ...Auscultate: Yes: Normoactive Bowel Sounds ...Palpate: Yes: Soft, Other (nontender) Labs: CBC, BMP 04/05/18 06:45 04/05/18 06:45 INR, PTT INR 1.28 (0.83-1.09) H 04/01/18 06:20 Problem List - Problems (1) Abnormal liver function test Assessment/Plan: LFTs improving on steroids. Negative evaluation for chronic liver diseases so far. 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 The underlying etiology remains to be determined Code(s): R94.5 - ABNORMAL RESULTS OF LIVER FUNCTION STUDIES (2) Occult blood positive stool Code(s): R19.5 - OTHER FECAL ABNORMALITIES (3) Constipation Code(s): K59.00 - CONSTIPATION, UNSPECIFIED (4) Family history of colon cancer in mother Code(s): Z80.0 - FAMILY HISTORY OF MALIGNANT NEOPLASM OF DIGESTIVE ORGANS (5) Family history of pancreatic cancer Code(s): Z80.0 - FAMILY HISTORY OF MALIGNANT NEOPLASM OF DIGESTIVE ORGANS (6) Altered mental status, unspecified Code(s): R41.82 - ALTERED MENTAL STATUS, UNSPECIFIED Qualifiers: Altered mental status type: delirium Qualified Code(s): R41.0 - Disorientation, unspecified (7) Elevated alkaline phosphatase level Code(s): R74.8 - ABNORMAL LEVELS OF OTHER SERUM ENZYMES (8) Sepsis Code(s): A41.9 - SEPSIS, UNSPECIFIED ORGANISM (9) UTI (urinary tract infection) Code(s): N39.0 - URINARY TRACT INFECTION, SITE NOT SPECIFIED Qualifiers: Urinary tract infection type: acute cystitis Hematuria presence: with hematuria Qualified Code(s): N30.01 - Acute cystitis with hematuria
[2018-04-05] MEDS: MIRTAZAPINE 15 MG TABLET (FP) PO SCH (21:39)
[2018-04-05] MEDS: DOCUSATE SODIUM 100 MG CAPSULE (FP) PO SCH (21:39)
[2018-04-05] MEDS: LIDOCAINE PATCH REMOVAL MC SCH (21:40)
[2018-04-06] MEDS ORDERED: PT OWN MED DRAWER 7, Y5N ONE (00:13)
[2018-04-06] MEDS: diphenhydrAMINE HCL 12.5 MG/5 ML UNIT-DOSE CUPS PO PRN (02:52)
[2018-04-06 06:11] LABS: BASO % 0.4 % (0-2.0); EOS % 9.7 % (0-4.5); HEMATOCRIT 29.3 % (32.4-45.2); HEMOGLOBIN 10.1 GM/dL (10.7-15.3); MCH 30.9 pg (25.7-33.7); MCHC 34.6 g/dl (32.0-36.0); MEAN CELL VOLUME 89.4 fl (80-96); MEAN PLT VOLUME 7.6 fl (7.5-11.1); MONO % 8.4 % (3.8-10.2); NEUT % 58.5 % (42.8-82.8); PLATELET COUNT 258 K/MM3 (134-434); RBC 3.28 M/mm3 (3.60-5.2); RDW 14.3 % (11.6-15.6); WHITE BLOOD COUNT 6.7 K/mm3 (4.0-10.0)
[2018-04-06 06:28] LABS: ALBUMIN 2.7 g/dl (3.4-5.0); ALK PHOS 342 U/L (45-117); ANION GAP 7 MMOL/L (8-16); BILIRUBIN,TOTAL 0.7 mg/dL (0.2-1); BLOOD UREA NITROGEN 40 mg/dL (7-18); CALCIUM 8.2 mg/dL (8.5-10.1); CHLORIDE 102 mmol/L (98-107); CO2 27 mmol/L (21-32); CREATININE 0.9 mg/dL (0.55-1.3); GLUCOSE,RANDOM 99 mg/dL (74-106); POTASSIUM 4.7 mmol/L (3.5-5.1); SGOT/AST 13 U/L (15-37); SGPT/ALT 35 U/L (13-61); SODIUM 136 mmol/L (136-145); TOT PROT 5.8 g/dl (6.4-8.2)
[2018-04-06] MEDS: ALPRAZolam 0.25 MG TABLET PO PRN ×2 (07:29→17:49)
[2018-04-06 09:45] LABS: ACANTHOCYTES 0; ANISOCYTOSIS 0; HELMET CELLS 0; HOWELL-JOLLY BODIES 0; MACROCYTOSIS 0; OVALOCYTE 0; PLATELET ESTIMATE NORMAL; ROULEAU 0; SICKELED CELLS 0; TARGET CELLS 0; TEAR DROP CELLS 0; TOXIC GRANULATION 0
[2018-04-06] MEDS ORDERED: predniSONE 20 MG TABLET (UD) PO SCH (10:00)
[2018-04-06] MEDS ORDERED: PANTOPRAZOLE 40 MG TABLET (FP) PO SCH (10:00)
--- NOTE | 2018-04-06 10:03 | PN ---
Progress Note (short form) - Note Progress Note: alert NAD Vital Signs Period Temp Pulse Resp BP Sys/[place] Pulse Ox Last 24 Hr 98.1 F-98.3 F 64-76 16-18 124-158/62-83 98-98 cor-rrr lungs decreased bs at bses abd soft,nt ext no edema CBC, BMP 04/06/18 05:58 04/06/18 05:58 Microbiology 04/04/18 13:35 Stool Cryptosporidium Antigen - Final 04/04/18 13:35 Stool Giardia Antigen (PONCHO) - Final 03/27/18 12:30 Blood - Peripheral Venous Blood Culture - Final NO GROWTH AFTER 5 DAYS INCUBATION 03/27/18 12:15 Blood - Peripheral Venous Blood Culture - Final NO GROWTH AFTER 5 DAYS INCUBATION 03/31/18 06:00 Urine For Antigen Detection Legionella Antigen - Final 03/31/18 06:00 Urine For Antigen Detection Streptococcus pneumoniae Antigen (M - Final 03/29/18 20:15 Urine For Antigen Detection Legionella Antigen - Final 03/29/18 20:15 Urine For Antigen Detection Streptococcus pneumoniae Antigen (M - Final 03/29/18 00:01 Urine - Urine - Catheterized Urine Culture - Final NO GROWTH OBTAINED 03/27/18 12:15 Urine - Urine Clean Catch Urine Culture - Final Contaminated: Please Repeat strongyloides antibody negative a/p clinicallly improved on steroids off antiibotics etiology of eosinophilia still not clear cxray with persistent interstitial markings- not present at admission will d/w pulmonary flow still pending she is reluctant for BM d/w hospitalist Problem List - Problems (1) Leukocytosis Code(s): D72.829 - ELEVATED WHITE BLOOD CELL COUNT, UNSPECIFIED (2) Eosinophilia Code(s): D72.1 - EOSINOPHILIA (3) Elevated alkaline phosphatase level Code(s): R74.8 - ABNORMAL LEVELS OF OTHER SERUM ENZYMES (4) Pneumonia Code(s): J18.9 - PNEUMONIA, UNSPECIFIED ORGANISM Qualifiers: Pneumonia type: due to unspecified organism Laterality: left Lung location: upper lobe of lung Qualified Code(s): J18.1 - Lobar pneumonia, unspecified organism
[2018-04-06] MEDS: LIDOCAINE 5% TOPICAL PATCH TP SCH (11:04)
[2018-04-06] MEDS: NICOTINE 7 MG/24 HOURS TOPICAL PATCH TD SCH (11:06)
[2018-04-06] MEDS: ESCITALOPRAM OXALATE 20 MG TABLET (FP) PO SCH (11:06)
[2018-04-06] MEDS: HEPARIN NA (PORCINE) 5,000 UNITS/ML 1ML VIAL SQ SCH (11:06)
[2018-04-06] MEDS: SPIRONOLACTONE 25 MG TABLET (FP) PO SCH (11:07)
[2018-04-06] MEDS: ASPIRIN COATED 81 MG TABLET.EC PO SCH (11:07)
[2018-04-06] MEDS: TIOTROPIUM BROMIDE 2.5 MCG (SPIRIVA) RESPIMAT INHALER IH SCH (11:08)
[2018-04-06] MEDS: metoPROLOL SUCCINATE 25 MG TAB.SR.24H (FP) PO SCH (11:08)
[2018-04-06] MEDS: POLYETHYLENE GLYCOL 3350 119 GM BTL PO SCH (11:08)
--- NOTE | 2018-04-06 11:20 | PN ---
Progress Note (short form) - Note Progress Note: s: no chest pain, dyspnea, palps, dizziness Current Medications Generic Name Dose Route Start Last Admin Trade Name Freq PRN Reason Stop Dose Admin Albuterol Sulfate 1 amp 03/28/18 10:42 04/05/18 11:31 Ventolin 0.083% Nebulizer Soln - NEB 1 amp Q6H PRN Administration SHORTNESS OF BREATH Alprazolam 0.5 mg 04/02/18 09:42 04/06/18 07:29 Xanax - PO 0.5 mg Q8H PRN Administration ANXIETY Aspirin 81 mg 04/02/18 10:00 04/06/18 11:07 Ecotrin - PO 81 mg DAILY [facility] Administration Calamine 1 applic 04/03/18 11:01 04/05/18 00:08 Calamine 8% Topical Lotion - TP 1 applic TID PRN Administration FOR ITCHING Diltiazem HCl 120 mg 04/04/18 22:00 04/05/18 21:39 Cardizem Cd - PO 120 mg HS [facility] Administration Diphenhydramine HCl 12.5 mg 04/01/18 17:37 04/06/18 02:52 Benadryl Oral Solution - PO 12.5 mg Q12H PRN Administration FOR ITCHING Docusate Sodium 300 mg 03/28/18 22:00 04/05/18 21:39 Colace - PO 300 mg HS [facility] Administration Escitalopram Oxalate 20 mg 03/28/18 10:00 04/06/18 11:06 Lexapro - PO 20 mg DAILY [facility] Administration Heparin Sodium (Porcine) 5,000 unit 03/27/18 22:00 04/06/18 11:06 Heparin - SQ 5,000 unit BID [facility] Administration Lidocaine 1 patch 03/29/18 18:30 04/06/18 11:04 Lidoderm Patch - TP 1 patch DAILY [facility] Administration Metoprolol Succinate 25 mg 04/02/18 10:00 04/06/18 11:08 Toprol Xl - PO 25 mg DAILY [facility] Administration Mirtazapine 15 mg 03/27/18 22:00 04/05/18 21:39 Remeron - PO 15 mg HS [facility] Administration Miscellaneous 1 each 03/29/18 22:00 04/05/18 21:40 Lidoderm Patch Removal MC Not Given DAILY@2200 [facility] Nicotine 7 mg 03/27/18 15:30 04/06/18 11:06 Nicoderm Patch - TD 7 mg DAILY [facility] Administration Pantoprazole Sodium 40 mg 04/06/18 10:00 04/06/18 11:06 Protonix - PO 40 mg DAILY [facility] Administration Polyethylene Glycol 17 gm 03/28/18 10:00 04/06/18 11:08 Miralax (For Daily Use) - PO 17 gm DAILY [facility] Administration Prednisone 60 mg 04/06/18 10:00 04/06/18 11:06 Deltasone - PO 60 mg DAILY [facility] Administration Spironolactone 25 mg 04/03/18 10:00 04/06/18 11:07 Aldactone - PO 25 mg DAILY [facility] Administration Tiotropium [place] 2 puff 03/28/18 10:15 04/06/18 11:08 Spiriva Respimat IH 2 puff DAILY [facility] Administration Vital Signs Period Temp Pulse Resp BP Sys/[place] Pulse Ox Last 24 Hr 98.1 F-98.2 F 64-76 16-18 124-158/62-83 98 Constitutional: Yes: Well Nourished, No Distress, Calm Cardiovascular: Yes: Regular Rate and Rhythm, S1, S2. No: Gallop, Murmur Respiratory: Yes: Regular No: Accessory Muscle Use, rales Extremities: No: Cold Edema: No Neurological: Yes: Alert. No: Seizure Psychiatric: No: Agitated no jaundice diaphoresis CBC, BMP 04/06/18 05:58 04/06/18 05:58 Assessment/Plan MIBI 2010: no STs; mild AW ischemia; nl EF Echo 2014: nl LV/EF; nl RV; nl valves Echo 02/2018: low nl lvef, apical hk, nl rv, no sig valve path, small-mod peric eff echo 03/2018 regional wma, grade II diastolic dysfunction, nl RV, mildly reduced LV function, mild MR, mod TR, small pericardial effusion, no tamponade Carotids 2015: 50-69% plq bilaterally (PSV 145 R, 162 L), no sig change vs prior ECG #1: NSR. 0.5mm ST elevation V4-V6, I/avL with TWIs. no reciprocal ST depressions. new vs 12/14 office ecg #2 (approx 4pm): no change in ST-T abnormalities (<0.5mm ALEX now), prolonged QT CXR: ? atx or infiltrate L base CT head: no acute pathology altered MS: -sec to infection and/or hyponatremia most likely -improved -manage per primary hypereosinophilia syndrome: -etiol unclear -no active infection noted by ID. jean-baptiste following -on steroids NSTEMI, Chronic ischemic heart disease -stress test 2010 with mild anterior wall ischemia. medically managed, never had angina sx's, declined repeat stress testing or cath repeatedly. -here with metabolic derangements and altered MS, incidental troponin 1.0, downtrending -no ischemia sx's. ECG with non-diagnostic changes of 0.5mm ST elevations in anterolateral territory and nonspecific TWIs = new. repeat with similar findings , prolonged QT. no reciprocal depressions--hence ECG not diagnostic for STEMI and pt without sx's of acute ischemia. -? true ACS triggered by acute infection (i.e. 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 Rec'd outpt f/u. HTN - continue diltiazem, metoprolol, spironolactone hyponatremia/fawad: -resolved elevated alk phos: -trending down -per hospitalist pericardial effusion: -small-mod size eff seen on echo, no signs tamponade. -repeat echo showed small effusion <1 cm, no tamponade cardiac will stable for dc
--- NOTE | 2018-04-06 11:52 | PN ---
Progress Note, Physician History of Present Illness: PULMONARY ALERT,C/O NOT FEELING WELL,-RESP DISTRESS - Current Medication List Current Medications: Active Medications Albuterol Sulfate (Ventolin 0.083% Nebulizer Soln -) 1 amp NEB Q6H PRN PRN Reason: SHORTNESS OF BREATH Last Admin: 04/05/18 11:31 Dose: 1 amp Alprazolam (Xanax -) 0.5 mg PO Q8H PRN PRN Reason: ANXIETY Last Admin: 04/06/18 07:29 Dose: 0.5 mg Aspirin (Ecotrin -) 81 mg PO DAILY [facility] Last Admin: 04/06/18 11:07 Dose: 81 mg Calamine (Calamine 8% Topical Lotion -) 1 applic TP TID PRN PRN Reason: FOR ITCHING Last Admin: 04/05/18 00:08 Dose: 1 applic Diltiazem HCl (Cardizem Cd -) 120 mg PO HS [facility] Last Admin: 04/05/18 21:39 Dose: 120 mg Diphenhydramine HCl (Benadryl Oral Solution -) 12.5 mg PO Q12H PRN PRN Reason: FOR ITCHING Last Admin: 04/06/18 02:52 Dose: 12.5 mg Docusate Sodium (Colace -) 300 mg PO HS [facility] Last Admin: 04/05/18 21:39 Dose: 300 mg Escitalopram Oxalate (Lexapro -) 20 mg PO DAILY [facility] Last Admin: 04/06/18 11:06 Dose: 20 mg Heparin Sodium (Porcine) (Heparin -) 5,000 unit SQ BID [facility] Last Admin: 04/06/18 11:06 Dose: 5,000 unit Lidocaine (Lidoderm Patch -) 1 patch TP DAILY [facility] Last Admin: 04/06/18 11:04 Dose: 1 patch Metoprolol Succinate (Toprol Xl -) 25 mg PO DAILY [facility] Last Admin: 04/06/18 11:08 Dose: 25 mg Mirtazapine (Remeron -) 15 mg PO HS [facility] Last Admin: 04/05/18 21:39 Dose: 15 mg Miscellaneous (Lidoderm Patch Removal) 1 each MC DAILY@2200 [facility] Last Admin: 04/05/18 21:40 Dose: Not Given Nicotine (Nicoderm Patch -) 7 mg TD DAILY [facility] Last Admin: 02/08/19 11:06 Dose: 7 mg Pantoprazole Sodium (Protonix -) 40 mg PO DAILY [facility] Last Admin: 04/06/18 11:06 Dose: 40 mg Polyethylene Glycol (Miralax (For Daily Use) -) 17 gm PO DAILY [facility] Last Admin: 04/06/18 11:08 Dose: 17 gm Prednisone (Deltasone -) 60 mg PO DAILY [facility] Last Admin: 04/06/18 11:06 Dose: 60 mg Spironolactone (Aldactone -) 25 mg PO DAILY [facility] Last Admin: 04/06/18 11:07 Dose: 25 mg Tiotropium [place] (Spiriva Respimat) 2 puff IH DAILY [facility] Last Admin: 04/06/18 11:08 Dose: 2 puff - Objective Vital Signs: Vital Signs Temperature 98.2 F 04/06/18 06:54 Pulse Rate 69 04/06/18 06:54 Respiratory Rate 16 04/06/18 06:54 Blood Pressure 158/83 04/06/18 06:54 O2 Sat by Pulse Oximetry (%) 98 04/05/18 21:00 Constitutional: Yes: Well Nourished, Calm Eyes: Yes: WNL HENT: Yes: WNL Neck: Yes: WNL Cardiovascular: Yes: Regular Rate and Rhythm, S1, S2 Respiratory: Yes: Rhonchi (SCATTERED LEX RHONCHI) Gastrointestinal: Yes: Normal Bowel Sounds, Soft Extremities: Yes: WNL Edema: Yes Labs: CBC, BMP 04/06/18 05:58 04/06/18 05:58 INR, PTT INR 1.28 (0.83-1.09) H 04/01/18 06:20 - ....Imaging Chest X-ray: Report Reviewed, Image Reviewed Problem List - Problems (1) ARLINE (acute kidney injury) Code(s): N17.9 - ACUTE KIDNEY FAILURE, UNSPECIFIED (2) Altered mental status, unspecified Code(s): R41.82 - ALTERED MENTAL STATUS, UNSPECIFIED Qualifiers: Altered mental status type: delirium Qualified Code(s): R41.0 - Disorientation, unspecified (3) CAD (coronary artery disease) Code(s): I25.10 - ATHSCL HEART DISEASE OF [place] CORONARY ARTERY W/O ANG PCTRS Qualifiers: Coronary Disease-Associated Artery/Lesion type: [place] artery [place] vs. transplanted heart: [place] heart Associated angina: without angina Qualified Code(s): I25.10 - Atherosclerotic heart disease of [place] coronary artery without angina pectoris (4) Elevated alkaline phosphatase level Code(s): R74.8 - ABNORMAL LEVELS OF OTHER SERUM ENZYMES (5) Eosinophilia Code(s): D72.1 - EOSINOPHILIA (6) HTN (hypertension) Code(s): I10 - ESSENTIAL (PRIMARY) HYPERTENSION Qualifiers: Hypertension type: essential hypertension Qualified Code(s): I10 - Essential (primary) hypertension (7) Hyponatremia Code(s): E87.1 - HYPO-OSMOLALITY AND HYPONATREMIA (8) Leukocytosis Code(s): D72.829 - ELEVATED WHITE BLOOD CELL COUNT, UNSPECIFIED (9) Metabolic encephalopathy Code(s): G93.41 - METABOLIC ENCEPHALOPATHY (10) Pneumonia Code(s): J18.9 - PNEUMONIA, UNSPECIFIED ORGANISM Qualifiers: Pneumonia type: due to unspecified organism Laterality: left Lung location: upper lobe of lung Qualified Code(s): J18.1 - Lobar pneumonia, unspecified organism (11) Tobacco dependence Code(s): F17.200 - NICOTINE DEPENDENCE, UNSPECIFIED, UNCOMPLICATED (12) Transaminitis Code(s): R74.0 - NONSPEC ELEV OF LEVELS OF TRANSAMNS & LACTIC ACID DEHYDRGNSE (13) UTI (urinary tract infection) Code(s): N39.0 - URINARY TRACT INFECTION, SITE NOT SPECIFIED Qualifiers: Urinary tract infection type: acute cystitis Hematuria presence: with hematuria Qualified Code(s): N30.01 - Acute cystitis with hematuria Assessment/Plan IMP ALTERED MENTAL STATUS IMPROVING HYPONATREMIA CORRECTED ODALIS INFILTRATE ? INFECTIOUS,? INFLAMMATORY,?CHF CHF DYSPNEA PERICARDIAL EFFUSION EOSINOPHILIA IMPROVING ELEVATED ALK PHOS LIKELY COPD SMOKER PLAN LASIX NEEDED O2 INHALED BRONCHODILATORS MONITOR LYTES,NA TREND EOSINOPHIL CT CHEST CT STEROIDS DR LOPEZ Problem List - Problems (1) ARLINE (acute kidney injury) Code(s): N17.9 - ACUTE KIDNEY FAILURE, UNSPECIFIED (2) Altered mental status, unspecified Code(s): R41.82 - ALTERED MENTAL STATUS, UNSPECIFIED Qualifiers: Altered mental status type: delirium Qualified Code(s): R41.0 - Disorientation, unspecified (3) CAD (coronary artery disease) Code(s): I25.10 - ATHSCL HEART DISEASE OF [place] CORONARY ARTERY W/O ANG PCTRS Qualifiers: Coronary Disease-Associated Artery/Lesion type: [place] artery [place] vs. transplanted heart: [place] heart Associated angina: without angina Qualified Code(s): I25.10 - Atherosclerotic heart disease of [place] coronary artery without angina pectoris (4) Elevated alkaline phosphatase level Code(s): R74.8 - ABNORMAL LEVELS OF OTHER SERUM ENZYMES (5) Eosinophilia Code(s): D72.1 - EOSINOPHILIA (6) HTN (hypertension) Code(s): I10 - ESSENTIAL (PRIMARY) HYPERTENSION Qualifiers: Hypertension type: essential hypertension Qualified Code(s): I10 - Essential (primary) hypertension (7) Hyponatremia Code(s): E87.1 - HYPO-OSMOLALITY AND HYPONATREMIA (8) Leukocytosis Code(s): D72.829 - ELEVATED WHITE BLOOD CELL COUNT, UNSPECIFIED (9) Metabolic encephalopathy Code(s): G93.41 - METABOLIC ENCEPHALOPATHY (10) Pneumonia Code(s): J18.9 - PNEUMONIA, UNSPECIFIED ORGANISM (11) Tobacco dependence Code(s): F17.200 - NICOTINE DEPENDENCE, UNSPECIFIED, UNCOMPLICATED (12) Transaminitis Code(s): R74.0 - NONSPEC ELEV OF LEVELS OF TRANSAMNS & LACTIC ACID DEHYDRGNSE (13) UTI (urinary tract infection) Code(s): N39.0 - URINARY TRACT INFECTION, SITE NOT SPECIFIED Qualifiers: Urinary tract infection type: acute cystitis Hematuria presence: with hematuria Qualified Code(s): N30.01 - Acute cystitis with hematuria
--- NOTE | 2018-04-06 14:35 | PN ---
Progress Note, Physician Chief Complaint: Pt sitting in bed in no acute distress. reports feeling well. feeling tired and wants to sleep. does not want the bone marrow biopsy. Denies any chest pain, sob, n/v/d - Current Medication List Current Medications: Active Medications Albuterol Sulfate (Ventolin 0.083% Nebulizer Soln -) 1 amp NEB Q6H PRN PRN Reason: SHORTNESS OF BREATH Last Admin: 04/05/18 11:31 Dose: 1 amp Alprazolam (Xanax -) 0.5 mg PO Q8H PRN PRN Reason: ANXIETY Last Admin: 04/06/18 07:29 Dose: 0.5 mg Aspirin (Ecotrin -) 81 mg PO DAILY [facility] Last Admin: 04/06/18 11:07 Dose: 81 mg Calamine (Calamine 8% Topical Lotion -) 1 applic TP TID PRN PRN Reason: FOR ITCHING Last Admin: 04/05/18 00:08 Dose: 1 applic Diltiazem HCl (Cardizem Cd -) 120 mg PO [facility] Last Admin: 04/05/18 21:39 Dose: 120 mg Diphenhydramine HCl (Benadryl Oral Solution -) 12.5 mg PO Q12H PRN PRN Reason: FOR ITCHING Last Admin: 04/06/18 02:52 Dose: 12.5 mg Docusate Sodium (Colace -) 300 mg PO HS [facility] Last Admin: 04/05/18 21:39 Dose: 300 mg Escitalopram Oxalate (Lexapro -) 20 mg PO DAILY [facility] Last Admin: 04/06/18 11:06 Dose: 20 mg Heparin Sodium (Porcine) (Heparin -) 5,000 unit SQ BID [facility] Last Admin: 04/06/18 11:06 Dose: 5,000 unit Lidocaine (Lidoderm Patch -) 1 patch TP DAILY [facility] Last Admin: 04/06/18 11:04 Dose: 1 patch Metoprolol Succinate (Toprol Xl -) 25 mg PO DAILY [facility] Last Admin: 04/06/18 11:08 Dose: 25 mg Mirtazapine (Remeron -) 15 mg PO HS [facility] Last Admin: 04/05/18 21:39 Dose: 15 mg Miscellaneous (Lidoderm Patch Removal) 1 each MC DAILY@2200 [facility] Last Admin: 02/07/19 21:40 Dose: Not Given Nicotine (Nicoderm Patch -) 7 mg TD DAILY [facility] Last Admin: 04/06/18 11:06 Dose: 7 mg Pantoprazole Sodium (Protonix -) 40 mg PO DAILY [facility] Last Admin: 04/06/18 11:06 Dose: 40 mg Polyethylene Glycol (Miralax (For Daily Use) -) 17 gm PO DAILY [facility] Last Admin: 04/06/18 11:08 Dose: 17 gm Prednisone (Deltasone -) 60 mg PO DAILY [facility] Last Admin: 04/06/18 11:06 Dose: 60 mg Spironolactone (Aldactone -) 25 mg PO DAILY [facility] Last Admin: 04/06/18 11:07 Dose: 25 mg Tiotropium [place] (Spiriva Respimat) 2 puff IH DAILY [facility] Last Admin: 04/06/18 11:08 Dose: 2 puff - Objective Vital Signs: Vital Signs Temperature 98.5 F 04/06/18 10:00 Pulse Rate 88 04/06/18 11:55 Respiratory Rate 16 04/06/18 10:00 Blood Pressure 136/68 04/06/18 10:00 O2 Sat by Pulse Oximetry (%) 94 L 04/06/18 11:55 Constitutional: Yes: No Distress, Calm Cardiovascular: Yes: Regular Rate and Rhythm Respiratory: Yes: WNL, Regular, CTA Bilaterally. No: Accessory Muscle Use, SOB , Tachypnea, Wheezes Gastrointestinal: Yes: WNL, Normal Bowel Sounds, Soft. No: Distention, Tenderness Genitourinary: Yes: WNL Extremities: Yes: WNL Edema: No Neurological: Yes: WNL, Alert, Oriented Psychiatric: Yes: WNL, Alert, Oriented Labs: CBC, BMP 04/06/18 05:58 04/06/18 05:58 INR, PTT INR 1.28 (0.83-1.09) H 04/01/18 06:20 Assessment/Plan (1) Sepsis Assessment/Plan: resolved Code(s): A41.9 - SEPSIS, UNSPECIFIED ORGANISM (2) UTI (urinary tract infection) Assessment/Plan: ruled out Code(s): N39.0 - URINARY TRACT INFECTION, SITE NOT SPECIFIED Qualifiers: Urinary tract infection type: acute cystitis Hematuria presence: with hematuria Qualified Code(s): N30.01 - Acute cystitis with hematuria (3) Pneumonia Assessment/Plan: completed doxycycline 7 day course Code(s): J18.9 - PNEUMONIA, UNSPECIFIED ORGANISM Qualifiers: Pneumonia type: due to unspecified organism Laterality: left Lung location: upper lobe of lung Qualified Code(s): J18.1 - Lobar pneumonia, unspecified organism (4) Metabolic encephalopathy Assessment/Plan: resolved Code(s): G93.41 - METABOLIC ENCEPHALOPATHY (5) Hyponatremia Assessment/Plan: resolved Code(s): E87.1 - HYPO-OSMOLALITY AND HYPONATREMIA (6) ARLINE (acute kidney injury) Assessment/Plan: improved Code(s): N17.9 - ACUTE KIDNEY FAILURE, UNSPECIFIED (7) Transaminitis Assessment/Plan: improved Code(s): R74.0 - NONSPEC ELEV OF LEVELS OF TRANSAMNS & LACTIC ACID DEHYDRGNSE (8) Abnormal liver function test Assessment/Plan: alk phos improving Code(s): R94.5 - ABNORMAL RESULTS OF LIVER FUNCTION STUDIES (9) Pleural effusion Assessment/Plan: pulm following chest CT ordered Code(s): J90 - PLEURAL EFFUSION, NOT ELSEWHERE CLASSIFIED (10) Pericardial effusion Assessment/Plan: repeat echo improved Code(s): I31.3 - PERICARDIAL EFFUSION (NONINFLAMMATORY) (11) Elevated troponin Assessment/Plan: peaked echo shows preserved lvef, apical hypokinesis pt refused stress test this am Code(s): R74.8 - ABNORMAL LEVELS OF OTHER SERUM ENZYMES (12) CAD (coronary artery disease) Assessment/Plan: continue asa/bb Code(s): I25.10 - ATHSCL HEART DISEASE OF [place] CORONARY ARTERY W/O ANG PCTRS Qualifiers: Coronary Disease-Associated Artery/Lesion type: [place] artery [place] vs. transplanted heart: [place] heart Associated angina: without angina Qualified Code(s): I25.10 - Atherosclerotic heart disease of [place] coronary artery without angina pectoris (13) HTN (hypertension) Assessment/Plan: continue bb, aldactone cartia hs monitor Code(s): I10 - ESSENTIAL (PRIMARY) HYPERTENSION Qualifiers: Hypertension type: essential hypertension Qualified Code(s): I10 - Essential (primary) hypertension (14) HLD (hyperlipidemia) Assessment/Plan: chronic holding statin Code(s): E78.5 - HYPERLIPIDEMIA, UNSPECIFIED (15) Tobacco dependence Assessment/Plan: advise smoking cessation nicotine patch Code(s): F17.200 - NICOTINE DEPENDENCE, UNSPECIFIED, UNCOMPLICATED (16) Anxiety Assessment/Plan: controlled continue lexapro/mirtazapine xanax prn Code(s): F41.9 - ANXIETY DISORDER, UNSPECIFIED (17) Leukocytosis Assessment/Plan: resolved bone marrow biopsy outpt ID/hematology following Code(s): D72.829 - ELEVATED WHITE BLOOD CELL COUNT, UNSPECIFIED (18) Eosinophilia Assessment/Plan: improved unclear etiology IgE/IgM elevated po prednisone strongyloides/anca/flow neg Code(s): D72.1 - EOSINOPHILIA (19) Pruritus Assessment/Plan: improving calamine lotion/benadryl prn outpt automobile service station manager referral Code(s): L29.9 - PRURITUS, UNSPECIFIED Dispo: HOME w/ vns, pending chest CT
--- NOTE | 2018-04-06 15:25 | DS ---
Physical Examination Vital Signs: Vital Signs Temperature 98.5 F 04/06/18 10:00 Pulse Rate 88 04/06/18 11:55 Respiratory Rate 16 04/06/18 10:00 Blood Pressure 136/68 04/06/18 10:00 O2 Sat by Pulse Oximetry (%) 94 L 04/06/18 11:55 Labs: CBC, BMP 04/06/18 05:58 04/06/18 05:58 Discharge Summary Reason For Visit: UTI,LEUKOCYTOSIS,AMS Current Active Problems ARLINE (acute kidney injury) (Acute) Abnormal liver function test (Acute) Acute renal insufficiency (Acute) Altered mental status, unspecified (Acute) Anxiety (Acute) CAD (coronary artery disease) (Acute) CHF (congestive heart failure) (Acute) Constipation (Acute) Elevated alkaline phosphatase level (Acute) Elevated troponin (Acute) Eosinophilia (Acute) Eosinophilia (Acute) Family history of colon cancer in mother (Acute) Family history of pancreatic cancer (Acute) HLD (hyperlipidemia) (Acute) HTN (hypertension) (Acute) Hyponatremia (Acute) Leukocytosis (Acute) Metabolic encephalopathy (Acute) Occult blood positive stool (Acute) Pericardial effusion (Acute) Pleural effusion (Acute) Pneumonia (Acute) Pruritus (Acute) Sepsis (Acute) Tobacco dependence (Acute) Transaminitis (Acute) UTI (urinary tract infection) (Acute) Hospital Course: 82 year old female admitted for evaluation of AMS. Initially pt appeared septic and was thought this to be 2/2 uti, however repeat ua neg, uc neg, and pt did not improve w/ ceftriaxone. Wbc count persisted. Chest CT revealed ODALIS consolidation, pt completed doxy 7 day course by ID. Pt found to have moderate hyponatremia, eosinophilia, elevated alk phos. Hyponatremia 2/2 volume depletion improved s/p ivf and po intake. Mental status improved and at baseline. Pt evaluated by neuro, MRI brain neg, no need for LP as meningitis less likely. LFTs improved on steroids. Negative evaluation for chronic liver diseases so far. 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 GI consult appreciated. Elevated troponin, evaluated by cardiology, recommends nuclear stress test but pt has refused. Pt found to have b/l pleural effusion/pericardial effusion, repeat echo shows improvement of pericardial effusion however repeat CT w/ congestive changes, discussed w/ pulm and cardiology, pt started on lasix 20mg. Recommend repeat blood work in 1 week and outpt f/u. Persistent leukocytosis/eosinophilia noted, unclear etiology, did not suspect infectious etiology as wbc count did not improve w/ antibx. all rheum/ hematology work up negative. ANCA/Strongyloides/flow cytometry negative. Elevated Ige/IgM noted. Possibly delayed allergic reaction. wbc count/ eosinophils trended down w/ steroids, transitioned to po prednisone. Bone marrow biopsy was recommended by hematology, and pt has refused this at the moment, advise outpt follow up w/ hematology and income tax administrator. Pt noted to have poor diet intake throughout the days here, discussed smoking cessation and improved nutrition at home with pt and family. Pt was seen by a platform software engineer here. Pt and family report understanding. Pt is medically stable for discharge home w/ VNS. Discussed with pt's son Maksim regarding discharge plan and he states understanding. PCP informed. 40 minutes spent in discharge planning Condition: Improved - Instructions Diet, Activity, Other Instructions: Medications as directed prednisone taper as directed- TAKE WITH FOOD diet as advised by platform software engineer follow up as directed repeat chest CT 6-8 weeks repeat CMP blood work in 1 week Referrals: Jameson Solorio MD [Staff Physician] - Dora Reaves MD [Staff Physician] - 1 Week Rasheed Leigh MD [Non Staff, Medical] - 1 Week (DATA MODELER ) Alfonso Castro MD [Staff Physician] - Disposition: VNS/HOME HEALTH CARE - Home Medications Comprehensive Discharge Medication List: Ambulatory Orders Aspirin 81 mg PO DAILY 11/17/14 Diltiazem HCl [Cartia Xt] 120 mg PO DAILY 11/17/14 Escitalopram Oxalate [Lexapro 5mg/5mL Oral Solution -] 20 mg PO DAILY #600 ml Rosuvastatin Calcium [Crestor] 10 mg PO HS tablet 11/17/14 Mirtazapine 15 mg PO DAILY 03/27/18 Albuterol 0.083% Nebulizer [place] [Ventolin 0.083% Nebulizer Soln -] 1 amp NEB Q6H PRN #1 amp 04/06/18 Calamine 8% Topical Lotion - 1 applic TP TID PRN #1 bottle 04/06/18 Metoprolol Succinate [Toprol XL -] 25 mg PO DAILY #30 tab.sr.24h 04/06/18 Pantoprazole Sodium [Protonix -] 40 mg PO DAILY #30 tablet.ec 04/06/18 Spironolactone [Aldactone -] 25 mg PO DAILY #30 tablet 04/06/18 Tiotropium [place] [Spiriva Respimat] 2 puff IH DAILY #1 inhaler 04/06/18 predniSONE [Deltasone -] See Taper PO DAILY #20 tablet 04/06/18
[2018-04-06 15:51] VITALS: BP 181/97; PULSE 73; TEMP 97.8
--- NOTE | 2018-04-06 16:21 | PN ---
Progress Note, Physician History of Present Illness: Pt seen and examined at bedside. She is awake and alert. She feels that her breathing is improved. - Current Medication List Current Medications: Active Medications Albuterol Sulfate (Ventolin 0.083% Nebulizer Soln -) 1 amp NEB Q6H PRN PRN Reason: SHORTNESS OF BREATH Last Admin: 04/05/18 11:31 Dose: 1 amp Alprazolam (Xanax -) 0.5 mg PO Q8H PRN PRN Reason: ANXIETY Last Admin: 04/06/18 07:29 Dose: 0.5 mg Aspirin (Ecotrin -) 81 mg PO DAILY [facility] Last Admin: 04/06/18 11:07 Dose: 81 mg Calamine (Calamine 8% Topical Lotion -) 1 applic TP TID PRN PRN Reason: FOR ITCHING Last Admin: 04/05/18 00:08 Dose: 1 applic Diltiazem HCl (Cardizem Cd -) 120 mg PO HS [facility] Last Admin: 04/05/18 21:39 Dose: 120 mg Diphenhydramine HCl (Benadryl Oral Solution -) 12.5 mg PO Q12H PRN PRN Reason: FOR ITCHING Last Admin: 04/06/18 02:52 Dose: 12.5 mg Docusate Sodium (Colace -) 300 mg PO HS [facility] Last Admin: 04/05/18 21:39 Dose: 300 mg Escitalopram Oxalate (Lexapro -) 20 mg PO DAILY [facility] Last Admin: 04/06/18 11:06 Dose: 20 mg Heparin Sodium (Porcine) (Heparin -) 5,000 unit SQ BID [facility] Last Admin: 04/06/18 11:06 Dose: 5,000 unit Lidocaine (Lidoderm Patch -) 1 patch TP DAILY [facility] Last Admin: 04/06/18 11:04 Dose: 1 patch Metoprolol Succinate (Toprol Xl -) 25 mg PO DAILY [facility] Last Admin: 04/06/18 11:08 Dose: 25 mg Mirtazapine (Remeron -) 15 mg PO HS [facility] Last Admin: 04/05/18 21:39 Dose: 15 mg Miscellaneous (Lidoderm Patch Removal) 1 each MC DAILY@2200 [facility] Last Admin: 04/05/18 21:40 Dose: Not Given Nicotine (Nicoderm Patch -) 7 mg TD DAILY [facility] Last Admin: 04/06/18 11:06 Dose: 7 mg Pantoprazole Sodium (Protonix -) 40 mg PO DAILY [facility] Last Admin: 04/06/18 11:06 Dose: 40 mg Polyethylene Glycol (Miralax (For Daily Use) -) 17 gm PO DAILY [facility] Last Admin: 04/06/18 11:08 Dose: 17 gm Prednisone (Deltasone -) 60 mg PO DAILY [facility] Last Admin: 04/06/18 11:06 Dose: 60 mg Spironolactone (Aldactone -) 25 mg PO DAILY [facility] Last Admin: 04/06/18 11:07 Dose: 25 mg Tiotropium [place] (Spiriva Respimat) 2 puff IH DAILY [facility] Last Admin: 04/06/18 11:08 Dose: 2 puff - Objective Vital Signs: Vital Signs Temperature 97.8 F 04/06/18 13:49 Pulse Rate 73 04/06/18 13:49 Respiratory Rate 18 04/06/18 13:49 Blood Pressure 181/97 H 04/06/18 13:49 O2 Sat by Pulse Oximetry (%) 94 L 04/06/18 11:55 Constitutional: Yes: Calm Eyes: Yes: Conjunctiva Clear HENT: Yes: Atraumatic Cardiovascular: Yes: S1, S2 Respiratory: Yes: On Nasal O2, Wheezes Gastrointestinal: Yes: Soft Genitourinary: Yes: WNL Musculoskeletal: Yes: WNL Edema: No Neurological: Yes: Oriented Psychiatric: Yes: Oriented Labs: CBC, BMP 04/06/18 05:58 04/06/18 05:58 INR, PTT INR 1.28 (0.83-1.09) H 04/01/18 06:20 Problem List - Problems (1) ARLINE (acute kidney injury) Code(s): N17.9 - ACUTE KIDNEY FAILURE, UNSPECIFIED (2) HTN (hypertension) Code(s): I10 - ESSENTIAL (PRIMARY) HYPERTENSION Qualifiers: Hypertension type: essential hypertension Qualified Code(s): I10 - Essential (primary) hypertension (3) Hyponatremia Code(s): E87.1 - HYPO-OSMOLALITY AND HYPONATREMIA (4) Tobacco dependence Code(s): F17.200 - NICOTINE DEPENDENCE, UNSPECIFIED, UNCOMPLICATED Assessment/Plan Current Medications Generic Name Dose Route Start Last Admin Trade Name Freq PRN Reason Stop Dose Admin Albuterol Sulfate 1 amp 03/28/18 10:42 04/05/18 11:31 Ventolin 0.083% Nebulizer Soln - NEB 1 amp Q6H PRN Administration SHORTNESS OF BREATH Alprazolam 0.5 mg 04/02/18 09:42 04/06/18 07:29 Xanax - PO 0.5 mg Q8H PRN Administration ANXIETY Aspirin 81 mg 04/02/18 10:00 04/06/18 11:07 Ecotrin - PO 81 mg DAILY [facility] Administration Calamine 1 applic 04/03/18 11:01 04/05/18 00:08 Calamine 8% Topical Lotion - TP 1 applic TID PRN Administration FOR ITCHING Diltiazem HCl 120 mg 04/04/18 22:00 04/05/18 21:39 Cardizem Cd - PO 120 mg HS [facility] Administration Diphenhydramine HCl 12.5 mg 04/01/18 17:37 04/06/18 02:52 Benadryl Oral Solution - PO 12.5 mg Q12H PRN Administration FOR ITCHING Docusate Sodium 300 mg 03/28/18 22:00 04/05/18 21:39 Colace - PO 300 mg HS [facility] Administration Escitalopram Oxalate 20 mg 03/28/18 10:00 04/06/18 11:06 Lexapro - PO 20 mg DAILY [facility] Administration Heparin Sodium (Porcine) 5,000 unit 03/27/18 22:00 04/06/18 11:06 Heparin - SQ 5,000 unit BID [facility] Administration Lidocaine 1 patch 03/29/18 18:30 04/06/18 11:04 Lidoderm Patch - TP 1 patch DAILY [facility] Administration Metoprolol Succinate 25 mg 04/02/18 10:00 04/06/18 11:08 Toprol Xl - PO 25 mg DAILY [facility] Administration Mirtazapine 15 mg 03/27/18 22:00 04/05/18 21:39 Remeron - PO 15 mg HS [facility] Administration Miscellaneous 1 each 03/29/18 22:00 04/05/18 21:40 Lidoderm Patch Removal MC Not Given DAILY@2200 [facility] Nicotine 7 mg 03/27/18 15:30 04/06/18 11:06 Nicoderm Patch - TD 7 mg DAILY [facility] Administration Pantoprazole Sodium 40 mg 04/06/18 10:00 04/06/18 11:06 Protonix - PO 40 mg DAILY [facility] Administration Polyethylene Glycol 17 gm 03/28/18 10:00 04/06/18 11:08 Miralax (For Daily Use) - PO 17 gm DAILY [facility] Administration Prednisone 60 mg 04/06/18 10:00 04/06/18 11:06 Deltasone - PO 60 mg DAILY [facility] Administration Spironolactone 25 mg 04/03/18 10:00 04/06/18 11:07 Aldactone - PO 25 mg DAILY [facility] Administration Tiotropium [place] 2 puff 03/28/18 10:15 04/06/18 11:08 Spiriva Respimat IH 2 puff DAILY [facility] Administration Impression 1. hyponatremia 2. ARLINE 3. depression 4. htn 5. tobacco use 6. anxiety 7. pleural effusions on ct scan Plan - renal function stable - steroids can contribute to elevated bun - will need to monitor lytes on diuretics - eos are improving - steroids with tape as tolerated Dr Guardado
== END 2018-04-06 06:00 | disposition home health service (06) | DRG 871 ==
LOC: JER 11:26 → JERBED 12:15 → J4W 21:45 → J4S 03-29 13:18
PROVIDERS: ADMIT Internal Medicine; ATTEND Nurse Practitioner Family
DX: A41.9 Sepsis, unspecified organism (principal); G93.41 Metabolic encephalopathy; I50.21 Acute systolic (congestive) heart failure; J18.9 Pneumonia, unspecified organism; E87.1 Hypo-osmolality and hyponatremia; J98.11 Atelectasis; N17.9 Acute kidney failure, unspecified; I11.0 Hypertensive heart disease with heart failure; I25.9 Chronic ischemic heart disease, unspecified; I45.81 Long QT syndrome; D72.1 Eosinophilia; E86.1 Hypovolemia; I25.10 Atherosclerotic heart disease of native coronary artery without angina pectoris; E78.5 Hyperlipidemia, unspecified; F41.9 Anxiety disorder, unspecified; R74.0 Nonspecific elevation of levels of transaminase and lactic acid dehydrogenase [LDH]; F17.210 Nicotine dependence, cigarettes, uncomplicated; F32.9 Major depressive disorder, single episode, unspecified; Z85.038 Personal history of other malignant neoplasm of large intestine; R21 Rash and other nonspecific skin eruption; K59.00 Constipation, unspecified; R94.5 Abnormal results of liver function studies
CPT/HCPCS: 36415; 70450-TC; 70551-TC; 71045-TC-FY; 71046-TC-FY; 71250-TC; 73030-TC-RT-FY; 73523-TC-FY; 74176-TC; 76705-TC; 80048; 80053; 80076; 81003; 81015; 82140; 82533; 82550; 82553; 82607; 82728; 82746; 82784; 82785; 82977; 83516; 83520; 83540; 83550; 83605; 83615; 83625; 83735; 83880; 83930; 83935; 84080; 84100; 84155; 84165; 84300; 84439; 84443; 84481; 84484; 85025; 85044; 85610; 85651; 85730; 86038; 86140; 86256; 86682; 86704; 86706; 86708; 86803; 87040; 87086; 87177; 87209; 87328; 87329; 87340; 87529; 87899; 88300-TC; 93005; 93010; 93306-TC; 94640; 94761; 97116-GP; 97162-GP; 99285-25; J1644; J7030; Q9967

== ENCOUNTER 2018-08-27 17:11 | Inpatient (IN) | payer OTHER, BC ==
--- NOTE | 2018-08-27 18:24 | PDOC ---
History of Present Illness - General Chief Complaint: Weakness Stated Complaint: DIZZINESS Time Seen by Provider: 08/27/18 18:23 - History of Present Illness Initial Comments: 08/27/18 18:55 HPI: 83 y/o F hx anxiety disorder and HTN presenting with 3 days of generalized weakness, fatigue, and "tiredness." Daughter at bedside states that her mother stays at home all day, does not eat, does not drink water, and does not get out of bed; she only smokes and drinks coffee. Patient reports decreased appetite and she is not happy, and keeps repeating "im 83, its normal." She denies any pain and has no complaints. Patient denies JIANG, vision change, palpitations, cough, wheezing, orthopena, PND, leg swelling/pain, N/V, F,C, CP, SOB, urinary complaints, hematuria, BPR, abdominal pain, diarrhea, constipation, lightheadedness, weakness, sensory changes. Of note, patient admitted with similar story few months ago and found to have lung consolidation, ARLINE, and hyponatremia to 124 PMHx: as noted above ROS: as noted SHx: Heavy tobacco use of 1-1.5 ppd x70 years Allergies: NKDA 08/27/18 19:06 Past History - Past Medical History Allergies/Adverse Reactions: Allergies Allergy/AdvReac Type Severity Reaction Status Date / Time No Known Allergies Allergy Verified 08/27/18 17:23 Home Medications: Ambulatory Orders Aspirin 81 mg PO DAILY 11/17/14 Diltiazem HCl [Cartia Xt] 120 mg PO DAILY 11/17/14 Escitalopram Oxalate [Lexapro 5mg/5mL Oral Solution -] 20 mg PO DAILY #600 ml Rosuvastatin Calcium [Crestor] 10 mg PO HS tablet 11/17/14 Mirtazapine 15 mg PO DAILY 03/27/18 Albuterol 0.083% Nebulizer [place] [Ventolin 0.083% Nebulizer Soln -] 1 amp NEB Q6H PRN #1 amp 04/06/18 Calamine 8% Topical Lotion - 1 applic TP TID PRN #1 bottle 04/06/18 Furosemide [Lasix -] 20 mg PO DAILY #30 tablet 04/06/18 Metoprolol Succinate [Toprol XL -] 25 mg PO DAILY #30 tab.sr.24h 04/06/18 Pantoprazole Sodium [Protonix -] 40 mg PO DAILY #30 tablet.ec 04/06/18 Spironolactone [Aldactone -] 25 mg PO DAILY #30 tablet 04/06/18 Tiotropium [place] [Spiriva Respimat] 2 puff IH DAILY #1 inhaler 04/06/18 predniSONE [Deltasone -] See Taper PO DAILY #20 tablet 04/06/18 Cardiac Disorders: Yes (CAD) COPD: No HTN: Yes Hypercholesterolemia: Yes - Suicide/Smoking/Psychosocial Hx Smoking History: Current every day smoker Have you smoked in the past 12 months: Yes Number of Cigarettes Smoked Daily: 30 Information on smoking cessation initiated: No 'Breaking Loose' booklet given: 03/28/18 Hx Alcohol Use: No Drug/Substance Use Hx: No Substance Use Type: None Review of Systems - Review of Systems Comments:: 08/27/18 19:02 GENERAL/CONSTITUTIONAL: generalized weakness HEAD, EYES, EARS, NOSE AND THROAT: No change in vision. No ear pain or discharge. No sore throat. CARDIOVASCULAR: No chest pain or shortness of breath RESPIRATORY: No cough, wheezing, or hemoptysis. GASTROINTESTINAL: No nausea, vomiting, diarrhea or constipation. GENITOURINARY: No dysuria, frequency, or change in urination. MUSCULOSKELETAL: No joint or muscle swelling or pain. No neck or back pain. SKIN: No rash NEUROLOGIC: No headache, vertigo, loss of consciousness, or change in strength/ sensation. ENDOCRINE: No increased thirst. No abnormal weight change HEMATOLOGIC/LYMPHATIC: No anemia, easy bleeding, or history of blood clots. ALLERGIC/IMMUNOLOGIC: No hives or skin allergy. *Physical Exam - Vital Signs Last Vital Signs Temp Pulse Resp BP Pulse Ox 97.8 F 57 L 18 162/77 98 08/27/18 17:31 08/27/18 17:31 08/27/18 17:31 08/27/18 17:31 08/27/18 17:31 - Physical Exam Comments: 08/27/18 19:03 PE: GENERAL: Awake, alert, and fully oriented, in no acute distress HEAD: No signs of trauma, normocephalic, atraumatic EYES: PERRLA, EOMI, sclera anicteric, conjunctival pallor ENT: Auricles normal inspection, hearing grossly normal, nares patent, oropharynx clear without exudates. Dry mucosa NECK: Normal ROM, supple, no lymphadenopathy, JVD, or masses LUNGS: No distress, speaks full sentences, clear to auscultation bilaterally HEART: Regular rate and rhythm, normal S1 and S2, no murmurs, rubs or gallops, peripheral pulses normal and equal bilaterally. ABDOMEN: Soft, nontender, normoactive bowel sounds. No guarding, no rebound. No masses EXTREMITIES : Normal inspection, Normal range of motion, no edema. No clubbing or cyanosis. NEUROLOGICAL: Cranial nerves II through XII grossly intact. Normal speech, normal gait, no focal sensorimotor deficits SKIN: Warm, Dry, normal turgor, no rashes or lesions noted Medical Decision Making - Medical Decision Making 08/27/18 19:04 83 y/o F hx anxiety disorder and HTN presenting with 3 days of generalized weakness, fatigue, and "tiredness" as well as decreased solid and PO intake. Patient receiving workup to ruleout infection, anemia, electrolyte abnormalities given generalized weakness and poor nutritional status. -CBC, CMP, UA, EKG, cardiac profile -1L NS bolus -dispo pending further workup Patient endorsed to Dr Clayton to followup labs and EKG *DC/Admit/Observation/Transfer Diagnosis at time of Disposition: Dehydration, Weakness - Referrals Referrals: Dora Reaves MD [Primary Care Provider] - - Patient Instructions - Post Discharge Activity
[2018-08-27] MEDS ORDERED: SODIUM CHLORIDE 1,000 ML IV STA (18:53)
--- NOTE | 2018-08-27 19:05 | PDOC ---
Documentation entered by Nikole Liriano SCRIBE, acting as scribe for Georgiana Coleman MD. Georgiana Coleman MD: This documentation has been prepared by the shainaeDeandra Adrianna, SCRIBE, under my direction and personally reviewed by me in its entirety. I confirm that the documentation accurately reflects all work, treatment, procedures, and medical decision making performed by me. Attending Attestation - Resident Resident Name: ChaseTye - ED Attending Attestation I have performed the following: I have examined & evaluated the patient, The case was reviewed & discussed with the resident, I agree w/resident's findings & plan, Exceptions are as noted - HPI HPI: The patient is an 83 year old female (current smoker, 1.5 ppd), with a significant PMH of hypertension, hyperlipidemia, anxiety, and depression who presents to the ED for evaluation of decreased PO intake and generalized weakness. Family at bedside notes the patient has not left her house and does not get out of bed, has not been eating or drinking appropriately, and only wants to drink coffee and smoke. Patient notes she does not eat as much, and is not happy. She denies any complaints of pain. Patients family at bedside notes she was recently discharged for pneumonia admission. Allergies: NKA Social history: Current smoker (1.5 ppd) Surgical history: [facility] PCP: Dr. Phoenix 08/27/18 19:06 - Physicial Exam PE: GENERAL: Awake, alert, and fully oriented, in no acute distress. Appears thin, poorly nourished HEAD: No signs of trauma EYES: PERRLA, EOMI, sclera anicteric, conjunctiva clear ENT: Auricles normal inspection, hearing grossly normal, nares patent, oropharynx clear without exudates. Dry mucosa NECK: Normal ROM, supple, no lymphadenopathy, JVD, or masses LUNGS: Breath sounds equal, clear to auscultation bilaterally. No wheezes, and no crackles HEART: Regular rate and rhythm, normal S1 and S2, no murmurs, rubs or gallops ABDOMEN: Soft, nontender, normoactive bowel sounds. No guarding, no rebound. No masses EXTREMITIES: Normal range of motion, no edema. No clubbing or cyanosis. No cords, erythema, or tenderness NEUROLOGICAL: Cranial nerves II through XII grossly intact. Normal speech. Motor and sensation intact SKIN: Warm, dry, normal turgor, no rashes or lesions noted. - Medical Decision Making Pt appears poorly nourished, dehydrated. She has history of prior ARLINE, UTI, admission. Will obtain UA, basic labs, and will give IV hydration while awaiting results.
[2018-08-27 19:24] LABS: BASO % 0.1 % (0-2.0); EOS % 0.3 % (0-4.5); HEMATOCRIT 38.3 % (32.4-45.2); HEMOGLOBIN 13.4 GM/dL (10.7-15.3); LYMPH % 8.3 % (8-40); MCH 29.9 pg (25.7-33.7); MEAN CELL VOLUME 85.5 fl (80-96); MEAN PLT VOLUME 7.7 fl (7.5-11.1); MONO % 3.6 % (3.8-10.2); NEUT % 87.7 % (42.8-82.8); PLATELET COUNT 307 K/MM3 (134-434); RBC 4.49 M/mm3 (3.60-5.2); WHITE BLOOD COUNT 10.5 K/mm3 (4.0-10.0)
[2018-08-27 20:24] LABS: ALBUMIN 3.8 g/dl (3.4-5.0); ALK PHOS 95 U/L (45-117); ANION GAP 8 MMOL/L (8-16); BILIRUBIN,TOTAL 0.5 mg/dL (0.2-1); BLOOD UREA NITROGEN 15.5 mg/dL (7-18); CHLORIDE 86 mmol/L (98-107); CO2 26 mmol/L (21-32); CREATININE 0.9 mg/dL (0.55-1.3); GLUCOSE,RANDOM 113 mg/dL (74-106); POTASSIUM 4.5 mmol/L (3.5-5.1); SGOT/AST 13 U/L (15-37); SGPT/ALT 20 U/L (13-61); SODIUM 120 mmol/L (136-145); TOT PROT 6.6 g/dl (6.4-8.2)
--- NOTE | 2018-08-27 21:13 | PDOC ---
*Physical Exam - Vital Signs Last Vital Signs Temp Pulse Resp BP Pulse Ox 97.8 F 57 L 18 162/77 98 08/27/18 17:31 08/27/18 17:31 08/27/18 17:31 08/27/18 17:31 08/27/18 17:31 - Physical Exam General Appearance: Yes: Appropriately Dressed, Cachetic. No: Apparent Distress HEENT: positive: Normal Voice, Symmetrical. negative: Scleral Icterus (R), Scleral Icterus (L), Rhinorrhea Neck: positive: Supple. negative: Tender Respiratory/Chest: positive: Lungs Clear, Normal Breath Sounds. negative: Chest Tender, Respiratory Distress, Crackles, Rales, Rhonchi Cardiovascular: positive: Regular Rhythm, Regular Rate. negative: Murmur, Diastolic Murmur, Systolic Murmur Gastrointestinal/Abdominal: positive: Normal Bowel Sounds, Soft. negative: Distended, Hernia, Mass Musculoskeletal: positive: Normal Inspection Extremity: positive: Normal Inspection, Normal Range of Motion (observed walking with assistance) Integumentary: positive: Normal Color, Dry, Warm. negative: Rash, Swelling Neurologic: positive: Fully Oriented, Alert, Normal Mood/Affect, Normal Response ED Treatment Course - LABORATORY CBC & Chemistry Diagram: 08/27/18 18:10 08/27/18 23:20 - ADDITIONAL ORDERS Additional order review: Laboratory Results 08/27/18 18:10 Sodium 120 L Potassium 4.5 Chloride 86 L Carbon Dioxide 26 Anion Gap 8 BUN 15.5 Creatinine 0.9 Est GFR (CKD-EPI)AfAm 67.57 Est GFR (CKD-EPI)NonAf 58.30 Random Glucose 113 H Calcium 9.0 Total Bilirubin 0.5 AST 13 L ALT 20 Alkaline Phosphatase 95 Creatine Kinase 120 Troponin I < 0.02 Total Protein 6.6 Albumin 3.8 08/27/18 18:10 RBC 4.49 MCV 85.5 MCHC 35.0 RDW 14.0 MPV 7.7 Neutrophils % 87.7 H Lymphocytes % 8.3 D Monocytes % 3.6 L Eosinophils % 0.3 Basophils % 0.1 - Medications Given in the ED: ED Medications Discontinued Medications Generic Name Dose Route Start Last Admin Trade Name Freq PRN Reason Stop Dose Admin Sodium Chloride 1,000 mls @ 1,000 mls/hr 08/27/18 18:53 08/27/18 18:56 Normal Saline - IV 08/27/18 19:52 1,000 mls/hr ASDIR STA Administration Medical Decision Making - Medical Decision Making 08/27/18 21:07 Pt signed out to me by Dr. Stone. Adriana Mendez is an 83F with PMH HTN, HLD, depression, anxiety presenting with fatigue and generalized weakness 2/2 poor PO intake. CMP reveals Na 120 after 1L NS Consult with Dr. Guardado with nephro, recommends free water restriction and additional labs which will be added Pt complains of dizziness walking to bathroom likely 2/2 hyponatremia Paging for admission 08/27/18 23:26 Patient endorsed to hospitalist resident Dr. Conway Repeat Na 120, discussed with Dr. Guardado, recommends NS 100mL/hr, repeat BMP q4hr *DC/Admit/Observation/Transfer Diagnosis at time of Disposition: Dehydration, Weakness - Referrals - Patient Instructions - Post Discharge Activity
[2018-08-27 21:29] LABS: EPI CELLS 0.5 /HPF (0-5/HPF); HYALINE CASTS 0 /lpf (0-8); PH,URINE 6.5 (5.0-8.0); URINE APPEARANCE CLEAR; URINE BACTERIA 9.3 /hpf (NEGATIVE); URINE BILIRUBIN NEGATIVE (NEGATIVE); URINE COLOR YELLOW; URINE GLUCOSE (UA) NEGATIVE (NEGATIVE); URINE KETONE NEGATIVE (NEGATIVE); URINE LEUK ESTERASE TRACE (NEGATIVE); URINE NITRITE NEGATIVE (NEGATIVE); URINE PROTEIN TRACE (NEGATIVE); URINE RBC 17 /hpf (0-4); URINE UROBILINOGEN 0.2 mg/dL (0.2-1.0); URINE WBC 1 /hpf (0-5)
[2018-08-27 22:48] LABS: BLOOD UREA NITROGEN 14.5 mg/dL (7-18); CALCIUM 9.1 mg/dL (8.5-10.1); CREATININE 0.8 mg/dL (0.55-1.3); POTASSIUM 4.3 mmol/L (3.5-5.1)
[2018-08-27] MEDS ORDERED: SODIUM CHLORIDE 1,000 ML IV SCH (23:30)
[2018-08-27 23:46] LABS: BLOOD UREA NITROGEN 15.4 mg/dL (7-18); CALCIUM 8.8 mg/dL (8.5-10.1); CREATININE 0.9 mg/dL (0.55-1.3); POTASSIUM 4.1 mmol/L (3.5-5.1)
--- NOTE | 2018-08-28 00:50 | PN ---
Teaching Attending Note ATTENDING PHYSICIAN STATEMENT I saw and evaluated the patient. I reviewed the resident's note and discussed the case with the resident. I agree with the resident's findings and plan as documented. SUBJECTIVE: Seen and examined; please see resident note for further historical information. Briefly, this is a 83 y/o female presenting to the ER with several days of weakness; she has poor solute intake at home and smokes 1.5 PPD. She admits to weakness but no focal neuro complaints. She has no SOB, CP, seizure activity, confusion, etc. She has no history of renal issues. 120 Na on admission with low osm and euvolemia to hypovolemia in a frail elderly woman; urine Na 50- range with urine osms >100; this endorses SIADH, hypothyroisism, AI, stress, or drug use. Profound smoking history noted, but no other indication of possible paraneoplastic syndrome. No medication changes. ER called nephro who recommended fluid restriction; predictably IVF did not correct s/p 2L. She will be placed on medicine service with nephrology consultation. During her last visit she had persistent leukocytosis/eosinophilia noted of unclear etiology with ANCA/Strongyloides/flow cytometry negative. Elevated Ige/IgM noted and was postulated to be 2/2 allergy; trended down w/ steroids. Due to the aforementioned at that time heme rec'd BMB but was refused. Unclear on her outpatient cancer screening. Had a CT of her chest (04/06/18) at that time which showed moderate periccardial effusion; echo reviewed from 03/2018 showing small effusion with no tamponade and mild LVEF reduction and GII-DD. 10 sys ROS done and negative aside from HPI PMH, PSH, FH, SH reviewed Home Medications Medication Instructions Recorded Aspirin 81 mg PO DAILY 11/17/14 Diltiazem HCl [Cartia Xt] 120 mg PO DAILY 11/17/14 Escitalopram Oxalate [Lexapro 20 mg PO DAILY #600 ml 11/17/14 5mg/5mL Oral Solution -] Rosuvastatin Calcium [Crestor] 10 mg PO HS tablet 11/17/14 Mirtazapine 15 mg PO DAILY 03/27/18 Albuterol 0.083% Nebulizer Kalani 1 amp NEB Q6H PRN #1 amp 04/06/18 [Ventolin 0.083% Nebulizer Soln -] Calamine 8% Topical Lotion - 1 applic TP TID PRN #1 bottle 04/06/18 Furosemide [Lasix -] 20 mg PO DAILY #30 tablet 04/06/18 Metoprolol Succinate [Toprol XL -] 25 mg PO DAILY #30 tab.sr.24h 04/06/18 Pantoprazole Sodium [Protonix -] 40 mg PO DAILY #30 tablet.ec 04/06/18 Spironolactone [Aldactone -] 25 mg PO DAILY #30 tablet 04/06/18 Tiotropium [place] [Spiriva 2 puff IH DAILY #1 inhaler 04/06/18 Respimat] predniSONE [Deltasone -] See Taper PO DAILY #20 tablet 04/06/18 *Updating med list-this is not accurate. OBJECTIVE: VS, labs, imaging reviewed NAD, AAO, resting comfortably in bed. Frail NC AT EOMI PERRLA Tobacco stains; prolonged E:I, w/ sym exp RRR s1/2 no mgr NT ND +BS CN2-12 wnl, no fnd Normal mood, flat affect EKG reviewed CXR pending Echo 02/2018: low nl lvef, apical hk, nl rv, no sig valve path, small-mod peric eff echo 03/2018 regional wma, grade II diastolic dysfunction, nl RV, mildly reduced LV function, mild MR, mod TR, small pericardial effusion, no tamponade Carotids 2014: 50-69% plq bilaterally (PSV 145 R, 162 L), no sig change vs prior ASSESSMENT AND PLAN: Patient presents with weakness found to have severe hyponatremia 1) Severe Hypotonic Hyponatremia -Euvolemic with possible low solute intake. Low serum osm and urine Na with level of urine osm would indicate possible SIADH/AI/hypothyroidism, etc. Checking TSH, AM cortisol. ER discussed with nephro who recommended Na restriction. 1.8L/daily ordered for restriction and will followup q4h BMP and take care not to overcorrect. If not correcting fast enough/worsening consider salt tabs, DDAVP analogues. No new neuro sx (feels weak only at this point). Will do q4h neuro checks; if she develops sx call nephro and consider 3%. -Consider etiology; on SSRI, smoker at risk for lung malinancies (CXR pending, prior CT reviewed). Can consider tumor markers once we followup imaging. 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 -QD weights, monitor Is and Os. On fluid restriction to 1.8L; will continue home spironolactone. Monitor lytes. Echo noted. On GDMT with BB, LVEF not <40 % so don't need ARNULFO. 3) CAD -Known CAD with MIBI 2010 + (ant wall isch) that was medically managed 2/2 refusing repeat stress/cath. She had a type II NSTEMI her last visit that she was seen by Dr. Solorio for. Echo at that time shows normal LVEF with apical hypokinesis. She again refused stress testing at last visit. No need for ischemic workup at this juncture; recommend close followup with CV. 4) Hx HTN -Verify and continue home medications 5) Tobacco Abuse -Offer NRT; world travel counselor prior to DC. Needs repeat PFTs and followup with pulmonary. Can offer incentive spirometry here. 6) Depression -Verify home medications; SSRIs can be implicated for #1 so holding lexapro for now.
[2018-08-28] MEDS ORDERED: BUDESONIDE/FORMETEROL FUMARATE 80/4.5 mcg INHALER IH ONE (02:07)
[2018-08-28] MEDS ORDERED: ALBUTEROL SO4 0.083% IH SOL 2.5 MG/3 ML VIAL.NEB. NEB PRN (02:07)
--- NOTE | 2018-08-28 02:51 | HP ---
CHIEF COMPLAINT: fatigue, poor intake, hyponatremia PCP: HISTORY OF PRESENT ILLNESS: 83F with pmh of HTN, HLD, chronic depression, chronic anxiety, chronic daily tobacco usage(1.5ppd x 70ys), HFpEF(NYHA Class I with apical wall hypokinesis, PASP>29mmHg; Mar 2018 echo), h/o of CAD, h/o of hospitalization in Mar 2018 for AMS and hyponatremia that resolved with fluid restriction; presents to [facility]ED for complaint of altered gait, poor PO intake, and fatigue x3days. Patient's son (Maksim) brought pt into ED due to aforementioned concerns. Patient denies associated f/c, dizziness, JIANG, fall, LOC, NVD, CP, palpitations, SOB, abd pain, hematuria, edema. Never had a colonoscopy. ER course was notable for: (1) NS 1L x2 (2) Nephro consultation: recommended free water restriction Recent Travel: none PAST MEDICAL HISTORY: HTN, HLD, chronic depression, chronic anxiety, chronic daily tobacco usage( 1.5ppd x 70ys), HFpEF(NYHA Class I with apical wall hypokinesis, PASP>29mmHg; Mar 2018 echo), h/o of CAD, h/o of hospitalization in Mar 2018 for AMS and hyponatremia PAST SURGICAL HISTORY: TARA Social History: Smoking: ~1.5ppd x70ys Alcohol: social Drugs: denies Family History: Brother of colon CA(~60y/o) Allergies: NKDA No Known Allergies Allergy (Verified 08/27/18 17:23) HOME MEDICATIONS: Home Medications Medication Instructions Recorded Aspirin 81 mg PO DAILY 11/17/14 Diltiazem HCl [Cartia Xt] 120 mg PO DAILY 11/17/14 Escitalopram Oxalate [Lexapro 20 mg PO DAILY #600 ml 11/17/14 5mg/5mL Oral Solution -] Rosuvastatin Calcium [Crestor] 10 mg PO HS tablet 11/17/14 Albuterol 0.083% Nebulizer Kalani 1 amp NEB Q6H PRN #1 amp 04/06/18 [Ventolin 0.083% Nebulizer Soln -] Calamine 8% Topical Lotion - 1 applic TP TID PRN #1 bottle 04/06/18 Metoprolol Succinate [Toprol XL -] 25 mg PO DAILY #30 tab.sr.24h 04/06/18 Spironolactone [Aldactone -] 25 mg PO DAILY #30 tablet 04/06/18 Tiotropium [place] [Spiriva 2 puff IH DAILY #1 inhaler 04/06/18 Respimat] predniSONE [Deltasone -] See Taper PO DAILY 08/28/18 REVIEW OF SYSTEMS CONSTITUTIONAL: positive for loss of appetite, malaise, generalized weakness Absent: fever, chills, diaphoresis, weight change HEENT: no scleral icterus Absent: difficulty swallowing, mouth swelling CARDIOVASCULAR: Absent: chest pain, syncope, palpitations, irregular heart rate, lightheadedness , peripheral edema RESPIRATORY: Absent: cough, shortness of breath, dyspnea with exertion, wheezing, stridor GASTROINTESTINAL: Absent: abdominal pain, abdominal distension, nausea, vomiting, diarrhea, constipation, melena, hematochezia GENITOURINARY: urinary frequency Absent: dysuria, urgency, hesitancy, hematuria, flank pain, genital pain MUSCULOSKELETAL: Absent: joint swelling, back pain, neck pain SKIN: Absent: rash, itching, pallor HEMATOLOGIC/IMMUNOLOGIC: Absent: easy bleeding, easy bruising, lymphadenopathy, frequent infections ENDOCRINE: Absent: unexplained weight gain, unexplained weight loss, heat intolerance, cold intolerance NEUROLOGIC: positive for unsteady gait Absent: headache, focal weakness or paresthesias, dizziness, seizure, mental status changes, bladder or bowel incontinence PSYCHIATRIC: Absent: anxiety, depression, suicidal or homicidal ideation, hallucinations. PHYSICAL EXAMINATION Vital Signs - 24 hr 08/27/18 08/28/18 17:31 01:56 Temperature 97.8 F 97.8 F Pulse Rate 57 L Pulse Rate [ 60 Left Radial] Respiratory 18 Rate Blood Pressure 162/77 Blood Pressure 178/81 H [Right Arm] O2 Sat by Pulse 98 99 Oximetry (%) GENERAL: Awake, alert, and fully oriented, in no acute distress. HEAD: Normal with no signs of trauma. No temporal wasting EYES: sclera anicteric, conjunctiva clear. No lid lag. EARS, NOSE, THROAT: Ears normal, nares patent, oropharynx clear without exudates. Moist mucous membranes. NECK: Normal range of motion, supple without lymphadenopathy, JVD, or masses. LUNGS: Breath sounds equal, clear to auscultation bilaterally. No wheezes, and no crackles. No accessory muscle use. HEART: Regular rate and rhythm, normal S1 and S2 without murmur, rub or gallop. ABDOMEN: Soft, nontender, not distended, no guarding, no rebound, no masses. Well-healed lower midline abd incision MUSCULOSKELETAL: Normal range of motion at all joints. No bony deformities or tenderness. No CVA tenderness. UPPER EXTREMITIES: 2+ pulses, warm, well-perfused. No cyanosis. No clubbing. No peripheral edema. LOWER EXTREMITIES: 2+ pulses, warm, well-perfused. No calf tenderness. No peripheral edema. NEUROLOGICAL: Cranial nerves II-XII intact. Normal speech. Normal gait. PSYCHIATRIC: Cooperative. Good eye contact. Appropriate mood and affect. SKIN: Warm, dry, normal turgor, no rashes or lesions noted, normal capillary refill. Laboratory Results - last 24 hr 08/27/18 08/27/18 08/27/18 18:10 18:10 21:10 WBC 10.5 H RBC 4.49 Hgb 13.4 Hct 38.3 MCV 85.5 MCH 29.9 MCHC 35.0 RDW 14.0 Plt Count 307 D MPV 7.7 Absolute Neuts (auto) 9.2 H Neutrophils % 87.7 H Lymphocytes % 8.3 D Monocytes % 3.6 L Eosinophils % 0.3 Basophils % 0.1 Nucleated RBC % 0 Sodium 120 L Potassium 4.5 Chloride 86 L Carbon Dioxide 26 Anion Gap 8 BUN 15.5 Creatinine 0.9 Est GFR (CKD-EPI)AfAm 67.57 Est GFR (CKD-EPI)NonAf 58.30 Random Glucose 113 H Serum Osmolality Calcium 9.0 Total Bilirubin 0.5 AST 13 L ALT 20 Alkaline Phosphatase 95 Creatine Kinase 120 Troponin I < 0.02 Total Protein 6.6 Albumin 3.8 Urine Color Yellow Urine Appearance Clear Urine pH 6.5 D Ur Specific [place] 1.010 Urine Protein Trace Urine Glucose (UA) Negative Urine Ketones Negative Urine Blood 1+ H Urine Nitrite Negative Urine Bilirubin Negative Urine Urobilinogen 0.2 Ur Leukocyte Esterase Trace Urine WBC (Auto) 1 Urine RBC (Auto) 17 Urine Casts (Auto) 0 U Epithel Cells (Auto) 0.5 Urine Bacteria (Auto) 9.3 Urine Osmolality Ur Random Sodium Ur Random Potassium Ur Random Chloride 08/27/18 08/27/18 08/27/18 21:10 22:10 22:10 WBC RBC Hgb Hct MCV MCH MCHC RDW Plt Count MPV Absolute Neuts (auto) Neutrophils % Lymphocytes % Monocytes % Eosinophils % Basophils % Nucleated RBC % Sodium 120 L Potassium 4.3 Chloride 86 L Carbon Dioxide 26 Anion Gap 7 L BUN 14.5 Creatinine 0.8 Est GFR (CKD-EPI)AfAm 77.92 Est GFR (CKD-EPI)NonAf 67.23 Random Glucose 121 H Serum Osmolality 252 L Calcium 9.1 Total Bilirubin AST ALT Alkaline Phosphatase Creatine Kinase Troponin I Total Protein Albumin Urine Color Urine Appearance Urine pH Ur Specific [place] Urine Protein Urine Glucose (UA) Urine Ketones Urine Blood Urine Nitrite Urine Bilirubin Urine Urobilinogen Ur Leukocyte Esterase Urine WBC (Auto) Urine RBC (Auto) Urine Casts (Auto) U Epithel Cells (Auto) Urine Bacteria (Auto) Urine Osmolality 332 Ur Random Sodium 55 Ur Random Potassium 37.0 Ur Random Chloride 69 L 08/27/18 23:20 WBC RBC Hgb Hct MCV MCH MCHC RDW Plt Count MPV Absolute Neuts (auto) Neutrophils % Lymphocytes % Monocytes % Eosinophils % Basophils % Nucleated RBC % Sodium 122 L Potassium 4.1 Chloride 87 L Carbon Dioxide 26 Anion Gap 9 BUN 15.4 Creatinine 0.9 Est GFR (CKD-EPI)AfAm 67.57 Est GFR (CKD-EPI)NonAf 58.30 Random Glucose 116 H Serum Osmolality Calcium 8.8 Total Bilirubin AST ALT Alkaline Phosphatase Creatine Kinase Troponin I Total Protein Albumin Urine Color Urine Appearance Urine pH Ur Specific [place] Urine Protein Urine Glucose (UA) Urine Ketones Urine Blood Urine Nitrite Urine Bilirubin Urine Urobilinogen Ur Leukocyte Esterase Urine WBC (Auto) Urine RBC (Auto) Urine Casts (Auto) U Epithel Cells (Auto) Urine Bacteria (Auto) Urine Osmolality Ur Random Sodium Ur Random Potassium Ur Random Chloride ASSESSMENT/PLAN: 83F with pmh of HTN, HLD, chronic depression, chronic anxiety, chronic daily tobacco usage(1.5ppd x 70ys), HFpEF(NYHA Class I with apical wall hypokinesis, PASP>29mmHg; Mar 2018 echo), h/o of CAD, h/o of hospitalization in Mar 2018 for AMS and hyponatremia that resolved with fluid restriction; presents to [facility]-ED for complaint of altered gait, poor PO intake, and fatigue x3days. Admitted for hyponatremia possibly 2/2 to adrenal insufficiency from past corticosteroid usage, vs SIADH from undx pulmonary malignancy. #hyponatremia - serum Na+ q8h for 24hs then daily - if worsening hyponatremia then consider vaptans then PO salt tabs - 1.8L/day fluid restriction - fu AM cortisol - fu TSH - hold home SSRI #chronic COPD - symbicort BID - albuterol PRN - counseled on tobacco cessation - fu CXR PA/lateral #chronic HFpEF(NYHA Class I/II) - cw home meds: metoprolol(25mg qPM), rouvastatin(10mg qPM), ASA(81mg qPM) - telemetry Neuro: # chronic depression - hold home SSRI to prevent SIAHD # chronic Agitation - will not restart xanax(h/o reported usage) - Neurological checks q4h Pulmonary: # Chronic Tobacco usage # chronic COPD -- no acute exacerbation - counseled on smoking cessation Cardiac: # chronic HLD # Chronic HTN - cw home meds: spironolactone, metoprolol, rouvastatin, ASA, diltiazem - diltiazem -- indication unknown, 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 - Vitals q4h - Telemetry GI: # At risk for malnutrition - encourage PO intake FEN: # Diet - reguar Diet - no IVF - fluid restriction(1.8L) Renal: # At risk for metabolic derangements - Monitor/replete electrolytes - Strict I/Os - no IVF at this time - daily BMP : # No active issues >UA(08/27/18): trace LE, WBC~1 - no abx indicated - monitor intake/output Heme/Onc: # h/o eosinophilia -- currently, CBC diff w/o eosinophilia # At risk for DVT - enoxaparin 40mg QD - daily CBC - SCDs Endocrine: # h/o corticosteroid usage, possible adrenal insufficiency - AM cortisol - AM TSH Musculoskeletal: # At risk for deconditioning - activity as tolerated, w/ assistance - PT when appropriate Infectious Disease: # At risk for infection - Monitor for s/s infection Dispo: - PT recommendations pending - DME recommendations pending Patient seen and evaluated with the senior resident who agrees with the above assessment and plan. Plans are not final until note is signed by the attending. Assessment and plan discussed and formulated with the cosigning attending physician Yurkiw. Fabien Vargas, DO Internal Medicine, PGY-1 Medicine, PM Float [id number] Visit type - Emergency Visit Emergency Visit: Yes ED Registration Date: 08/27/18 Care time: The patient presented to the Emergency Department on the above date and was hospitalized for further evaluation of their emergent condition. - New Patient This patient is new to me today: Yes Date on this admission: 08/28/18 - Critical Care Critical Care patient: No Admission ROS [facility] - HPI Allergies/Adverse Reactions: Allergies Allergy/AdvReac Type Severity Reaction Status Date / Time No Known Allergies Allergy Verified 08/27/18 17:23 Admission Physical Exam [facility] - Vital Signs Vital Signs: Vital Signs - 24 hr 08/27/18 08/28/18 17:31 01:56 Temperature 97.8 F 97.8 F Pulse Rate 57 L Pulse Rate [ 60 Left Radial] Respiratory 18 Rate Blood Pressure 162/77 Blood Pressure 178/81 H [Right Arm] O2 Sat by Pulse 98 99 Oximetry (%)
[2018-08-28 04:02] VITALS: BMI 19.6
[2018-08-28 08:28] LABS: BLOOD UREA NITROGEN 13.1 mg/dL (7-18); CALCIUM 9.4 mg/dL (8.5-10.1); CREATININE 0.8 mg/dL (0.55-1.3); POTASSIUM 3.9 mmol/L (3.5-5.1)
[2018-08-28] MEDS ORDERED: metoPROLOL SUCCINATE 25 MG TAB.SR.24H (FP) PO SCH (10:00)
[2018-08-28] MEDS ORDERED: SPIRONOLACTONE 25 MG TABLET (FP) PO SCH (10:00)
[2018-08-28] MEDS ORDERED: PT OWN MED DRAWER 7, Y5N ONE (10:11)
[2018-08-28] MEDS: SPIRONOLACTONE 25 MG TABLET (FP) PO SCH (10:17)
[2018-08-28] MEDS: ENOXAPARIN NA (PORCINE) 40 MG/0.4 ML DISP.SYRIN SQ SCH (10:17)
[2018-08-28] MEDS: BUDESONIDE/FORMETEROL FUMARATE 80/4.5 mcg INHALER IH SCH ×2 (10:17→22:32)
[2018-08-28] MEDS: ASPIRIN 81 MG CHEWABLE TABLETS PO SCH (10:17)
[2018-08-28] MEDS: metoPROLOL SUCCINATE 25 MG TAB.SR.24H (FP) PO SCH (10:18)
--- NOTE | 2018-08-28 10:47 | PN ---
Physical Exam: SUBJECTIVE: Patient seen and examined. Feels much better this am. Said she was crying yesterday as she did not feel well but is better today. Just came back from CT chest. No headache, SOB, no dizziness, oriented x3. BP by bedside while I was there-135/70 OBJECTIVE: Vital Signs Period Temp Pulse Resp BP Sys/[place] Pulse Ox Last 24 Hr 97.1 F-97.8 F 57-60 18-20 162-178/60-81 98-99 Vital Signs Temperature 97.8 F 08/28/18 01:56 Pulse Rate 60 08/28/18 01:56 Respiratory Rate 20 08/27/18 23:09 Blood Pressure 178/81 H 08/28/18 01:56 O2 Sat by Pulse Oximetry (%) 99 08/28/18 01:56 GENERAL: The patient is awake, alert, and fully oriented, in no acute distress. HEAD: Normal with no signs of trauma. EYES: PERRL, extraocular movements intact, sclera anicteric, conjunctiva clear. ENT: moist mucous membranes. NECK: supple. LUNGS:Few fine crackles lung bases b/l HEART: Regular rate and rhythm, S1, S2 without murmur, rub or gallop. ABDOMEN: Soft, nontender, nondistended, normoactive bowel sounds, no guarding EXTREMITIES: 2+ pulses, warm, well-perfused, no edema. NEUROLOGICAL: AAO x3. Talkative. Cranial nerves II through XII grossly intact. Normal speech, normal tone and reflexes, normal speech, no facial asymmetry. gait not observed. PSYCH: Smiling, no depressed mood SKIN: Warm, dry, normal turgor CBCD WBC 10.5 K/mm3 (4.0-10.0) H 08/27/18 18:10 RBC 4.49 M/mm3 (3.60-5.2) 08/27/18 18:10 Hgb 13.4 GM/dL (10.7-15.3) 08/27/18 18:10 Hct 38.3 % (32.4-45.2) 08/27/18 18:10 MCV 85.5 fl (80-96) 08/27/18 18:10 MCHC 35.0 g/dl (32.0-36.0) 08/27/18 18:10 RDW 14.0 % (11.6-15.6) 08/27/18 18:10 Plt Count 307 K/MM3 (134-434) D 08/27/18 18:10 MPV 7.7 fl (7.5-11.1) 08/27/18 18:10 CMP Sodium 126 mmol/L (136-145) L 08/28/18 06:45 Potassium 3.9 mmol/L (3.5-5.1) 08/28/18 06:45 Chloride 93 mmol/L (98-107) L 08/28/18 06:45 Carbon Dioxide 26 mmol/L (21-32) 08/28/18 06:45 Anion Gap 7 MMOL/L (8-16) L 08/28/18 06:45 BUN 13.1 mg/dL (7-18) 08/28/18 06:45 Creatinine 0.8 mg/dL (0.55-1.3) 08/28/18 06:45 Calcium 9.4 mg/dL (8.5-10.1) 08/28/18 06:45 Total Bilirubin 0.5 mg/dL (0.2-1) 08/27/18 18:10 AST 13 U/L (15-37) L 08/27/18 18:10 ALT 20 U/L (13-61) 08/27/18 18:10 Alkaline Phosphatase 95 U/L (45-117) 08/27/18 18:10 Total Protein 6.6 g/dl (6.4-8.2) 08/27/18 18:10 Albumin 3.8 g/dl (3.4-5.0) 08/27/18 18:10 Laboratory Tests 08/27/18 08/27/18 08/28/18 18:10 22:10 06:45 Sodium 120 L 120 L 126 L Potassium 4.5 4.3 3.9 Chloride 86 L 86 L 93 L Carbon Dioxide 26 26 Anion Gap 8 7 L BUN 15.5 13.1 Creatinine 0.9 0.8 Ambulatory Orders Aspirin 81 mg PO DAILY 11/17/14 Diltiazem HCl [Cartia Xt] 120 mg PO DAILY 11/17/14 Escitalopram Oxalate [Lexapro 5mg/5mL Oral Solution -] 20 mg PO DAILY #600 ml Rosuvastatin Calcium [Crestor] 10 mg PO HS tablet 11/17/14 Albuterol 0.083% Nebulizer Kalani [Ventolin 0.083% Nebulizer Soln -] 1 amp NEB Q6H PRN #1 amp 04/06/18 Calamine 8% Topical Lotion - 1 applic TP TID PRN #1 bottle 04/06/18 Metoprolol Succinate [Toprol XL -] 25 mg PO DAILY #30 tab.sr.24h 04/06/18 Spironolactone [Aldactone -] 25 mg PO DAILY #30 tablet 04/06/18 Tiotropium [place] [Spiriva Respimat] 2 puff IH DAILY #1 inhaler 04/06/18 predniSONE [Deltasone -] See Taper PO DAILY 08/28/18 Current Medications Albuterol Sulfate (Ventolin 0.083% Nebulizer Soln -) 1 amp NEB Q6H PRN PRN Reason: SHORT OF BREATH/WHEEZING Aspirin (Asa -) 81 mg PO DAILY [facility] Last Admin: 08/28/18 10:17 Dose: 81 mg Budesonide/Formoterol Fumarate (Symbicort 80/4.5mcg -) 2 puff IH BID [facility] Last Admin: 08/28/18 10:17 Dose: 2 sheet Diltiazem HCl (Cardizem Cd -) 120 mg PO DAILY [facility] Last Admin: 08/28/18 10:17 Dose: 120 mg Enoxaparin Sodium (Lovenox -) 40 mg SQ DAILY [facility] Last Admin: 08/28/18 10:17 Dose: 40 mg Metoprolol Succinate (Toprol Xl -) 25 mg PO DAILY [facility] Last Admin: 08/28/18 10:18 Dose: 25 mg Rosuvastatin Calcium (Crestor -) 10 mg PO [facility] Spironolactone (Aldactone -) 25 mg PO DAILY [facility] Last Admin: 08/28/18 10:17 Dose: 25 mg ASSESSMENT/PLAN: Pt is an 83F with pmh of HTN, HLD, chronic depression, chronic anxiety, chronic daily tobacco usage(1.5ppd x 70ys), HFpEF(NYHA Class I with apical wall hypokinesis, PASP>29mmHg; Mar 2018 echo), h/o of CAD, h/o of hospitalization in Mar 2018 for AMS and hyponatremia that resolved with fluid restriction; presents [facility] for complaint of altered gait, poor PO intake, and fatigue x3days. Admitted for hyponatremia possibly 2/2 to adrenal insufficiency from past corticosteroid usage, vs SIADH from undx pulmonary malignancy. #hyponatremia -Could be multifactorial -Pt with chronic tobacco use hx and hyponatremia, will R/O SCC, pending CT chest -Pt reports poor intake with recent weight loss, lives alone, BMI 19.6, -Appeared euvolemic in ED, initial serum osmolality low-252, urinary osm-332, Thomas-34, -However unsure of labs in relation to fluid administration - Sodium improved 120>>122>>126 - Pt received IV fluids, will dc - if worsening hyponatremia then consider vaptans then PO salt tabs - 1.8L/day fluid restriction - cortisol -pending - TSH- 2.71 - lexapro on hold #chronic COPD -Pt not in exacerbation - symbicort BID - albuterol PRN - CXR PA/lateral-Increased interstitial lung markings, Increased nodular density near L hilum -CT chest 08/28/18- pending #Lung opacities _CT chest mar 2018- b/l pleural effusions with scattered ground glass opacities -Will R/O Lung pathology probably contributing to hyponatremia #chronic HFpEF(NYHA Class I/II) - Not in exacerbation, hold IVF - Cont metoprolol(25mgdaily) - rouvastatin(10mg HS), - ASA(81mg daily) - telemetry # chronic depression - Lexapro currently on hold in setting of hyponatremia -Will monitor # chronic Agitation - will not restart xanax(h/o reported usage) - Neurological checks q4h # Current smoker -Will discuss nicotine patch # chronic HLD Cont crestor # Chronic HTN - Cont spironolactone, metoprolol, ASA, diltiazem # BMI 19.6 -Pt lives alone , independent ADLS, reports reduced PO intake with recent weight loss - encourage PO intake #Heme/Onc: # h/o eosinophilia -Etiology unknown, for now, CT chest pending Endocrine: # h/o corticosteroid usage, possible adrenal insufficiency - AM cortisol- pending - AM TSH- Normal FEN: # Diet - reguar Diet - no IVF - fluid restriction(1.8L) Visit type - Emergency Visit Emergency Visit: Yes ED Registration Date: 08/27/18 Care time: The patient presented to the Emergency Department on the above date and was hospitalized for further evaluation of their emergent condition. - New Patient This patient is new to me today: Yes Date on this admission: 08/28/18 - Critical Care Critical Care patient: No - Discharge Referral Referred to [facility] No
--- NOTE | 2018-08-28 12:16 | PN ---
Teaching Attending Note Name of Resident: Jelena Encinas ATTENDING PHYSICIAN STATEMENT I saw and evaluated the patient. I reviewed the resident's note and discussed the case with the resident. I agree with the resident's findings and plan as documented with exceptions below. SUBJECTIVE: Patient seen and examined. Feels better, weakness improved. Reports weakness, poor oral intake, unintentional weight loss and poor appetite over a long time. No fevers, chills, cough, dyspnea, abdominal or urinary symptoms. OBJECTIVE: Vital Signs Period Temp Pulse Resp BP Sys/[place] Pulse Ox Last 24 Hr 97.1 F-97.8 F 57-60 18-20 162-178/60-81 98-99 Intake & Output 08/25/18 08/26/18 08/27/18 08/28/18 23:59 23:59 23:59 23:59 Weight 100 lb 8 oz General: lying in bed, flat, no acute distress Neck: soft, supple, no JVD CVS: S1S2 regular Chest; decreased air entry all over, few basilar rales Abdomen:soft, NT, ND, pos bowel sounds Extremities: Home Medications Medication Instructions Recorded Aspirin 81 mg PO DAILY 11/17/14 Diltiazem HCl [Cartia Xt] 120 mg PO DAILY 11/17/14 Escitalopram Oxalate [Lexapro 20 mg PO DAILY #600 ml 11/17/14 5mg/5mL Oral Solution -] Rosuvastatin Calcium [Crestor] 10 mg PO HS tablet 11/17/14 Albuterol 0.083% Nebulizer Kalani 1 amp NEB Q6H PRN #1 amp 04/06/18 [Ventolin 0.083% Nebulizer Soln -] Calamine 8% Topical Lotion - 1 applic TP TID PRN #1 bottle 04/06/18 Metoprolol Succinate [Toprol XL -] 25 mg PO DAILY #30 tab.sr.24h 04/06/18 Spironolactone [Aldactone -] 25 mg PO DAILY #30 tablet 04/06/18 Tiotropium [place] [Spiriva 2 puff IH DAILY #1 inhaler 04/06/18 Respimat] predniSONE [Deltasone -] See Taper PO DAILY 08/28/18 Active Medications Albuterol Sulfate (Ventolin 0.083% Nebulizer Soln -) 1 amp NEB Q6H PRN PRN Reason: SHORT OF BREATH/WHEEZING Aspirin (Asa -) 81 mg PO DAILY [facility] Last Admin: 08/28/18 10:17 Dose: 81 mg Budesonide/Formoterol Fumarate (Symbicort 80/4.5mcg -) 2 puff IH BID [facility] Last Admin: 08/28/18 10:17 Dose: 2 sheet Diltiazem HCl (Cardizem Cd -) 120 mg PO DAILY [facility] Last Admin: 08/28/18 10:17 Dose: 120 mg Enoxaparin Sodium (Lovenox -) 40 mg SQ DAILY [facility] Last Admin: 08/28/18 10:17 Dose: 40 mg Metoprolol Succinate (Toprol Xl -) 25 mg PO DAILY [facility] Last Admin: 08/28/18 10:18 Dose: 25 mg Rosuvastatin Calcium (Crestor -) 10 mg PO [facility] Spironolactone (Aldactone -) 25 mg PO DAILY [facility] Last Admin: 08/28/18 10:17 Dose: 25 mg Laboratory Results - last 24 hr 08/27/18 08/27/18 08/27/18 03:50 18:10 18:10 WBC 10.5 H RBC 4.49 Hgb 13.4 Hct 38.3 MCV 85.5 MCH 29.9 MCHC 35.0 RDW 14.0 Plt Count 307 D MPV 7.7 Absolute Neuts (auto) 9.2 H Neutrophils % 87.7 H Lymphocytes % 8.3 D Monocytes % 3.6 L Eosinophils % 0.3 Basophils % 0.1 Nucleated RBC % 0 Sodium 120 L Potassium 4.5 Chloride 86 L Carbon Dioxide 26 Anion Gap 8 BUN 15.5 Creatinine 0.9 Est GFR (CKD-EPI)AfAm 67.57 Est GFR (CKD-EPI)NonAf 58.30 Random Glucose 113 H Serum Osmolality Calcium 9.0 Total Bilirubin 0.5 AST 13 L ALT 20 Alkaline Phosphatase 95 Creatine Kinase 120 Troponin I < 0.02 Total Protein 6.6 Albumin 3.8 TSH Urine Color Urine Appearance Urine pH Ur Specific Ruby Urine Protein Urine Glucose (UA) Urine Ketones Urine Blood Urine Nitrite Urine Bilirubin Urine Urobilinogen Ur Leukocyte Esterase Urine WBC (Auto) Urine RBC (Auto) Urine Casts (Auto) U Epithel Cells (Auto) Urine Bacteria (Auto) Urine Osmolality 123 L Ur Random Sodium 34 L Ur Random Potassium < 9.0 L Ur Random Chloride 28 L 08/27/18 08/27/18 08/27/18 21:10 21:10 22:10 WBC RBC Hgb Hct MCV MCH MCHC RDW Plt Count MPV Absolute Neuts (auto) Neutrophils % Lymphocytes % Monocytes % Eosinophils % Basophils % Nucleated RBC % Sodium Potassium Chloride Carbon Dioxide Anion Gap BUN Creatinine Est GFR (CKD-EPI)AfAm Est GFR (CKD-EPI)NonAf Random Glucose Serum Osmolality 252 L Calcium Total Bilirubin AST ALT Alkaline Phosphatase Creatine Kinase Troponin I Total Protein Albumin TSH Urine Color Yellow Urine Appearance Clear Urine pH 6.5 D Ur Specific Ruby 1.010 Urine Protein Trace Urine Glucose (UA) Negative Urine Ketones Negative Urine Blood 1+ H Urine Nitrite Negative Urine Bilirubin Negative Urine Urobilinogen 0.2 Ur Leukocyte Esterase Trace Urine WBC (Auto) 1 Urine RBC (Auto) 17 Urine Casts (Auto) 0 U Epithel Cells (Auto) 0.5 Urine Bacteria (Auto) 9.3 Urine Osmolality 332 Ur Random Sodium 55 Ur Random Potassium 37.0 Ur Random Chloride 69 L 08/27/18 08/27/18 08/28/18 22:10 23:20 06:45 WBC RBC Hgb Hct MCV MCH MCHC RDW Plt Count MPV Absolute Neuts (auto) Neutrophils % Lymphocytes % Monocytes % Eosinophils % Basophils % Nucleated RBC % Sodium 120 L 122 L 126 L Potassium 4.3 4.1 3.9 Chloride 86 L 87 L 93 L Carbon Dioxide 26 26 26 Anion Gap 7 L 9 7 L BUN 14.5 15.4 13.1 Creatinine 0.8 0.9 0.8 Est GFR (CKD-EPI)AfAm 77.92 67.57 77.92 Est GFR (CKD-EPI)NonAf 67.23 58.30 67.23 Random Glucose 121 H 116 H 84 Serum Osmolality Calcium 9.1 8.8 9.4 Total Bilirubin AST ALT Alkaline Phosphatase Creatine Kinase Troponin I Total Protein Albumin TSH 2.71 Urine Color Urine Appearance Urine pH Ur Specific Ruby Urine Protein Urine Glucose (UA) Urine Ketones Urine Blood Urine Nitrite Urine Bilirubin Urine Urobilinogen Ur Leukocyte Esterase Urine WBC (Auto) Urine RBC (Auto) Urine Casts (Auto) U Epithel Cells (Auto) Urine Bacteria (Auto) Urine Osmolality Ur Random Sodium Ur Random Potassium Ur Random Chloride 08/28/18 10:26 WBC RBC Hgb Hct MCV MCH MCHC RDW Plt Count MPV Absolute Neuts (auto) Neutrophils % Lymphocytes % Monocytes % Eosinophils % Basophils % Nucleated RBC % Sodium 127 L Potassium Chloride Carbon Dioxide Anion Gap BUN Creatinine Est GFR (CKD-EPI)AfAm Est GFR (CKD-EPI)NonAf Random Glucose Serum Osmolality Calcium Total Bilirubin AST ALT Alkaline Phosphatase Creatine Kinase Troponin I Total Protein Albumin TSH Urine Color Urine Appearance Urine pH Ur Specific Ruby Urine Protein Urine Glucose (UA) Urine Ketones Urine Blood Urine Nitrite Urine Bilirubin Urine Urobilinogen Ur Leukocyte Esterase Urine WBC (Auto) Urine RBC (Auto) Urine Casts (Auto) U Epithel Cells (Auto) Urine Bacteria (Auto) Urine Osmolality Ur Random Sodium Ur Random Potassium Ur Random Chloride CT chest results reviewed ASSESSMENT AND PLAN: 83 yof with PMHx of HTN, HLD, chronic depression, chronic anxiety, chronic daily tobacco usage(1.5ppd x 70ys), HFpEF(NYHA Class I with apical wall hypokinesis, PASP>29mmHg; Mar 2018 echo), h/o of CAD, h/o of hospitalization in Mar 2018 for AMS/hpyonatremia/Pericardial/pleural effusion/elevated trop/ eosinophilia, comes with weakness/poor oral intake and hypontremia. -Severe Hypotonic hyponatremia, r/o underlying SIADH compounded by hypovolumia from poor oral intake -Chronic systolic/Diastolic heart failure -CAD with abnormal stress test (refused work up) -Recent eosinophilia, resolved -Chronic tobacco use -HTN -HLD -Depression/anxiety Plan: Received IVF overnight. Na improved. D/c IVF, 1.8 L fluid restriction. urine studies/serum osmo noted. CXR/CT chest neg for mass or concerns. Follow up renal input. Monitor volume status. Continue diltiazem/metoprolol/aldactone. Hold lexapro DVTPPX lovenox PT eval Dispo pending clinical improvement. Plan discussed with patient and nursing in detail, all questions answered.
--- NOTE | 2018-08-28 14:49 | EKG ---
Test Reason : Blood Pressure : / mmHG Vent. Rate : 058 BPM Atrial Rate : 058 BPM P-R Int : 164 ms QRS Dur : 080 ms QT Int : 500 ms P-R-T Axes : 011 -08 -02 degrees QTc Int : 490 ms POOR DATA QUALITY, INTERPRETATION MAY BE ADVERSELY AFFECTED SINUS BRADYCARDIA POSSIBLE LEFT ATRIAL ENLARGEMENT ABNORMAL ECG WHEN COMPARED WITH ECG OF 01-APR-2018 09:35, PREMATURE VENTRICULAR COMPLEXES ARE NO LONGER PRESENT VENT. RATE HAS DECREASED BY 44 BPM QUESTIONABLE CHANGE IN QRS AXIS NONSPECIFIC T WAVE ABNORMALITY, IMPROVED IN ANTEROLATERAL LEADS Confirmed by MD MATTHEW, PRISCA ([id number]) on 08/28/2018 2:48:57 PM Referred By: Confirmed By:PRISCA CASTRO MD
--- NOTE | 2018-08-28 15:49 | CONSULT ---
Consult Consult Specialty:: Nephrology Reason for Consultation:: hyponatremia - History of Present Illness Chief Complaint: weakness and decreased PO intake History of Present Illness: Pt is an 83 year old female with pmhx of hyponatremia, htn, hld, anxiety, and depression who presents to the ER wit decreased PO intake and weakness. She was found to be hyponatremic and I was called to evaluate her. She has history of hyponatremia. She did respond to saline. She feels better today. She has not been eating much and says that she has been trying to drink as much water as possible. She was also on lexapro and spironolactone. She denies dysuria or hematuria. - History Source History Provided By: Patient, Medical Record - Past Medical History Cardio/Vascular: Yes: CAD, HTN, Hyperlipdemia Pulmonary: Yes: COPD Gastrointestinal: Yes: Constipation Psych: Yes: Anxiety, Depression - Past Surgical History Past Surgical History: Yes: Appendectomy (together with TAHBSO), Hysterectomy ( TAHBSO for fibroids), Tonsillectomy - Alcohol/Substance Use Hx Alcohol Use: No History of Substance Use: reports: None - Smoking History Smoking history: Current every day smoker Have you smoked in the past 12 months: Yes Aproximately how many cigarettes per day: 30 - Social History Usual Living Arrangement: Alone () ADL: Independent Occupation: retired teacher's aid History of Recent Travel: No Home Medications - Allergies Allergies/Adverse Reactions: Allergies Allergy/AdvReac Type Severity Reaction Status Date / Time No Known Allergies Allergy Verified 08/27/18 17:23 - Home Medications Home Medications: Ambulatory Orders Aspirin 81 mg PO DAILY 11/17/14 Diltiazem HCl [Cartia Xt] 120 mg PO DAILY 11/17/14 Escitalopram Oxalate [Lexapro 5mg/5mL Oral Solution -] 20 mg PO DAILY #600 ml Rosuvastatin Calcium [Crestor] 10 mg PO HS tablet 11/17/14 Albuterol 0.083% Nebulizer Kalani [Ventolin 0.083% Nebulizer Soln -] 1 amp NEB Q6H PRN #1 amp 04/06/18 Calamine 8% Topical Lotion - 1 applic TP TID PRN #1 bottle 04/06/18 Metoprolol Succinate [Toprol XL -] 25 mg PO DAILY #30 tab.sr.24h 04/06/18 Spironolactone [Aldactone -] 25 mg PO DAILY #30 tablet 04/06/18 Tiotropium [place] [Spiriva Respimat] 2 puff IH DAILY #1 inhaler 04/06/18 Alendronate Sodium 70 mg PO WEEKLY 08/28/18 Cholecalciferol (Vitamin D3) [Vitamin D3] 1,000 units PO DAILY 08/28/18 Cyanocobalamin (Vitamin B-12) [Vitamin B-12] 1,000 mcg PO DAILY 08/28/18 predniSONE [Deltasone -] See Taper PO DAILY 08/28/18 Family Disease History - Family Disease History Family Disease History: CA: Mother ( 92 colon cancer), Brother ( pancreatic cancer), Other: Father ( 84 natural causes) Review of Systems - Review of Systems Constitutional: reports: Loss of Appetite, Malaise Eyes: reports: No Symptoms HENT: reports: No Symptoms Neck: reports: No Symptoms Cardiovascular: reports: No Symptoms Respiratory: reports: No Symptoms Gastrointestinal: reports: No Symptoms Genitourinary: reports: No Symptoms Musculoskeletal: reports: No Symptoms Integumentary: reports: No Symptoms Neurological: reports: No Symptoms Endocrine: reports: No Symptoms Hematology/Lymphatic: reports: No Symptoms Psychiatric: reports: No Symptoms Physical Exam Vital Signs: Vital Signs Temperature 97.8 F 08/28/18 09:00 Pulse Rate 74 08/28/18 09:00 Respiratory Rate 18 08/28/18 09:00 Blood Pressure 135/70 08/28/18 09:00 O2 Sat by Pulse Oximetry (%) 96 08/28/18 09:00 Constitutional: Yes: Calm Eyes: Yes: Conjunctiva Clear HENT: Yes: Atraumatic Cardiovascular: Yes: S1, S2 Respiratory: Yes: CTA Bilaterally Gastrointestinal: Yes: Soft Renal/: Yes: WNL Musculoskeletal: Yes: WNL Extremities: Yes: WNL Edema: No Integumentary: Yes: WNL Neurological: Yes: Oriented Psychiatric: Yes: Oriented Labs: CBC, BMP 08/27/18 18:10 08/28/18 10:26 Laboratory Tests 04/03/18 08/27/18 08/27/18 06:00 18:10 21:10 WBC 10.5 H Hgb 13.4 Eosinophils % 53.0 H* Sodium Urine Protein Trace Urine Blood 1+ H 07/01/19 07/01/19 07/02/19 22:10 23:20 06:45 WBC Hgb Eosinophils % Sodium 120 L 122 L 126 L Urine Protein Urine Blood 08/28/18 10:26 WBC Hgb Eosinophils % Sodium 127 L Urine Protein Urine Blood Imaging - Results Cat Scan: Report Reviewed Problem List - Problems (1) Dehydration Code(s): E86.0 - DEHYDRATION (2) Weakness Code(s): R53.1 - WEAKNESS Assessment/Plan Current Medications Generic Name Dose Route Start Last Admin Trade Name Freq PRN Reason Stop Dose Admin Albuterol Sulfate 1 amp 08/28/18 02:07 Ventolin 0.083% Nebulizer Soln - NEB Q6H PRN SHORT OF BREATH/WHEEZING Aspirin 81 mg 08/28/18 10:00 08/28/18 10:17 Asa - PO 81 mg DAILY [facility] Administration Budesonide/Formoterol Fumarate 2 puff 08/28/18 10:00 08/28/18 10:17 Symbicort 80/4.5mcg - IH 2 sheet BID [facility] Administration Diltiazem HCl 120 mg 08/28/18 10:00 08/28/18 10:17 Cardizem Cd - PO 120 mg DAILY [facility] Administration Enoxaparin Sodium 40 mg 08/28/18 10:00 08/28/18 10:17 Lovenox - SQ 40 mg DAILY [facility] Administration Metoprolol Succinate 25 mg 08/28/18 06:18 08/28/18 10:18 Toprol Xl - PO 25 mg DAILY [facility] Administration Rosuvastatin Calcium 10 mg 08/28/18 22:00 Crestor - PO HS [facility] Spironolactone 25 mg 08/28/18 06:19 08/28/18 10:17 Aldactone - PO 25 mg DAILY [facility] Administration Laboratory Tests 08/27/18 03:50 Urine Osmolality 123 L Ur Random Sodium 34 L Impression 1. hyponatremia 2. axiety 3. depression 4. htn 5. tobacco use Plan - stop aldactone - sodium improve - stop saline and restrict free water - psych eval, will need to change lexapro to alternate agent - hyponatremia multifactorial - urine osm was low which is not consistent with siadh
--- NOTE | 2018-08-28 16:45 | CON.PSY ---
Psychiatry Consult Chief Complaint: 83 [place] old female with a long history of Depression and has been on Lexapro. Patient seen for Psych eval for Hyponatremia from Lexapro. - Previous Psychiatric Treatment Outpatient: More than 6 mos ago Inpatient: None - Previous Substance Abuse Treatment Outpatient: None, More than 6 mos ago Inpatient: None - Reason for Previous Treatment Reason for Previous Treatment: Major Depression - Current Medications Current Medications: Active Medications Albuterol Sulfate (Ventolin 0.083% Nebulizer Soln -) 1 amp NEB Q6H PRN PRN Reason: SHORT OF BREATH/WHEEZING Aspirin (Asa -) 81 mg PO DAILY [facility] Last Admin: 08/28/18 10:17 Dose: 81 mg Budesonide/Formoterol Fumarate (Symbicort 80/4.5mcg -) 2 puff IH BID [facility] Last Admin: 08/28/18 10:17 Dose: 2 sheet Diltiazem HCl (Cardizem Cd -) 120 mg PO DAILY [facility] Last Admin: 08/28/18 10:17 Dose: 120 mg Enoxaparin Sodium (Lovenox -) 40 mg SQ DAILY [facility] Last Admin: 08/28/18 10:17 Dose: 40 mg Metoprolol Succinate (Toprol Xl -) 25 mg PO DAILY [facility] Last Admin: 08/28/18 10:18 Dose: 25 mg Rosuvastatin Calcium (Crestor -) 10 mg PO [facility] Spironolactone (Aldactone -) 25 mg PO DAILY [facility] Last Admin: 08/28/18 10:17 Dose: 25 mg - Allergies Allergies: Allergies Allergy/AdvReac Type Severity Reaction Status Date / Time No Known Allergies Allergy Verified 08/27/18 17:23 - Current Living Status Usual Living Arrangement: Alone - Current Mental Status Evaluation Appearance: Well Groomed Attitude: Cooperative - Affect Affect: Full Range Appropriateness: Appropriate to Content - Mood Mood: Euthymic - Speech/Language Expressive: Coherent - Psychomotor Activity Psychomotor Activity: Normal - Thought Process Thought Process: Intact - Thought Content Hallucinations: Absent Delusions: Absent - Self Perception Self Perception: No Impairment - Cognition Attention: Alert Orientation: Time Memory, Immediate Recall: Intact Memory, Short Term: 3/3 Memory, Remote with Promptin/3 - Concentration Serial Sevens Intact: Yes Simple Calculations Intact: Yes - Abstraction Proverb Interpretation: Intact - Insight Insight: Intact - Impulse Control Impulse Control: Good Control - Suicidal Ideation Suicidal Ideation: No - Homicidal Ideation Homicidal Ideation: No Assessment/Plan 1) Patient is euthymic at this time. 2) suggested Wellbutrin 75mg po od for DEpression but, patient does not want to take any meds for DEpression at this time.
[2018-08-28] MEDS ORDERED: ROSUVASTATIN CA 5 MG TABLET (FP) PO SCH (22:00)
[2018-08-29 07:00] VITALS: BP 109/77; PULSE 64; TEMP 97.8
[2018-08-29 07:46] LABS: HEMOGLOBIN 12.8 GM/dL (10.7-15.3); MCH 29.6 pg (25.7-33.7); MCHC 34.5 g/dl (32.0-36.0); MEAN CELL VOLUME 85.8 fl (80-96); MEAN PLT VOLUME 7.8 fl (7.5-11.1); PLATELET COUNT 267 K/MM3 (134-434); RBC 4.31 M/mm3 (3.60-5.2); RDW 14.1 % (11.6-15.6); WHITE BLOOD COUNT 7.3 K/mm3 (4.0-10.0)
[2018-08-29 08:18] LABS: BLOOD UREA NITROGEN 19.5 mg/dL (7-18); CALCIUM 9.1 mg/dL (8.5-10.1); MAGNESIUM 2.1 mg/dL (1.8-2.4); PHOSPHOROUS 3.6 mg/dL (2.5-4.9); POTASSIUM 4.1 mmol/L (3.5-5.1)
[2018-08-29] MEDS: ENOXAPARIN NA (PORCINE) 40 MG/0.4 ML DISP.SYRIN SQ SCH (11:04)
[2018-08-29] MEDS: ASPIRIN 81 MG CHEWABLE TABLETS PO SCH (11:05)
[2018-08-29] MEDS: metoPROLOL SUCCINATE 25 MG TAB.SR.24H (FP) PO SCH (11:05)
[2018-08-29] MEDS: SPIRONOLACTONE 25 MG TABLET (FP) PO SCH (11:05)
[2018-08-29] MEDS: BUDESONIDE/FORMETEROL FUMARATE 80/4.5 mcg INHALER IH SCH (11:09)
--- NOTE | 2018-08-29 11:30 | PN ---
Teaching Attending Note Name of Resident: Jelena Encinas ATTENDING PHYSICIAN STATEMENT I saw and evaluated the patient. I reviewed the resident's note and discussed the case with the resident. I agree with the resident's findings and plan as documented. SUBJECTIVE: Patient has no complaints. OBJECTIVE: Vital Signs Period Temp Pulse Resp BP Sys/[place] Pulse Ox Last 24 Hr 97.8 F-98.4 F 63-72 18-20 109-161/58-77 HEART: S1S2, RRR LUNGS: Clear with diminished BS ABDOMEN: Soft, non-tender, non-distended, normal BS EXTREMITIES: No edema Laboratory Results - last 24 hr 08/28/18 08/28/18 08/29/18 14:45 18:30 06:39 WBC 7.3 RBC 4.31 Hgb 12.8 Hct 37.0 MCV 85.8 MCH 29.6 MCHC 34.5 RDW 14.1 Plt Count 267 MPV 7.8 Sodium 131 L 130 L Potassium Chloride Carbon Dioxide Anion Gap BUN Creatinine Est GFR (CKD-EPI)AfAm Est GFR (CKD-EPI)NonAf Random Glucose Calcium Phosphorus Magnesium TSH 08/29/18 06:39 WBC RBC Hgb Hct MCV MCH MCHC RDW Plt Count MPV Sodium 132 L Potassium 4.1 Chloride 98 Carbon Dioxide 27 Anion Gap 7 L BUN 19.5 H Creatinine 1.0 Est GFR (CKD-EPI)AfAm 59.49 Est GFR (CKD-EPI)NonAf 51.33 Random Glucose 79 Calcium 9.1 Phosphorus 3.6 Magnesium 2.1 TSH 1.31 Current Medications Generic Name Dose Route Start Last Admin Trade Name Freq PRN Reason Stop Dose Admin Albuterol Sulfate 1 amp 08/28/18 02:07 Ventolin 0.083% Nebulizer Soln - NEB Q6H PRN SHORT OF BREATH/WHEEZING Aspirin 81 mg 08/28/18 10:00 08/29/18 11:05 Asa - PO 81 mg DAILY [facility] Administration Budesonide/Formoterol Fumarate 2 puff 08/28/18 10:08/29/18 11:09 Symbicort 80/4.5mcg - IH 2 puff BID [facility] Administration Diltiazem HCl 120 mg 08/28/18 10:00 08/29/18 11:05 Cardizem Cd - PO 120 mg DAILY [facility] Administration Enoxaparin Sodium 40 mg 08/28/18 10:00 08/29/18 11:04 Lovenox - SQ 40 mg DAILY [facility] Administration Metoprolol Succinate 25 mg 08/28/18 06:18 08/29/18 11:05 Toprol Xl - PO 25 mg DAILY [facility] Administration Rosuvastatin Calcium 10 mg 08/28/18 22:00 08/28/18 22:29 Crestor - PO 10 mg HS [facility] Administration Spironolactone 25 mg 08/28/18 06:19 08/29/18 11:05 Aldactone - PO 25 mg DAILY [facility] Administration ASSESSMENT AND PLAN: This is an 83 year old woman with a history of HTN, hyperlipidemia, CAD, chronic systolic/diastolic heart failure, depression, anxiety, tobacco use who presented to the ED with weakness and poor oral intake. 1. Hyponatremia - Multifactorial including increased water intake, Lexapro use, Aldactone use - Sodium improved with IV fluid - Patient does not want to change antidepressant - Continue free water restriction 2. Chronic systolic and diastolic heart failure - Stable - Continue Aldactone 3. CAD - Has refused further workup and wants only medical management - Continue aspirin, Toprol XL, Crestor 4. HTN - Continue Toprol XL, Cardizem CD, Aldactone 5. Hyperlipidemia - Continue Crestor 6. Depression with anxiety - Continue Lexapro 7. Nicotine dependence - Patient not interested in smoking cessation 8. Disposition - Ok for discharge home today with close monitoring of electrolytes
--- NOTE | 2018-08-29 12:54 | DS ---
Physical Exam: SUBJECTIVE: Patient seen and examined. Pt dressed early in the morning and says she is going home today because her sons are coming to pick her up. Per nurse, pt has been very active and she was worried she may want to abscond. Denies headaches, dizziness, unsteady gait. OBJECTIVE: Vital Signs Period Temp Pulse Resp BP Sys/[place] Pulse Ox Last 24 Hr 97.8 F-98.4 F 63-72 18-20 109-161/58-77 Vital Signs Temp 97.8 F 08/29/18 06:58 Pulse 64 08/29/18 06:58 Resp 18 08/29/18 06:58 BP 109/77 08/29/18 06:58 Pulse Ox 95 08/29/18 09:00 Intake & Output 08/28/18 08/29/18 08/29/18 23:59 11:59 23:59 Intake Total 400 0 Balance 400 0 Intake: IV 300 0 Normal Saline - 1,000 ml 300 @ 100 mls/hr IV ASDIR [facility]VEL Rx#:[id number] SL 0 Oral 100 0 Other: Voiding Method Toilet # Unmeasured Voids Void 2 2 PHYSICAL EXAM GENERAL: The patient is awake, alert, and fully oriented, in no acute distress. EYES: PERRL, extraocular movements intact, sclera anicteric, conjunctiva clear. ENT: moist mucous membranes. NECK: supple. LUNGS: Breath sounds equal, clear to auscultation bilaterally, no wheezes, no crackles HEART: Regular rate and rhythm, S1, S2 ABDOMEN: Soft, nontender, nondistended, normoactive bowel sounds EXTREMITIES: 2+ pulses, warm, well-perfused, no edema. NEUROLOGICAL: Pt very excited, restless with alot of energy and activity. Pressure of speech. Cranial nerves II through XII grossly intact. No gait abnormality. PSYCH: Elated mood SKIN: Warm, dry, normal turgor, no rashes or lesions noted. CBC, BMP 08/29/18 06:39 08/29/18 06:39 LABS Laboratory Results - last 24 hr 08/28/18 08/28/18 08/29/18 14:45 18:30 06:39 WBC 7.3 RBC 4.31 Hgb 12.8 Hct 37.0 MCV 85.8 MCH 29.6 MCHC 34.5 RDW 14.1 Plt Count 267 MPV 7.8 Sodium 131 L 130 L Potassium Chloride Carbon Dioxide Anion Gap BUN Creatinine Est GFR (CKD-EPI)AfAm Est GFR (CKD-EPI)NonAf Random Glucose Calcium Phosphorus Magnesium TSH 08/29/18 06:39 WBC RBC Hgb Hct MCV MCH MCHC RDW Plt Count MPV Sodium 132 L Potassium 4.1 Chloride 98 Carbon Dioxide 27 Anion Gap 7 L BUN 19.5 H Creatinine 1.0 Est GFR (CKD-EPI)AfAm 59.49 Est GFR (CKD-EPI)NonAf 51.33 Random Glucose 79 Calcium 9.1 Phosphorus 3.6 Magnesium 2.1 TSH 1.31 Laboratory Tests 08/28/18 08/28/18 08/28/18 06:45 10:26 14:45 Sodium 126 L 127 L 131 L 08/28/18 08/29/18 18:30 06:39 Sodium 130 L 132 L HOSPITAL COURSE: Date of Admission:08/27/18 Date of Discharge: 08/29/18 Pt is an 83F with pmh of HTN, HLD, chronic depression, chronic anxiety, chronic daily tobacco usage(1.5ppd x 70ys), HFpEF(NYHA Class I with apical wall hypokinesis, PASP>29mmHg; Mar 2018 echo), h/o of CAD, h/o of hospitalization in Mar 2018 for AMS and hyponatremia that resolved with fluid restriction; presents to [facility] for complaint of altered gait, poor PO intake, and fatigue x3days. Admitted for hyponatremia. Pt was initially dehydrated with hyponatremia responding rapidly to fluid. Intravenous fluids were stopped and fluid restricted with more gradually improvement of hyponatremia. Initial possibility of SIADH entertained as pt is a chronic everyday smoker with risk for SCC, but serum and urinary osmolality were not suggestive of SIADH. Pt's lexapro was held while in hospital and she was seen by Psychiatrist and recommended alternative -Wellbutrin, but pt declined. Pt's lexapro was reinstated on discharge and pt advised to follow up with her primary care doctor and discuss an alternative psych medication. Pt was also recommended to follow Dr Guardado to monitor her sodium as an outpatient. Minutes to complete discharge: 40 Discharge Summary Reason For Visit: HYPONATREMIA Current Active Problems Dehydration (Acute) Weakness (Acute) Condition: Improved - Instructions Diet, Activity, Other Instructions: You came in for generalized weakness and were found to have low sodium You appeared dehydrated and got some fluids Your sodium number has since improved You were taking a medication lexapro that could contribute to low sodium While you were here, we did not give you lexapro We had a psychiatrist talk to you about alternative medications Please follow up with your primary care doctor about alternatives to lexapro Continue with your other medications as prescribed Limit your water intake Please follow up with the kidney doctor- Dr Guardado in a week's time and follow up with your primary care doctor in a week's time If you feel increased weakness, dizziness, headaches, shortness of breath or chest pain please go to the nearest emergency room Referrals: Dora Reaves MD [Primary Care Provider] - 1 Week Bandar Guardado MD [Staff Physician] - 1 Week Disposition: HOME - Home Medications Comprehensive Discharge Medication List: Ambulatory Orders Aspirin 81 mg PO DAILY 11/17/14 Diltiazem HCl [Cartia Xt] 120 mg PO DAILY 11/17/14 Escitalopram Oxalate [Lexapro 5mg/5mL Oral Solution -] 20 mg PO DAILY #600 ml Rosuvastatin Calcium [Crestor] 10 mg PO HS tablet 11/17/14 Albuterol 0.083% Nebulizer [place] [Ventolin 0.083% Nebulizer Soln -] 1 amp NEB Q6H PRN #1 amp 04/06/18 Metoprolol Succinate [Toprol XL -] 25 mg PO DAILY #30 tab.sr.24h 04/06/18 Spironolactone [Aldactone -] 25 mg PO DAILY #30 tablet 04/06/18 Tiotropium [place] [Spiriva Respimat] 2 puff IH DAILY #1 inhaler 04/06/18 Alendronate Sodium 70 mg PO WEEKLY 08/28/18 Cholecalciferol (Vitamin D3) [Vitamin D3] 1,000 units PO DAILY 08/28/18 Cyanocobalamin (Vitamin B-12) [Vitamin B-12] 1,000 mcg PO DAILY 08/28/18 This patient is new to me today: No Emergency Visit: Yes ED Registration Date: 08/27/18 Care time: The patient presented to the Emergency Department on the above date and was hospitalized for further evaluation of their emergent condition. Critical Care patient: No - Discharge Referral Referred to [facility] Med P.C.: No
--- NOTE | 2018-08-29 13:02 | PN ---
Progress Note, Physician History of Present Illness: Pt seen and examined at bedside. She is awake and alert. She denies shortness of breath. - Current Medication List Current Medications: Active Medications Albuterol Sulfate (Ventolin 0.083% Nebulizer Soln -) 1 amp NEB Q6H PRN PRN Reason: SHORT OF BREATH/WHEEZING Aspirin (Asa -) 81 mg PO DAILY [facility] Last Admin: 08/29/18 11:05 Dose: 81 mg Budesonide/Formoterol Fumarate (Symbicort 80/4.5mcg -) 2 puff IH BID [facility] Last Admin: 08/29/18 11:09 Dose: 2 puff Diltiazem HCl (Cardizem Cd -) 120 mg PO DAILY [facility] Last Admin: 08/29/18 11:05 Dose: 120 mg Enoxaparin Sodium (Lovenox -) 40 mg SQ DAILY [facility] Last Admin: 08/29/18 11:04 Dose: 40 mg Metoprolol Succinate (Toprol Xl -) 25 mg PO DAILY [facility] Last Admin: 08/29/18 11:05 Dose: 25 mg Rosuvastatin Calcium (Crestor -) 10 mg PO HS [facility] Last Admin: 08/28/18 22:29 Dose: 10 mg Spironolactone (Aldactone -) 25 mg PO DAILY [facility] Last Admin: 08/29/18 11:05 Dose: 25 mg - Objective Vital Signs: Vital Signs Temperature 97.8 F 08/29/18 06:58 Pulse Rate 64 08/29/18 06:58 Respiratory Rate 18 08/29/18 06:58 Blood Pressure 109/77 08/29/18 06:58 O2 Sat by Pulse Oximetry (%) 96 08/28/18 09:00 Constitutional: Yes: Calm Eyes: Yes: Conjunctiva Clear HENT: Yes: Atraumatic Neck: Yes: Supple Cardiovascular: Yes: S1, S2 Respiratory: Yes: CTA Bilaterally Gastrointestinal: Yes: Soft Genitourinary: Yes: WNL Musculoskeletal: Yes: WNL Extremities: Yes: WNL Edema: No Neurological: Yes: Oriented Psychiatric: Yes: Oriented Labs: CBC, BMP 08/29/18 06:39 08/29/18 06:39 Problem List - Problems (1) Dehydration Code(s): E86.0 - DEHYDRATION (2) Weakness Code(s): R53.1 - WEAKNESS Assessment/Plan Current Medications Generic Name Dose Route Start Last Admin Trade Name Freq PRN Reason Stop Dose Admin Albuterol Sulfate 1 amp 08/28/18 02:07 Ventolin 0.083% Nebulizer Soln - NEB Q6H PRN SHORT OF BREATH/WHEEZING Aspirin 81 mg 08/28/18 10:00 08/29/18 11:05 Asa - PO 81 mg DAILY [facility] Administration Budesonide/Formoterol Fumarate 2 puff 08/28/18 10:00 08/29/18 11:09 Symbicort 80/4.5mcg - IH 2 puff BID [facility] Administration Diltiazem HCl 120 mg 08/28/18 10:00 08/29/18 11:05 Cardizem Cd - PO 120 mg DAILY [facility] Administration Enoxaparin Sodium 40 mg 08/28/18 10:00 08/29/18 11:04 Lovenox - SQ 40 mg DAILY [facility] Administration Metoprolol Succinate 25 mg 08/28/18 06:18 08/29/18 11:05 Toprol Xl - PO 25 mg DAILY [facility] Administration Rosuvastatin Calcium 10 mg 08/28/18 22:00 08/28/18 22:29 Crestor - PO 10 mg HS [facility] Administration Spironolactone 25 mg 08/28/18 06:19 08/29/18 11:05 Aldactone - PO 25 mg DAILY [facility] Administration Impression 1. hyponatremia 2. axiety 3. depression 4. htn 5. tobacco use Plan - sodium is improved - psych input appreciated, pt not compiant with meds - restrict free water, spoke to pt and son - will need outpt follow up of electrolytes - encourage PO intake - hyponatremia multifactorial - urine osm was low which is not consistent with siadh
== END 2018-08-29 14:05 | disposition home or self-care (01) | DRG 641 ==
LOC: JER 17:11 → JERBED 23:09 → J8W 08-28 02:19
PROVIDERS: ADMIT Internal Medicine; ATTEND Internal Medicine
DX: E87.1 Hypo-osmolality and hyponatremia (principal); R64 Cachexia; I50.42 Chronic combined systolic (congestive) and diastolic (congestive) heart failure; Z68.1 Body mass index [BMI] 19.9 or less, adult; I11.0 Hypertensive heart disease with heart failure; J44.9 Chronic obstructive pulmonary disease, unspecified; F17.210 Nicotine dependence, cigarettes, uncomplicated; F41.9 Anxiety disorder, unspecified; E86.0 Dehydration; E03.9 Hypothyroidism, unspecified; I36.1 Nonrheumatic tricuspid (valve) insufficiency; I25.10 Atherosclerotic heart disease of native coronary artery without angina pectoris; F32.9 Major depressive disorder, single episode, unspecified; E86.1 Hypovolemia; Z90.710 Acquired absence of both cervix and uterus
CPT/HCPCS: 36415; 71046-TC-FY; 71250-TC; 80048; 80053; 81003; 82436; 82533; 82550; 83735; 83930; 83935; 84100; 84133; 84295; 84300; 84443; 84484; 85025; 85027; 93005; 93010; 97116-GP; 97161-GP; 99284-25; J7030

== ENCOUNTER 2021-10-11 14:28 | Inpatient (IN) | payer OTHER, BC ==
[2021-10-11 15:01] VITALS: BMI 27.1
[2021-10-11] MEDS ORDERED: ACETAMINOPHEN 1000 MG/100 ML BAG IVPB ONE (16:34)
[2021-10-11 16:45] LABS: BASO % 0.3 % (0-2.0); EOS % 0.1 % (0-4.5); HEMATOCRIT 34.4 % (32.4-45.2); HEMOGLOBIN 12.3 GM/dL (10.7-15.3); LYMPH % 7.5 % (8-40); MCH 30.6 pg (25.7-33.7); MCHC 35.6 g/dl (32.0-36.0); MEAN CELL VOLUME 85.9 fl (80-96); MONO % 4.6 % (3.8-10.2); NEUT % 87.5 % (42.8-82.8); PLATELET COUNT 316 10^3/uL (134-434); RBC 4.01 M/mm3 (3.60-5.2); RDW 13.8 % (11.6-15.6); WHITE BLOOD COUNT 12.6 K/mm3 (4.0-10.0)
[2021-10-11 16:51] LABS: INR 1.07 (0.83-1.09); PROTHROMBIN TIME (PATIENT) 12.3 SEC (9.7-13.0)
[2021-10-11 16:53] LABS: ACTIVATED PTT 29.5 SECONDS (25.2-36.5)
[2021-10-11 17:12] LABS: CHLORIDE 97 mmol/L (98-107); SODIUM 130 mmol/L (136-145)
[2021-10-11 17:14] LABS: ALBUMIN 3.4 g/dl (3.4-5.0); CALCIUM 9.2 mg/dL (8.5-10.1); CO2 26 mmol/L (21-32); GLUCOSE,RANDOM 126 mg/dL (74-106)
[2021-10-11 17:15] LABS: BLOOD UREA NITROGEN 26.9 mg/dL (7-18)
[2021-10-11 17:18] LABS: CREATININE 1.3 mg/dL (0.55-1.3)
[2021-10-11] MEDS ORDERED: ACETAMINOPHEN INJECTION 100 ML IVPB ONE (17:18)
[2021-10-11 17:19] LABS: BILIRUBIN,TOTAL 0.4 mg/dL (0.2-1)
[2021-10-11 17:20] LABS: ALK PHOS 138 U/L (45-117)
[2021-10-11 17:41] LABS: ANION GAP 6 MMOL/L (8-16); SGOT/AST 112 U/L (15-37); SGPT/ALT 31 U/L (13-61)
[2021-10-11] MEDS ORDERED: ALBUTEROL SO4 0.083% IH SOL 2.5 MG/3 ML VIAL.NEB. NEB PRN (17:46)
[2021-10-11] MEDS ORDERED: ACETAMINOPHEN 1000 MG/100 ML BAG IVPB PRN (17:51)
[2021-10-11] MEDS: DEXTROSE 5%-0.45% SALINE 1,000 ML IV SCH (18:55)
[2021-10-11 19:32] LABS: CALCIUM 9.5 mg/dL (8.5-10.1)
[2021-10-11 19:33] LABS: BLOOD UREA NITROGEN 27.5 mg/dL (7-18)
[2021-10-11 19:36] LABS: CREATININE 0.9 mg/dL (0.55-1.3)
[2021-10-11 20:52] LABS: EPI CELLS 29 /uL (0-25.1); HYALINE CASTS 1 /uL (0-3.1); PH,URINE 6.5 (5.0-8.0); URINE APPEARANCE CLEAR; URINE BACTERIA 570 /uL (0-1359); URINE BILIRUBIN NEGATIVE (NEGATIVE); URINE COLOR YELLOW; URINE GLUCOSE (UA) NEGATIVE (NEGATIVE); URINE KETONE NEGATIVE (NEGATIVE); URINE LEUK ESTERASE NEGATIVE (NEGATIVE); URINE NITRITE NEGATIVE (NEGATIVE); URINE PROTEIN 3+ (NEGATIVE); URINE RBC 37 /uL (0-23.9); URINE UROBILINOGEN 0.2 mg/dL (0.2-1.0); URINE WBC 24 /uL (0-25.8)
[2021-10-11] MEDS ORDERED: ROSUVASTATIN CA 5 MG TABLET PO SCH (22:00)
[2021-10-11] MEDS ORDERED: LORazepam 2 MG/ML SDV VIAL IVPUSH ONE (23:06)
[2021-10-12 09:18] LABS: HEMATOCRIT 36.5 % (32.4-45.2); HEMOGLOBIN 12.4 GM/dL (10.7-15.3); MCH 29.5 pg (25.7-33.7); MCHC 33.9 g/dl (32.0-36.0); MEAN CELL VOLUME 86.8 fl (80-96); MEAN PLT VOLUME 8.1 fl (7.5-11.1); PLATELET COUNT 288 10^3/uL (134-434); RDW 13.5 % (11.6-15.6); WHITE BLOOD COUNT 12.4 K/mm3 (4.0-10.0)
[2021-10-12] MEDS ORDERED: ESCITALOPRAM OXALATE 5 MG/5 ML PO SCH (10:00)
[2021-10-12] MEDS ORDERED: TIOTROPIUM BROMIDE 2.5 MCG (SPIRIVA) RESPIMAT INHALER IH SCH (10:00)
[2021-10-12] MEDS ORDERED: metoPROLOL SUCCINATE 25 MG TAB.SR.24H (FP) PO SCH (10:00)
[2021-10-12 10:30] LABS: ANISOCYTOSIS 0; HELMET CELLS 0; HOWELL-JOLLY BODIES 0; MACROCYTOSIS 0; OVALOCYTE 0; ROULEAU 0; SICKELED CELLS 0; TARGET CELLS 0; TEAR DROP CELLS 0; TOXIC GRANULATION 0
[2021-10-12 10:40] LABS: ALBUMIN 3.6 g/dl (3.4-5.0); BILIRUBIN,TOTAL 0.5 mg/dL (0.2-1); BLOOD UREA NITROGEN 28.5 mg/dL (7-18); CALCIUM 9.1 mg/dL (8.5-10.1); CREATININE 1.2 mg/dL (0.55-1.3); TOT PROT 7.3 g/dl (6.4-8.2)
[2021-10-12] MEDS: LORazepam 2 MG/ML SDV VIAL IVPUSH PRN ×4 (12:26→19:53)
[2021-10-12] MEDS ORDERED: METOPROLOL TARTRATE 25 MG TABLET (FP) PO ONE (15:17)
[2021-10-12] MEDS ORDERED: ACETAMINOPHEN 1000 MG/100 ML BAG IVPB ONE (15:18)
[2021-10-12] MEDS ORDERED: PROPOFOL 20 ML ONE (15:44)
[2021-10-12] MEDS ORDERED: SUCCINYLCHOLINE CHLORIDE 200 MG/10 ML SYRINGE ONE (15:44)
[2021-10-12] MEDS ORDERED: DEXMEDETOMIDINE HCL 200 MCG/2 ML IVPB ONE (15:47)
[2021-10-12] MEDS ORDERED: BUPIVACAINE HCL/PF 0.5% (5MG/ML) 10 ML VIAL ONE (15:47)
[2021-10-12] MEDS ORDERED: PHENYLEPHRINE HCL 10 MG/1 ML SINGLE DOSE VIAL ONE (15:52)
[2021-10-12] MEDS ORDERED: ceFAZolin SODIUM 1 GM VIAL IVPB ONE (17:05)
[2021-10-12] MEDS: DEXTROSE 5%-0.45% SALINE 1,000 ML IV SCH (17:50)
[2021-10-12] MEDS ORDERED: DEXTROSE 5%-0.45% SALINE 1,000 ML IV SCH (18:43)
[2021-10-12] MEDS ORDERED: ALBUTEROL SO4 0.083% IH SOL 2.5 MG/3 ML VIAL.NEB. NEB PRN (18:43)
[2021-10-12] MEDS: hydrALAZINE HCL 20 MG/ML VIAL ONE ×2 (20:12→20:27)
[2021-10-12] MEDS ORDERED: ONDANSETRON 4 MG/2 ML VIAL IVPUSH PRN (21:46)
[2021-10-12] MEDS ORDERED: hydrALAZINE HCL 20 MG/ML VIAL IVPUSH ONE (21:46)
[2021-10-12] MEDS ORDERED: PROMETHAZINE HCL 25 MG/1 ML VIAL IVPUSH PRN (21:46)
[2021-10-12] MEDS ORDERED: LACTATED RINGERS SOLUTION 1,000 ML IV SCH (22:00)
[2021-10-12] MEDS: ROSUVASTATIN CA 10 MG TABLET PO SCH (22:35)
[2021-10-13] MEDS: CEFAZOLIN 1 GM in DEXTROSE 5%-WATER - 1 GM/50 ML IVPB IVPB SCH ×3 (00:56→17:12)
[2021-10-13] MEDS ORDERED: CEFAZOLIN 1 GM/D5W 1 GM/50 ML BAG IVPB SCH (01:00)
[2021-10-13 03:36] VITALS: RESP 18
[2021-10-13] MEDS ORDERED: ESCITALOPRAM OXALATE 10 MG TABLET ONE (09:01)
[2021-10-13 09:04] LABS: BASO % 0.1 % (0-2.0); HEMATOCRIT 31.1 % (32.4-45.2); HEMOGLOBIN 10.9 GM/dL (10.7-15.3); LYMPH % 5.8 % (8-40); MCH 30.3 pg (25.7-33.7); MCHC 35.1 g/dl (32.0-36.0); MEAN CELL VOLUME 86.2 fl (80-96); MEAN PLT VOLUME 7.9 fl (7.5-11.1); MONO % 6.1 % (3.8-10.2); PLATELET COUNT 239 10^3/uL (134-434); RBC 3.61 M/mm3 (3.60-5.2); RDW 13.4 % (11.6-15.6); WHITE BLOOD COUNT 11.9 K/mm3 (4.0-10.0)
[2021-10-13] MEDS: metoPROLOL SUCCINATE 25 MG TAB.SR.24H (FP) PO SCH (09:04)
[2021-10-13] MEDS: ESCITALOPRAM OXALATE 20 MG TABLET PO SCH (09:05)
[2021-10-13 09:37] LABS: ALBUMIN 2.9 g/dl (3.4-5.0)
[2021-10-13 09:38] LABS: TOT PROT 6.1 g/dl (6.4-8.2)
[2021-10-13 09:40] LABS: BILIRUBIN,TOTAL 1.1 mg/dL (0.2-1)
[2021-10-13 09:41] LABS: BLOOD UREA NITROGEN 25.7 mg/dL (7-18); CALCIUM 8.5 mg/dL (8.5-10.1)
[2021-10-13] MEDS: TIOTROPIUM BROMIDE 2.5 MCG (SPIRIVA) RESPIMAT INHALER IH SCH (10:23)
[2021-10-13] MEDS ORDERED: ACETAMINOPHEN 325 MG TABLET (FP) PO PRN (11:50)
[2021-10-13] MEDS: ACETAMINOPHEN 1000 MG/100 ML BAG IVPB PRN ×2 (13:35→22:02)
[2021-10-13] MEDS: ENOXAPARIN NA (PORCINE) 40 MG/0.4 ML DISP.SYRIN SQ SCH (17:53)
[2021-10-13] MEDS: ROSUVASTATIN CA 10 MG TABLET PO SCH (22:03)
[2021-10-14] MEDS ORDERED: ESCITALOPRAM OXALATE 10 MG TABLET ONE (08:51)
[2021-10-14] MEDS: metoPROLOL SUCCINATE 25 MG TAB.SR.24H (FP) PO SCH (09:08)
[2021-10-14] MEDS: ESCITALOPRAM OXALATE 20 MG TABLET PO SCH (09:08)
[2021-10-14] MEDS: TIOTROPIUM BROMIDE 2.5 MCG (SPIRIVA) RESPIMAT INHALER IH SCH (09:09)
[2021-10-14] MEDS: ENOXAPARIN NA (PORCINE) 40 MG/0.4 ML DISP.SYRIN SQ SCH (09:09)
[2021-10-14 09:17] LABS: BASO % 0.2 % (0-2.0); EOS % 0.5 % (0-4.5); HEMATOCRIT 32.6 % (32.4-45.2); HEMOGLOBIN 11.4 GM/dL (10.7-15.3); LYMPH % 7.2 % (8-40); MCH 30.4 pg (25.7-33.7); MCHC 34.9 g/dl (32.0-36.0); MEAN PLT VOLUME 7.8 fl (7.5-11.1); MONO % 6.4 % (3.8-10.2); NEUT % 85.7 % (42.8-82.8); PLATELET COUNT 238 10^3/uL (134-434); RBC 3.74 M/mm3 (3.60-5.2); RDW 13.6 % (11.6-15.6); WHITE BLOOD COUNT 11.1 K/mm3 (4.0-10.0)
[2021-10-14 09:46] LABS: ALBUMIN 2.7 g/dl (3.4-5.0); BILIRUBIN,TOTAL 0.6 mg/dL (0.2-1); BLOOD UREA NITROGEN 26.9 mg/dL (7-18); CALCIUM 8.3 mg/dL (8.5-10.1)
[2021-10-14] MEDS: ACETAMINOPHEN 1000 MG/100 ML BAG IVPB PRN (09:56)
[2021-10-14] MEDS ORDERED: ACETAMINOPHEN WITH CODEINE 300MG/30MG TABLET PO PRN (10:47)
[2021-10-14] MEDS: LORazepam 2 MG/ML SDV VIAL IVPUSH PRN (11:00)
[2021-10-14] MEDS: ROSUVASTATIN CA 10 MG TABLET PO SCH (21:19)
[2021-10-15 04:21] VITALS: TEMP 98.7
[2021-10-15] MEDS ORDERED: ESCITALOPRAM OXALATE 10 MG TABLET ONE (09:38)
[2021-10-15] MEDS: metoPROLOL SUCCINATE 25 MG TAB.SR.24H (FP) PO SCH (09:46)
[2021-10-15] MEDS: ESCITALOPRAM OXALATE 20 MG TABLET PO SCH (09:46)
[2021-10-15] MEDS: ENOXAPARIN NA (PORCINE) 40 MG/0.4 ML DISP.SYRIN SQ SCH (09:46)
[2021-10-15] MEDS: TIOTROPIUM BROMIDE 2.5 MCG (SPIRIVA) RESPIMAT INHALER IH SCH (09:46)
[2021-10-15] MEDS: LORazepam 2 MG/ML SDV VIAL IVPUSH PRN (14:03)
[2021-10-15 15:13] VITALS: BP 141/90; PULSE 91
== END 2021-10-15 19:17 | DRG 522 ==
LOC: JER 14:28 → JERBED 16:57 → J8W 22:43 → J6S 10-12 21:21
PROVIDERS: ADMIT Orthopaedic Surgery Sports Medicine; ATTEND Internal Medicine
PROC: 0SRR0J9 Replacement of Right Hip Joint, Femoral Surface with Synthetic Substitute, Cemented, Open Approach (ICD-10-PCS; principal; 2021-10-12 15:30)
DX: S72.001A Fracture of unspecified part of neck of right femur, initial encounter for closed fracture (principal); F03.91 Unspecified dementia, unspecified severity, with behavioral disturbance; I10 Essential (primary) hypertension; F41.8 Other specified anxiety disorders; E78.5 Hyperlipidemia, unspecified; W19.XXXA Unspecified fall, initial encounter; Y93.89 Activity, other specified; Y92.128 Other place in nursing home as the place of occurrence of the external cause; Y99.9 Unspecified external cause status
CPT/HCPCS: 36415; 70450-TC; 71045-TC-FY; 72125-TC; 72170-TC-FY; 73502-TC-RT-FY; 73521-TC-FY; 80048; 80053; 81003; 82550; 82553; 84484; 85025; 85610; 85730; 86850; 86900; 86901; 87086; 88305-TC; 88311-TC; 93005; 93010; 94760; 97116-GP; 97161-GP; 99285-25; C9803-CS; U0003; U0005